=== PATIENT | female | born 1965 | race Caucasian/White ===

== ENCOUNTER 2016-10-16 06:40 | Day surgery (SDC) | payer OTHER ==
[~2016-10-16 06:40] MED LIST: HEPARIN SODIUM,PORCINE 5,000 UNIT/ML 1 ML VIAL SQ ONE; LACTATED RINGERS 1,000 ML IV SCH; ceFAZolin 2 GM in SODIUM CHLORIDE 0.9% 100 ML IVPB ONE
[2016-10-16 06:56] VITALS: TEMP 97.7
[2016-10-16] MEDS ORDERED: LIDOCAINE 1% 20 ML VIAL (10MG/ML) FOR IV START INTRADERMA ONE (07:06)
--- NOTE | 2016-10-16 07:44 | P.GSHP ---
History of Present Illness H&P Date: 10/16/16 Chief Complaint: Rectal bleeding Patient admitted today for Port-A-Cath removal and colostomy. She has had some recent rectal bleeding. She has not had a previous colonoscopy. She describes recently completed chemotherapy for breast cancer. She has been relatively noncompliant over the last few years with her breast cancer. Recent PET scan did reveal some uptake in the colon. Past Medical History Past Medical History: Cancer, COPD Additional Past Medical History / Comment(s): Breast cancer, alcoholism, common bile duct dilation and elevated liver function tests History of Any Multi-Drug Resistant Organisms: None Reported Past Surgical History: Appendectomy Additional Past Surgical History / Comment(s): breast reduction, left mastectomy with implant. CARPAL TUNNEL RELEASE, LEFT WRIST. Past Anesthesia/Blood Transfusion Reactions: No Reported Reaction Past Psychological History: Anxiety, Depression Smoking Status: Current every day smoker Past Alcohol Use History: Daily, Heavy Additional Past Alcohol Use History / Comment(s): HAS SMOKED SINCE 1981, 1PPD. HISTORY OF ALCOHOL ABUSE, STATES SHE HAS A COUPLE OF COCTAILS A DAY (HAS BEEN UP TO 1 pint per day IN THE PAST.) Past Drug Use History: Marijuana - Past Family History Father History Unknown: Yes Medications and Allergies Allergies Allergy/AdvReac Type Severity Reaction Status Date / Time No Known Allergies Allergy Verified 10/11/16 11:38 Surgical - Exam Vital Signs Temp Pulse Resp BP Pulse Ox 97.7 F 87 16 120/78 95 10/16/16 06:54 10/16/16 06:54 10/16/16 06:54 10/16/16 06:54 10/16/16 06:54 Physical exam: General: Well-developed, well-nourished HEENT: Normocephalic, sclerae nonicteric Abdomen: Nontender, nondistended Extremities: No edema Neuro: Alert and oriented Assessment and Plan (1) History of breast cancer in female Narrative/Plan: We'll proceed with Port-A-Cath removal and colonoscopy today. Risks of bleeding about perforation were discussed. Status: Acute
[2016-10-16] MEDS ORDERED: PROPOFOL 10 MG/ML 20 ML VIAL IV ONE (07:50)
[2016-10-16] MEDS ORDERED: fentaNYL (PF) 50 MCG/ML 2 ML AMP ONE (07:50)
[2016-10-16] MEDS ORDERED: MIDAZOLAM 2 MG/2 ML VIAL ONE (07:50)
[2016-10-16] MEDS ORDERED: LIDOCAINE (PF) 10 MG/ML 5ML AMP SQ ONE (08:16)
--- NOTE | 2016-10-16 08:39 | P.PCN ---
Date of Procedure: 10/16/16 Procedure(s) Performed: PREOPERATIVE DIAGNOSIS: Breast cancer, rectal bleeding POSTOPERATIVE DIAGNOSIS: Same PROCEDURE: Port-A-Cath removal, colonoscopy SURGEON: Devyn EBL: Minimal ANESTHESIA: Sedation COMPLICATIONS: None OPERATIVE PROCEDURE: Patient was placed in the supine position. The patient was sedated per anesthesia that time. The chest was prepped and draped in the usual sterile fashion. The skin was localized with Marcaine solution. The previous incision was re-incised using a scalpel. The port was easily excised using accommodation of blunt dissection sharp dissection and electrocautery. The subcutaneous tissues were reapproximated using 3-0 Vicryl sutures. The skin was reapproximated using 4-0 Monocryl sutures. Steri-Strips and sterile dressings were then applied. The patient was then placed on the endoscopy table in the left decubitus position. The Olympus colonoscope was inserted into the anus and passed under direct visualization to the base of the cecum. The appendiceal orifice was visualized. From that point the scope was slowly withdrawn inspecting all surfaces carefully. There were no neoplastic inflammatory or polypoid lesions throughout the cecum, ascending, transverse, descending, sigmoid and rectum. There was no diverticulosis noted. Overall the patient's prep was suboptimal. Digital rectal examination was normal. The patient was taken to the recovery room in stable condition per anesthesia guidelines. RECOMMENDATIONS: Resume diet. No visible evidence of neoplastic changes on endoscopy. Consider short-term follow-up because of the patient's suboptimal prep. DISPOSITION: Stable to recovery room
[2016-10-16 09:13] VITALS: RESP 18
[2016-10-16 09:17] VITALS: BP 103/58; PULSE 77
== END 2016-10-16 09:38 | disposition home or self-care (01) ==
LOC: ORWHC2ENDO 06:40
PROVIDERS: ATTEND Surgery
DX: K62.5 Hemorrhage of anus and rectum (principal); Z45.2 Encounter for adjustment and management of vascular access device; J44.9 Chronic obstructive pulmonary disease, unspecified; Z85.3 Personal history of malignant neoplasm of breast; F17.210 Nicotine dependence, cigarettes, uncomplicated
CPT/HCPCS: 45378; 36589; J2250; J1644; J0690; J2001; J3010; J2704; 99152; 99153

== ENCOUNTER → 2017-03-12 | Outpatient (CLI) | payer OTHER ==
[2017-03-12 14:28] LABS: CHCM 33.1; HCT 46.9 % (34.0-46.0); HGB 15.9 gm/dL (11.4-16.0); MCH 33.9 pg (25.0-35.0); MCHC 33.9 g/dL (31.0-37.0); MCV 99.9 fL (80.0-100.0); Macrocytosis Slight; Mean Platelet Volume 6.9; RBC 4.69 m/uL (3.80-5.40); RDW 14.5 % (11.5-15.5); WBC 6.3 k/uL (3.8-10.6)
[2017-03-12 14:38] LABS: INR 1.1 (<1.1); Prothrombin Time 11.5 sec (9.0-12.0)
[2017-03-12 14:43] LABS: ALT 96 U/L (9-52); AST 119 U/L (14-36); Alkaline Phosphatase 116 U/L (38-126); Anion Gap 13 mmol/L; Blood Urea Nitrogen 11 mg/dL (7-17); Calcium 9.7 mg/dL (8.4-10.2); Carbon Dioxide 27 mmol/L (22-30); Chloride 104 mmol/L (98-107); Glucose 104 mg/dL (74-99); Non-African American GFR(MDRD) >60 (>60 ml/min/1.73 sqM); Potassium 4.4 mmol/L (3.5-5.1); Sodium 144 mmol/L (137-145); Total Bilirubin 0.4 mg/dL (0.2-1.3); Total Protein 8.3 g/dL (6.3-8.2)
[2017-03-12 15:14] LABS: Hepatitis B Surface Ag Index 0.05
[2017-03-12 15:31] LABS: Hepatitis C Virus IgG Ab Negative (Negative); Hepatitis C Virus IgG Index 0.06
[2017-03-12 18:46] LABS: Iron 58 ug/dL (37-170)
[2017-03-12 18:56] LABS: % Iron Saturation 14.8 % (20-50); Total Iron Binding Capacity 392 ug/dL (265-497)
[2017-03-12 20:37] LABS: ANA w/Reflex to Titer NEGATIVE (NEGATIVE)
== END | disposition home or self-care (01) ==
LOC: LABWHC1 14:07
PROVIDERS: ATTEND Internal Medicine Gastroenterology
DX: K70.30 Alcoholic cirrhosis of liver without ascites (principal); R94.5 Abnormal results of liver function studies
CPT/HCPCS: 36415; 80053; 82103; 82105; 82390; 82728; 83516; 83540; 83550; 84165; 85027; 85610; 86038; 86803; 87340

== ENCOUNTER 2017-05-01 10:34 | Observation (INO) | payer OTHER ==
[2017-05-01] MEDS ORDERED: LORazepam 2 MG/ML SYRINGE IV PRN (13:05)
[2017-05-01] MEDS ORDERED: THIAMINE 100 MG/ML 2 ML VIAL IM STA (13:05)
[2017-05-01] MEDS ORDERED: LORazepam 2 MG/ML SYRINGE ONE (13:10)
[2017-05-01] MEDS ORDERED: DEXTROSE 5%-0.45% NACL 1,000 ML IV SCH (13:15)
[2017-05-01] MEDS: LORazepam 2 MG/ML SYRINGE IV PRN ×3 (13:17→20:33)
[2017-05-01 14:27] LABS: Appearance,Urine Clear (Clear); Bilirubin,Urine Negative (Negative); Glucose,Urine (UA) Negative (Negative); Ketones,Urine Negative (Negative); Leukocyte Esterase,Urine Negative (Negative); Nitrite,Urine Negative (Negative); Protein,Urine Negative (Negative); Specific Gravity,Urine 1.011 (1.001-1.035); UA Billing (MACRO vs. MICRO) CHEM; Urobilinogen,Urine <2.0 mg/dL (<2.0)
[2017-05-01] MEDS: IBUPROFEN 400 MG TAB PO PRN (15:45)
[2017-05-01 16:33] LABS: Basophils % (A) 0 %; CH 32.4; CHCM 34.4; Eosinophils # (A) 0.1 k/uL (0-0.7); Eosinophils % (A) 1 %; HCT 46.6 % (34.0-46.0); HDW 2.06; HGB 15.5 gm/dL (11.4-16.0); Luc # (Auto) 0.11; Luc % (Auto) 2; Lymphocytes # (A) 1.7 k/uL (1.0-4.8); Lymphocytes % (A) 23 %; MCH 31.6 pg (25.0-35.0); MCHC 33.3 g/dL (31.0-37.0); Mean Platelet Volume 7.9; Monocytes # (A) 0.4 k/uL (0-1.0); Monocytes % (A) 5 %; Neutrophils # (A) 5.2 k/uL (1.3-7.7); Neutrophils % (A) 70 %; RBC 4.92 m/uL (3.80-5.40); RDW 13.8 % (11.5-15.5); WBC 7.5 k/uL (3.8-10.6); WBC (Perox) 7.27
[2017-05-01 16:35] LABS: MCV 94.7 fL (80.0-100.0)
[2017-05-01 16:37] LABS: ALT 46 U/L (9-52); AST 40 U/L (14-36); Alcohol <10 mg/dL; Anion Gap 11 mmol/L; Blood Urea Nitrogen 6 mg/dL (7-17); Calcium 9.7 mg/dL (8.4-10.2); Carbon Dioxide 22 mmol/L (22-30); Chloride 101 mmol/L (98-107); GGT 279 U/L (12-43); Glucose 96 mg/dL (74-99); Magnesium 1.6 mg/dL (1.6-2.3); Non-African American GFR(MDRD) >60 (>60 ml/min/1.73 sqM); Phosphorous 3.2 mg/dL (2.5-4.5); Potassium 3.5 mmol/L (3.5-5.1); Sodium 134 mmol/L (137-145)
[2017-05-01] MEDS: THIAMINE 100 MG TAB PO SCH (18:00)
[2017-05-01] MEDS: SODIUM CHLORIDE 0.9% 1,000 ML IV SCH (18:00)
[2017-05-02] MEDS: LORazepam 2 MG/ML SYRINGE IV PRN ×6 (01:40→22:51)
[2017-05-02] MEDS: IBUPROFEN 400 MG TAB PO PRN ×3 (05:55→22:53)
[2017-05-02] MEDS: SODIUM CHLORIDE 0.9% 1,000 ML IV SCH ×2 (06:03→15:56)
[2017-05-02] MEDS: FLUoxetine HCL 10 MG CAP PO SCH (08:18)
[2017-05-02] MEDS: MULTIVITAMINS, THERA 1 EACH TAB PO SCH (11:38)
[2017-05-02] MEDS: THIAMINE 100 MG TAB PO SCH ×2 (11:38→17:35)
--- NOTE | 2017-05-02 12:01 | US ---
EXAMINATION TYPE: US abdomen limited DATE OF EXAM: 05/02/2017 COMPARISON: US 2016 CLINICAL HISTORY: liver enzyme elevation. EXAM MEASUREMENTS: Liver Length: 18.7 cm Gallbladder Wall: 0.3 cm CBD: 0.7 cm Right Kidney: 11.3 x 5.0 x 4.3 cm Pancreas: wnl Liver: Large in size, coarse texture Gallbladder: Large in size Evidence for sonographic Barajas's sign: No CBD: Large in size Right Kidney: wnl There is no ascites. IMPRESSION: Similar to previous exam, correlate for fatty infiltration of the liver, hepatocellular d isease. The liver is enlarged. Hydropic gallbladder. Borderline gallbladder wall thickness, correlate to exclude cholecystitis. Common bile duct is dilated similar to prior, consider gastroenterology co nsult.
--- NOTE | 2017-05-02 15:41 | P.PN ---
Subjective 51-year-old female who was a direct admit patient was requesting to undergo EtOH withdraw treatment. Patient states her last alcohol drink was the day before 10 AM. Patient has been initiated on CIWA protocol using Ativan IV fluid for rehydration has been initiated as well no obvious tremors noted the attending did discuss with the patient that she been another 24 hours before discharging home. Patient states she's feels a little anxious at times Objective - Vital Signs Vital signs: Vital Signs Temp 97.0 F L 05/02/17 15:00 Pulse 80 05/02/17 15:00 Resp 18 05/02/17 15:16 BP 119/74 05/02/17 15:00 Pulse Ox 96 05/02/17 15:00 Intake & Output 05/01/17 05/02/17 05/02/17 18:59 06:59 18:59 Intake Total 1400 Balance 1400 Weight 64.5 kg Intake: Intake, IV Titration 1400 Amount Sodium Chloride 0.9% 1, 1400 000 ml @ 100 mls/hr IV . Q10H [facility] Rx#:[id number] Other: Voiding Method Toilet # Voids 2 # Bowel Movements 1 - Exam Physical exam 51-year-old female sitting up in bed appears in no acute distress oriented 3 Lungs essentially clear adequate air movement on room air Heart S1-S2 audible regular Abdomen soft and not distended no nausea no vomiting Extremities no tremors noted no edema noted to the bilateral lower extreme - Labs CBC & Chem 7: 05/01/17 16:08 05/01/17 16:08 Labs: Abnormal Lab Results - Last 24 Hours (Table) 05/01/17 05/01/17 Range/Units 16:08 16:08 Hct 46.6 H (34.0-46.0) % Sodium 134 L (137-145) mmol/L BUN 6 L (7-17) mg/dL GGT 279 H (12-43) U/L AST 40 H (14-36) U/L Assessment and Plan Plan: Impression History of chronic alcoholism EtOH withdrawal Present on admission potassium 3.5 hypokalemia with the magnesium 1.6 magnesium Plan Continue with CIWA protocol for alcohol withdrawal Continue multivitamin IV fluid for hydration The above impression and plan of care have been discussed and directed by signing physician. Demi Maravilla nurse practitioner acting as scribe for signing physician.
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
--- NOTE | 2017-05-02 18:23 | P.CNNES ---
History of Present Illness Consult date: 05/02/17 Requesting physician: Matt Davila Reason for Consult: Lower extremity paresthesia History of Present Illness: Patient is a pleasant 51-year-old female who is being evaluated by the neurology service on 05/02/2017 per the request of Dr. Davila for lower extremity paresthesias. Patient was a direct admit to undergo EtOH withdrawal treatment. Patient does state she has a history of breast cancer and had undergone chemotherapy. Patient states her lower extremity paresthesias have been since chemotherapy 3 years ago. Patient was afebrile with blood pressure 125/74 and admission. Psychiatric consult was initiated. At the time of my evaluation, patient is resting comfortably in bed and appears to be in no acute distress. Review of Systems REVIEW OF SYSTEMS: Otherwise unremarkable and noncontributory. 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 CARPAL TUNNEL RELEASE, LEFT WRIST. Past Anesthesia/Blood Transfusion Reactions: No Reported Reaction Smoking Status: Current every day smoker - Past Family History Father History Unknown: Yes Additional Family Medical History / Comment(s): father is alive but does'nt know his med hx. Mother Family Medical History: Cancer Additional Family Medical History / Comment(s): from liver cancer Medications and Allergies Home Medications Medication Instructions Recorded Confirmed Type FLUoxetine HCL [PROzac] 10 mg PO DAILY 05/01/17 05/01/17 History Allergies Allergy/AdvReac Type Severity Reaction Status Date / Time No Known Allergies Allergy Verified 05/01/17 14:03 Physical Examination - Vital Signs Vital Signs: Vital Signs Temp Pulse Resp BP Pulse Ox 05/02/17 15:16 18 05/02/17 15:00 97.0 F L 80 20 119/74 96 05/02/17 07:00 97.6 F 64 18 110/72 94 L 05/01/17 23:00 98.4 F 67 16 125/74 96 05/01/17 20:00 18 Intake and Output 05/02/17 05/02/17 05/02/17 06:59 14:59 22:59 Intake Total 800 Balance 800 Intake: Intake, IV Titration 800 Amount Sodium Chloride 0.9% 1, 800 000 ml @ 100 mls/hr IV . Q10H [facility] Rx#:[id number] Other: # Voids 2 # Bowel Movements 1 PHYSICAL EXAM: GENERAL APPEARANCE: Patient is a well-developed, female who appears to be in no acute distress. HEENT: Normocephalic, atraumatic, no facial asymmetry is seen. Neck is supple with no masses felt. CARDIOVASCULAR: Regular rate and rhythm. ABDOMEN: Nontender, nondistended. EXTREMITIES: Show no edema or clubbing. NEUROLOGICAL EXAM: Patient is awake, alert, and oriented 3. Speech and language are normal. Strength is full in all 4 extremities. Sensory to light touch is normal in all 4 extremities. No facial asymmetry seen on cranial nerve testing. No tremors or seizure-like activity is noted. Results - Laboratory Findings CBC and BMP: 05/01/17 16:08 05/01/17 16:08 Abnormal Lab Findings: Abnormal Labs 05/01/17 05/01/17 16:08 16:08 Hct 46.6 H Sodium 134 L BUN 6 L GGT 279 H AST 40 H Assessment and Plan Plan: Impression: 1. Lower extremity paresthesias 2. History of alcohol abuse 3. History of breast cancer, status post chemotherapy Recommendations: Patient states she has had numbness and tingling of the feet ever since she underwent chemotherapy. 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 Patient also describes symptoms consistent with restless leg syndrome. Patient has no sensory deficit to light touch. She states she has difficulty sleeping due to pins and needles in her feet. We can do further evaluation in the outpatient clinic. She needs to undergo EMG of the lower extremities to evaluate for neuropathy versus radiculopathy. We discussed need for outpatient testing and possible neuropathic medication. She agrees to follow up as an outpatient. I will continue to follow with you on an as-needed basis. Feel free to call with any questions or concerns. Thank you for allowing me to participate in the care of your patient. Feel free to call with any questions or concerns. I performed an examination of the patient and discussed the management with the STEREO MAP PLOTTER OPERATOR. I have reviewed the STEREO MAP PLOTTER OPERATOR notes and agree with the findings and plan of care.
[2017-05-03] MEDS: SODIUM CHLORIDE 0.9% 1,000 ML IV SCH ×3 (03:23→17:32)
[2017-05-03] MEDS: LORazepam 2 MG/ML SYRINGE IV PRN ×4 (03:24→17:32)
[2017-05-03] MEDS: IBUPROFEN 400 MG TAB PO PRN ×2 (08:33→17:32)
[2017-05-03] MEDS: FLUoxetine HCL 10 MG CAP PO SCH (08:34)
[2017-05-03] MEDS: THIAMINE 100 MG TAB PO SCH ×2 (12:28→17:42)
[2017-05-03] MEDS: MULTIVITAMINS, THERA 1 EACH TAB PO SCH (13:12)
[2017-05-04] MEDS: IBUPROFEN 400 MG TAB PO PRN ×2 (00:58→08:34)
[2017-05-04] MEDS: SODIUM CHLORIDE 0.9% 1,000 ML IV SCH (05:14)
[2017-05-04 07:27] VITALS: BP 108/63; PULSE 74; RESP 16; TEMP 97
[2017-05-04] MEDS: FLUoxetine HCL 10 MG CAP PO SCH (08:34)
[2017-05-04] MEDS: THIAMINE 100 MG TAB PO SCH (11:31)
[2017-05-04] MEDS: MULTIVITAMINS, THERA 1 EACH TAB PO SCH (11:31)
--- NOTE | 2017-05-04 12:13 | P.GSCN ---
History of Present Illness Consult date: 05/04/17 Reason for Consult: Breast implant scarring History of present illness: The patient is admitted to Dr. Matt Talamantes service for acute alcohol withdrawal. Patient had a previous history of mastectomy present 7 years ago. She has a left implant which has some scarring and contracture around it. The patient wished to have her implant removed. 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 CARPAL TUNNEL RELEASE, LEFT WRIST. Past Anesthesia/Blood Transfusion Reactions: No Reported Reaction Smoking Status: Current every day smoker - Past Family History Father History Unknown: Yes Additional Family Medical History / Comment(s): father is alive but does'nt know his med hx. Mother Family Medical History: Cancer Additional Family Medical History / Comment(s): from liver cancer Medications and Allergies Home Medications Medication Instructions Recorded Confirmed Type FLUoxetine HCL [PROzac] 10 mg PO DAILY 05/01/17 05/01/17 History Allergies Allergy/AdvReac Type Severity Reaction Status Date / Time No Known Allergies Allergy Verified 05/01/17 14:03 Surgical - Exam Vital Signs Temp Pulse Resp BP Pulse Ox 97.0 F L 79 20 127/88 92 L 05/01/17 12:22 05/01/17 12:22 05/01/17 12:22 05/01/17 12:22 05/01/17 12:22 - General well developed, no distress - Eyes PERRL - ENT normal pinna - Neck no masses - Respiratory normal expansion - Cardiovascular Rhythm: regular - Abdomen Abdomen: soft, non tender History of previous left mastectomy with subcutaneous implant. There is no evidence of infection of the implant however there is some scarring of the implant. The implant is riding quite high. Patient's right breast appears to have undergone a previous reduction. The nipple complex is missing. Results - Labs 05/01/17 16:08 05/01/17 16:08 Assessment and Plan Plan: History of breast cancer with breast implant scarring. The patient will follow- up in the office as an outpatient. I discussed through that she may want to see a plastic surgeon for possible removal of her implant with a smaller implant as well as adding an implant to her right chest.
--- NOTE | 2017-05-04 12:59 | PN ---
SUBJECTIVE: 51-year-old white female with alcohol withdrawal. She is getting IV Ativan with CIWA protocol, Prozac for depression. She wants some medication given [employer] customer service for alcohol withdrawal. It appears like she has got chronic alcoholism with severe depression and does not really want to quit drinking alcohol. No evidence of depression, bipolar or ADHD per neurology. Recommend [facility] for alcohol rehab and follow up with [facility] as an outpatient. VITAL SIGNS: Stable, afebrile. CARDIOVASCULAR: S1/S2. LUNGS: Transmitted upper airway sounds. HEMATOLOGY: Negative Homans. PSYCH: Fair mood and affect. PLAN: Alcohol withdrawal, continue with CIWA protocol, continue with Prozac. As mentioned, as an outpatient at home follow with [facility] or [facility] tomorrow on discharge home ALFONSO
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
== END 2017-05-04 13:58 | disposition home or self-care (01) ==
LOC: 4MS4W 12:05
PROVIDERS: ADMIT Family Medicine; ATTEND Family Medicine
DX: F10.239 Alcohol dependence with withdrawal, unspecified (principal); E87.6 Hypokalemia; R20.2 Paresthesia of skin; Z92.21 Personal history of antineoplastic chemotherapy; Z85.3 Personal history of malignant neoplasm of breast; J44.9 Chronic obstructive pulmonary disease, unspecified; F17.200 Nicotine dependence, unspecified, uncomplicated; Z79.899 Other long term (current) drug therapy; Z80.0 Family history of malignant neoplasm of digestive organs; R20.0 Anesthesia of skin; F32.9 Major depressive disorder, single episode, unspecified; K70.10 Alcoholic hepatitis without ascites; F12.90 Cannabis use, unspecified, uncomplicated; Z98.82 Breast implant status; L90.5 Scar conditions and fibrosis of skin; Z90.10 Acquired absence of unspecified breast and nipple
CPT/HCPCS: 96376 ×3; 96361 ×2; 96372; 96374; 80048; 82977; 83735; 84100; 84450; 84460; 85025; 81003; 80306; 80320; 76705; G0379; G0378 ×4; J2060 ×3; J3411

== ENCOUNTER → 2017-06-02 | Outpatient (CLI) | payer OTHER ==
--- NOTE | 2017-06-02 11:40 | XR ---
EXAMINATION TYPE: XR wrist complete LT DATE OF EXAM: 06/02/2017 COMPARISON: NONE HISTORY: Left wrist pain since falling TECHNIQUE: 4 view left wrist FINDINGS: Acute displaced fracture is not identified. There appears be an old fracture of the ulnar s tyloid with smooth cortical margins. This appears to be a nonunion. An old distal radial fracture is not excluded. Soft tissues appear within normal limits Follow-up study can be performed 7-10 days from acute trauma for continued pain. Nuclear medicine bon e scan could be performed for pain at the anatomic snuff box. IMPRESSION: 1. 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 2. Possible old radial metaphyseal fracture. 3. No acute osseous abnormality.
--- NOTE | 2017-06-02 11:43 | XR ---
EXAMINATION TYPE: XR ribs LT DATE OF EXAM: 06/02/2017 COMPARISON: NONE HISTORY: Fall, pain TECHNIQUE: Two-view left RIBS FINDINGS: Subtle inferior lateral 8th rib fracture may be present. This appears nondisplaced. Superio r cortical margin disruption however is not identified. No additional areas suspicious for left rib f ractures evident. IMPRESSION: 1. Possible nondisplaced eighth rib fracture.
== END ==
LOC: RADXRMAIN 10:41
PROVIDERS: ATTEND Family Medicine
DX: M25.532 Pain in left wrist (principal)

== ENCOUNTER 2017-11-09 11:05 | Inpatient (IN) | payer OTHER ==
[2017-11-09] MEDS ORDERED: SODIUM CHLORIDE 0.9% 1,000 ML IV STA (11:49)
[2017-11-09] MEDS ORDERED: ONDANSETRON 4 MG/2 ML VIAL IVP STA ×2 (11:49→14:16)
--- NOTE | 2017-11-09 11:52 | ED ---
General Adult HPI - General Chief complaint: Nausea/Vomiting/Diarrhea Stated complaint: Flu Time Seen by Provider: 11/09/17 11:46 Source: patient, family, RN notes reviewed Mode of arrival: wheelchair Limitations: no limitations - History of Present Illness Initial comments: Patient 52-year-old female who presents emergency room today with chief complaint of symptoms of nausea vomiting diarrhea over the last 2 days. Patient does admit that she was unsure if it was food poisoning as had similar symptoms but his have improved. She states she still having multiple episodes of vomiting and diarrhea. Denies any signs blood. Does admit to abdominal pain crampy in nature the right side of the abdomen. Patient does admit to being a daily drinker. Denies any other complaints or symptoms. Patient denies any recent fever, chills, shortness of breath, chest pain, back pain, numbness or tingling, dysuria or hematuria, headaches or visual changes, or any other complaints. - Related Data Home Medications Medication Instructions Recorded Confirmed FLUoxetine HCL [PROzac] 10 mg PO DAILY 05/01/17 05/01/17 Allergies Allergy/AdvReac Type Severity Reaction Status Date / Time No Known Allergies Allergy Verified 11/09/17 11:09 Review of Systems ROS Statement: Those systems with pertinent positive or pertinent negative responses have been documented in the HPI. ROS Other: All systems not noted in ROS Statement are negative. 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 CARPAL TUNNEL RELEASE, LEFT WRIST. Past Anesthesia/Blood Transfusion Reactions: No Reported Reaction Past Psychological History: Anxiety, Depression Smoking Status: Current every day smoker Past Alcohol Use History: Abuse, Daily, Heavy Past Drug Use History: None Reported - Past Family History Father History Unknown: Yes Additional Family Medical History / Comment(s): father is alive but does'nt know his med hx. Mother Family Medical History: Cancer Additional Family Medical History / Comment(s): from liver cancer General Exam - General Exam Comments Initial Comments: General: The patient is awake and alert, in no distress, and does not appear acutely ill. Eye: Pupils are equal, round and reactive to light, extra-ocular movements are intact. No nystagmus. There is normal conjunctiva bilaterally. No signs of icterus. Ears, nose, mouth and throat: There are moist mucous membranes and no oral lesions. Neck: The neck is supple, there is no tenderness or JVD. Cardiovascular: There is a regular rate and rhythm. No murmur, rub or gallop is appreciated. Respiratory: Lungs are clear to auscultation, respirations are non-labored, breath sounds are equal. No wheezes, stridor, rales, or rhonchi. Gastrointestinal: Abdomen soft on palpation. Does have mild tenderness right upper quadrant. No rebound tenderness. No guarding. No CVA tenderness. Musculoskeletal: Normal ROM, no tenderness. Strength 5/5. Sensation intact. Pulses equal bilaterally 2+. Neurological: A&O x 3. CN II-XII intact, There are no obvious motor or sensory deficits. Coordination appears grossly intact. Speech is normal. Skin: Skin is warm and dry and no rashes or lesions are noted. Psychiatric: Cooperative, appropriate mood & affect, normal judgment. Limitations: no limitations Course Vital Signs 11/09/17 11:06 Temperature 97.7 F Pulse Rate 82 Respiratory 20 Rate Blood Pressure 117/72 O2 Sat by Pulse 100 Oximetry Medical Decision Making - Lab Data Result diagrams: 11/09/17 11:52 11/09/17 11:52 Lab Results 11/09/17 11/09/17 11/09/17 Range/Units 11:52 11:52 12:54 WBC 7.0 (3.8-10.6) k/uL RBC 5.39 (3.80-5.40) m/uL Hgb 16.2 H (11.4-16.0) gm/dL Hct 48.3 H (34.0-46.0) % MCV 89.5 (80.0-100.0) fL MCH 30.0 (25.0-35.0) pg MCHC 33.5 (31.0-37.0) g/dL RDW 14.7 (11.5-15.5) % Plt Count 340 (150-450) k/uL Neutrophils % 77 % Lymphocytes % 16 % Monocytes % 4 % Eosinophils % 0 % Basophils % 1 % Neutrophils # 5.4 (1.3-7.7) k/uL Lymphocytes # 1.1 (1.0-4.8) k/uL Monocytes # 0.3 (0-1.0) k/uL Eosinophils # 0.0 (0-0.7) k/uL Basophils # 0.1 (0-0.2) k/uL Sodium 135 L (137-145) mmol/L Potassium 4.1 (3.5-5.1) mmol/L Chloride 97 L (98-107) mmol/L Carbon Dioxide 21 L (22-30) mmol/L Anion Gap 17 mmol/L BUN 17 (7-17) mg/dL Creatinine 0.56 (0.52-1.04) mg/dL Est GFR (MDRD) Af Amer >60 (>60 ml/min/1.73 sqM) Est GFR (MDRD) Non-Af >60 (>60 ml/min/1.73 sqM) Glucose 166 H (74-99) mg/dL Calcium 10.4 H (8.4-10.2) mg/dL Total Bilirubin 1.7 H (0.2-1.3) mg/dL AST 339 H (14-36) U/L ALT 167 H (9-52) U/L Alkaline Phosphatase 126 (38-126) U/L Total Protein 8.7 H (6.3-8.2) g/dL Albumin 4.7 (3.5-5.0) g/dL Amylase 52 (30-110) U/L Lipase 100 (23-300) U/L Urine Color Yellow Urine Appearance Cloudy H (Clear) Urine pH 5.5 (5.0-8.0) Ur Specific Felda 1.024 (1.001-1.035) Urine Protein 1+ H (Negative) Urine Glucose (UA) Negative (Negative) Urine Ketones Negative (Negative) Urine Blood Negative (Negative) Urine Nitrite Negative (Negative) Urine Bilirubin Negative (Negative) Urine Urobilinogen 2.0 (<2.0) mg/dL Ur Leukocyte Esterase Trace H (Negative) Urine RBC 2 (0-5) /hpf Urine WBC 3 (0-5) /hpf Ur Squamous Epith Cells 13 H (0-4) /hpf Urine Bacteria Rare H (None) /hpf Hyaline Casts 3 H (0-2) /lpf Urine Mucus Few H (None) /hpf Disposition Clinical Impression: Alcohol withdrawal, Right upper quadrant abdominal pain, Nausea vomiting and diarrhea Disposition: ADMITTED IP TO THIS HOSP Referrals: Matt Davila MD [Primary Care Provider] - 1-2 days Time of Disposition: 13:27
[2017-11-09 12:01] LABS: Basophils # (A) 0.1 k/uL (0-0.2); Basophils % (A) 1 %; Eosinophils % (A) 0 %; HCT 48.3 % (34.0-46.0); HGB 16.2 gm/dL (11.4-16.0); Lymphocytes # (A) 1.1 k/uL (1.0-4.8); Lymphocytes % (A) 16 %; MCHC 33.5 g/dL (31.0-37.0); MCV 89.5 fL (80.0-100.0); Monocytes # (A) 0.3 k/uL (0-1.0); Monocytes % (A) 4 %; Neutrophils # (A) 5.4 k/uL (1.3-7.7); Neutrophils % (A) 77 %; Platelet Count 340 k/uL (150-450); RBC 5.39 m/uL (3.80-5.40); RDW 14.7 % (11.5-15.5)
[2017-11-09 12:12] LABS: ALT 167 U/L (9-52); AST 339 U/L (14-36); Albumin 4.7 g/dL (3.5-5.0); Alkaline Phosphatase 126 U/L (38-126); Amylase 52 U/L (30-110); Anion Gap 17 mmol/L; Blood Urea Nitrogen 17 mg/dL (7-17); Calcium 10.4 mg/dL (8.4-10.2); Carbon Dioxide 21 mmol/L (22-30); Chloride 97 mmol/L (98-107); Glucose 166 mg/dL (74-99); Lipase 100 U/L (23-300); Potassium 4.1 mmol/L (3.5-5.1); Sodium 135 mmol/L (137-145); Total Bilirubin 1.7 mg/dL (0.2-1.3); Total Protein 8.7 g/dL (6.3-8.2)
--- NOTE | 2017-11-09 12:58 | US ---
EXAMINATION TYPE: US abdomen limited DATE OF EXAM: 11/09/2017 COMPARISON: EXAMINATION TYPE: US abdomen limited DATE OF EXAM: 11/09/2017 COMPARISON: Previous study dated 05/02/2017 CLINICAL HISTORY: ETOH Abuse, RUQ pain and anterior right foot pain with nausea and vomiting since Fr iday. EXAM MEASUREMENTS: Liver Length: 20.2 cm Gallbladder Wall: 0.2 cm CBD: 0.6 cm Right Kidney: 11.0 x 3.6 x 3.8 cm Limited due to bowel gas. Pancreas: wnl Liver: Increased attenuation; hepatomegaly Gallbladder: wnl Evidence for sonographic Barajas's sign: No CBD: wnl Right Kidney: wnl Limited views of the pancreas are unremarkable. The liver is prominent measuring 20 cm. It is echogenic and likely fatty infiltrated. The gallbladder is unremarkable without cholelithiasis. The gallbladder wall measures 2 mm. The dista l common hepatic duct measures 6 mm. There is no sonographic Barajas's sign. The right kidney is unremarkable. IMPRESSION: HEPATOMEGALY AND FATTY INFILTRATION OF THE LIVER.
[2017-11-09] MEDS ORDERED: HYDROmorphone 0.5 MG/0.5 ML SYRINGE IVP STA (13:00)
--- NOTE | 2017-11-09 13:07 | XR ---
EXAMINATION TYPE: XR KUB , 2 VIEWS DATE OF EXAM ORDERED: 11/09/2017 HISTORY: abdominal pain. COMPARISON: None. FINDINGS: The lung bases are clear. Within the abdomen, the abdominal gas pattern is within normal limits. There is no evidence of obstru ction or free air. There are scattered air-fluid levels present. There are are phleboliths in the pel vis. IMPRESSION: FINDINGS CONSISTENT WITH EARLY ILEUS.
[2017-11-09 13:13] LABS: Appearance,Urine Cloudy (Clear); Bacteria,Urine Rare /hpf; Bilirubin,Urine Negative (Negative); Blood,Urine Negative (Negative); Color,Urine Yellow; Glucose,Urine (UA) Negative (Negative); Hyaline Casts,Urine 3 /lpf (0-2); Ketones,Urine Negative (Negative); Leukocyte Esterase,Urine Trace (Negative); Mucus,Urine Few /hpf; Nitrite,Urine Negative (Negative); PH, Urine 5.5 (5.0-8.0); Protein,Urine 1+ (Negative); RBC,Urine 2 /hpf (0-5); Specific Gravity,Urine 1.024 (1.001-1.035); Squamous Epithelial Cell,Urine 13 /hpf (0-4); WBC,Urine 3 /hpf (0-5)
[2017-11-09] MEDS ORDERED: LORazepam 2 MG/ML INJ IV PRN ×2 (13:23)
[2017-11-09] MEDS ORDERED: THIAMINE 100 MG/ML 2 ML VIAL IM STA (13:23)
[2017-11-09] MEDS ORDERED: NALOXONE 0.4 MG/ML 1 ML VIAL IV PRN (13:28)
[2017-11-09] MEDS: ONDANSETRON 4 MG/2 ML VIAL IVP PRN (14:13)
[2017-11-09] MEDS ORDERED: LORazepam 2 MG/ML INJ IV STA (14:16)
[2017-11-09 16:53] LABS: Hepatitis B Core IgM Non-Reactive (Non-Reactive)
[2017-11-09 16:54] LABS: Hepatitis A Antibody IgM Non-Reactive (Non-Reactive)
[2017-11-09] MEDS: LORazepam 2 MG/ML INJ IV PRN ×2 (17:25→22:06)
[2017-11-09] MEDS: THIAMINE 100 MG TAB PO SCH (17:26)
[2017-11-09] MEDS: HYDROmorphone 0.5 MG/0.5 ML SYRINGE IVP PRN ×2 (17:29→23:08)
[2017-11-09] MEDS ORDERED: VIVITROL INJ SCH (17:30)
--- NOTE | 2017-11-09 17:51 | HP ---
HISTORY AND PHYSICAL CHIEF COMPLAINT: A 52-year-old white female with nausea, vomiting, diarrhea. HISTORY OF PRESENT ILLNESS: This is a 52-year-old white female who had has nausea, vomiting, diarrhea for the past 2 days. symptoms but has improved. She was having multiple episodes of vomiting, diarrhea. Denies any signs of blood, crampy in nature, right side of the abdomen and she is a daily drinker. No fever, chills. No dysuria, frequency, urgency or hesitancy, visual changes. HOME MEDICATIONS: Fluoxetine 10 mg daily. ALLERGIES: No known drug allergies. REVIEW OF SYSTEMS: Fourteen point review of systems negative except for chronic alcoholism despite multiple rehab stents. 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 SURGERIES: Appendectomy and carpal tunnel release. She has history of anxiety and depression. SOCIAL HISTORY: Current everyday smoker. Heavy alcohol abuse. Father is alive. She does not know what he has wrong with him. Mother has liver cancer. PHYSICAL EXAMINATION: This is an overweight white female. Psych: Fair mood and affect. Alert and orient x3. Ophthalmological: Pupils equal, round, and reactive to light and accommodation. Skin is dry skin turgor. No rash or excoriations improving. Cardiovascular regular rate and rhythm. Lungs are clear. GI is soft. Mild tenderness, right upper quadrant. No rebound tenderness or CVA tenderness. Musculoskeletal: Normal range of motion. Nontender. Neurologic: Cranial nerves are intact. Skin warm, dry. Temp 97, blood pressure 117/72, O2 100%, pulse 82, respirations 18-20. Liver enzymes are high with total bilirubin 1.7. Sodium 135, potassium 4.1, AST 339, ALT 167, total protein 8.7. ASSESSMENT: 1. Alcohol withdrawal right upper quadrant abdominal pain, nausea, vomiting, diarrhea, suspect alcohol withdrawal. 2. Rule out viral syndrome versus infectious diarrhea. MMODL / IJN: [id number] /
[2017-11-09 18:28] VITALS: BMI 31.2
--- NOTE | 2017-11-09 20:57 | XR ---
EXAMINATION TYPE: XR foot complete RT DATE OF EXAM: 11/09/2017 COMPARISON: NONE HISTORY: Pain TECHNIQUE: 3 views FINDINGS: There is a comminuted fracture of the distal shaft of the fifth metatarsal. There is no sig nificant displacement. Joint spaces are normal. There is a small plantar calcaneal spur. IMPRESSION: Nondisplaced comminuted fifth metatarsal fracture.
[2017-11-09] MEDS: PANTOPRAZOLE 40 MG/10 ML VIAL IVP SCH (21:13)
[2017-11-09] MEDS: SODIUM CHLORIDE 0.9% 1,000 ML IV SCH (21:13)
[2017-11-09] MEDS: NICOTINE 21MG/24HR PATCH TRANSDERM SCH (21:13)
[2017-11-09] MEDS: PREGABALIN 50 MG CAP PO SCH (21:14)
[2017-11-09] MEDS: Brexpiprazole [Rexulti] 1 MG PO SCH (22:05)
[2017-11-10] MEDS: ONDANSETRON 4 MG/2 ML VIAL IVP PRN ×2 (02:23→13:26)
[2017-11-10] MEDS: HYDROmorphone 0.5 MG/0.5 ML SYRINGE IVP PRN ×2 (03:40→13:26)
[2017-11-10] MEDS: LORazepam 2 MG/ML INJ IV PRN ×2 (05:00→15:51)
--- NOTE | 2017-11-10 05:44 | P.GSCN ---
History of Present Illness Consult date: 11/09/17 Reason for Consult: Abdominal pain History of present illness: CHIEF COMPLAINT: Abdominal pain HISTORY OF PRESENT ILLNESS: The patient is a 52-year-old female who comes in with abdominal pain of the upper abdomen for 2 days. She suspects this was a stomach flu as she had exposure to sick contacts. She reports having chronic retching which then exacerbated her abdominal pain. She comes in with elevated liver enzymes. She has a past history of elevated liver enzymes as well as similar abdominal pain however without the length of discomfort. Since admission, she has been tolerating clear liquids. No reports of blood in her stools. No reports of jaundice. She also completed an ultrasound which is negative for gallstones. She reports eating 48 hours ago at [employer] with a cold cut sub with cheese that progressed her pain. Gen. surgery is consulted for her abdominal pain. She also reports drinking moderate amount of alcohol over the weekend PAST MEDICAL HISTORY: See list. PAST SURGICAL HISTORY: See list. MEDICATIONS: See list. ALLERGIES: See list. SOCIAL HISTORY: Alcohol abuse. FAMILY HISTORY: Significant for cancer REVIEW OF ORGAN SYSTEMS: CONSTITUTIONAL: No fevers or chills. HEENT: No troubles with vision or hearing. No reports of dysphagia. ENDOCRINE: No reports of thyroid disorders. No diabetes. CARDIOVASCULAR: No recent myocardial infarction or congestive heart failure. RESPIRATORY: No history of asthma. No pneumonia. GASTROINTESTINAL: No reports of recent blood in stools. . Has history of elevated liver enzymes. NEURO: No reports of stroke or seizure disorders. PSYCH: Has depression. No suicidal ideation. HEMATOLOGIC: No blood thinners. LYMPHATIC: The patient denies any lumps and bumps around the neck. GENITOURINARY: Denies any blood in urine or increased urinary frequency. MUSCULOSKELETAL: Has back pain, stiffness or joint arthritis. PHYSICAL EXAM: VITAL SIGNS: Currently stable. GENERAL: Well-developed and in no acute distress. HEENT: No sclera icterus. Extraocular movements grossly intact. Moist buccal mucosa. Head is atraumatic, normocephalic. Hears conversational speech. No nasal drainage. NECK: Supple without lymphadenopathy. CHEST: Non-labored respirations and equal bilateral excursions. CARDIOVASCULAR: Regular rate with regular rhythm. Palpable 2+ radial pulses. ABDOMEN: Soft. Nondistended. Right upper quadrant discomfort without peritonitis. MUSCULOSKELETAL: No clubbing, cyanosis or edema. NEUROLOGIC: No focal or lateralizing signs. Cranial nerves II through XII grossly intact. PSYCH: Appropriate affect. Alert and oriented to person, place and time. LABS: Reviewed. STUDIES: Ultrasound of the abdomen. ASSESSMENT: 1. Right upper quadrant abdominal pain. 2. Intractable nausea and vomiting. 3. Alcoholism. 4. Elevated AST, ALT, alkaline phosphatase. PLAN: 1. Her history is highly suspicious for alcoholism. Hepatitis cannot be excluded. 2. Also recommend HIDA scan. 3. She has an appetite for which low-fat diet is advised. Thank you for this kind consultation. 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 CARPAL TUNNEL RELEASE, LEFT WRIST. Past Anesthesia/Blood Transfusion Reactions: No Reported Reaction Past Psychological History: Anxiety, Depression Additional Psychological History / Comment(s): pt stated she lives alone in a 2 story home that has 4-5 steps. pets: 1 cat 1 dog. does'nt work. Smoking Status: Current every day smoker Past Alcohol Use History: Abuse, Daily, Heavy Additional Past Alcohol Use History / Comment(s): HAS SMOKED SINCE 1981, 1PPD. admits to drinking at least a pint a day. Past Drug Use History: None Reported - Past Family History Father History Unknown: Yes Additional Family Medical History / Comment(s): father is alive but does'nt know his med hx. Mother Family Medical History: Cancer Additional Family Medical History / Comment(s): from liver cancer Medications and Allergies Home Medications Medication Instructions Recorded Confirmed Type Anastrozole [Arimidex] 1 mg PO DAILY 11/09/17 11/09/17 History Brexpiprazole [Rexulti] 1 mg PO HS 11/09/17 11/09/17 History Multivitamins, Thera [Multivitamin 1 tab PO DAILY 11/09/17 11/09/17 History (formulary)] Pregabalin [Lyrica] 50 mg PO HS 11/09/17 11/09/17 History Venlafaxine HCl [Effexor XR] 225 mg PO DAILY 11/09/17 11/09/17 History Vivitrol 1 injection INJ Q28D 11/09/17 11/09/17 History Allergies Allergy/AdvReac Type Severity Reaction Status Date / Time No Known Allergies Allergy Verified 11/09/17 13:55 Surgical - Exam Vital Signs Temp Pulse Resp BP Pulse Ox 97.7 F 82 20 117/72 100 11/09/17 11:06 11/09/17 11:06 11/09/17 11:06 11/09/17 11:06 11/09/17 11:06 Results - Labs 11/09/17 11:52 11/09/17 11:52 Abnormal Lab Results - Last 24 Hours (Table) 11/09/17 11/09/17 11/09/17 Range/Units 11:52 11:52 12:54 Hgb 16.2 H (11.4-16.0) gm/dL Hct 48.3 H (34.0-46.0) % Sodium 135 L (137-145) mmol/L Chloride 97 L (98-107) mmol/L Carbon Dioxide 21 L (22-30) mmol/L Glucose 166 H (74-99) mg/dL Calcium 10.4 H (8.4-10.2) mg/dL Total Bilirubin 1.7 H (0.2-1.3) mg/dL AST 339 H (14-36) U/L ALT 167 H (9-52) U/L Total Protein 8.7 H (6.3-8.2) g/dL Urine Appearance Cloudy H (Clear) Urine Protein 1+ H (Negative) Ur Leukocyte Esterase Trace H (Negative) Ur Squamous Epith Cells 13 H (0-4) /hpf Urine Bacteria Rare H (None) /hpf Hyaline Casts 3 H (0-2) /lpf Urine Mucus Few H (None) /hpf Diabetes panel 11/09/17 Range/Units 11:52 Sodium 135 L (137-145) mmol/L Potassium 4.1 (3.5-5.1) mmol/L Chloride 97 L (98-107) mmol/L Carbon Dioxide 21 L (22-30) mmol/L BUN 17 (7-17) mg/dL Creatinine 0.56 (0.52-1.04) mg/dL Glucose 166 H (74-99) mg/dL Calcium 10.4 H (8.4-10.2) mg/dL AST 339 H (14-36) U/L ALT 167 H (9-52) U/L Alkaline Phosphatase 126 (38-126) U/L Total Protein 8.7 H (6.3-8.2) g/dL Albumin 4.7 (3.5-5.0) g/dL Calcium panel 11/09/17 Range/Units 11:52 Calcium 10.4 H (8.4-10.2) mg/dL Albumin 4.7 (3.5-5.0) g/dL Pituitary panel 11/09/17 Range/Units 11:52 Sodium 135 L (137-145) mmol/L Potassium 4.1 (3.5-5.1) mmol/L Chloride 97 L (98-107) mmol/L Carbon Dioxide 21 L (22-30) mmol/L BUN 17 (7-17) mg/dL Creatinine 0.56 (0.52-1.04) mg/dL Glucose 166 H (74-99) mg/dL Calcium 10.4 H (8.4-10.2) mg/dL Adrenal panel 11/09/17 Range/Units 11:52 Sodium 135 L (137-145) mmol/L Potassium 4.1 (3.5-5.1) mmol/L Chloride 97 L (98-107) mmol/L Carbon Dioxide 21 L (22-30) mmol/L BUN 17 (7-17) mg/dL Creatinine 0.56 (0.52-1.04) mg/dL Glucose 166 H (74-99) mg/dL Calcium 10.4 H (8.4-10.2) mg/dL Total Bilirubin 1.7 H (0.2-1.3) mg/dL AST 339 H (14-36) U/L ALT 167 H (9-52) U/L Alkaline Phosphatase 126 (38-126) U/L Total Protein 8.7 H (6.3-8.2) g/dL Albumin 4.7 (3.5-5.0) g/dL - Imaging US - abdomen: report reviewed, image reviewed (No evidence of gallstones.) Assessment and Plan (1) Nausea vomiting and diarrhea Current Visit: Yes Status: Acute Code(s): R11.2 - NAUSEA WITH VOMITING, UNSPECIFIED; R19.7 - DIARRHEA, UNSPECIFIED SNOMED Code(s): 1093259 (2) Right upper quadrant abdominal pain Current Visit: Yes Status: Acute Code(s): R10.11 - RIGHT UPPER QUADRANT PAIN SNOMED Code(s): 631671956 (3) Alcoholic hepatitis without ascites Current Visit: No Status: Acute Code(s): K70.10 - ALCOHOLIC HEPATITIS WITHOUT ASCITES SNOMED Code(s): 495394247 (4) Alcoholic intoxication Current Visit: No Status: Acute Code(s): F10.129 - ALCOHOL ABUSE WITH INTOXICATION, UNSPECIFIED SNOMED Code(s): 27977939 (5) Alcoholism Current Visit: No Status: Acute Code(s): F10.20 - ALCOHOL DEPENDENCE, UNCOMPLICATED SNOMED Code(s): 5558558 (6) Elevated liver function tests Current Visit: No Status: Acute Code(s): R79.89 - OTHER SPECIFIED ABNORMAL FINDINGS OF BLOOD CHEMISTRY SNOMED Code(s): 503827768
[2017-11-10 08:26] LABS: Basophils % (A) 1 %; Eosinophils # (A) 0.1 k/uL (0-0.7); Eosinophils % (A) 2 %; HCT 45.4 % (34.0-46.0); HGB 14.7 gm/dL (11.4-16.0); Lymphocytes # (A) 1.5 k/uL (1.0-4.8); Lymphocytes % (A) 25 %; MCHC 32.3 g/dL (31.0-37.0); MCV 92.7 fL (80.0-100.0); Mean Platelet Volume 7.4; Monocytes # (A) 0.3 k/uL (0-1.0); Monocytes % (A) 6 %; Neutrophils # (A) 3.8 k/uL (1.3-7.7); Neutrophils % (A) 65 %; Platelet Count 252 k/uL (150-450); RDW 14.7 % (11.5-15.5); WBC 5.9 k/uL (3.8-10.6)
[2017-11-10] MEDS: ANASTROZOLE 1 MG TAB PO SCH (08:28)
[2017-11-10] MEDS: PANTOPRAZOLE 40 MG/10 ML VIAL IVP SCH (08:28)
[2017-11-10] MEDS: VENLAFAXINE HCL ER 75 MG CAP PO SCH (08:28)
[2017-11-10] MEDS: NICOTINE 21MG/24HR PATCH TRANSDERM SCH (08:29)
[2017-11-10 08:38] LABS: ALT 159 U/L (9-52); AST 277 U/L (14-36); Albumin 3.9 g/dL (3.5-5.0); Alkaline Phosphatase 109 U/L (38-126); Anion Gap 11 mmol/L; Blood Urea Nitrogen 9 mg/dL (7-17); Calcium 9.5 mg/dL (8.4-10.2); Carbon Dioxide 26 mmol/L (22-30); Chloride 99 mmol/L (98-107); Glucose 87 mg/dL (74-99); Potassium 3.7 mmol/L (3.5-5.1); Sodium 136 mmol/L (137-145); Total Bilirubin 2.6 mg/dL (0.2-1.3); Total Protein 7.4 g/dL (6.3-8.2)
--- NOTE | 2017-11-10 09:56 | P.PN ---
<TaiwoDemi M - Last Filed: 11/10/17 13:55> Subjective Progress Note Date: 11/10/17 52-year-old female being seen by surgical service at the request of the attending for right upper quadrant abdominal pain. Patient gives a a history of having upper right abdominal discomfort onset 48 hours prior to coming into the emergency room. Patient stated she was not able to tolerate any liquids. Patient also reports drinking a moderate amount of alcohol prior to presenting to the emergency room reports daily consumption alcohol It was noted that the patient's liver enzymes were elevated. did undergo an ultrasound of the abdomen it showed hepatomegaly and fatty infiltration of the liver gallbladder was unremarkable without cholelithiasis Objective - Vital Signs Vital signs: Vital Signs Temp 97.9 F 11/10/17 07:00 Pulse 75 11/10/17 07:00 Resp 18 11/10/17 07:00 BP 113/74 11/10/17 07:00 Pulse Ox 97 11/10/17 07:00 Intake & Output 11/09/17 11/10/17 11/10/17 18:59 06:59 18:59 Intake Total 1440 Balance 1440 Weight 70 kg Intake: Oral 1440 Other: # Voids 1 # Bowel Movements 1 - Exam Physical exam 52-year-old female sitting up in bed does not appear in any acute distress Lungs adequate air movement bilaterally on room air heart S1-S2 audible regular Abdomen mild tenderness to the right upper quadrant soft and not distended reports no nausea vomiting no frequent stooling no difficulty in urinating Extremities discomfort right foot no edema noted - Labs CBC & Chem 7: 11/10/17 07:31 11/10/17 07:31 Labs: Abnormal Lab Results - Last 24 Hours (Table) 11/09/17 11/09/17 11/09/17 Range/Units 11:52 11:52 12:54 Hgb 16.2 H (11.4-16.0) gm/dL Hct 48.3 H (34.0-46.0) % Sodium 135 L (137-145) mmol/L Chloride 97 L (98-107) mmol/L Carbon Dioxide 21 L (22-30) mmol/L Glucose 166 H (74-99) mg/dL Calcium 10.4 H (8.4-10.2) mg/dL Total Bilirubin 1.7 H (0.2-1.3) mg/dL AST 339 H (14-36) U/L ALT 167 H (9-52) U/L Total Protein 8.7 H (6.3-8.2) g/dL Urine Appearance Cloudy H (Clear) Urine Protein 1+ H (Negative) Ur Leukocyte Esterase Trace H (Negative) Ur Squamous Epith Cells 13 H (0-4) /hpf Urine Bacteria Rare H (None) /hpf Hyaline Casts 3 H (0-2) /lpf Urine Mucus Few H (None) /hpf 11/10/17 Range/Units 07:31 Hgb (11.4-16.0) gm/dL Hct (34.0-46.0) % Sodium 136 L (137-145) mmol/L Chloride (98-107) mmol/L Carbon Dioxide (22-30) mmol/L Glucose (74-99) mg/dL Calcium (8.4-10.2) mg/dL Total Bilirubin 2.6 H (0.2-1.3) mg/dL AST 277 H (14-36) U/L ALT 159 H (9-52) U/L Total Protein (6.3-8.2) g/dL Urine Appearance (Clear) Urine Protein (Negative) Ur Leukocyte Esterase (Negative) Ur Squamous Epith Cells (0-4) /hpf Urine Bacteria (None) /hpf Hyaline Casts (0-2) /lpf Urine Mucus (None) /hpf Assessment and Plan Assessment: Assessment and Plan (1) Nausea vomiting and diarrhea Current Visit: Yes Status: Acute Code(s): R11.2 - NAUSEA WITH VOMITING, UNSPECIFIED; R19.7 - DIARRHEA, UNSPECIFIED SNOMED Code(s): 1138940 (2) Right upper quadrant abdominal pain Current Visit: Yes Status: Acute Code(s): R10.11 - RIGHT UPPER QUADRANT PAIN SNOMED Code(s): 838445918 (3) Alcoholic hepatitis without ascites Current Visit: No Status: Acute Code(s): K70.10 - ALCOHOLIC HEPATITIS WITHOUT ASCITES SNOMED Code(s): 640463589 (4) Alcoholic intoxication Current Visit: No Status: Acute Code(s): F10.129 - ALCOHOL ABUSE WITH INTOXICATION, UNSPECIFIED SNOMED Code(s): 59373514 (5) Alcoholism Current Visit: No Status: Acute Code(s): F10.20 - ALCOHOL DEPENDENCE, UNCOMPLICATED SNOMED Code(s): 6839151 (6) Elevated liver function tests Current Visit: No Status: Acute Code(s): R79.89 - OTHER SPECIFIED ABNORMAL FINDINGS OF BLOOD CHEMISTRY SNOMED Code(s): 967843829 #7 will follow up on the results of the HIDA scan with further surgical recommendations pending findings #8 present on admission acute alcohol intoxication blood alcohol level greater than 300 with impending DTs HIDA scan EF 20 correlate for biliary dyskinesis Patient will need to be followed in the outpatient setting by surgical service for the potential need of a lap cholecystectomy given the abnormal HIDA scan. This will not be address this admission as the patient is going through DTs from the acute alcohol intoxication this was discussed at the bedside with the patient that she needed to stop drinking alcohol Progress note dictated for Dr. Capps The above impression and plan of care have been discussed and directed by signing physician. Demi Maravilla nurse practitioner acting as scribe for signing physician. <Krystle Capps N - Last Filed: 11/11/17 04:29> Objective - Vital Signs Vital signs: Vital Signs Temp 97.8 F 11/10/17 23:00 Pulse 69 11/10/17 23:00 Resp 18 11/10/17 23:00 BP 109/62 11/10/17 23:00 Pulse Ox 95 11/10/17 23:00 Intake & Output 11/10/17 11/10/17 11/11/17 06:59 18:59 06:59 Intake Total 1440 480 Balance 1440 480 Intake: Oral 1440 480 Other: # Voids 1 2 2 # Bowel Movements 1 1 - Labs CBC & Chem 7: 11/10/17 07:31 11/10/17 07:31 Labs: Abnormal Lab Results - Last 24 Hours (Table) 11/10/17 Range/Units 07:31 Sodium 136 L (137-145) mmol/L Total Bilirubin 2.6 H (0.2-1.3) mg/dL AST 277 H (14-36) U/L ALT 159 H (9-52) U/L Assessment and Plan (1) Nausea vomiting and diarrhea Current Visit: Yes Status: Acute Code(s): R11.2 - NAUSEA WITH VOMITING, UNSPECIFIED; R19.7 - DIARRHEA, UNSPECIFIED SNOMED Code(s): 7256038 (2) Right upper quadrant abdominal pain Current Visit: Yes Status: Acute Code(s): R10.11 - RIGHT UPPER QUADRANT PAIN SNOMED Code(s): 150214781 (3) Alcoholic hepatitis without ascites Current Visit: No Status: Acute Code(s): K70.10 - ALCOHOLIC HEPATITIS WITHOUT ASCITES SNOMED Code(s): 531039211 (4) Alcoholic intoxication Current Visit: No Status: Acute Code(s): F10.129 - ALCOHOL ABUSE WITH INTOXICATION, UNSPECIFIED SNOMED Code(s): 06969597 (5) Alcoholism Current Visit: No Status: Acute Code(s): F10.20 - ALCOHOL DEPENDENCE, UNCOMPLICATED SNOMED Code(s): 8537776 (6) Elevated liver function tests Current Visit: No Status: Acute Code(s): R79.89 - OTHER SPECIFIED ABNORMAL FINDINGS OF BLOOD CHEMISTRY SNOMED Code(s): 083685409
--- NOTE | 2017-11-10 11:44 | NM ---
Nuclear medicine hepatobiliary scan. HISTORY: Pain. DOSAGE: The patient seated 8 ounces of ensure plus and 5.5 mCi of Technetium 99m Choletec. FINDINGS: There is normal hepatic extraction. The gallbladder is seen by 35 minutes. There is bilia ry to bowel clearance by 20 minutes. Ejection fraction is 20%. IMPRESSION: 1. Normal ejection fraction of 20%. Correlate for biliary dyskinesia.
[2017-11-10] MEDS: THIAMINE 100 MG TAB PO SCH ×2 (13:26→17:12)
[2017-11-10] MEDS: MULTIVITAMINS, THERA 1 EACH TAB PO SCH (13:26)
[2017-11-10] MEDS: SODIUM CHLORIDE 0.9% 1,000 ML IV SCH (15:51)
[2017-11-10] MEDS: HYDROmorphone 2 MG TAB PO PRN ×2 (18:05→21:38)
[2017-11-10] MEDS: PREGABALIN 50 MG CAP PO SCH (21:37)
[2017-11-10] MEDS: Brexpiprazole [Rexulti] 1 MG PO SCH (21:37)
[2017-11-11 01:51] VITALS: RESP 18
[2017-11-11] MEDS: LORazepam 2 MG/ML INJ IV PRN (02:18)
[2017-11-11] MEDS: HYDROmorphone 2 MG TAB PO PRN ×3 (04:28→14:12)
[2017-11-11 07:03] VITALS: BP 112/73; PULSE 68; TEMP 97.1
[2017-11-11] MEDS: PANTOPRAZOLE 40 MG/10 ML VIAL IVP SCH (08:24)
[2017-11-11] MEDS: MULTIVITAMINS, THERA 1 EACH TAB PO SCH (08:24)
[2017-11-11] MEDS: THIAMINE 100 MG TAB PO SCH (08:25)
[2017-11-11] MEDS: ANASTROZOLE 1 MG TAB PO SCH (08:25)
[2017-11-11] MEDS: NICOTINE 21MG/24HR PATCH TRANSDERM SCH (08:25)
[2017-11-11] MEDS: VENLAFAXINE HCL ER 75 MG CAP PO SCH (08:25)
[2017-11-11] MEDS: ONDANSETRON 4 MG/2 ML VIAL IVP PRN (08:33)
--- NOTE | 2017-11-11 08:36 | P.CONS ---
History of Present Illness - Reason for Consult Consult date: 11/11/17 Choledocholithiasis Requesting physician: Krystle Capps - History of Present Illness 52-year-old female patient of Dr. Mchugh with a history of breast carcinoma/ chemotherapy, EtOH abuse, anxiety, depression, nicotine cigarette dependency, remote methamphetamine usage, admitted with nausea vomiting nonbloody diarrhea, upper right quadrant midepigastric abdominal pain 2 days. Denies hematemesis hematochezia melena. She was drinking alcohol prior to admission. Seen by general surgery; hepatobiliary scan ejection fraction 20%. Clostridium difficile testing negative. Consultation requested for choledocholithiasis evaluation. Hepatitis screen nonreactive. Admission total bilirubin 1.7 yesterday 2.6. AST 339. ALT 167. Lipase 100. Yesterday transaminases improved AST 277. ALT 159. WBC 7.0. Hemoccult and 16.2. MCV 89. Platelets 340. Abdominal ultrasound liver length 20 cm. CBD 0.6 cm. No mentioning of gallstones. Fatty infiltration of the liver. Review of Systems Constitutional: Denies fever, chills, sweats, weight gain, or loss. HEENT: Negative for migraines, blurred vision or loss, earaches, drainage, tinnitus, oral mucosal lesions, dysphagia, or odynophagia. CARDIAC: Negative for chest pain, arrhythmias, or palpitation. RESPIRATORY: Nicotine cigarette dependency. Occasional marijuana. Rule out methamphetamine usage. Negative for shortness of breath, hemoptysis, cough, or sputum production. GI: See HPI for pertinent findings. : Negative for hematuria, urgency, frequency, polyuria, or dysuria. GYNc: History of breast cancer. Negative vaginal discharge. MUSCULOSKELETAL: Negative for muscle aches, swelling, arthritis, and arthralgias. NEUROLOGIC: Negative for stroke or TIA. ENDOCRINE: Negative for thyroid problems. SKIN: Negative for rash or itching. 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 CARPAL TUNNEL RELEASE, LEFT WRIST. Past Anesthesia/Blood Transfusion Reactions: No Reported Reaction Past Psychological History: Anxiety, Depression Additional Psychological History / Comment(s): pt stated she lives alone in a 2 story home that has 4-5 steps. pets: 1 cat 1 dog. does'nt work. Smoking Status: Current every day smoker Past Alcohol Use History: Abuse, Daily, Heavy Additional Past Alcohol Use History / Comment(s): HAS SMOKED SINCE 1981, 1PPD. admits to drinking at least a pint a day. Past Drug Use History: None Reported - Past Family History Father History Unknown: Yes Additional Family Medical History / Comment(s): father is alive but does'nt know his med hx. Mother Family Medical History: Cancer Additional Family Medical History / Comment(s): from liver cancer Medications and Allergies Home Medications Medication Instructions Recorded Confirmed Type Anastrozole [Arimidex] 1 mg PO DAILY 11/09/17 11/09/17 History Brexpiprazole [Rexulti] 1 mg PO HS 11/09/17 11/09/17 History Multivitamins, Thera [Multivitamin 1 tab PO DAILY 11/09/17 11/09/17 History (formulary)] Pregabalin [Lyrica] 50 mg PO HS 11/09/17 11/09/17 History Venlafaxine HCl [Effexor XR] 225 mg PO DAILY 11/09/17 11/09/17 History Vivitrol 1 injection INJ Q28D 11/09/17 11/09/17 History Allergies Allergy/AdvReac Type Severity Reaction Status Date / Time No Known Allergies Allergy Verified 11/09/17 13:55 Physical Exam Vitals: Vital Signs Temp Pulse Resp BP BP Pulse Ox 11/11/17 07:00 97.1 F L 68 18 112/73 93 L 11/10/17 23:00 97.8 F 69 18 109/62 95 11/10/17 15:00 98.5 F 67 16 104/67 94 L Intake and Output 11/10/17 11/11/17 11/11/17 22:59 06:59 14:59 Intake Total 480 480 Balance 480 480 Intake: Oral 480 480 Other: # Voids 2 3 # Bowel Movements 1 General appearance: The patient is alert, oriented, in no acute distress. HET: Head is normocephalic and atraumatic. Pupils are equal and reactive. Oropharynx is clear without lesions. Neck: Supple without lymphadenopathy. Trachea midline. Heart: S1 S2. Regular rate and rhythm. Lungs: No crackles or wheezes are heard. Abdomen: Soft, mild midepigastric tenderness, nondistended with bowel sounds. No peritoneal signs. No palpable organomegaly or masses. Extremities: Normal skin color and turgor. No cyanosis, rash, ulceration, clubbing, or edema. Radial and pedal pulses are 2/4 bilaterally. Neurological: No focal deficits. Strength and sensation are grossly intact. Results CBC & Chem 7: 11/10/17 07:31 11/10/17 07:31 Labs: Abnormal Lab Results - Last 24 Hours (Table) 11/10/17 Range/Units 07:31 Sodium 136 L (137-145) mmol/L Total Bilirubin 2.6 H (0.2-1.3) mg/dL AST 277 H (14-36) U/L ALT 159 H (9-52) U/L Comments: HIDA scan report reviewed by Dr. Cardenas US - abdomen: report reviewed (Dr. Cardenas) Assessment and Plan (1) Alcoholic hepatitis without ascites Narrative/Plan: 52-year-old female admitted with acute nausea vomiting nonbloody diarrhea epigastric right upper quadrant epigastric abdominal pain with history of EtOH abuse taking alcohol prior to admission with elevated liver enzymes consistent with acute alcohol hepatitis. Possible superimposed alcohol gastritis alcohol esophagitis. No clinical evidence to suggest choledocholithiasis this time. Radiographic imaging reported no evidence of cholelithiasis however HIDA scan with ejection fraction 20% evaluated by general surgery. Current Visit: No Status: Acute Code(s): K70.10 - ALCOHOLIC HEPATITIS WITHOUT ASCITES SNOMED Code(s): 088552054 (2) History of ETOH abuse Current Visit: Yes Status: Acute Code(s): Z87.898 - PERSONAL HISTORY OF OTHER SPECIFIED CONDITIONS SNOMED Code(s): 616186438 Plan: 1. From a GI standpoint morning liver chemistries are improving discharge per medicine. 2. Follow up in GI office in 2-3 weeks for reevaluation. Patient requested Dr. Mchugh. 3. Alcohol abstinence strongly advised. 4. Diet as tolerated. Thank you for this kind referral and the opportunity to participate in the care of your patient. This consultation was discussed with Dr. Cardenas. The impression and plan of care have been directed as dictated.
--- NOTE | 2017-11-11 10:32 | P.PN ---
Subjective Progress Note Date: 11/11/17 52-year-old female seen examined. Patient states less epigastric discomfort this morning reports no nausea vomiting did note the patient has been seen by GI service from their standpoint the liver chemistries are improving patient could be discharged and followed up in the outpatient setting with Dr. Pritchett. This was reinforced with the patient. Patient did have a HIDA scan done which showed ejection fraction 20% patient is stating that she is anxious to be discharged home .undergo an ultrasound of the abdomen it showed hepatomegaly and fatty infiltration of the liver gallbladder was unremarkable without cholelithiasis Initial presentation to the emergency room right upper quadrant pain with acute alcohol intoxication with a blood alcohol level elevated. Patient verbalizes an understanding the need to stop drinking alcohol patient states she's done it before she will stop drinking again Objective - Vital Signs Vital signs: Vital Signs Temp 97.1 F L 11/11/17 07:00 Pulse 68 11/11/17 07:00 Resp 18 11/11/17 07:00 BP 112/73 11/11/17 07:00 Pulse Ox 93 L 11/11/17 07:00 Intake & Output 11/10/17 11/11/17 11/11/17 18:59 06:59 18:59 Intake Total 960 Balance 960 Intake: Oral 960 Other: # Voids 2 3 # Bowel Movements 1 - Exam Physical exam 52-year-old female sitting up in bed does not appear in any acute distress Lungs adequate air movement bilaterally on room air no cough noted no murmur noted denying chest heart S1-S2 audible regular Abdomen mild midepigastric tenderness soft not distended reports no nausea vomiting no frequent stooling no difficulty in urinating Extremities discomfort right foot no edema noted - Labs CBC & Chem 7: 11/10/17 07:31 11/10/17 07:31 Assessment and Plan Assessment: Assessment and Plan (1) Nausea vomiting and diarrhea Current Visit: Yes Status: Acute Code(s): R11.2 - NAUSEA WITH VOMITING, UNSPECIFIED; R19.7 - DIARRHEA, UNSPECIFIED SNOMED Code(s): 1842019 (2) Right upper quadrant abdominal pain Current Visit: Yes Status: Acute Code(s): R10.11 - RIGHT UPPER QUADRANT PAIN SNOMED Code(s): 918618612 (3) Alcoholic hepatitis without ascites Current Visit: No Status: Acute Code(s): K70.10 - ALCOHOLIC HEPATITIS WITHOUT ASCITES SNOMED Code(s): 068021989 (4) Alcoholic intoxication Current Visit: No Status: Acute Code(s): F10.129 - ALCOHOL ABUSE WITH INTOXICATION, UNSPECIFIED SNOMED Code(s): 65350664 (5) Alcoholism Current Visit: No Status: Acute Code(s): F10.20 - ALCOHOL DEPENDENCE, UNCOMPLICATED SNOMED Code(s): 7382706 (6) Elevated liver function tests Current Visit: No Status: Acute Code(s): R79.89 - OTHER SPECIFIED ABNORMAL FINDINGS OF BLOOD CHEMISTRY SNOMED Code(s): 247210909 #7 will follow up on the results of the HIDA scan with further surgical recommendations pending findings #8 present on admission acute alcohol intoxication blood alcohol level greater than 300 with impending DTs HIDA scan EF 20 correlate for biliary dyskinesis Patient will need to be followed in the outpatient setting by surgical service for the potential need of a lap cholecystectomy given the abnormal HIDA scan. This will not be address this admission as the patient is going through DTs from the acute alcohol intoxication this was discussed at the bedside with the patient that she needed to stop drinking alcohol Progress note dictated for Dr. quintanilla The above impression and plan of care have been discussed and directed by signing physician. Demi Maravilla nurse practitioner acting as scribe for signing physician.
[2017-11-11] MEDS: SODIUM CHLORIDE 0.9% 1,000 ML IV SCH (11:12)
--- NOTE | 2017-11-11 12:25 | P.CNOR ---
History of Present Illness - [facility] Consult date: 11/11/17 Consult reason: fracture History of present illness: This is a 52-year-old female who initially presented to the hospital on 2017 with regards to nausea vomiting and abdominal pain. She's had a full workup since admission, with multiple medical specialties on consult including internal medicine and general surgery. Patient has a known history of alcohol abuse with other medical comorbidities. Since the admission, she has noted pain in the right foot. An x-ray was taken, demonstrated a comminuted nondisplaced right fifth metatarsal fracture. Patient has been wearing no bracing or casting material on the foot. She's been walking around. She states that the injury took place little over a week ago. She states that she twisted the foot when going down her stairs. Patient denies any previous surgery involving the right lower extremity. Currently she admits to some pain in the right foot, mainly on the lateral aspect with weightbearing. She notes no ankle pain, knee pain, hip pain. She denies any new onset cervical, thoracic or lumbar pain. 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 CARPAL TUNNEL RELEASE, LEFT WRIST. Past Anesthesia/Blood Transfusion Reactions: No Reported Reaction Past Psychological History: Anxiety, Depression Additional Psychological History / Comment(s): pt stated she lives alone in a 2 story home that has 4-5 steps. pets: 1 cat 1 dog. does'nt work. Smoking Status: Current every day smoker Past Alcohol Use History: Abuse, Daily, Heavy Additional Past Alcohol Use History / Comment(s): HAS SMOKED SINCE 1981, 1PPD. admits to drinking at least a pint a day. Past Drug Use History: None Reported - Past Family History Father History Unknown: Yes Additional Family Medical History / Comment(s): father is alive but does'nt know his med hx. Mother Family Medical History: Cancer Additional Family Medical History / Comment(s): from liver cancer Medications and Allergies Home Medications Medication Instructions Recorded Confirmed Type Anastrozole [Arimidex] 1 mg PO DAILY 11/09/17 11/09/17 History Brexpiprazole [Rexulti] 1 mg PO HS 11/09/17 11/09/17 History Multivitamins, Thera [Multivitamin 1 tab PO DAILY 11/09/17 11/09/17 History (formulary)] Pregabalin [Lyrica] 50 mg PO HS 11/09/17 11/09/17 History Venlafaxine HCl [Effexor XR] 225 mg PO DAILY 11/09/17 11/09/17 History Vivitrol 1 injection INJ Q28D 11/09/17 11/09/17 History Allergies Allergy/AdvReac Type Severity Reaction Status Date / Time No Known Allergies Allergy Verified 11/09/17 13:55 Physical Examination Right lower extremity: No obvious open lesions or sores present throughout the extremity No effusion present over the knee, no pain with tenderness over the knee Logroll maneuver reproduces no pain in the hip joint No pain with palpation over the medial and lateral malleolus Plantar flexion, dorsiflexion, EHL, FHL are intact. Sensory exam to light touch to the extremities intact, dorsal pedis pulses 2+. Calf is soft, no tenderness with palpation. 6 tenderness noted over the fifth metatarsal with palpation Results - Labs Labs: H & H 11/09/17 11/10/17 Range/Units 11:52 07:31 Hgb 16.2 H 14.7 (11.4-16.0) gm/dL Hct 48.3 H 45.4 (34.0-46.0) % Result Diagrams: 11/10/17 07:31 11/10/17 07:31 - Diagnostic results Wrist/Hand x-ray: report reviewed, image reviewed Assessment and Plan Plan: Imaging: Multiple views of the right foot were obtained. Images to demonstrate a comminuted right fifth metatarsal fracture. No significant angulation or displacement noted. Assessment: 1. Comminuted right fifth metatarsal fracture 2. Status post trip and fall injury 3. Other medical comorbidities Plan: I was able to discuss the case, including the physical exam findings and imaging studies attending Dr. Yancey. No surgical intervention needed at this time Recommend conservative treatment with a Cam Walker boot, nonweightbearing status , utilizing a walker or crutches with ambulation Plan a follow-up in the outpatient settings for further x-ray studies in 10-14 days Nonweightbearing, utilize Cam Walker boot at all times, utilize walker with ambulation Orthopedics standpoint, patient stable for discharge to home Time with Patient: Less than 30
--- NOTE | 2017-12-14 19:34 | DS ---
DISCHARGE SUMMARY ADMITTED: 11/09/2017. DISCHARGED: November 11, 2017. DISCHARGE MEDICATIONS: 1. Multivitamin daily. 2. injection every 28 days. 3. Rexulti 1 mg q.h.s. 4. Arimidex 1 mg daily. 5. Effexor XR 225 daily. 6. Lyrica 50 daily. CONDITION: Stable. PROGNOSIS: Guarded. Ambulate as tolerated. HOSPITAL COURSE OF EVENTS: A 52-year-old white female came into the hospital for alcohol withdrawal, chronic alcoholism, depression. She was found to have acute cholecystitis with multiple gallbladder attacks for elevated liver enzymes. She will be scheduled for outpatient cholecystectomy. CIWA protocol was in place. Electrolytes were in place. She will follow up as an outpatient. SHLOMO / TIMOTHY: [id number] /
== END 2017-11-11 17:04 | disposition home or self-care (01) | DRG 445 ==
LOC: EC 11:05 → 4MS4W 13:36
PROVIDERS: ADMIT Family Medicine; ATTEND Family Medicine
DX: K81.0 Acute cholecystitis (principal); F10.221 Alcohol dependence with intoxication delirium; K70.10 Alcoholic hepatitis without ascites; F10.239 Alcohol dependence with withdrawal, unspecified; K76.0 Fatty (change of) liver, not elsewhere classified; G62.0 Drug-induced polyneuropathy; J44.9 Chronic obstructive pulmonary disease, unspecified; F32.9 Major depressive disorder, single episode, unspecified; F41.9 Anxiety disorder, unspecified; T45.1X5A Adverse effect of antineoplastic and immunosuppressive drugs, initial encounter; R19.7 Diarrhea, unspecified; S92.354A Nondisplaced fracture of fifth metatarsal bone, right foot, initial encounter for closed fracture; F17.210 Nicotine dependence, cigarettes, uncomplicated; Z85.3 Personal history of malignant neoplasm of breast; Z90.49 Acquired absence of other specified parts of digestive tract; Z79.899 Other long term (current) drug therapy; Z79.811 Long term (current) use of aromatase inhibitors; Y90.8 Blood alcohol level of 240 mg/100 ml or more
CPT/HCPCS: 36415; 74018; 76705; 78227; 80053; 80074; 81001; 82150; 83690; 85025; 87324; 96361; 96372; 96374; 96375; 96376; 99285

== ENCOUNTER 2018-04-30 16:24 | Observation (INO) | payer OTHER ==
[2018-04-30] MEDS ORDERED: MORPHINE SULFATE 4 MG/ML SYRINGE IVP STA (20:34)
[2018-04-30] MEDS ORDERED: ONDANSETRON 4 MG/2 ML VIAL IVP STA (20:35)
[2018-04-30 20:40] LABS: Basophils # (A) 0.1 k/uL (0-0.2); Basophils % (A) 1 %; Eosinophils # (A) 0.2 k/uL (0-0.7); Eosinophils % (A) 2 %; HGB 16.5 gm/dL (11.4-16.0); Lymphocytes % (A) 36 %; MCH 31.3 pg (25.0-35.0); MCHC 34.3 g/dL (31.0-37.0); MCV 91.2 fL (80.0-100.0); Monocytes # (A) 0.4 k/uL (0-1.0); Monocytes % (A) 5 %; Neutrophils # (A) 4.5 k/uL (1.3-7.7); Neutrophils % (A) 54 %; Platelet Count 283 k/uL (150-450); RBC 5.27 m/uL (3.80-5.40); RDW 13.8 % (11.5-15.5); WBC 8.2 k/uL (3.8-10.6)
[2018-04-30 20:50] LABS: ALT 68 U/L (9-52); AST 114 U/L (14-36); Albumin 4.6 g/dL (3.5-5.0); Alkaline Phosphatase 75 U/L (38-126); Anion Gap 9 mmol/L; Blood Urea Nitrogen 13 mg/dL (7-17); Calcium 9.3 mg/dL (8.4-10.2); Carbon Dioxide 23 mmol/L (22-30); Chloride 107 mmol/L (98-107); Glucose 95 mg/dL (74-99); Potassium 4.4 mmol/L (3.5-5.1); Sodium 139 mmol/L (137-145); Total Bilirubin 0.6 mg/dL (0.2-1.3); Total Protein 8.3 g/dL (6.3-8.2)
[2018-04-30 21:03] LABS: Amphetamine Screen,Urine Not Detected (NotDetected); Barbiturate Screen,Urine Not Detected (NotDetected); Benzodiazepines Screen,Urine Not Detected (NotDetected); Cocaine Screen,Urine Not Detected (NotDetected); Methadone Screen, Urine Not Detected (NotDetected); Opiate Screen,Urine Not Detected (NotDetected); Oxycodone Screen, Urine Not Detected (NotDetected); Phencyclidine Screen,Urine Not Detected (NotDetected); Tricyclic Antidepressant,Urine Not Detected (NotDetected); Urn Cannabinoid Scrn Not Detected (NotDetected)
[2018-04-30] MEDS ORDERED: LORazepam 2 MG/ML INJ IV PRN (21:05)
[2018-04-30] MEDS ORDERED: THIAMINE 100 MG/ML 2 ML VIAL IM STA (21:05)
[2018-04-30] MEDS ORDERED: ONDANSETRON 4 MG/2 ML VIAL IVP PRN (21:06)
[2018-04-30] MEDS ORDERED: MORPHINE SULFATE 4 MG/ML SYRINGE IV PRN (21:06)
[2018-04-30] MEDS ORDERED: NALOXONE 0.4 MG/ML 1 ML VIAL IV PRN (21:06)
--- NOTE | 2018-04-30 21:16 | ED ---
General Adult HPI - General Chief complaint: Alcohol Stated complaint: DETOX, ETOH Time Seen by Provider: 04/30/18 19:02 Source: patient, RN notes reviewed, old records reviewed Mode of arrival: ambulatory Limitations: no limitations - History of Present Illness Initial comments: 52-year-old presenting with alcohol withdrawal. Patient is also complaining of depression. She states she was drinking approximately one fifth of alcohol daily. Denies suicidal ideation. She has had increased abdominal distention and mild abdominal pain. She has been told in the past she has significant liver damage secondary to alcoholism. She is presenting at the advice of her primary care physician. - Related Data Home Medications Medication Instructions Recorded Confirmed Anastrozole [Arimidex] 1 mg PO DAILY 11/09/17 04/30/18 Chlorthalidone [Hygroton] 25 mg PO DAILY 04/30/18 04/30/18 Naltrexone HCl [Revia] 50 mg PO HS 04/30/18 04/30/18 Pregabalin [Lyrica] 75 mg PO BID 04/30/18 04/30/18 Spironolactone [Aldactone] 25 mg PO BID 04/30/18 04/30/18 lamoTRIgine [LaMICtal] 25 mg PO DAILY 04/30/18 04/30/18 Allergies Allergy/AdvReac Type Severity Reaction Status Date / Time No Known Allergies Allergy Verified 04/30/18 19:36 Review of Systems ROS Statement: Those systems with pertinent positive or pertinent negative responses have been documented in the HPI. ROS Other: All systems not noted in ROS Statement are negative. 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 CARPAL TUNNEL RELEASE, LEFT WRIST. Past Anesthesia/Blood Transfusion Reactions: No Reported Reaction Past Psychological History: Anxiety, Depression Smoking Status: Current every day smoker Past Alcohol Use History: Abuse, Daily, Heavy Past Drug Use History: None Reported - Past Family History Father History Unknown: Yes Additional Family Medical History / Comment(s): father is alive but does'nt know his med hx. Mother Family Medical History: Cancer Additional Family Medical History / Comment(s): from liver cancer General Exam Limitations: no limitations General appearance: alert, in no apparent distress, appears intoxicated Head exam: Present: atraumatic, normocephalic Eye exam: Present: normal appearance, PERRL. Absent: scleral icterus ENT exam: Present: normal exam Neck exam: Present: normal inspection. Absent: tenderness, meningismus Respiratory exam: Present: normal lung sounds bilaterally. Absent: respiratory distress, wheezes Cardiovascular Exam: Present: regular rate, normal rhythm GI/Abdominal exam: Present: soft, distended. Absent: tenderness, guarding, rebound Extremities exam: Present: normal inspection, normal capillary refill. Absent: pedal edema Neurological exam: Present: alert, oriented X3, CN II-XII intact. Absent: motor sensory deficit Psychiatric exam: Present: depressed. Absent: suicidal ideation Skin exam: Present: warm, dry, intact. Absent: cyanosis, diaphoretic Course Vital Signs 04/30/18 04/30/18 16:55 20:40 Temperature 98.7 F Pulse Rate 88 77 Respiratory 18 18 Rate Blood Pressure 117/83 140/70 O2 Sat by Pulse 97 97 Oximetry Medical Decision Making - Medical Decision Making Case discussed with patient's primary care physician, she will be admitted for alcohol withdrawal. She was placed on Ativan per CIWA. Diagnosis: Alcohol abuse, concern for alcohol withdrawal, depression - Lab Data Result diagrams: 04/30/18 20:34 04/30/18 20:34 Lab Results 04/30/18 04/30/18 04/30/18 Range/Units 20:34 20:34 20:34 WBC 8.2 (3.8-10.6) k/uL RBC 5.27 (3.80-5.40) m/uL Hgb 16.5 H (11.4-16.0) gm/dL Hct 48.0 H (34.0-46.0) % MCV 91.2 (80.0-100.0) fL MCH 31.3 (25.0-35.0) pg MCHC 34.3 (31.0-37.0) g/dL RDW 13.8 (11.5-15.5) % Plt Count 283 (150-450) k/uL Neutrophils % 54 % Lymphocytes % 36 % Monocytes % 5 % Eosinophils % 2 % Basophils % 1 % Neutrophils # 4.5 (1.3-7.7) k/uL Lymphocytes # 3.0 (1.0-4.8) k/uL Monocytes # 0.4 (0-1.0) k/uL Eosinophils # 0.2 (0-0.7) k/uL Basophils # 0.1 (0-0.2) k/uL Sodium 139 (137-145) mmol/L Potassium 4.4 (3.5-5.1) mmol/L Chloride 107 (98-107) mmol/L Carbon Dioxide 23 (22-30) mmol/L Anion Gap 9 mmol/L BUN 13 (7-17) mg/dL Creatinine 0.66 (0.52-1.04) mg/dL Est GFR (CKD-EPI)AfAm >90 (>60 ml/min/1.73 sqM) Est GFR (CKD-EPI)NonAf >90 (>60 ml/min/1.73 sqM) Glucose 95 (74-99) mg/dL Calcium 9.3 (8.4-10.2) mg/dL Total Bilirubin 0.6 (0.2-1.3) mg/dL AST 114 H (14-36) U/L ALT 68 H (9-52) U/L Alkaline Phosphatase 75 (38-126) U/L Total Protein 8.3 H (6.3-8.2) g/dL Albumin 4.6 (3.5-5.0) g/dL Urine Opiates Screen Not Detected (NotDetected) Ur Oxycodone Screen Not Detected (NotDetected) Urine Methadone Screen Not Detected (NotDetected) Ur Propoxyphene Screen Not Detected (NotDetected) Ur Barbiturates Screen Not Detected (NotDetected) U Tricyclic Antidepress Not Detected (NotDetected) Ur Phencyclidine Scrn Not Detected (NotDetected) Ur Amphetamines Screen Not Detected (NotDetected) U Methamphetamines Scrn Not Detected (NotDetected) U Benzodiazepines Scrn Not Detected (NotDetected) Urine Cocaine Screen Not Detected (NotDetected) U Marijuana (THC) Screen Not Detected (NotDetected) Disposition Clinical Impression: Alcohol withdrawal, Alcoholism Disposition: ADMITTED IP TO THIS HOSP Condition: Stable Is patient prescribed a controlled substance at d/c from ED?: No Referrals: Matt Davila MD [Primary Care Provider] - 1-2 days Decision to Admit Reason: Admit from EC Decision Date: 04/30/18 Decision Time: 21:16
[2018-04-30] MEDS: LORazepam 2 MG/ML INJ IV PRN (21:31)
[2018-04-30] MEDS: THIAMINE 100 MG TAB PO SCH (21:41)
[2018-04-30 22:45] VITALS: BMI 23.2
[2018-04-30] MEDS: SODIUM CHLORIDE 0.9% 1,000 ML IV SCH (23:11)
[2018-05-01] MEDS: LORazepam 2 MG/ML INJ IV PRN ×9 (01:38→22:21)
[2018-05-01 11:21] LABS: Potassium 4.4 mmol/L (3.5-5.1)
[2018-05-01] MEDS: THIAMINE 100 MG TAB PO SCH ×2 (11:46→16:42)
--- NOTE | 2018-05-01 14:32 | P.CN ---
Psychiatric Consult - . Consult date: 05/01/18 Consult:: 05/01/18 14:14 Identification: Patient is a 52-year-old female who was sent to the emergency room for admission from her primary care physician's office due to her alcohol use. Reason for Consult: Depression/ addiction History of Present Illness: Patient states that she is not been too happy because she is living on her own and not driving. She stated that she drinks a little bit and was encouraged to come to the emergency room initially stated by her friends and she said that Dr. Davila when she was in his office told her to come to the hospital. Patient thinks she drinks about a fifth a day for the last 3 years and states that she casually drank before that and had a difficult time quantifying how much she was drinking. She states that she started as a teen and has never been in inpatient rehab because afraid of that but can't tell me why. Patient then stated to me that she's been drinking too much" my gut is out to here". Then she stated that she started drinking heavily after her mother's but reports no blackouts or seizures states she stopped for 1 month in November of this year. She states at that time she was going [facility] and was receiving a vivitrol injection, however patient received it sounds like 1 or 2 injections and then never went back. Patient is also on ReVia as an outpatient. Patient was unable to tell me what her longest sobriety was other than the month that she stopped this year. Patient told me that she is depressed but she is hoping to start over with her new boyfriend who dislikes the fact that she uses alcohol. Patient states that she lives by herself has no source of income and her father helps her with finances and that buddies by her alcohol. Patient states that she's been told she needs to go to rehab but she never has. Patient does not endorse a history of depression, she denies feeling hopeless or helpless denies any current suicidal ideation or any suicide attempt history. Patient states that she was upset over her mother's and started drinking more heavily than and states that she doesn't like the way her children treat her. Patient has never been treated for depression but states that she was placed on a mood stabilizer by her primary care physician, [place]. Patient has never gone for outpatient psychiatric care. Patient does not endorse a history of psychosis, stephanie or anxiety. Past Psychiatric History: Patient has no inpatient psychiatric treatment history , has ever gone for inpatient substance or alcohol use rehab was placed on Lamictal by her PCP for mood stabilization. Patient has also been on vivitrol and ReVia Past Medical/Surgical History: Patient told me that she can't tell me her medical history "I suppose". She states she had breast cancer she thinks 4 years ago treated with radiation and chemotherapy and is on Arimidex Family History: Father is an alcohol user, she denies any psych history in the family, denies any completed suicides Social History: Patient was born and raised in [place] and her father is alive her mother is . They were while she was growing up and she has 2 siblings. She completed high school and told me that she worked in a [employer] 7 years ago. She could not tell me why she stopped working there or exactly when it occurred. She is currently and has 2 children from her marriage. She states that she lives alone and has applied for disability. She states that her father helps her with finances and that her buddies by her alcohol. Patient denied any abuse history Substance Use History: Patient states that she began using alcohol in her teens and really is unable to give me a clear history of her use, stating she was casual in the past using it 4 times a week but for the last 3 years is been drinking a fifth a day and, states that began after her mother's . Patient states that she knows she is drinking too much. Patient denied any marijuana, methamphetamine, cocaine, opiate, benzodiazepine or IV drug abuse. Patient does use tobacco products Legal History: Patient states that she's had one DUI and unknown misdemeanor charge Mental status: Appearance/Attitude: Patient is dressed in a hospital gown, in no acute distress makes intermittent eye contact and was cooperative Behavior: Patient did not exhibit any psychomotor agitation or retardation Speech/Language: Patient's speech was spontaneous and normal volume and rhythm and she was coherent Thought Process: Patient was goal-directed, but had difficulty providing detailed during the history, her answers were vague there is no evidence of loose association or flight of ideas Thought Content: Patient denied any auditory or visual hallucinations and no delusions or paranoid ideation were elicited. Patient states he thinks he drinks too much because her "gut is out to here". Patient states that she's depressed because she lives alone, isn't driving and her boyfriend says he won' t continue to see her unless she stops drinking. Suicidal/Homicidal Ideation: Patient denied any current suicidal or homicidal ideation Sensorium/Cognition: Patient is alert and oriented to person, place, and time and situation patient had difficulty during the evaluation recalling events and was very vague in details it is unclear to me if this is because she has difficulties with her memory are not as formal cognitive testing was not performed. Mood/Affect: Patient's mood was pleasant and her affect was slightly blunted Insight/Judgment: Patient's insight and judgment are fair Assessment: Patient presents and has a history of alcohol use since her teens it is unclear how long she has been drinking heavily the patient states the last 3 years she's been using a fifth a day. Patient does have elevated liver enzymes. Patient has been on ReVia as well as vivitrol with little impact on her drinking. At this time the patient is not endorsing any symptoms of depression, stephanie or psychosis. Patient stated that she is afraid to go to inpatient rehab but could not explain to me why she feels that way. Patient apparently went for [facility] visits [facility]. Patient and I had a long discussion regarding the long-term effects of alcohol use. Patient has no history of suicide attempts and is not currently suicidal. Diagnosis: Alcohol use disorder, moderate severity Plan: Patient does not require an inpatient psychiatric admission, I would not restart the Lamictal nor the ReVia as ReVia is only effective once sobriety has been achieved. I spoke with the community mental health social worker regarding giving the patient referrals to both inpatient and outpatient alcohol rehab programs and discussed them with the patient and encouraged her to consider inpatient alcohol rehab. I also discussed with the patient the need to follow-up with AA meetings once she is in the community. Patient was encouraged to avoid alcohol and consider rehab programs. Patient does not exhibit significant depressive symptoms to require an antidepressant at this time. Patient has no current suicidal ideation, no evidence of a major depressive episode, no manic symptoms and no complaints of anxiety or symptoms of psychosis. I do not recommend any psychotropic medication at this time. I will sign off the case if there are any further questions or concerns please on his stated to contact me 08/10/18 14:17
--- NOTE | 2018-05-01 16:33 | HP ---
HISTORY AND PHYSICAL CHIEF COMPLAINT: Hmfwr-[id number]-old white female with alcohol withdrawal, confusion, severe depression. HOME MEDICATIONS: 1. Lamictal 25 mg daily. 2. Aldactone 25 b.i.d. 3. Lyrica 75 b.i.d. 4. Revia 50 at bedtime. 5. [place] 25 daily. 6. Arimidex 1 mg daily. REVIEW OF SYSTEMS: Fourteen-point review of systems negative except for severe depression and anxiety. PHYSICAL EXAMINATION: Vital signs reviewed. PSYCH: She appears crying, nervous, anxious. CARDIOVASCULAR: S1, S2. LUNGS: Clear. GI: Soft. HEMATOLOGY: Negative Homans. She has increased bowel sounds, swelling due to possible ascites. ASSESSMENT: 1. Depression. 2. Alcohol withdrawal. 3. Cirrhosis. 4. Dehydration. Psychiatry consult. Neurology consult. She will need alcohol rehab for sure, psychiatry involvement. Psychiatry will be consulted. Please see further orders. MMODL / IJN: [id number] /
[2018-05-01] MEDS: PREGABALIN 75 MG CAP PO SCH (20:23)
[2018-05-01] MEDS: SPIRONOLACTONE 25 MG TAB PO SCH (20:23)
[2018-05-01] MEDS: NALTREXONE HCL 50 MG TAB PO SCH (20:23)
[2018-05-01] MEDS: SODIUM CHLORIDE 0.9% 1,000 ML IV SCH (22:23)
[2018-05-02] MEDS: LORazepam 2 MG/ML INJ IV PRN ×9 (03:34→21:19)
[2018-05-02] MEDS: CHLORTHALIDONE 25 MG TAB PO SCH (07:40)
[2018-05-02] MEDS: ANASTROZOLE 1 MG TAB PO SCH (07:41)
[2018-05-02] MEDS: lamoTRIgine 25 MG TAB PO SCH (07:41)
[2018-05-02] MEDS: SPIRONOLACTONE 25 MG TAB PO SCH ×2 (07:41→20:09)
[2018-05-02] MEDS: PREGABALIN 75 MG CAP PO SCH ×2 (07:42→20:09)
[2018-05-02] MEDS: NICOTINE 21MG/24HR PATCH TRANSDERM SCH (11:29)
[2018-05-02] MEDS: THIAMINE 100 MG TAB PO SCH ×2 (11:32→16:46)
[2018-05-02] MEDS: NALTREXONE HCL 50 MG TAB PO SCH (20:09)
[2018-05-02 20:52] VITALS: TEMP 97.5
--- NOTE | 2018-05-02 22:40 | PN ---
PROGRESS NOTE SUBJECTIVE: A 52-year-old admitted with alcohol withdrawal, continues on CIWA protocol. CARDIOVASCULAR: S1, S2. LUNGS: Clear. GI: Soft. HEMATOLOGY: Negative Homans'. A long discussion with family and patient concerning going to the inpatient alcohol withdrawal from the hospital. It is what is best for her at this point. She continues to drink alcohol multiple times over and over again. She has been evaluated for cirrhosis by GI. Continue with the current treatment. Follow up in next 24-48 hours for discharge. MMODL / IJN: [id number] /
[2018-05-02] MEDS: SODIUM CHLORIDE 0.9% 1,000 ML IV SCH (23:24)
[2018-05-03] MEDS: LORazepam 2 MG/ML INJ IV PRN ×5 (00:27→11:29)
[2018-05-03 05:31] VITALS: BP 116/73; PULSE 82; RESP 18
[2018-05-03] MEDS: NICOTINE 21MG/24HR PATCH TRANSDERM SCH (07:59)
[2018-05-03] MEDS: SPIRONOLACTONE 25 MG TAB PO SCH (07:59)
[2018-05-03] MEDS: CHLORTHALIDONE 25 MG TAB PO SCH (07:59)
[2018-05-03] MEDS: ANASTROZOLE 1 MG TAB PO SCH (08:00)
[2018-05-03] MEDS: lamoTRIgine 25 MG TAB PO SCH (08:00)
[2018-05-03] MEDS: PREGABALIN 75 MG CAP PO SCH (08:02)
[2018-05-03] MEDS: THIAMINE 100 MG TAB PO SCH (11:29)
== END 2018-05-03 11:57 | disposition home or self-care (01) ==
LOC: EC 16:24 → 5MS5E 21:40
PROVIDERS: ADMIT Family Medicine; ATTEND Family Medicine
DX: F10.239 Alcohol dependence with withdrawal, unspecified (principal); K74.60 Unspecified cirrhosis of liver; E86.0 Dehydration; R41.0 Disorientation, unspecified; K83.8 Other specified diseases of biliary tract; J44.9 Chronic obstructive pulmonary disease, unspecified; G62.9 Polyneuropathy, unspecified; F32.9 Major depressive disorder, single episode, unspecified; F41.9 Anxiety disorder, unspecified; F17.200 Nicotine dependence, unspecified, uncomplicated; Z79.811 Long term (current) use of aromatase inhibitors; Z79.899 Other long term (current) drug therapy; Z90.12 Acquired absence of left breast and nipple; Z90.89 Acquired absence of other organs; Z92.21 Personal history of antineoplastic chemotherapy; Z85.3 Personal history of malignant neoplasm of breast; Z80.0 Family history of malignant neoplasm of digestive organs
CPT/HCPCS: 99285 ×2; 96374 ×2; 96375 ×3; 96372 ×2; 96376 ×3; 82075; 36415; 80051; 80053; 85025; 80306; G0378 ×4; S4990 ×2; J2060 ×4; J2270; J3411; J2405; S0170 ×2

== ENCOUNTER 2018-05-24 08:31 | Emergency (ER) | payer OTHER ==
[2018-05-24 08:39] VITALS: RESP 16
[2018-05-24] MEDS ORDERED: ONDANSETRON 4 MG/2 ML VIAL IVP STA (08:44)
[2018-05-24] MEDS ORDERED: SODIUM CHLORIDE 0.9% 1,000 ML IV STA (08:44)
[2018-05-24] MEDS ORDERED: FAMOTIDINE 20 MG/2 ML VIAL IV STA (08:45)
--- NOTE | 2018-05-24 08:48 | ED ---
General Adult HPI - General Chief complaint: Abdominal Pain Stated complaint: abd pain Time Seen by Provider: 05/24/18 08:40 Source: patient, RN notes reviewed, old records reviewed Mode of arrival: ambulatory Limitations: no limitations - History of Present Illness Initial comments: Patient 52-year-old female seemed to be a past medical history for alcoholism, presented to the emergency room today with a chief complaint of lower abdominal pain times one day. Patient states it's a "burning" type pain throughout the abdomen. Patient does admit to diarrhea. Patient doesn't feeling nauseated with no vomiting. Patient was being daily drinker. Patient denies any other complaints currently. Patient denies any recent fever, chills, shortness of breath, chest pain, back pain, numbness or tingling, dysuria or hematuria, constipation, headaches or visual changes, or any other complaints. - Related Data Home Medications Medication Instructions Recorded Confirmed Anastrozole [Arimidex] 1 mg PO DAILY 11/09/17 04/30/18 Chlorthalidone [Hygroton] 25 mg PO DAILY 04/30/18 04/30/18 Naltrexone HCl [Revia] 50 mg PO HS 04/30/18 04/30/18 Pregabalin [Lyrica] 75 mg PO BID 04/30/18 04/30/18 Spironolactone [Aldactone] 25 mg PO BID 04/30/18 04/30/18 lamoTRIgine [LaMICtal] 25 mg PO DAILY 04/30/18 04/30/18 Previous Rx's Medication Instructions Recorded Dicyclomine [Bentyl] 20 mg PO QID #20 tablet 05/24/18 Ondansetron Odt [Zofran ODT] 4 mg PO Q8HR PRN #20 tab 05/24/18 Allergies Allergy/AdvReac Type Severity Reaction Status Date / Time No Known Allergies Allergy Verified 05/24/18 08:39 Review of Systems ROS Statement: Those systems with pertinent positive or pertinent negative responses have been documented in the HPI. ROS Other: All systems not noted in ROS Statement are negative. 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 Patient states she drinks a fith of whiskey a day. History of Any Multi-Drug Resistant Organisms: None Reported Past Surgical History: Appendectomy Additional Past Surgical History / Comment(s): breast reduction, left mastectomy with implant. CARPAL TUNNEL RELEASE, LEFT WRIST. Past Anesthesia/Blood Transfusion Reactions: No Reported Reaction Past Psychological History: Anxiety, Depression Smoking Status: Current every day smoker Past Alcohol Use History: Abuse, Heavy Past Drug Use History: None Reported - Past Family History Father History Unknown: Yes Family Medical History: COPD Additional Family Medical History / Comment(s): Father is alive. States she drinks rum. Mother Family Medical History: Cancer Additional Family Medical History / Comment(s): from liver cancer two years ago. General Exam - General Exam Comments Initial Comments: General: The patient is awake and alert, in no distress, and does not appear acutely ill. Eye: Pupils are equal, round and reactive to light, extra-ocular movements are intact. No nystagmus. There is normal conjunctiva bilaterally. No signs of icterus. Ears, nose, mouth and throat: There are moist mucous membranes and no oral lesions. Neck: The neck is supple, there is no tenderness or JVD. Cardiovascular: There is a regular rate and rhythm. No murmur, rub or gallop is appreciated. Respiratory: Lungs are clear to auscultation, respirations are non-labored, breath sounds are equal. No wheezes, stridor, rales, or rhonchi. Gastrointestinal: Abdomen soft on palpation. Vision is have tenderness epigastric, right upper and lower quadrants. No rebound, guarding, CVA tenderness. Musculoskeletal: Normal ROM, no tenderness. Strength 5/5. Sensation intact. Neurological: A&O x 3. CN II-XII intact, There are no obvious motor or sensory deficits. Coordination appears grossly intact. Speech is normal. Skin: Skin is warm and dry and no rashes or lesions are noted. Psychiatric: Cooperative, appropriate mood & affect, normal judgment. Limitations: no limitations Course Vital Signs 05/24/18 08:35 Temperature 98.2 F Pulse Rate 95 Respiratory 16 Rate Blood Pressure 133/78 O2 Sat by Pulse 95 Oximetry Medical Decision Making - Medical Decision Making Vision reexamined at this time shows no signs of distress resting comfortably. Patient's CT of the abdomen and pelvis reviewed and shows 1. Circumference wall thickening of the distal colon extending from the mid sigmoid to the rectum. Nonspecific colitis. 2 drop gallbladder measuring 6 cm wide. No associated inflammation seen on CAT scan. 3. Hepatomegaly measuring 22.9 cm. 4. Bile duct mildly dilated at 1.1 cm may be chronic. 5. Incidentally some excreting contrast seen within the renal collecting systems the early images. Patient's labs been reviewed. O alk phos and bilirubin negative. Patient's alcohol level mildly elevated here in emergency room. Patient is a daily drinker. Family members are at bedside who will be taking her home. Patient will be given medication of Javier Anglin to go home with for her symptoms. She is advised to follow-up with GI over the next 2 days. Advised to return here to emergency room if symptoms increase worsen or for any other concerns. - Lab Data Result diagrams: 05/24/18 09:06 05/24/18 09:06 Lab Results 05/24/18 05/24/18 05/24/18 Range/Units 09:06 09:06 09:06 WBC 5.3 (3.8-10.6) k/uL RBC 5.19 (3.80-5.40) m/uL Hgb 15.8 (11.4-16.0) gm/dL Hct 48.1 H (34.0-46.0) % MCV 92.7 (80.0-100.0) fL MCH 30.5 (25.0-35.0) pg MCHC 32.9 (31.0-37.0) g/dL RDW 13.5 (11.5-15.5) % Plt Count 393 (150-450) k/uL Neutrophils % 53 % Lymphocytes % 38 % Monocytes % 5 % Eosinophils % 1 % Basophils % 1 % Neutrophils # 2.8 (1.3-7.7) k/uL Lymphocytes # 2.0 (1.0-4.8) k/uL Monocytes # 0.3 (0-1.0) k/uL Eosinophils # 0.1 (0-0.7) k/uL Basophils # 0.1 (0-0.2) k/uL Sodium 141 (137-145) mmol/L Potassium 3.8 (3.5-5.1) mmol/L Chloride 104 (98-107) mmol/L Carbon Dioxide 22 (22-30) mmol/L Anion Gap 15 mmol/L BUN 14 (7-17) mg/dL Creatinine 0.66 (0.52-1.04) mg/dL Est GFR (CKD-EPI)AfAm >90 (>60 ml/min/1.73 sqM) Est GFR (CKD-EPI)NonAf >90 (>60 ml/min/1.73 sqM) Glucose 131 H (74-99) mg/dL Calcium 9.4 (8.4-10.2) mg/dL Total Bilirubin 0.6 (0.2-1.3) mg/dL AST 53 H (14-36) U/L ALT 52 (9-52) U/L Alkaline Phosphatase 84 (38-126) U/L Total Protein 8.0 (6.3-8.2) g/dL Albumin 4.3 (3.5-5.0) g/dL Amylase 52 (30-110) U/L Lipase 178 (23-300) U/L Urine Color Yellow Urine Appearance Cloudy H (Clear) Urine pH 6.0 (5.0-8.0) Ur Specific [place] 1.024 (1.001-1.035) Urine Protein 2+ H (Negative) Urine Glucose (UA) Negative (Negative) Urine Ketones Negative (Negative) Urine Blood Negative (Negative) Urine Nitrite Negative (Negative) Urine Bilirubin Negative (Negative) Urine Urobilinogen <2.0 (<2.0) mg/dL Ur Leukocyte Esterase Negative (Negative) Urine RBC 2 (0-5) /hpf Urine WBC 3 (0-5) /hpf Ur Squamous Epith Cells 21 H (0-4) /hpf Hyaline Casts 4 H (0-2) /lpf Urine Mucus Many H (None) /hpf Urine HCG, Qual (Not Detectd) Serum Alcohol 233 mg/dL 05/24/18 Range/Units 09:06 WBC (3.8-10.6) k/uL RBC (3.80-5.40) m/uL Hgb (11.4-16.0) gm/dL Hct (34.0-46.0) % MCV (80.0-100.0) fL MCH (25.0-35.0) pg MCHC (31.0-37.0) g/dL RDW (11.5-15.5) % Plt Count (150-450) k/uL Neutrophils % % Lymphocytes % % Monocytes % % Eosinophils % % Basophils % % Neutrophils # (1.3-7.7) k/uL Lymphocytes # (1.0-4.8) k/uL Monocytes # (0-1.0) k/uL Eosinophils # (0-0.7) k/uL Basophils # (0-0.2) k/uL Sodium (137-145) mmol/L Potassium (3.5-5.1) mmol/L Chloride (98-107) mmol/L Carbon Dioxide (22-30) mmol/L Anion Gap mmol/L BUN (7-17) mg/dL Creatinine (0.52-1.04) mg/dL Est GFR (CKD-EPI)AfAm (>60 ml/min/1.73 sqM) Est GFR (CKD-EPI)NonAf (>60 ml/min/1.73 sqM) Glucose (74-99) mg/dL Calcium (8.4-10.2) mg/dL Total Bilirubin (0.2-1.3) mg/dL AST (14-36) U/L ALT (9-52) U/L Alkaline Phosphatase (38-126) U/L Total Protein (6.3-8.2) g/dL Albumin (3.5-5.0) g/dL Amylase (30-110) U/L Lipase (23-300) U/L Urine Color Urine Appearance (Clear) Urine pH (5.0-8.0) Ur Specific [place] (1.001-1.035) Urine Protein (Negative) Urine Glucose (UA) (Negative) Urine Ketones (Negative) Urine Blood (Negative) Urine Nitrite (Negative) Urine Bilirubin (Negative) Urine Urobilinogen (<2.0) mg/dL Ur Leukocyte Esterase (Negative) Urine RBC (0-5) /hpf Urine WBC (0-5) /hpf Ur Squamous Epith Cells (0-4) /hpf Hyaline Casts (0-2) /lpf Urine Mucus (None) /hpf Urine HCG, Qual Not Detected (Not Detectd) Serum Alcohol mg/dL Disposition Clinical Impression: Abdominal pain, Colitis Disposition: HOME SELF-CARE Instructions: Abdominal Pain (ED) Additional Instructions: Please use medication as discussed. Please follow-up with family doctor in the next 2 days of symptoms have not improved. Please return to emergency room if the symptoms increase or worsen or for any other concerns. Prescriptions: Dicyclomine [Bentyl] 20 mg PO QID #20 tablet Ondansetron Odt [Zofran ODT] 4 mg PO Q8HR PRN #20 tab PRN Reason: Nausea Is patient prescribed a controlled substance at d/c from ED?: No Referrals: Matt Davila MD [Primary Care Provider] - 1-2 days Time of Disposition: 10:52
[2018-05-24 09:17] LABS: Basophils # (A) 0.1 k/uL (0-0.2); Basophils % (A) 1 %; Eosinophils # (A) 0.1 k/uL (0-0.7); Eosinophils % (A) 1 %; HCT 48.1 % (34.0-46.0); HGB 15.8 gm/dL (11.4-16.0); Lymphocytes % (A) 38 %; MCH 30.5 pg (25.0-35.0); MCHC 32.9 g/dL (31.0-37.0); MCV 92.7 fL (80.0-100.0); Mean Platelet Volume 6.3; Monocytes # (A) 0.3 k/uL (0-1.0); Monocytes % (A) 5 %; Neutrophils # (A) 2.8 k/uL (1.3-7.7); Neutrophils % (A) 53 %; Platelet Count 393 k/uL (150-450); RBC 5.19 m/uL (3.80-5.40); RDW 13.5 % (11.5-15.5); WBC 5.3 k/uL (3.8-10.6)
[2018-05-24 09:27] LABS: Appearance,Urine Cloudy (Clear); Bilirubin,Urine Negative (Negative); Blood,Urine Negative (Negative); Color,Urine Yellow; Glucose,Urine (UA) Negative (Negative); Hyaline Casts,Urine 4 /lpf (0-2); Ketones,Urine Negative (Negative); Leukocyte Esterase,Urine Negative (Negative); Mucus,Urine Many /hpf; Nitrite,Urine Negative (Negative); Protein,Urine 2+ (Negative); RBC,Urine 2 /hpf (0-5); Specific Gravity,Urine 1.024 (1.001-1.035); Squamous Epithelial Cell,Urine 21 /hpf (0-4); Urobilinogen,Urine <2.0 mg/dL (<2.0); WBC,Urine 3 /hpf (0-5)
[2018-05-24 09:30] LABS: ALT 52 U/L (9-52); AST 53 U/L (14-36); Albumin 4.3 g/dL (3.5-5.0); Alkaline Phosphatase 84 U/L (38-126); Amylase 52 U/L (30-110); Anion Gap 15 mmol/L; Blood Urea Nitrogen 14 mg/dL (7-17); Calcium 9.4 mg/dL (8.4-10.2); Carbon Dioxide 22 mmol/L (22-30); Chloride 104 mmol/L (98-107); Glucose 131 mg/dL (74-99); Lipase 178 U/L (23-300); Potassium 3.8 mmol/L (3.5-5.1); Sodium 141 mmol/L (137-145); Total Bilirubin 0.6 mg/dL (0.2-1.3)
[2018-05-24 09:43] LABS: Alcohol 233 mg/dL
--- NOTE | 2018-05-24 10:27 | CT ---
EXAMINATION TYPE: CT abdomen pelvis w con DATE OF EXAM: 05/24/2018 COMPARISON: NONE HISTORY: 52-year-old female with abdominal pain for 1 day TECHNIQUE: Contiguous axial scanning of the abdomen and pelvis following administration of 100 ml Iso aubree 300 IV contrast. Delayed images through the kidneys and coronal/sagittal reconstructions perform ed. CT DLP: 1033 mGycm Automated exposure control for dose reduction was used. FINDINGS: Heart normal size without pericardial effusion. Lung bases clear without pleural effusion. Liver enlarged 22.9 cm. Diffuse low-attenuation of the hepatic parenchyma. Although the gallbladder is hydropic measuring 6 cm wide, there is no wall thickening or surrounding inflammation. The bile duct is dilated at 1.1 cm but with normal distal tapering. Portal venous system is patent. Adrenal glands, kidneys, spleen, pancreas appear within normal limits. There is some excreting contrast noted within the renal collecting systems and ureters. No dilated small bowel, free fluid, or free air. Some submucosal fat deposition within the right side of the colon nonspecific, could be secondary to obesity or prior inflammation. Incidental small 1 cm lipoma at the splenic flexure. There is mild to moderate circumferential wall thickening of the mid to distal sigmoid and rectum. No mesenteric or retroperitoneal lymphadenopathy. Bladder is nondistended. Pelvic phleboliths. Uterus and ovaries are visualized. No abnormal fluid col lection in the pelvis or pelvic lymphadenopathy. Bones: No osseous destructive process. Mild degenerative disc disease lower thoracic spine. IMPRESSION: 1. CIRCUMFERENTIAL WALL THICKENING OF THE DISTAL COLON EXTENDING FROM THE MID SIGMOID TO THE RECTUM. CORRELATE FOR A MILD NONSPECIFIC COLITIS. 2. HYDROPIC GALLBLADDER MEASURING 6 CM WIDE. NO ASSOCIATED INFLAMMATION SEEN BY CT. PLEASE NOTE THAT THERE WAS VOICE RECOGNITION ERROR ON THE HIDA SCAN REPORT OF 11/10/2017. IMPRESSION SHOULD STATE "AB NORMAL EJECTION FRACTION OF 20% . CORRELATE FOR BILIARY DYSKINESIA." 3. 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 4. BILE DUCT MILDLY DILATED AT 1.1 CM MAY BE CHRONIC IN THIS PATIENT THERE IS NORMAL DISTAL TAPERI NG. EXCLUDE BILIARY OBSTRUCTION WITH ALKALINE PHOSPHATASE AND BILIRUBIN LEVELS. 5. INCIDENTALLY, THERE IS SOME EXCRETING CONTRAST SEEN WITHIN THE RENAL COLLECTING SYSTEMS ON THE EAR LY IMAGES. QUERY IF THE PATIENT RECEIVED IV CONTRAST RECENTLY OUTSIDE OF THIS EXAM.
[2018-05-24] MEDS ORDERED: DICYCLOMINE 10 MG/ML 2 ML AMP IM STA (10:52)
[2018-05-24] MEDS ORDERED: LORazepam 2 MG/ML INJ IV STA (10:52)
[2018-05-24 11:09] VITALS: BP 138/70; PULSE 78; TEMP 97.9
== END 2018-05-24 11:08 | disposition home or self-care (01) ==
LOC: EC 08:31
DX: K52.9 Noninfective gastroenteritis and colitis, unspecified (principal); R16.0 Hepatomegaly, not elsewhere classified; K83.8 Other specified diseases of biliary tract; R11.0 Nausea; F10.20 Alcohol dependence, uncomplicated; G62.9 Polyneuropathy, unspecified; F32.9 Major depressive disorder, single episode, unspecified; F41.9 Anxiety disorder, unspecified; F17.200 Nicotine dependence, unspecified, uncomplicated; Z79.899 Other long term (current) drug therapy; Z85.3 Personal history of malignant neoplasm of breast; Z90.12 Acquired absence of left breast and nipple; Z80.0 Family history of malignant neoplasm of digestive organs; Z90.49 Acquired absence of other specified parts of digestive tract
CPT/HCPCS: 99284; 96374; 96375 ×2; 96361; 96372; 36415; 80053; 82150; 83690; 85025; 81001; 81025; 74177; G0480; J2060; J0500; J2405; Q9967; 80320

== ENCOUNTER 2018-05-27 14:51 | Emergency (ER) | payer OTHER ==
[2018-05-27 15:10] VITALS: RESP 18
[2018-05-27 15:41] LABS: Basophils % (A) 0 %; Eosinophils # (A) 0.1 k/uL (0-0.7); Eosinophils % (A) 1 %; HCT 46.6 % (34.0-46.0); HGB 15.7 gm/dL (11.4-16.0); Lymphocytes % (A) 20 %; MCH 30.5 pg (25.0-35.0); MCHC 33.6 g/dL (31.0-37.0); MCV 90.6 fL (80.0-100.0); Monocytes # (A) 0.3 k/uL (0-1.0); Monocytes % (A) 3 %; Neutrophils # (A) 7.5 k/uL (1.3-7.7); Neutrophils % (A) 74 %; Platelet Count 253 k/uL (150-450); RBC 5.14 m/uL (3.80-5.40); RDW 13.2 % (11.5-15.5); WBC 10.1 k/uL (3.8-10.6)
[2018-05-27 15:48] LABS: ALT 83 U/L (9-52); AST 187 U/L (14-36); Albumin 4.7 g/dL (3.5-5.0); Alkaline Phosphatase 97 U/L (38-126); Amylase 52 U/L (30-110); Anion Gap 19 mmol/L; Blood Urea Nitrogen 7 mg/dL (7-17); Calcium 9.3 mg/dL (8.4-10.2); Carbon Dioxide 16 mmol/L (22-30); Chloride 103 mmol/L (98-107); Glucose 103 mg/dL (74-99); Lipase 152 U/L (23-300); Potassium 3.5 mmol/L (3.5-5.1); Sodium 138 mmol/L (137-145); Total Bilirubin 1.8 mg/dL (0.2-1.3); Total Protein 8.3 g/dL (6.3-8.2)
--- NOTE | 2018-05-27 17:14 | ED ---
General Adult HPI - General Chief complaint: Recheck/Abnormal Lab/Rx Stated complaint: mental health/Detox Time Seen by Provider: 05/27/18 16:54 Source: patient, family, RN notes reviewed, old records reviewed Mode of arrival: ambulatory Limitations: no limitations - History of Present Illness Initial comments: Patient's a 52-year-old female seen a few past mental history for alcoholism, presented to the emergency room today with a chief complaint of wanting to detox from alcohol. Patient does admit that last treatment was proxy 4 hours ago. Patient states that she's had some chronic pain to her feet with neuropathy. She does admit to feeling nauseated. Patient denies any other complaints currently. Patient denies any recent fever, chills, shortness of breath, chest pain, back pain, abdominal pain, nausea or vomiting, numbness or tingling, dysuria or hematuria, or any other complaints. - Related Data Home Medications Medication Instructions Recorded Confirmed Anastrozole [Arimidex] 1 mg PO DAILY 11/09/17 05/27/18 Chlorthalidone [Hygroton] 25 mg PO DAILY 04/30/18 05/27/18 Naltrexone HCl [Revia] 50 mg PO HS 04/30/18 05/27/18 Pregabalin [Lyrica] 75 mg PO BID 04/30/18 05/27/18 Spironolactone [Aldactone] 25 mg PO BID 04/30/18 05/27/18 lamoTRIgine [LaMICtal] 25 mg PO DAILY 04/30/18 05/27/18 Ibuprofen [Advil] 200 mg PO Q8HR PRN 05/27/18 05/27/18 Previous Rx's Medication Instructions Recorded Dicyclomine [Bentyl] 20 mg PO QID #20 tablet 05/24/18 Ondansetron Odt [Zofran ODT] 4 mg PO Q8HR PRN #20 tab 05/24/18 Ondansetron Odt [Zofran ODT] 4 mg PO Q8HR PRN #20 tab 05/27/18 chlordiazePOXIDE HCl [Librium] 25 mg PO DIRECTED #22 capsule 05/27/18 cloNIDine HCL [Catapres] 0.1 mg PO BID #6 tab 05/27/18 Allergies Allergy/AdvReac Type Severity Reaction Status Date / Time No Known Allergies Allergy Verified 05/27/18 16:58 Review of Systems ROS Statement: Those systems with pertinent positive or pertinent negative responses have been documented in the HPI. ROS Other: All systems not noted in ROS Statement are negative. 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 Patient states she drinks a fith of whiskey a day. hep A History of Any Multi-Drug Resistant Organisms: None Reported Past Surgical History: Appendectomy Additional Past Surgical History / Comment(s): breast reduction, left mastectomy with implant. CARPAL TUNNEL RELEASE, LEFT WRIST. Past Anesthesia/Blood Transfusion Reactions: No Reported Reaction Past Psychological History: Anxiety, Depression Smoking Status: Current every day smoker Past Alcohol Use History: Abuse, Daily, Heavy Past Drug Use History: None Reported - Past Family History Father History Unknown: Yes Family Medical History: COPD Additional Family Medical History / Comment(s): Father is alive. States she drinks rum. Mother Family Medical History: Cancer Additional Family Medical History / Comment(s): from liver cancer two years ago. General Exam - General Exam Comments Initial Comments: General: The patient is awake and alert, in no distress, and does not appear acutely ill. Eye: Extra-ocular movements are intact. No nystagmus. There is normal conjunctiva bilaterally. No signs of icterus. Ears, nose, mouth and throat: There are moist mucous membranes and no oral lesions. Neck: The neck is supple, there is no tenderness or JVD. Cardiovascular: There is a regular rate and rhythm. No murmur, rub or gallop is appreciated. Respiratory: Lungs are clear to auscultation, respirations are non-labored, breath sounds are equal. No wheezes, stridor, rales, or rhonchi. Gastrointestinal: Soft, non-distended, non-tender abdomen without masses or organomegaly noted. There is no rebound or guarding present. No CVA tenderness. Musculoskeletal: Normal ROM, no tenderness. Sensation intact. Strength 5/5. Pulses equal bilaterally 2+. Neurological: A&O x 3. CN II-XII intact, There are no obvious motor or sensory deficits. Coordination appears grossly intact. Speech is normal. Skin: Skin is warm and dry and no rashes or lesions are noted. Psychiatric: Cooperative, appropriate mood & affect, normal judgment. Limitations: no limitations Course Vital Signs 05/27/18 15:04 Temperature 97.8 F Pulse Rate 96 Respiratory 18 Rate Blood Pressure 132/75 O2 Sat by Pulse 95 Oximetry Medical Decision Making - Lab Data Result diagrams: 05/27/18 15:28 05/27/18 15:28 Lab Results 05/27/18 05/27/18 05/27/18 Range/Units 15: 15: 17:00 WBC 10.1 (3.8-10.6) k/uL RBC 5.14 (3.80-5.40) m/uL Hgb 15.7 (11.4-16.0) gm/dL Hct 46.6 H (34.0-46.0) % MCV 90.6 (80.0-100.0) fL MCH 30.5 (25.0-35.0) pg MCHC 33.6 (31.0-37.0) g/dL RDW 13.2 (11.5-15.5) % Plt Count 253 (150-450) k/uL Neutrophils % 74 % Lymphocytes % 20 % Monocytes % 3 % Eosinophils % 1 % Basophils % 0 % Neutrophils # 7.5 (1.3-7.7) k/uL Lymphocytes # 2.0 (1.0-4.8) k/uL Monocytes # 0.3 (0-1.0) k/uL Eosinophils # 0.1 (0-0.7) k/uL Basophils # 0.0 (0-0.2) k/uL Sodium 138 (137-145) mmol/L Potassium 3.5 (3.5-5.1) mmol/L Chloride 103 (98-107) mmol/L Carbon Dioxide 16 L (22-30) mmol/L Anion Gap 19 mmol/L BUN 7 (7-17) mg/dL Creatinine 0.63 (0.52-1.04) mg/dL Est GFR (CKD-EPI)AfAm >90 (>60 ml/min/1.73 sqM) Est GFR (CKD-EPI)NonAf >90 (>60 ml/min/1.73 sqM) Glucose 103 H (74-99) mg/dL Calcium 9.3 (8.4-10.2) mg/dL Total Bilirubin 1.8 H (0.2-1.3) mg/dL AST 187 H (14-36) U/L ALT 83 H (9-52) U/L Alkaline Phosphatase 97 (38-126) U/L Total Protein 8.3 H (6.3-8.2) g/dL Albumin 4.7 (3.5-5.0) g/dL Amylase 52 (30-110) U/L Lipase 152 (23-300) U/L Urine Color Yellow Urine Appearance Clear (Clear) Urine pH 6.0 (5.0-8.0) Ur Specific [place] 1.018 (1.001-1.035) Urine Protein 1+ H (Negative) Urine Glucose (UA) Negative (Negative) Urine Ketones 2+ H (Negative) Urine Blood Small H (Negative) Urine Nitrite Negative (Negative) Urine Bilirubin Negative (Negative) Urine Urobilinogen <2.0 (<2.0) mg/dL Ur Leukocyte Esterase Negative (Negative) Urine RBC 1 (0-5) /hpf Urine WBC 4 (0-5) /hpf Ur Squamous Epith Cells 4 (0-4) /hpf Urine Bacteria Rare H (None) /hpf Urine Mucus Occasional H (None) /hpf Disposition Clinical Impression: Alcohol withdrawal Disposition: HOME SELF-CARE Condition: Good Instructions: Alcohol Withdrawal (ED) Additional Instructions: Please use medication as discussed. Please follow-up with family doctor in the next 2 days of symptoms have not improved. Please return to emergency room if the symptoms increase or worsen or for any other concerns. Prescriptions: chlordiazePOXIDE HCl [Librium] 25 mg PO DIRECTED #22 capsule cloNIDine HCL [Catapres] 0.1 mg PO BID #6 tab Ondansetron Odt [Zofran ODT] 4 mg PO Q8HR PRN #20 tab PRN Reason: Nausea Is patient prescribed a controlled substance at d/c from ED?: No Referrals: Matt Davila MD [Primary Care Provider] - 1-2 days Time of Disposition: 18:02
[2018-05-27 17:28] LABS: Appearance,Urine Clear (Clear); Bacteria,Urine Rare /hpf; Bilirubin,Urine Negative (Negative); Blood,Urine Small (Negative); Color,Urine Yellow; Glucose,Urine (UA) Negative (Negative); Ketones,Urine 2+ (Negative); Leukocyte Esterase,Urine Negative (Negative); Mucus,Urine Occasional /hpf; Nitrite,Urine Negative (Negative); Protein,Urine 1+ (Negative); RBC,Urine 1 /hpf (0-5); Specific Gravity,Urine 1.018 (1.001-1.035); Squamous Epithelial Cell,Urine 4 /hpf (0-4); Urobilinogen,Urine <2.0 mg/dL (<2.0); WBC,Urine 4 /hpf (0-5)
[2018-05-27] MEDS ORDERED: LORazepam 1 MG TAB PO STA (18:00)
[2018-05-27] MEDS ORDERED: ONDANSETRON 4 MG ODT STARTER PACK 2 TAB BTL PO STA (18:00)
[2018-05-27 18:38] VITALS: BP 127/82; PULSE 85; TEMP 97.6
== END 2018-05-27 18:38 | disposition home or self-care (01) ==
LOC: EC 14:51
DX: F10.230 Alcohol dependence with withdrawal, uncomplicated (principal); F41.9 Anxiety disorder, unspecified; G62.9 Polyneuropathy, unspecified; F17.200 Nicotine dependence, unspecified, uncomplicated; Z85.3 Personal history of malignant neoplasm of breast; Z92.21 Personal history of antineoplastic chemotherapy; Z79.899 Other long term (current) drug therapy
CPT/HCPCS: 36415; 80053; 82150; 83690; 85025; 81001; 99284; S0119

== ENCOUNTER → 2018-06-23 | Outpatient (CLI) | payer OTHER ==
[2018-06-23 15:38] LABS: INR 1.2 (<1.2); Prothrombin Time 11.1 sec (9.0-12.0)
[2018-06-23 15:46] LABS: HGB 15.1 gm/dL (11.4-16.0); MCH 31.1 pg (25.0-35.0); MCHC 32.8 g/dL (31.0-37.0); MCV 94.8 fL (80.0-100.0); Mean Platelet Volume 7.8; Platelet Count 239 k/uL (150-450); RBC 4.85 m/uL (3.80-5.40); WBC 8.1 k/uL (3.8-10.6)
[2018-06-23 15:54] LABS: ALT 42 U/L (9-52); AST 37 U/L (14-36); Albumin 4.3 g/dL (3.5-5.0); Alkaline Phosphatase 60 U/L (38-126); Anion Gap 10 mmol/L; Blood Urea Nitrogen 8 mg/dL (7-17); Carbon Dioxide 26 mmol/L (22-30); Chloride 105 mmol/L (98-107); Glucose 106 mg/dL (74-99); Sodium 141 mmol/L (137-145); Total Bilirubin 0.5 mg/dL (0.2-1.3); Total Protein 7.9 g/dL (6.3-8.2)
== END | disposition home or self-care (01) ==
LOC: LABWHC1 15:01
PROVIDERS: ATTEND Internal Medicine Gastroenterology
DX: K70.30 Alcoholic cirrhosis of liver without ascites (principal)
CPT/HCPCS: 36415; 80053; 82105; 85027; 85610

== ENCOUNTER → 2018-09-03 | Outpatient (CLI) | payer OTHER ==
[2018-09-03 10:47] VITALS: BP 114/78; PULSE 70; RESP 20; TEMP 97.4; BMI 32.2
--- NOTE | 2018-09-03 11:33 | P.GSHP ---
History of Present Illness H&P Date: 09/03/18 Chief Complaint: breast cancer 5 years ago Alka is a 52-year-old white female who approximately 5 years ago was diagnosed with a left breast cancer. She is actually treated in [place] by [facility] and underwent a left breast mastectomy with reconstruction and reduction on the contralateral side. The patient states she was told she was stage IV at the time. She she did undergo chemotherapy prior to her surgery and radiation therapy following the surgery in [place], at [facility] by Dr. Medrano. Medical oncologist is Dr. Kwok. She is presently taking Arimidex. The patient is unsure as to why she was stage IV. The patient is plastic surgeon was in [place]. The patient went back and forth to [place] multiple times to have the implant filled on a weekly basis however does not recall having the database programmer removed and the permanent implant placed. The patient now states that the left breast reconstructed area is very firm and painful. The pain and firmness started several years ago and have been worse and progressive. The patient states she does not feel any specific lumps or masses in the right breast which sips pulsatile he had a reduction mammoplasty however she does tell me that she no longer has the nipple or areolar complex on that side. Family History: 1. mother: liver cancer- at 70 Hormonal history: Menarche: 11 Pregnancies:4, live births: 2, 2 miscarrages; first at 34, breast fed: yes menopause: Stopped with chemotherapy in her mid 40s control pills: Briefly as a teenager Hormones: none Past surgical history: 1. appy 2. left mastectomy and implant 3. right breast reduction 4. bilateral carpal tunnel Past medical history: 1. Cirrhosis 2. bipolar Social History: smoke:1/PPD since 16 alcohol: stopped 2 months ago, diagnosed with chirosis 7 months ago drugs: none - Constitutional Constitutional: Reports sweats - EENT Eyes: bilateral blurred vision (needs glasses to read), denies pain Ears: deny: decreased hearing, tinnitus Ears, nose, mouth and throat: Denies headache, Denies sore throat - Breasts Breasts: bilateral: as per HPI - Cardiovascular Cardiovascular: Denies chest pain, Denies shortness of breath - Respiratory Comment: smoker, COPD - Gastrointestinal Gastrointestinal: Denies abdominal pain, Denies diarrhea, Denies nausea, Denies vomiting - Genitourinary (Female) Genitourinary: Denies dysuria, Denies hematuria - Menstruation Menstruation: Reports postmenopausal - Musculoskeletal Comment: Neuropathy in her feet related to the chemotherapy Musculoskeletal: Denies myalgias - Integumentary Integumentary: Denies pruritus, Denies rash - Neurological Comment: numbness in fingers and toes Neurological: Reports numbness, Denies weakness - Psychiatric Psychiatric: Reports anxiety, Reports depression - Endocrine Endocrine: Reports weight change, Denies fatigue - Hematologic/Lymphatic Comment: none - Allergic/Immunologic Comment: none Past Medical History Past Medical History: Cancer, COPD Additional Past Medical History / Comment(s): Breast cancer.Stated has neuropathy in feet since she had chemo" alcoholism, common bile duct dilation and elevated liver function tests. Patient states she drinks a fith of whiskey a day in the past hep A History of Any Multi-Drug Resistant Organisms: None Reported Past Surgical History: Appendectomy Additional Past Surgical History / Comment(s): breast reduction, left mastectomy with implant. CARPAL TUNNEL RELEASE, LEFT WRIST. Past Anesthesia/Blood Transfusion Reactions: No Reported Reaction Past Psychological History: Anxiety, Depression Additional Psychological History / Comment(s): pt stated she lives alone in a 2 story home that has 4-5 steps. pets: 1 cat 1 dog. Doesn't twork. Smoking Status: Current every day smoker Past Alcohol Use History: Abuse, Daily, Heavy Additional Past Alcohol Use History / Comment(s): HAS SMOKED SINCE 1981, 1PPD. Admits to drinking at least a fith of whiskey a day. Past Drug Use History: None Reported - Past Family History Father History Unknown: Yes Family Medical History: COPD Additional Family Medical History / Comment(s): Father is alive. States she drinks rum. Mother Family Medical History: Cancer Additional Family Medical History / Comment(s): from liver cancer two years ago. Medications and Allergies Home Medications Medication Instructions Recorded Confirmed Type Anastrozole [Arimidex] 1 mg PO DAILY 11/09/17 05/27/18 History Chlorthalidone [Hygroton] 25 mg PO DAILY 04/30/18 05/27/18 History Naltrexone HCl [Revia] 50 mg PO HS 04/30/18 05/27/18 History Pregabalin [Lyrica] 75 mg PO BID 04/30/18 05/27/18 History Spironolactone [Aldactone] 25 mg PO BID 04/30/18 05/27/18 History lamoTRIgine [LaMICtal] 25 mg PO DAILY 04/30/18 05/27/18 History Dicyclomine [Bentyl] 20 mg PO QID #20 tablet 05/24/18 05/27/18 Rx Ondansetron Odt [Zofran ODT] 4 mg PO Q8HR PRN #20 tab 05/24/18 05/27/18 Rx Ibuprofen [Advil] 200 mg PO Q8HR PRN 05/27/18 05/27/18 History Ondansetron Odt [Zofran ODT] 4 mg PO Q8HR PRN #20 tab 05/27/18 Rx chlordiazePOXIDE HCl [Librium] 25 mg PO DIRECTED #22 capsule 05/27/18 Rx cloNIDine HCL [Catapres] 0.1 mg PO BID #6 tab 05/27/18 Rx Allergies Allergy/AdvReac Type Severity Reaction Status Date / Time No Known Allergies Allergy Verified 05/27/18 16:58 Surgical - Exam Vital Signs Temp Pulse Resp BP Pulse Ox 97.4 F L 70 20 114/78 98 09/03/18 10:38 09/03/18 10:38 09/03/18 10:38 09/03/18 10:38 09/03/18 10:38 BMI 32.2 - General moderate distress, obese - Eyes normal ocular movement - ENT no hearing loss, no congestion - Neck no masses, trachea midline - Respiratory normal respiratory effort, clear to auscultation - Cardiovascular Rhythm: regular Heart Sounds: normal: S1, S2 - Abdomen Liver prominent on percussion Abdomen: soft, non tender, no guarding, no rigid, no rebound - Integumentary normal turger, tattoo left chest wall at reconstructed area - Neurologic no disoriented, no combative - Musculoskeletal normal gait - Psychiatric oriented to time, oriented to person, oriented to place, speech is normal, memory intact Breast examination: Right breast: Status post reduction mammoplasty, no dominant masses or nodules of concern, patient has no nipple or area over complex present, there is a well- healed scar in the right axilla with no adenopathy present Left breast: Patient is status post mastectomy she has a implant in place which is very firm and tender especially in the axillary area with palpation it is on clear whether this is an database programmer or implant, she does have a tattoo of a karol over the left chest wall Left axilla: No adenopathy of concern Assessment and Plan Assessment: Impression: 1. Status post left mastectomy right breast reduction approximately 5 years ago in [place] 2. History of stage IV breast cancer status post chemotherapy and radiation as per the patient 3. Pain at reconstructed left breast site with firmness of implant 4. Nicotine dependence 5. Liver disease Plan: 1. Medical management of medical problems 2. Patient to obtain surgical records 3. Medical clearance 4. Case to be discussed with plastic surgery/Dr. Calle most likely will recommend removal of implant secondary to the firmness and pain it is causing Had a long discussion with the patient and her boyfriend regarding the fact that first of all be want to determine that there is no recurrent or residual cancer if this was indeed stage IV breast cancer. Secondly's because of the pain we would consider removing the implant she does understand that this is not for cosmetic reasons. She does understand this and wishes to proceed with the implant removal. We will see her again in follow-up after we obtain the medical clearance and surgical records. Cc: Dr. Matt Pereira
== END | disposition home or self-care (01) ==
LOC: WWCWWP 10:13
PROVIDERS: ATTEND Surgery
DX: Z53.9 Procedure and treatment not carried out, unspecified reason (principal)

== ENCOUNTER → 2018-10-08 | Outpatient (CLI) | payer OTHER ==
[2018-10-08 13:02] LABS: Basophils # (A) 0.1 k/uL (0-0.2); Basophils % (A) 0 %; Eosinophils # (A) 0.3 k/uL (0-0.7); Eosinophils % (A) 2 %; HCT 48.3 % (34.0-46.0); HGB 15.5 gm/dL (11.4-16.0); Lymphocytes # (A) 2.1 k/uL (1.0-4.8); Lymphocytes % (A) 15 %; MCH 28.4 pg (25.0-35.0); MCV 88.9 fL (80.0-100.0); Mean Platelet Volume 7.5; Monocytes # (A) 0.6 k/uL (0-1.0); Monocytes % (A) 4 %; Neutrophils # (A) 10.9 k/uL (1.3-7.7); Neutrophils % (A) 77 %; Platelet Count 293 k/uL (150-450); RBC 5.44 m/uL (3.80-5.40); RDW 14.1 % (11.5-15.5); WBC 14.1 k/uL (3.8-10.6)
[2018-10-08 13:04] LABS: Partial Thromboplastin Time 25.9 sec (22.0-30.0); Prothrombin Time 10.3 sec (9.0-12.0)
== END | disposition home or self-care (01) ==
LOC: LABWHC1 11:09
PROVIDERS: ATTEND Surgery
DX: K74.60 Unspecified cirrhosis of liver (principal)
CPT/HCPCS: 36415; 85025; 85610; 85730

== ENCOUNTER → 2018-10-08 | Outpatient (CLI) | payer OTHER ==
[2018-10-08 10:05] VITALS: BP 101/71; PULSE 67; RESP 18; TEMP 97.1; BMI 32.2
--- NOTE | 2018-10-08 11:03 | P.PN ---
Subjective Progress Note Date: 10/08/18 Alka is a 52-year-old white female who approximately 5 years ago was diagnosed with a left breast cancer. She was actually treated in [place] at [facility] and underwent a left breast mastectomy with reconstruction and reduction on the contralateral side. The patient states she was told she was stage IV at the time. She did undergo chemotherapy prior to her surgery and radiation therapy following the surgery. The radiation was performed at [facility] by Dr. harkins. Her medical oncologist is Dr. wKok. She is presently taking Arimidex. The patient has had pain related to her left breast reconstruction which has become worse in the recent past. The area of the implant is very firm and painful. The pain has been present for several years but again is progressive and more of bothersome for the patient. The patient states she does not feel any lumps or masses in the right breast. The patient did have a right breast mammogram within the past year and these results will be reviewed. Family history: 1. Mother: Liver cancer at 70 Hormonal history: Menarche: 11 Pregnancies 4, live purse: 2, 2 miscarriages: Versed 34, breast-fed: Yes Menopause: Stopped with chemotherapy in her mid 40s control pills: Briefly as a teenager Hormones: None Past surgical history: 1. Appendectomy 2. Left mastectomy with implant 3. Right breast reduction 4. Bilateral carpal tunnel Past medical history: 1. Cirrhosis 2. Bipolar Social history: Smoke: One pack per day since 16 Alcohol: Stopped 2 months ago, diagnosed with cirrhosis 7 months ago this was related to drinking it is under control at this time Drugs: Negative Review of systems: Constitutional: Reports night sweats HEENT: Negative does need glasses to read Cardiovascular: Negative Respiratory: Some mild gross/COPD GI: History of cirrhosis secondary to alcohol abuse Musculoskeletal: Negative Integument: Negative Psychiatric: Anxiety/depression Patient with a prior history of breast cancer Objective - Vital Signs Vital signs: Vital Signs Temp 97.1 F L 10/08/18 09:56 Pulse 67 10/08/18 09:56 Resp 18 10/08/18 09:56 BP 101/71 10/08/18 09:56 Pulse Ox 99 10/08/18 09:56 Intake & Output 10/07/18 10/08/18 10/08/18 18:59 06:59 18:59 Weight 74.843 kg - Constitutional General appearance: Present: obese - EENT Eyes: Present: EOMI ENT: Present: hearing grossly normal - Respiratory Respiratory: bilateral: CTA - Cardiovascular Rhythm: regular Heart sounds: normal: S1, S2 - Gastrointestinal Gastrointestinal Comment(s): liver prominate on percussion General gastrointestinal: Present: soft - Integumentary Integumentary: Present: normal turgor - Psychiatric Psychiatric: Present: A&O x's 3, appropriate affect, intact judgment & insight Assessment and Plan Assessment: Impression: 1. Status post left mastectomy, right breast reduction proximally 5 years ago in [place] 2. History of stage IV breast cancer status post chemotherapy and radiation therapy as per the patient 3. Pain at reconstructed left breast site with firmness of implant 4. Nicotine dependence 5. Liver disease Plan: 1. Medical management of medical problems 2. Surgical records to be reviewed 3. Medical clearance obtained from Dr. Davila will obtain clearance from Dr. kee 4. We'll attempt to discuss case with plastic surgery/Dr. Calle most likely will recommend removal of implant secondary to the firmness and pain that it is causing with possible reconstruction at a later time Risks and benefits of the procedure been discussed with the patient. These include bleeding infection possible reaction to the anesthetic. The patient understands that her pain may or may not be alleviated with removal of the implant. Additionally she will most likely need to have reconstruction at a later time if plastic surgery is not available for this. The patient understands and wishes to proceed. Additionally we have discussed the possibility of postprocedure seroma formation and the possibility of difficulty with healing secondary to the radiation therapy which could require hyperbaric oxygen treatment. Cc: Dr. Matt Davila, Dr. Kaleigh Mchugh
== END | disposition home or self-care (01) ==
LOC: WWCWWP 09:39
PROVIDERS: ATTEND Surgery
DX: Z53.9 Procedure and treatment not carried out, unspecified reason (principal)

== ENCOUNTER → 2018-10-27 | Outpatient (CLI) | payer OTHER ==
--- NOTE | 2018-10-27 11:59 | MM ---
Reason for exam: additional evaluation requested from prior study. Last mammogram was performed 1 year ago. History: Patient is postmenopausal and has history of breast cancer at age 47. US discontinued breast bx LT of the left breast, December 16, 2014. Reduction of the right breast, 2013. Implant in the left breast, 2012. Malignant excisional biopsy of the left breast, 2012. Mastectomy of the left breast, 2012. Chemotherapy, 2012. Radiation therapy of the left breast, 2012. Taking antineoplastic. Physical Findings: Nurse did not find any significant physical abnormalities on exam. MG 3D Diag Mammo W/Cad RT CC and MLO view(s) were taken of the right breast. Prior study comparison: October 23, 2017, mammogram, performed at [facility]. October 22, 2016, mammogram, performed at [facility]. December 09, 2014, bilateral MG diagnostic mammo w CAD MARTINEZ. There are scattered fibroglandular densities. No significant new findings when compared with previous films. These results were verbally communicated with the patient and result sheet given to the patient on 10/27/18. ASSESSMENT: Benign, BI-RAD 2 RECOMMENDATION: Routine screening mammogram of the right breast in 1 year.
== END | disposition home or self-care (01) ==
LOC: RADMAMWWP 10:59
PROVIDERS: ATTEND Surgery
DX: Z08 Encounter for follow-up examination after completed treatment for malignant neoplasm (principal); Z85.3 Personal history of malignant neoplasm of breast
CPT/HCPCS: 77065; G0279; 77061

== ENCOUNTER 2018-11-03 11:20 | Observation (INO) | payer OTHER ==
[2018-10-29 13:57] VITALS: BMI 32.4
[~2018-11-03 11:20] MED LIST changes: +DEXAMETHASONE SOD PHOSPHATE 10 MG/ML 1 ML VIAL IV ONE; -HEPARIN SODIUM,PORCINE 5,000 UNIT/ML 1 ML VIAL SQ ONE; +HYDROmorphone 0.5 MG/0.5 ML SYRINGE IVP PRN; +LIDOCAINE 1% 20 ML VIAL (10MG/ML) FOR IV START INTRADERMA PRN; +MIDAZOLAM (PF) 2 MG/2 ML VIAL IV PRN; +ONDANSETRON 4 MG/2 ML VIAL IVP ONE; +ceFAZolin 1,000 MG in DEXTROSE/WATER 1 50ML.BAG IVPB ONE; -ceFAZolin 2 GM in SODIUM CHLORIDE 0.9% 100 ML IVPB ONE; +fentaNYL (PF) 50 MCG/ML 2 ML AMP IV PRN
[2018-11-03 12:42] LABS: HCT 46.1 % (34.0-46.0); HGB 15.5 gm/dL (11.4-16.0); MCH 30.3 pg (25.0-35.0); MCHC 33.5 g/dL (31.0-37.0); MCV 90.2 fL (80.0-100.0); Mean Platelet Volume 7.4; Platelet Count 247 k/uL (150-450); RBC 5.11 m/uL (3.80-5.40); RDW 14.9 % (11.5-15.5); WBC 9.2 k/uL (3.8-10.6)
[2018-11-03 13:02] LABS: INR 0.9 (<1.2); Prothrombin Time 9.9 sec (9.0-12.0)
[2018-11-03] MEDS ORDERED: PROPOFOL 10 MG/ML 20 ML VIAL IV ONE (14:57)
[2018-11-03] MEDS ORDERED: ONDANSETRON 4 MG/2 ML VIAL ONE (14:57)
[2018-11-03] MEDS ORDERED: fentaNYL (PF) 50 MCG/ML 2 ML AMP ONE (14:57)
[2018-11-03] MEDS ORDERED: GLYCOPYRROLATE 0.2 MG/ML 2 ML VIAL ONE (14:57)
[2018-11-03] MEDS ORDERED: HYDROmorphone (PF) 1 MG/ML ONE (14:57)
[2018-11-03] MEDS ORDERED: NEOSTIGMINE 1 MG/ML 10 ML VIAL ONE (14:57)
[2018-11-03] MEDS ORDERED: LIDOCAINE 1% INJ 10MG/ML (20 ML MDV) ONE (14:57)
[2018-11-03] MEDS ORDERED: SUCCINYLCHOLINE CHLORIDE 100 MG/5 ML SYR IV ONE (14:57)
[2018-11-03] MEDS ORDERED: MIDAZOLAM 2 MG/2 ML VIAL ONE (14:57)
[2018-11-03] MEDS ORDERED: ROCURONIUM BROMIDE 10 MG/ML 10 ML VIAL IV ONE (14:57)
[2018-11-03] MEDS ORDERED: HEPARIN SODIUM,PORCINE 5,000 UNIT/ML 1 ML VIAL SQ ONE (15:12)
[2018-11-03] MEDS ORDERED: LIDOCAINE (PF) 10 MG/ML 2 ML VIAL SQ ONE (15:16)
[2018-11-03] MEDS ORDERED: LIDOCAINE 1% (PF) 10 MG/ML (30 ML SDV) SQ ONE (15:32)
[2018-11-03] MEDS ORDERED: ONDANSETRON 4 MG/2 ML VIAL IVP PRN (17:06)
[2018-11-03] MEDS ORDERED: NALOXONE 0.4 MG/ML 1 ML VIAL IV PRN (17:06)
--- NOTE | 2018-11-03 17:06 | P.OP ---
Date of Procedure: 11/03/18 Preoperative Diagnosis: Painful left breast implant with contracture Postoperative Diagnosis: Same Procedure(s) Performed: Removal of implant Anesthesia: PIYUSH Surgeon: Nilsa Lombardo Estimated Blood Loss (ml): 20 IV fluids (ml): 400 Pathology: other (left breast implant and capsule) Condition: stable Disposition: PACU Indications for Procedure: Intractable pain from left breast implant Operative Findings: Fibrotic capsule around the left breast implant Description of Procedure: Findings a 53-year-old white female who is status post left breast mastectomy and subpectoral implant reconstruction done in [place] many years ago. The of the left breast then received radiation and the patient has developed a contracted painful left chest wall felt to be related to the implant. The patient wishes the implant to be removed. I discussed this with plastic surgery and they concur that the implant should be removed. Alka to see plastic surgery in the future for potential reconstruction. She understands the today simply remove the implant and that she could potentially have reconstruction at a later time. She wishes to proceed in this fashion. The patient was taken to the operating room and following induction of general anesthesia the left chest wall was prepped and draped in a sterile fashion. An incision was made over the left chest wound and closed under the skin was a very attenuated the pectoralis muscle and a very firm capsule around the implant. The capsule was opened and clear fluid was expressed. The implant was able to be removed intact. The patient formed around the implant appeared to be thickened but it was from the underlying tissues. It was elevated and a large portion of this was removed. The most medial portion was left and this was scored in a cruciate fashion. Following this the wound was well irrigated. There was no evidence of any active bleeding. Powererdized Surgicel was placed in the wound. A #10 Angel-Ramires drain was placed. The skin edges were trimmed. The deeper tissues were closed with 4-0 Vicryl suture. The skin was closed with 4-0 Monocryl. The drain was secured with nylon suture. Steri-Strips were applied. A sterile dressing with a Angelica wrap was placed. The patient tolerated the procedure in stable condition. All instrument and sponge counts were correct at the end of the case.
[2018-11-03] MEDS: MEPERIDINE 50 MG/ML SYRINGE IVP ONE ×2 (17:24→17:36)
[2018-11-03] MEDS: HYDROmorphone 1 MG/ML 1 ML SYRINGE IV PRN ×2 (18:58→21:44)
[2018-11-03] MEDS: NICOTINE 21MG/24HR PATCH TRANSDERM SCH (19:45)
[2018-11-03] MEDS: DEXTROSE 5%-0.45% NACL 1,000 ML IV SCH (19:46)
[2018-11-03] MEDS: HEPARIN SODIUM,PORCINE 5,000 UNIT/ML 1 ML VIAL SQ SCH (20:28)
[2018-11-03] MEDS: Acetaminophen-Codeine 300-30mg TAB PO PRN (20:43)
[2018-11-04] MEDS: Acetaminophen-Codeine 300-30mg TAB PO PRN ×3 (00:48→12:53)
[2018-11-04] MEDS: HYDROmorphone 1 MG/ML 1 ML SYRINGE IV PRN ×3 (00:48→08:10)
[2018-11-04] MEDS: DEXTROSE 5%-0.45% NACL 1,000 ML IV SCH (03:50)
[2018-11-04 06:53] LABS: Basophils % (A) 0 %; Eosinophils # (A) 0.1 k/uL (0-0.7); Eosinophils % (A) 1 %; HCT 42.7 % (34.0-46.0); HGB 13.5 gm/dL (11.4-16.0); Lymphocytes # (A) 1.9 k/uL (1.0-4.8); Lymphocytes % (A) 14 %; MCH 28.8 pg (25.0-35.0); MCHC 31.5 g/dL (31.0-37.0); MCV 91.3 fL (80.0-100.0); Mean Platelet Volume 6.5; Monocytes # (A) 0.7 k/uL (0-1.0); Monocytes % (A) 5 %; Neutrophils # (A) 10.4 k/uL (1.3-7.7); Neutrophils % (A) 78 %; Platelet Count 262 k/uL (150-450); RBC 4.68 m/uL (3.80-5.40); RDW 14.9 % (11.5-15.5); WBC 13.3 k/uL (3.8-10.6)
[2018-11-04] MEDS: NICOTINE 21MG/24HR PATCH TRANSDERM SCH (08:10)
[2018-11-04] MEDS: HEPARIN SODIUM,PORCINE 5,000 UNIT/ML 1 ML VIAL SQ SCH (08:10)
[2018-11-04 08:23] VITALS: RESP 17
[2018-11-04 08:24] VITALS: BP 103/71; PULSE 90; TEMP 98.2
--- NOTE | 2018-11-04 11:52 | P.PN ---
Subjective Progress Note Date: 11/04/18 Principal diagnosis: Removal of contracted left breast implant Alka is postop day #1 from removal of left breast implant which was contracted painful. Postoperatively she is doing well without complaints. She is tolerating her diet without difficulty. Her MADI drainage is serous and recorded as 30 mL today. Her WBC is 13.3, and her hemoglobin is 13.5. She has no evidence of infection at her surgical site. Her pain is well controlled at this time. Objective - Vital Signs Vital signs: Vital Signs Temp 98.2 F 11/04/18 07:00 Pulse 90 11/04/18 07:00 Resp 17 11/04/18 08:00 BP 103/71 11/04/18 07:00 Pulse Ox 95 11/04/18 07:00 Intake & Output 11/03/18 11/04/18 11/04/18 18:59 06:59 18:59 Intake Total 925 840 Output Total 20 30 Balance 905 810 Intake: IV 925 Oral 840 Output: Drainage 30 Left Breast 30 Estimated Blood Loss 20 Other: Voiding Method Toilet # Voids 3 - Constitutional General appearance: Present: average body habitus - EENT Eyes: Present: EOMI - Respiratory Respiratory: left: wheezing (The patient has inspiratory wheezing which she states is normal for her. She is a smoker.) - Cardiovascular Rhythm: regular Heart sounds: normal: S1, S2 - Integumentary Integumentary Comment(s): Incision clean and dry, no evidence of hematoma, no evidence of infection MADI drain serous - Psychiatric Psychiatric: Present: A&O x's 3, intact judgment & insight - Labs CBC & Chem 7: 11/04/18 06:17 Labs: Abnormal Lab Results - Last 24 Hours (Table) 11/03/18 11/04/18 Range/Units 12:24 06:17 WBC 13.3 H (3.8-10.6) k/uL Hct 46.1 H (34.0-46.0) % Neutrophils # 10.4 H (1.3-7.7) k/uL Assessment and Plan Assessment: Impression: 1. Postop day #1 removal of contracted left breast implant 2. Stable postoperative 3. Inspiratory wheezing greater on the left than right Plan: 1. DC home if okay with medicine/inspiratory wheezing 2. Follow-up with Dr. Ko in 1 week 3. Teaching drain care 4. Patient to keep Angelica wrap on at all times unless shower 5. Patient should not drive until seen by Dr. Ko
--- NOTE | 2018-11-04 11:58 | P.DS ---
Providers Date of admission: 11/04/18 05:04 Attending physician: Nilsa Lombardo Consults: 11/03/18 17:10 Consult Physician Routine Consulting Provider: Matt Davila Consult Reason/Comments: medical managment Do you want consulting provider notified?: Yes Primary care physician: Nilsa KoAcmh Hospital Course: Alka is a 53-year-old white female who is status post removal of a left breast contracted implant. Postoperatively she has done well. The plan is for discharge home if okay with medicine to be followed as an outpatient. Plan - Discharge Summary Discharge Rx Participant: No New Discharge Prescriptions: No Action Anastrozole [Arimidex] 1 mg PO DAILY Chlorthalidone [Hygroton] 25 mg PO DAILY PRN PRN Reason: Itching lamoTRIgine [LaMICtal] 25 mg PO DAILY Naltrexone HCl [Revia] 50 mg PO HS Spironolactone [Aldactone] 25 mg PO BID Ibuprofen [Advil] 200 mg PO Q8HR PRN PRN Reason: Pain Discharge Medication List Anastrozole [Arimidex] 1 mg PO DAILY 11/09/17 [History] Chlorthalidone [Hygroton] 25 mg PO DAILY PRN 04/30/18 [History] Naltrexone HCl [Revia] 50 mg PO HS 04/30/18 [History] Spironolactone [Aldactone] 25 mg PO BID 04/30/18 [History] lamoTRIgine [LaMICtal] 25 mg PO DAILY 04/30/18 [History] Ibuprofen [Advil] 200 mg PO Q8HR PRN 05/27/18 [History] Follow up Appointment(s)/Referral(s): Nilsa Lombardo MD [Primary Care Provider] - 1 Week Activity/Diet/Wound Care/Special Instructions: Do not drive until seen by Dr. Ko Patient may shower after 48 hours Where a Angelica rapid all times and when showering Teach drain care, drain and record twice a day and as needed Discharge Disposition: HOME SELF-CARE
[2018-11-04] MEDS ORDERED: CHLORTHALIDONE 25 MG TAB PO PRN (14:45)
[2018-11-04] MEDS ORDERED: SPIRONOLACTONE 25 MG TAB PO SCH (21:00)
--- NOTE | 2018-11-05 07:35 | CONS ---
CONSULTATION CHIEF COMPLAINT: A 53-year-old white female with medical consult, status post breast implant removal, going through alcoholism, alcohol withdrawal, bipolar, breast cancer. The patient has continued to do well at this time, possible discharge. REVIEW OF SYSTEMS: A 14 point review of systems negative except for as mentioned in HPI. She is getting bathroom. HOME MEDICINES: Lamictal, , Advil, Hygroton, Arimidex, [place]. Vital signs stable, afebrile. CARDIOVASCULAR: S1, S2. LUNGS: Clear. GI: Soft. HEMATOLOGY: Negative Homans. PSYCH: Fair mood and affect. ASSESSMENT: 1. Status post breast implant removal. 2. Alcoholism, alcohol withdrawal. 3. Mood disorder. Follow up in the next 24 to 48 hours, possible discharge. She is cleared from a medical standpoint. MMODL / IJN: [id number] /
[2018-11-05] MEDS ORDERED: lamoTRIgine 25 MG TAB PO SCH (09:00)
[2018-11-05] MEDS ORDERED: ANASTROZOLE 1 MG TAB PO SCH (09:00)
== END 2018-11-04 17:34 | disposition home or self-care (01) ==
LOC: OR 11:20 → 4SSUR 17:35 → OR 11-04 05:04
PROVIDERS: ADMIT Surgery; ATTEND Surgery
DX: T85.44XA Capsular contracture of breast implant, initial encounter (principal); F31.9 Bipolar disorder, unspecified; I10 Essential (primary) hypertension; F10.239 Alcohol dependence with withdrawal, unspecified; F39 Unspecified mood [affective] disorder; F17.210 Nicotine dependence, cigarettes, uncomplicated; Z79.899 Other long term (current) drug therapy; Z85.3 Personal history of malignant neoplasm of breast; Z92.3 Personal history of irradiation
CPT/HCPCS: 88305; 85025; 85027; 85610; 19328; G0378; S4990 ×2; J1644; J1100; J2175; J2405; J1170 ×2; J2250

== ENCOUNTER → 2018-11-12 | Outpatient (CLI) | payer OTHER ==
[2018-11-12 11:59] VITALS: BP 100/62; PULSE 72; RESP 18; BMI 75.3
--- NOTE | 2018-11-12 12:22 | P.PN ---
Progress Note - Text Progress Note Date: 11/12/18 Alka is status post removal of contracted implant performed on 11/03/2018. Postoperatively she is doing well. She does complain of some soreness under her left arm. She has no complaints related to the incision. Her MADI drain is serous but is putting out approximately 50 mL a day. She has not measured it and is only speculating. Physical exam: Left breast incision clean and dry no evidence of infection MADI drain serous in nature Lungs: Clear Heart: Regular rate and rhythm Impression: 1. Patient doing well postoperatively Plan: We will leave the drains for 1 more week 2. Follow up next week for drain removal 3. Dressing change continue present dressing care CC: Dr. Matt Davila
== END ==
LOC: WWCWWP 11:25
PROVIDERS: ATTEND Surgery
DX: Z53.9 Procedure and treatment not carried out, unspecified reason (principal)

== ENCOUNTER → 2018-11-17 | Outpatient (CLI) | payer OTHER ==
[2018-11-17 12:12] VITALS: BP 106/69; PULSE 81; RESP 18; TEMP 97.2; BMI 34.2
--- NOTE | 2018-11-17 12:30 | P.PN ---
Progress Note - Text Progress Note Date: 11/17/18 Alka is a 53-year-old white female status post removal of contracted implant on . She is doing well at this time. Her MADI drainage is serous and is putting out approximately 40 mL per day. She understands that removing the drain may result in a seroma formation but the drain is become very irritating to her and she wishes the drain to be removed. The patient status the discomfort she had prior to the implant removal is much improved. She is very happy that the implant is gone. She does complain of a burning sensation on her upper arm. This has been present since the implant has been removed. She has seen physical therapy and approximately 1 week. Incision: Clean and dry Drain: Serous drainage mild irritation at the drain site Impression: 1. Patient status post removal of contracted implant Plan: 1. Removal of MADI drain 2. Patient to follow-up in 2 weeks CC: Dr. Matt Pereira
== END | disposition home or self-care (01) ==
LOC: WWCWWP 11:54
PROVIDERS: ATTEND Surgery
DX: Z53.9 Procedure and treatment not carried out, unspecified reason (principal)

== ENCOUNTER → 2018-11-26 | Outpatient (CLI) | payer OTHER ==
[2018-11-26 11:04] VITALS: BP 104/71; PULSE 73; RESP 16; TEMP 97.5; BMI 34.2
--- NOTE | 2018-11-26 11:34 | P.PN ---
Subjective Progress Note Date: 11/26/18 Principal diagnosis: removal of left breast implant on 11-03-18 Alka is a 53-year-old white female status post excision of a left breast implant which had become encapsulated and painful. This was performed on 11-03-18. At this time the patient is doing well but has developed a seroma at the implant removal site. She comes for aspiration of the seroma. The patient additionally has complained of some numbness of her left upper arm with some burning. She is seeing physical therapy with respect to this. She states that the pain related to the implant as well as mobility of the left arm have improved since removal of the implant. Objective - Vital Signs Vital signs: Vital Signs Temp 97.5 F L 11/26/18 10:58 Pulse 73 11/26/18 10:58 Resp 16 11/26/18 10:58 BP 104/71 11/26/18 10:58 Pulse Ox 97 11/26/18 10:58 Intake & Output 11/25/18 11/26/18 11/26/18 18:59 06:59 18:59 Weight 79.379 kg - Exam BMI 34.2 - Constitutional General appearance: Present: average body habitus - EENT Eyes: Present: EOMI - Respiratory Respiratory: - Cardiovascular Rhythm: regular Heart sounds: - Integumentary Integumentary: Present: normal turgor - Psychiatric Psychiatric: Present: A&O x's 3, appropriate affect, intact judgment & insight - Additional findings Additional findings: Breasts: Left chest wall incision clean and dry seroma noted A consent was obtained. A time out was performed. The risks and benefits of aspirating the seroma were noted and the patient wished the seroma to be aspirated. The area of the skin was prepped using alcohol. An 18-gauge needle on a 60 mL syringe was utilized to aspirate the seroma. The first insertion site resulted in only a small amount of fluid at that needles location and the needle was moved. At themore lateral location 180 mL of straw-colored fluid were aspirated. There was resolution of the se alis. The patient tolerated the procedure in stable condition. Assessment and Plan Assessment: Impression: 1. Seroma left chest wall following removal of breast implant Plan: Aspiration seroma performed 2. Follow-up Dr. Ko [address] Matt Davila
== END | disposition home or self-care (01) ==
LOC: WWCWWP 09:07
PROVIDERS: ATTEND Surgery
DX: Z53.9 Procedure and treatment not carried out, unspecified reason (principal)

== ENCOUNTER → 2018-12-10 | Outpatient (CLI) | payer OTHER ==
[2018-12-10 14:15] VITALS: BP 106/72; PULSE 78; RESP 18; TEMP 97.6
--- NOTE | 2018-12-10 14:30 | P.PCN ---
Date of Procedure: 12/10/18 Preoperative Diagnosis: Seroma left chest wall Postoperative Diagnosis: Same Procedure(s) Performed: Aspiration seroma left chest wall Surgeon: Nilsa Lombardo Pathology: none sent Condition: stable Disposition: same day Indications for Procedure: Seroma left chest wall site Operative Findings: Straw-colored fluid Description of Procedure: The area of the left chest wall was prepped using alcohol. This was done after informed consent and timeout was performed. A 20 mL syringe with an 18-gauge needle was utilized to aspirate seroma fluid. The needle was inserted in the lateral aspect of the incision. Approximately 60 mL of straw-colored fluid was removed with resolution of the seroma. The patient tolerated the procedure in stable condition.
--- NOTE | 2018-12-10 14:33 | P.PN ---
Progress Note - Text Progress Note Date: 12/10/18 Alka is a 53-year-old white female status post excision of left breast implant which had become encapsulated and painful. This was performed and . The patient has been seen postprocedure with a seroma aspirated on 3718. She returns for repeat evaluation of the incision at this time. This time she does have a seroma again which is smaller than previously. However she wishes this to be aspirated. Physical examination: Incision clean and dry small seroma identified Impression: Seroma status post excision of left breast implant Patient is following with medical oncology secondary to left breast cancer Plan: 1. Aspiration of seroma 2. Follow-up in 2 weeks Cc: Dr. Matt Davila
== END ==
LOC: WWCWWP 14:07
PROVIDERS: ATTEND Surgery
DX: Z53.9 Procedure and treatment not carried out, unspecified reason (principal)

== ENCOUNTER → 2018-12-24 | Outpatient (CLI) | payer OTHER ==
[2018-12-24 15:55] VITALS: BP 108/70; PULSE 86; RESP 16; TEMP 97.5; BMI 34.2
--- NOTE | 2018-12-24 16:34 | P.PN ---
Progress Note - Text Progress Note Date: 12/24/18 Alka is a 53-year-old white female status post excision of left breast implant which had become encapsulated and painful. This was performed . The patient post procedure has had a seroma aspirated. She returns today for repeat evaluation. At this time she has a small amount of seroma which has recurred but this is not worried some to her and is not painful we are not going to aspirate again today. The patient will follow-up in 2 weeks for repeat evaluation of the area. Today she is asking whether she could have the right breast removed so she would be symmetrical. We will discuss that further at her next visit. Physical exam: Incision clean and dry small seroma Impression: Seroma status post excision of left breast implant Plan: Follow-up in Cc: Dr. Matt Davila
== END ==
LOC: WWCWWP 15:46
PROVIDERS: ATTEND Surgery
DX: Z53.9 Procedure and treatment not carried out, unspecified reason (principal)

== ENCOUNTER → 2019-01-04 | Outpatient (CLI) | payer OTHER ==
--- NOTE | 2019-01-04 15:47 | US ---
EXAMINATION TYPE: US abdomen complete DATE OF EXAM: 01/04/2019 COMPARISON: Ultrasound 11/09/[address] 05/24/2018 CLINICAL HISTORY: 53-year-old female K70.31 Alcoholic cirrhosis of liver with ascites. Pt states rece nt weight gain and ABD distention/ possible ascites TECHNIQUE: Multiple sonographic images of the abdomen are obtained. FINDINGS: EXAM MEASUREMENTS: Liver Length: 22.5 cm Gallbladder Wall: 0.2 cm CBD: 0.8 cm Spleen: 9.6 cm Right Kidney: 11.5 x 4.4 x 4.6 cm Left Kidney: 11.9 x 5.1 x 4.7 cm Pancreas: Pancreatic tail obscured by overlying bowel gas . Visualized portions show no gross abnorm ality. Liver: Enlarged, heterogeneous, possible fatty sparing near GB and wilbert Gallbladder: Distended measuring 11.7 x 4.2 cm as seen on previous Evidence for sonographic Barajas's sign: No CBD: Dilated as seen on previous. Prior CT shows a bile duct having a caliber of 1.1 cm. Spleen: wnl Right Kidney: wnl Left Kidney: wnl Upper IVC: wnl Abd Aorta: wnl Please Note: Bilateral flank, RLQ, and LLQ scanned/ no evidence of ascites at this time IMPRESSION: 1. No abdominal ascites identified. 2. Hepatomegaly (22.5 cm). There are some changes along the gallbladder fossa and wilbert hepatis sugge sting background of fatty infiltration. 3. Hydropic gallbladder. No ancillary findings of acute cholecystitis. If concern for gallbladder/licha iary dysfunction, HIDA scan with ejection fraction should be considered. 4. Bile duct mildly dilated at 8 mm. This seems to be chronic for the patient as the duct was measure d at 1.1 cm on the patient's 05/24/2018 CT. Correlate with alkaline phosphatase and bilirubin levels.
== END | disposition home or self-care (01) ==
LOC: RADUSWWP 10:55
PROVIDERS: ATTEND Family Medicine
DX: K82.1 Hydrops of gallbladder (principal); R16.0 Hepatomegaly, not elsewhere classified; K83.8 Other specified diseases of biliary tract; K70.31 Alcoholic cirrhosis of liver with ascites
CPT/HCPCS: 76700

== ENCOUNTER → 2019-01-15 | Outpatient (CLI) | payer OTHER ==
[2019-01-15 11:59] VITALS: BP 114/79; PULSE 89; RESP 16; BMI 34.7
--- NOTE | 2019-01-15 12:34 | P.PN ---
Subjective Progress Note Date: 01/15/19 Principal diagnosis: Alka is a 53-year-old white female status post excision of left breast implant which had become encapsulated and painful. This was performed on . The patient has been doing well from that operation. The patient approximately 5 years ago was diagnosed with a left breast cancer. She was treated in [place] by [facility] and underwent a left breast mastectomy with reconstruction and reduction on the contralateral side. The pa tient was told that she had stage IV cancer at that time. She did undergo chemotherapy prior to her surgery and radiation therapy following surgery and [facility] by Dr. Medrano. Her medical oncologist is Dr. Kwok. She is presently taking a rim index. The patient is unsure as to why she was stage IV. The patient's plastic surgeon is in the [place] area, and she was unable to have the implant removed the air and mesentery implant was removed for her here. The patient is told by Dr. Kwok that she is cancer free at this time. Her most recent right breast mammogram was approximately a month ago and as per the patient was benign. This was done to519 and was benign BIRADS 2. The patient is asymmetric at this time as she has no breast on the left side and wishes to have the right breast removed. She also is complaining of a small amount of skin protrusion at the lateral aspect of the left breast scar. Patient believes she did have genetic testing performed in [place] and was told she was fine. Family history: Mother: Liver cancer at 70 Removed history: Menarche: 11 Pregnancies: 4, lipase 2, 2 miscarriages, first live at 34, breast-fed: Yes menopause: Stopped with chemotherapy in her mid 40s control pills: Briefly as a teenager Hormones: None Past surgical history: 1. Appendectomy 2. Left mastectomy and implant 3. Right breast reduction 4. Bilateral carpal tunnel 5. Removal of implant left chest wall Past medical history 1. Cirrhosis 2. 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 Integument: Negative Psychiatric: Anxiety, depression, bipolar Objective - Vital Signs Vital signs: Vital Signs Temp Pulse 89 01/15/19 11:44 Resp 16 01/15/19 11:44 BP 114/79 01/15/19 11:44 Pulse Ox 98 01/15/19 11:44 - Constitutional General appearance: Present: obese - EENT Eyes: Present: EOMI ENT: Present: hearing grossly normal - Neck Neck: Present: normal ROM - Respiratory Respiratory: bilateral: CTA - Cardiovascular Rhythm: regular Heart sounds: normal: S1, S2 - Gastrointestinal Gastrointestinal Comment(s): No guarding or rebound General gastrointestinal: Present: soft - Integumentary Integumentary: Present: normal turgor - Psychiatric Psychiatric: Present: A&O x's 3, appropriate affect - Additional findings Additional findings: Right breast: Multi-positional exam no dominant masses or nodules of concern, well-healed scars from prior reduction mammoplasty Right axilla: No adenopathy of concern Left breast: Patient has had a mastectomy and left chest wall incision is clean and dry there is a small tag at the lateral aspect of the incision which is somewhat worrisome for the patient, patient does have a small seroma Left axilla: No adenopathy of concern Assessment and Plan Assessment: Impression: 1. Patient status post left mastectomy and right breast reduction approximate 5 years ago in [place] 2. History of stage IV breast cancer status post chemotherapy and radiation therapy as per the patient 3. Recent removal of left breast encapsulated implant 4. Patient with asymmetry at this time secondary to removal of the implant and wishes a right mastectomy it is difficult for the patient to find close it fit well secondary to the asymmetry 5. Cirrhosis Plan: 1. Medical management of medical conditions 2. Patient to be cleared for surgery by Dr. Kwok rule out any metastatic disease 3. Medical clearance from Dr. Davila related to cirrhosis 4. Must assure that her insurance will cover this We have discussed risk and benefits with the patient. She is quite concerned and wishes to proceed with a right mastectomy left revision of the lateral aspect of the scar. She is not interested in reconstruction at this time. Cc: Dr. Matt Pereira
== END ==
LOC: WWCWWP 11:32
PROVIDERS: ATTEND Surgery
DX: Z53.9 Procedure and treatment not carried out, unspecified reason (principal)

== ENCOUNTER → 2019-02-03 | Day surgery (SDC) | payer OTHER ==
[2019-01-29 15:16] VITALS: BMI 34.2
[~2019-02-03] MED LIST changes: +BUPIVACAIN-EPI 0.5%-1:200,000 30 ML VIAL SQ ONE; +GLYCOPYRROLATE 0.2 MG/ML 2 ML VIAL ONE; +HEPARIN SODIUM,PORCINE 5,000 UNIT/ML 1 ML VIAL SQ ONE; +HYDROcodone/APAP 7.5-325MG 1 EACH TAB PO ONE; -HYDROmorphone 0.5 MG/0.5 ML SYRINGE IVP PRN; +LIDOCAINE 1% INJ 10MG/ML (20 ML MDV) ONE; -MIDAZOLAM (PF) 2 MG/2 ML VIAL IV PRN; +MIDAZOLAM 2 MG/2 ML VIAL IV PRN; +MIDAZOLAM 2 MG/2 ML VIAL ONE; +NEOSTIGMINE 1 MG/ML 10 ML VIAL ONE; +PROPOFOL 10 MG/ML 20 ML VIAL IV ONE; +ROCURONIUM BROMIDE 10 MG/ML 10 ML VIAL IV ONE; +SCOPOLAMINE 1.5MG/72HR PATCH TRANSDERM ONE; +SUCCINYLCHOLINE CHLORIDE 100 MG/5 ML SYR IV ONE; -ceFAZolin 1,000 MG in DEXTROSE/WATER 1 50ML.BAG IVPB ONE; +ceFAZolin IN SWFI 2 GM/20 ML SYRINGE IVP ONE; -fentaNYL (PF) 50 MCG/ML 2 ML AMP IV PRN; +fentaNYL (PF) 50 MCG/ML 2 ML AMP ONE
--- NOTE | 2019-02-03 14:02 | P.GSHP ---
History of Present Illness H&P Date: 02/03/19 Chief Complaint: Right upper quadrant pain This a 53 female with chronic right upper quadrant pain. Her recent ultrasound shows evidence of a hydropic gallbladder, her HIDA scan shows a diminished ejection ejection fraction of 20% consistent with biliary dyskinesia and chronic cholecystitis. She presents today for laparoscopic cholecystectomy Past Medical History Past Medical History: Cancer, COPD Additional Past Medical History / Comment(s): Breast cancer.Stated has neuropathy in feet since she had chemo" alcoholism, common bile duct dilation and elevated liver function tests. hx hep A History of Any Multi-Drug Resistant Organisms: None Reported Past Surgical History: Appendectomy, Breast Surgery Additional Past Surgical History / Comment(s): licha breast reduction, left mastectomy with implant, implant removed, CARPAL TUNNEL RELEASE, LEFT WRIST. Past Anesthesia/Blood Transfusion Reactions: No Reported Reaction Smoking Status: Current every day smoker - Past Family History Father History Unknown: Yes Family Medical History: COPD Additional Family Medical History / Comment(s): Father is alive. Mother Family Medical History: Cancer Additional Family Medical History / Comment(s): from liver cancer two years ago. Medications and Allergies Home Medications Medication Instructions Recorded Confirmed Type Anastrozole [Arimidex] 1 mg PO DAILY 11/09/17 01/29/19 History Spironolactone [Aldactone] 25 mg PO BID 04/30/18 01/29/19 History lamoTRIgine [LaMICtal] 25 mg PO DAILY 04/30/18 01/29/19 History Ibuprofen [Advil] 200 mg PO Q8HR PRN 05/27/18 01/29/19 History Furosemide [Lasix] 10 mg PO DAILY 11/17/18 01/29/19 History Budesonide/Formoterol Fumarate 2 puff INHALATION DAILY PRN 01/29/19 01/29/19 History [Symbicort 160-4.5 Mcg Inhaler] Allergies Allergy/AdvReac Type Severity Reaction Status Date / Time No Known Allergies Allergy Verified 02/03/19 13:06 Surgical - Exam Vital Signs Temp Pulse Resp BP Pulse Ox 98.2 F 84 16 112/72 93 L 02/03/19 13:11 02/03/19 13:11 02/03/19 13:11 02/03/19 13:11 02/03/19 13:11 - General well developed, well nourished, no distress - Eyes PERRL - ENT normal pinna - Neck no masses - Respiratory normal expansion - Cardiovascular Rhythm: regular - Abdomen Abdomen: soft, non tender Assessment and Plan Assessment: Chronic cholecystitis We'll perform laparoscopic cholecystectomy
--- NOTE | 2019-02-03 15:17 | P.OP ---
Date of Procedure: 02/03/19 Preoperative Diagnosis: Cholecystitis Postoperative Diagnosis: Cholecystitis Procedure(s) Performed: Laparoscopic cholecystectomy Anesthesia: PIYUSH Surgeon: Devan Smalls Estimated Blood Loss (ml): 5 Pathology: other (Gallbladder) Condition: stable Disposition: PACU Description of Procedure: The patient was placed on the operating table. The patient received a general endotracheal tube anesthesia. The patients abdomen was prepped and draped in the usual sterile fashion. Through an infraumbilical stab incision, the fascia of the anterior abdominal wall was grasped with a pair of Kochers and then the Veress needle was placed in the peritoneal cavity. Position of the Veress needle was confirmed with positive drop test. The abdomen was then insufflated. After adequate insufflation, the 10 mm trocar was placed in the peritoneal cavity. Following this the laparoscope was placed in the peritoneal cavity. The patient was placed in the head-up, right side up position and then a 5 mm trocar was placed in the right lateral and right subcostal position under direct visualization. A 8 mm trocar was placed in the epigastric position. The gallbladder was grasped in the fundus and infundibulum. Traction on the gallbladder was placed in the lateral and the cephalad positions. The triangle of Calot was visualized.. The cystic duct was bluntly dissected until the union of the cystic duct and common bile duct was seen. A critical view of safety was achieved. The cystic duct was then divided and sealed with the Harmonic scissors. A PDS Endoloop was then placed throughout the cystic duct stump. The cystic artery divided and sealed with the Harmonic scissors. The gallbladder was then removed from the liver bed using Harmonic scissors. The gallbladder was then extracted through the epigastric port site. Operative field was checked for any bleeding spots and Harmonic scissors was used to coagulate the liver bed. The abdomen was irrigated. The trocars were removed. The skin was closed using interrupted 3-0 Vicryl suture. Dermabond dressing were applied. The patient tolerated the procedure well.
[2019-02-03 15:23] VITALS: TEMP 97.1
[2019-02-03] MEDS: HYDROmorphone 0.5 MG/0.5 ML SYRINGE IVP PRN ×2 (15:46→16:00)
[2019-02-03 16:38] VITALS: RESP 18
[2019-02-03 17:32] VITALS: BP 96/59; PULSE 90
== END | disposition home or self-care (01) ==
LOC: OR 12:41
PROVIDERS: ATTEND Surgery
DX: K81.1 Chronic cholecystitis (principal); J44.9 Chronic obstructive pulmonary disease, unspecified; F17.210 Nicotine dependence, cigarettes, uncomplicated; F10.20 Alcohol dependence, uncomplicated; G62.0 Drug-induced polyneuropathy; T45.1X5A Adverse effect of antineoplastic and immunosuppressive drugs, initial encounter; Z79.811 Long term (current) use of aromatase inhibitors; Z79.899 Other long term (current) drug therapy; Z85.3 Personal history of malignant neoplasm of breast; Z90.12 Acquired absence of left breast and nipple; Z86.19 Personal history of other infectious and parasitic diseases; Z83.6 Family history of other diseases of the respiratory system; Z92.21 Personal history of antineoplastic chemotherapy
CPT/HCPCS: 88304; 47562; J2250; J1644; J1100; J2710; J2405; J2001; J3010; J0330; J2704; J1170; J0690

== ENCOUNTER → 2019-04-05 | Outpatient (CLI) | payer OTHER ==
[2019-04-05 15:36] VITALS: BP 109/85; PULSE 83; TEMP 98.3; BMI 36.9
[2019-04-05 16:59] LABS: HCT 46.4 % (34.0-46.0); HGB 14.9 gm/dL (11.4-16.0); MCH 29.7 pg (25.0-35.0); MCHC 32.2 g/dL (31.0-37.0); MCV 92.2 fL (80.0-100.0); Mean Platelet Volume 7.7; Platelet Count 305 k/uL (150-450); RBC 5.03 m/uL (3.80-5.40); WBC 9.4 k/uL (3.8-10.6)
[2019-04-06 01:23] LABS: African American GFR (CKD) 98.2 (60.0-200.0); Albumin 4.6 g/dL (3.80-4.90); Albumin/Globulin Ratio 2.09 (1.60-3.17); Anion Gap 11.3 mmol/L (4.00-12.00); BUN/Creat Ratio 11.25 Ratio (12.00-20.00); Calcium 9.8 mg/dL (8.7-10.3); Carbon Dioxide 26.7 mmol/L (21.6-31.8); Globulin 2.2 g/dL (1.6-3.3); Potassium 4.1 mmol/L (3.5-5.5); Total Bilirubin 0.3 mg/dL (0.2-1.2); Total Protein 6.8 g/dL (6.2-8.2)
[2019-04-06 01:26] LABS: Vitamin D 25 Hydroxy 23.6 ng/mL (30.0-100.0)
--- NOTE | 2019-04-09 13:21 | P.HPBAR ---
Bariatric H&P - History & Physicial H&P Date: 04/05/19 History & Physicial: Visit/CC: initial clinic visit Patient initial contact: Initial weight: Initial weight in pounds: Height: 5 ft Initial BMI: Last weight: Current weight: 85.729 kg Current weight in pounds: 189.00 Current BMI: 36.9 [place] body weight (based on NIH guidelines): 45.359 kg Excess body weight loss: The patient is a 53 year-old F who presents for Bariatric Assessment. Patient presents today for presurgical consultation for sleeve gastrectomy. She has had lifetime problems obesity. Her BMI is 37. 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 hx hep A History of Any Multi-Drug Resistant Organisms: None Reported Past Surgical History: Appendectomy, Breast Surgery Additional Past Surgical History / Comment(s): licha breast reduction, left mastectomy with implant, implant removed, CARPAL TUNNEL RELEASE, LEFT WRIST. Past Anesthesia/Blood Transfusion Reactions: No Reported Reaction Past Psychological History: Anxiety, Depression Additional Psychological History / Comment(s): pt stated she lives alone in a 2 story home that has 4-5 steps. pets: 1 cat 1 dog. Doesn't twork. Smoking Status: Current every day smoker Past Alcohol Use History: Abuse Additional Past Alcohol Use History / Comment(s): HAS SMOKED SINCE 1981, 1PPD. Admits to drinking at least a fith of whiskey a day stopped drinking 11/09 Past Drug Use History: None Reported - Past Family History Father History Unknown: Yes Family Medical History: COPD Additional Family Medical History / Comment(s): Father is alive. Mother Family Medical History: Cancer Additional Family Medical History / Comment(s): from liver cancer two years ago. Surgical - Exam Vital Signs Temp Pulse BP 98.3 F 83 109/85 04/05/19 15:33 04/05/19 15:33 04/05/19 15:33 - General well developed, well nourished, no distress - Eyes PERRL - ENT normal pinna - Abdomen Abdomen: soft, non tender Results - Labs 04/05/19 16:02 04/05/19 16:02 Bariatric Assessment & Plan Plan: Morbid obesity BMI 37 Patient will undergo EGD. She will follow-up after this is performed. Once her insurance authorization's requirements have been met for sleeve gastrectomy she'll be scheduled. Bariatric Checklist Checklist: Plan: Checklist: EGD: 1. Hiatal hernia: 2. H. Pylori: HgbA1c: Vitamin D: Smoking: Current every day smoker Primary care physician referral: dr warner Psychiatry clearance: Cardiology clearance: Sleep study: Diet journal: VTE risk score: VTE risk level: Rehab needs at discharge:
== END | disposition home or self-care (01) ==
LOC: BARWHC3 14:35
PROVIDERS: ATTEND Surgery
DX: E66.01 Morbid (severe) obesity due to excess calories (principal); F17.210 Nicotine dependence, cigarettes, uncomplicated; Z68.37 Body mass index [BMI] 37.0-37.9, adult
CPT/HCPCS: 80053; 82607; 84443; 85027; 82306; 83036; 93005; G0463; 99211

== ENCOUNTER → 2019-04-14 | Day surgery (SDC) | payer OTHER ==
[2019-04-13 08:32] VITALS: BMI 36.9
[~2019-04-14] MED LIST changes: -BUPIVACAIN-EPI 0.5%-1:200,000 30 ML VIAL SQ ONE; -DEXAMETHASONE SOD PHOSPHATE 10 MG/ML 1 ML VIAL IV ONE; -GLYCOPYRROLATE 0.2 MG/ML 2 ML VIAL ONE; -HEPARIN SODIUM,PORCINE 5,000 UNIT/ML 1 ML VIAL SQ ONE; -HYDROcodone/APAP 7.5-325MG 1 EACH TAB PO ONE; -LIDOCAINE 1% INJ 10MG/ML (20 ML MDV) ONE; -MIDAZOLAM 2 MG/2 ML VIAL IV PRN; -MIDAZOLAM 2 MG/2 ML VIAL ONE; -NEOSTIGMINE 1 MG/ML 10 ML VIAL ONE; -ONDANSETRON 4 MG/2 ML VIAL IVP ONE; -ROCURONIUM BROMIDE 10 MG/ML 10 ML VIAL IV ONE; -SCOPOLAMINE 1.5MG/72HR PATCH TRANSDERM ONE; -SUCCINYLCHOLINE CHLORIDE 100 MG/5 ML SYR IV ONE; -ceFAZolin IN SWFI 2 GM/20 ML SYRINGE IVP ONE; -fentaNYL (PF) 50 MCG/ML 2 ML AMP ONE
[2019-04-14 10:21] VITALS: RESP 18; TEMP 97.1
--- NOTE | 2019-04-14 11:35 | P.GSHP ---
History of Present Illness H&P Date: 04/14/19 Chief Complaint: Morbid obesity, GERD This a 53-year-old female with morbid obesity. Her BMI is 37. Patient is undergoing workup for sleeve gastrectomy. She's had issues with GERD. She presents today for EGD. 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 Past Anesthesia/Blood Transfusion Reactions: No Reported Reaction Past Psychological History: No Psychological Hx Reported Additional Psychological History / Comment(s): denies Smoking Status: Current every day smoker Past Alcohol Use History: None Reported Additional Past Alcohol Use History / Comment(s): HAS SMOKED SINCE 1981, > 1PPD. denies current alcohol use, past heavy alcohol use Past Drug Use History: None Reported - Past Family History Father History Unknown: Yes Family Medical History: COPD Additional Family Medical History / Comment(s): Father is alive. Mother Family Medical History: Cancer Additional Family Medical History / Comment(s): liver Medications and Allergies Home Medications Medication Instructions Recorded Confirmed Type Anastrozole [Arimidex] 1 mg PO DAILY 11/09/17 04/13/19 History Spironolactone [Aldactone] 25 mg PO DAILY 04/30/18 04/13/19 History lamoTRIgine [LaMICtal] 25 mg PO DAILY 04/30/18 04/13/19 History Furosemide [Lasix] 10 mg PO DAILY 11/17/18 04/13/19 History Budesonide/Formoterol Fumarate 2 puff INHALATION DAILY PRN 01/29/19 04/13/19 History [Symbicort 160-4.5 Mcg Inhaler] ARIPiprazole [Abilify] 5 mg PO DAILY 04/13/19 04/13/19 History Allergies Allergy/AdvReac Type Severity Reaction Status Date / Time No Known Allergies Allergy Verified 04/13/19 08:23 Surgical - Exam Vital Signs Temp Pulse Resp BP Pulse Ox 97.1 F L 93 18 119/72 93 L 04/14/19 10:20 04/14/19 10:20 04/14/19 10:20 04/14/19 10:20 04/14/19 10:20 - General well developed, well nourished, no distress - Eyes PERRL - ENT normal pinna - Neck no masses - Respiratory normal expansion - Cardiovascular Rhythm: regular - Abdomen Abdomen: soft, non tender Assessment and Plan Assessment: Morbid obesity, BMI 37 GERD. We'll perform EGD.
[2019-04-14 12:23] VITALS: BP 112/71; PULSE 69
--- NOTE | 2019-05-17 15:15 | P.OP ---
Date of Procedure: 04/12/19 Preoperative Diagnosis: GERD Postoperative Diagnosis: Antral gastritis Procedure(s) Performed: EGD Anesthesia: MAC Surgeon: Devan Smalls Pathology: other (Antrum) Condition: stable Disposition: PACU Description of Procedure: The patient's placed on the endoscopy table in the lateral position. She rece ived IV sedation. The gastroscope some placed oropharynx passed in the esophagus and into the stomach. Scope some placed through the pylorus. The first and second portion of the duodenum appeared normal. Scope was then brought back the antrum and this appeared mildly inflamed. The antrum was biopsied. The scope was then retroflexed and the remainder some appeared normal. There is no significant hiatal hernia. The GE junction was at 40 cm the distal esophagus appeared normal. The proximal esophagus. Repeat scope was withdrawn for patient.
== END | disposition home or self-care (01) ==
LOC: ORWHC2ENDO 09:36
PROVIDERS: ATTEND Surgery
DX: K29.50 Unspecified chronic gastritis without bleeding (principal); K21.9 Gastro-esophageal reflux disease without esophagitis; E66.01 Morbid (severe) obesity due to excess calories; F17.210 Nicotine dependence, cigarettes, uncomplicated; J44.9 Chronic obstructive pulmonary disease, unspecified; Z68.37 Body mass index [BMI] 37.0-37.9, adult; Z85.3 Personal history of malignant neoplasm of breast; Z90.12 Acquired absence of left breast and nipple; Z92.21 Personal history of antineoplastic chemotherapy; Z79.51 Long term (current) use of inhaled steroids; Z79.899 Other long term (current) drug therapy; G62.0 Drug-induced polyneuropathy; T45.1X5A Adverse effect of antineoplastic and immunosuppressive drugs, initial encounter; Z90.49 Acquired absence of other specified parts of digestive tract
CPT/HCPCS: 88305; 43239; J2704

== ENCOUNTER → 2019-05-19 | Outpatient (CLI) | payer OTHER ==
[2019-05-19 09:08] LABS: HCT 48.2 % (34.0-46.0); HGB 15.6 gm/dL (11.4-16.0); MCH 29.5 pg (25.0-35.0); MCHC 32.3 g/dL (31.0-37.0); MCV 91.5 fL (80.0-100.0); Mean Platelet Volume 7.8; Platelet Count 301 k/uL (150-450); RBC 5.27 m/uL (3.80-5.40); WBC 9.4 k/uL (3.8-10.6)
[2019-05-19 09:12] LABS: Prothrombin Time 11.1 sec (9.0-12.0)
[2019-05-19 09:17] LABS: ALT 49 U/L (9-52); AST 37 U/L (14-36); African American GFR (CKD) >90 (>60 ml/min/1.73 sqM); Albumin 4.5 g/dL (3.5-5.0); Alkaline Phosphatase 90 U/L (38-126); Anion Gap 11 mmol/L; Blood Urea Nitrogen 7 mg/dL (7-17); Calcium 9.9 mg/dL (8.4-10.2); Carbon Dioxide 29 mmol/L (22-30); Chloride 96 mmol/L (98-107); Glucose 150 mg/dL (74-99); Potassium 4.6 mmol/L (3.5-5.1); Sodium 136 mmol/L (137-145); Total Bilirubin 0.5 mg/dL (0.2-1.3); Total Protein 7.8 g/dL (6.3-8.2)
--- NOTE | 2019-05-19 19:15 | US ---
EXAMINATION TYPE: US abdomen complete DATE OF EXAM: 05/19/2019 COMPARISON: US 2019 CLINICAL HISTORY: Abd Distention R14.0. Abdominal distension, bloating x couple months, history of ch olecystectomy EXAM MEASUREMENTS: Liver Length: 23.0 cm Gallbladder Wall: surgically absent CBD: 0.6 cm Spleen: 9.4 cm Right Kidney: 11.7 x 4.1 x 4.3 cm Left Kidney: 11.6 x 5.6 x 4.8 cm Difficult and limited study due to patient body habitus Pancreas: visualized portions wnl, tail obscured by overlying midline bowel gas Liver: enlarged, heterogeneous, increased echogenicity, attenuating, decreased visualization of vess els suggestive of fatty infiltrate Gallbladder: surgically absent Evidence for sonographic Barajas's sign: no CBD: visualized portions wnl, limited by overlying bowel gas Spleen: wnl Right Kidney: wnl Left Kidney: wnl Upper IVC: wnl Abd Aorta: visualized portions wnl, limited by overlying midline bowel gas IMPRESSION: 1. Hepatomegaly with moderate fatty infiltration.
== END | disposition home or self-care (01) ==
LOC: RADUSWWP 07:51
PROVIDERS: ATTEND Internal Medicine Gastroenterology
DX: K76.0 Fatty (change of) liver, not elsewhere classified (principal); R16.0 Hepatomegaly, not elsewhere classified
CPT/HCPCS: 76700; 80053; 82105; 85027; 85610

== ENCOUNTER 2019-05-29 17:54 | Inpatient (IN) | payer OTHER ==
[2019-05-29] MEDS ORDERED: HYDROmorphone 0.5 MG/0.5 ML SYRINGE IVP STA (18:30)
[2019-05-29] MEDS ORDERED: ONDANSETRON 4 MG/2 ML VIAL IVP STA (18:30)
[2019-05-29] MEDS ORDERED: SODIUM CHLORIDE 0.9% 1,000 ML IV STA (18:30)
[2019-05-29] MEDS ORDERED: FAMOTIDINE 20 MG/2 ML VIAL IV STA (18:43)
--- NOTE | 2019-05-29 18:47 | ED ---
Abdominal Pain HPI - General Chief Complaint: Abdominal Pain Stated Complaint: abdominal pain Time Seen by Provider: 05/29/19 18:08 Source: patient Mode of arrival: wheelchair Limitations: no limitations - History of Present Illness Initial Comments: 53-year-old female patient with past medical history significant for cirrhosis of the liver and chronic alcohol abuse presents to the emergency department today for evaluation of upper abdominal pain. Patient states that started yesterday. States that she did have an episode of vomiting yesterday. Denies any vomiting today but states she is nauseated. States that she had to take medication to stop diarrhea. Denies any hematochezia, melena, or hematemesis. She denies any fever or chills. Does admit to drinking alcohol today. Patient is also reporting some shortness of breath, especially with activity. Patient does admit to a history of COPD and heavy cigarette smoking. Patient denies any recent rash, chest pain, back pain, numbness, tingling, dizziness, weakness, hematuria, dysuria, urinary urgency, urinary frequency, headache, visual changes, or any other complaints. - Related Data Home Medications Medication Instructions Recorded Confirmed Anastrozole [Arimidex] 1 mg PO DAILY 11/09/17 04/13/19 Spironolactone [Aldactone] 25 mg PO DAILY 04/30/18 04/13/19 lamoTRIgine [LaMICtal] 25 mg PO DAILY 04/30/18 04/13/19 Furosemide [Lasix] 10 mg PO DAILY 11/17/18 04/13/19 Budesonide/Formoterol Fumarate 2 puff INHALATION DAILY PRN 01/29/19 04/13/19 [Symbicort 160-4.5 Mcg Inhaler] ARIPiprazole [Abilify] 5 mg PO DAILY 04/13/19 04/13/19 Allergies Allergy/AdvReac Type Severity Reaction Status Date / Time No Known Allergies Allergy Verified 05/29/19 18:06 Review of Systems ROS Statement: Those systems with pertinent positive or pertinent negative responses have been documented in the HPI. ROS Other: All systems not noted in ROS Statement are negative. 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 Past Anesthesia/Blood Transfusion Reactions: No Reported Reaction Past Psychological History: No Psychological Hx Reported Smoking Status: Current every day smoker Past Alcohol Use History: Abuse, Daily, Heavy Past Drug Use History: None Reported - Past Family History Father History Unknown: Yes Family Medical History: COPD Additional Family Medical History / Comment(s): Father is alive. Mother Family Medical History: Cancer Additional Family Medical History / Comment(s): liver General Exam Limitations: no limitations General appearance: alert, in no apparent distress, other (This is a well-developed, well-nourished adult female patient in no acute distress. Vital signs upon presentation are temperature 97.8F, pulse 88, respirations 18, blood pressure 107/71, pulse ox 98% on room air.) Eye exam: Present: normal appearance, PERRL, EOMI. Absent: scleral icterus, conjunctival injection, periorbital swelling ENT exam: Present: normal exam, normal oropharynx, mucous membranes moist Respiratory exam: Present: wheezes (Mild scattered expiratory wheezes in the posterior lung ernandez). Absent: normal lung sounds bilaterally, respiratory distress, rales, rhonchi, stridor Cardiovascular Exam: Present: regular rate, normal rhythm, normal heart sounds. Absent: systolic murmur, diastolic murmur, rubs, gallop, clicks GI/Abdominal exam: Present: soft, tenderness (Suprapubic tenderness), normal bowel sounds. Absent: distended, guarding, rebound, rigid Neurological exam: Present: alert, oriented X3, CN II-XII intact Psychiatric exam: Present: normal affect, normal mood Skin exam: Present: warm, dry, intact, normal color. Absent: rash Course Vital Signs 05/29/19 05/29/19 05/29/19 18:04 19:57 22:08 Temperature 97.8 F 98.7 F Pulse Rate 88 99 75 Respiratory 18 17 Rate Blood Pressure 107/71 104/63 O2 Sat by Pulse 98 94 L Oximetry 05/29/19 05/29/19 22:16 22:19 Temperature Pulse Rate 78 85 Respiratory 19 Rate Blood Pressure 103/78 O2 Sat by Pulse 94 L Oximetry Medical Decision Making - Medical Decision Making 53-year-old female patient with past medical history significant for alcoholic cirrhosis of the liver, chronic alcohol dependence, COPD presented to the emergency department today for evaluation of upper abdominal pain since yesterday. Patient reports one episode of vomiting. Labs reviewed and did reveal white blood cell count of 11.3, hemoglobin 16.2, INR 1.3, glucose 188, lactic acid 3.7, AST 215, ALT 113. Urinalysis negative for any evidence of infection. Serum alcohol was 288. The emergency department patient did desaturate to the low 80s on room air. This worsened all sleeping. Patient does have some evidence of sleep apnea. Chest x-ray was obtained and showed pleural reaction at the left lung base. Breathing treatment was given. This did not improve oxygen status so we did perform CT angiography of the chest which showed evidence for pulmonary emboli heading to the right upper lobe. I did discuss the case with my attending physician Dr. Jhaveri. Started high-dose heparin. Ativan alcohol withdrawal protocol has been instituted. She discussed the case with Dr. Davila who accepts admission. She'll be transferred to the floor. - Lab Data Result diagrams: 05/29/19 17:46 05/29/19 17:46 Lab Results 05/29/19 05/29/19 05/29/19 Range/Units 17:46 17:46 17:46 WBC 11.3 H (3.8-10.6) k/uL RBC 5.34 (3.80-5.40) m/uL Hgb 16.2 H (11.4-16.0) gm/dL Hct 48.8 H (34.0-46.0) % MCV 91.4 (80.0-100.0) fL MCH 30.3 (25.0-35.0) pg MCHC 33.1 (31.0-37.0) g/dL RDW 16.7 H (11.5-15.5) % Plt Count 260 (150-450) k/uL Neutrophils % 76 % Lymphocytes % 16 % Monocytes % 4 % Eosinophils % 1 % Basophils % 1 % Neutrophils # 8.6 H (1.3-7.7) k/uL Lymphocytes # 1.9 (1.0-4.8) k/uL Monocytes # 0.5 (0-1.0) k/uL Eosinophils # 0.2 (0-0.7) k/uL Basophils # 0.1 (0-0.2) k/uL Anisocytosis Slight PT (9.0-12.0) sec INR (<1.2) APTT (22.0-30.0) sec Sodium 138 (137-145) mmol/L Potassium 4.3 (3.5-5.1) mmol/L Chloride 100 (98-107) mmol/L Carbon Dioxide 24 (22-30) mmol/L Anion Gap 14 mmol/L BUN 14 (7-17) mg/dL Creatinine 0.60 (0.52-1.04) mg/dL Est GFR (CKD-EPI)AfAm >90 (>60 ml/min/1.73 sqM) Est GFR (CKD-EPI)NonAf >90 (>60 ml/min/1.73 sqM) Glucose 188 H (74-99) mg/dL Lactic Ac Sepsis Rflx Plasma Lactic Acid Jose 3.7 H* (0.7-2.0) mmol/L Calcium 8.8 (8.4-10.2) mg/dL Total Bilirubin 0.5 (0.2-1.3) mg/dL AST 215 H (14-36) U/L ALT 113 H (9-52) U/L Alkaline Phosphatase 115 (38-126) U/L Troponin I (0.000-0.034) ng/mL Total Protein 7.4 (6.3-8.2) g/dL Albumin 4.2 (3.5-5.0) g/dL Amylase 47 (30-110) U/L Lipase 187 (23-300) U/L Urine Color Urine Appearance (Clear) Urine pH (5.0-8.0) Ur Specific [place] (1.001-1.035) Urine Protein (Negative) Urine Glucose (UA) (Negative) Urine Ketones (Negative) Urine Blood (Negative) Urine Nitrite (Negative) Urine Bilirubin (Negative) Urine Urobilinogen (<2.0) mg/dL Ur Leukocyte Esterase (Negative) Serum Alcohol 288 H* mg/dL 05/29/19 05/29/19 05/29/19 Range/Units 17:46 17:46 19:11 WBC (3.8-10.6) k/uL RBC (3.80-5.40) m/uL Hgb (11.4-16.0) gm/dL Hct (34.0-46.0) % MCV (80.0-100.0) fL MCH (25.0-35.0) pg MCHC (31.0-37.0) g/dL RDW (11.5-15.5) % Plt Count (150-450) k/uL Neutrophils % % Lymphocytes % % Monocytes % % Eosinophils % % Basophils % % Neutrophils # (1.3-7.7) k/uL Lymphocytes # (1.0-4.8) k/uL Monocytes # (0-1.0) k/uL Eosinophils # (0-0.7) k/uL Basophils # (0-0.2) k/uL Anisocytosis PT 13.1 H (9.0-12.0) sec INR 1.3 H (<1.2) APTT 26.9 (22.0-30.0) sec Sodium (137-145) mmol/L Potassium (3.5-5.1) mmol/L Chloride (98-107) mmol/L Carbon Dioxide (22-30) mmol/L Anion Gap mmol/L BUN (7-17) mg/dL Creatinine (0.52-1.04) mg/dL Est GFR (CKD-EPI)AfAm (>60 ml/min/1.73 sqM) Est GFR (CKD-EPI)NonAf (>60 ml/min/1.73 sqM) Glucose (74-99) mg/dL Lactic Ac Sepsis Rflx Y Plasma Lactic Acid Jose (0.7-2.0) mmol/L Calcium (8.4-10.2) mg/dL Total Bilirubin (0.2-1.3) mg/dL AST (14-36) U/L ALT (9-52) U/L Alkaline Phosphatase (38-126) U/L Troponin I <0.012 (0.000-0.034) ng/mL Total Protein (6.3-8.2) g/dL Albumin (3.5-5.0) g/dL Amylase (30-110) U/L Lipase (23-300) U/L Urine Color Urine Appearance (Clear) Urine pH (5.0-8.0) Ur Specific [place] (1.001-1.035) Urine Protein (Negative) Urine Glucose (UA) (Negative) Urine Ketones (Negative) Urine Blood (Negative) Urine Nitrite (Negative) Urine Bilirubin (Negative) Urine Urobilinogen (<2.0) mg/dL Ur Leukocyte Esterase (Negative) Serum Alcohol mg/dL 05/29/19 05/29/19 Range/Units 19:53 22:56 WBC (3.8-10.6) k/uL RBC (3.80-5.40) m/uL Hgb (11.4-16.0) gm/dL Hct (34.0-46.0) % MCV (80.0-100.0) fL MCH (25.0-35.0) pg MCHC (31.0-37.0) g/dL RDW (11.5-15.5) % Plt Count (150-450) k/uL Neutrophils % % Lymphocytes % % Monocytes % % Eosinophils % % Basophils % % Neutrophils # (1.3-7.7) k/uL Lymphocytes # (1.0-4.8) k/uL Monocytes # (0-1.0) k/uL Eosinophils # (0-0.7) k/uL Basophils # (0-0.2) k/uL Anisocytosis PT (9.0-12.0) sec INR (<1.2) APTT (22.0-30.0) sec Sodium (137-145) mmol/L Potassium (3.5-5.1) mmol/L Chloride (98-107) mmol/L Carbon Dioxide (22-30) mmol/L Anion Gap mmol/L BUN (7-17) mg/dL Creatinine (0.52-1.04) mg/dL Est GFR (CKD-EPI)AfAm (>60 ml/min/1.73 sqM) Est GFR (CKD-EPI)NonAf (>60 ml/min/1.73 sqM) Glucose (74-99) mg/dL Lactic Ac Sepsis Rflx Plasma Lactic Acid Jose 2.8 H* (0.7-2.0) mmol/L Calcium (8.4-10.2) mg/dL Total Bilirubin (0.2-1.3) mg/dL AST (14-36) U/L ALT (9-52) U/L Alkaline Phosphatase (38-126) U/L Troponin I (0.000-0.034) ng/mL Total Protein (6.3-8.2) g/dL Albumin (3.5-5.0) g/dL Amylase (30-110) U/L Lipase (23-300) U/L Urine Color Light Yellow Urine Appearance Clear (Clear) Urine pH 6.0 (5.0-8.0) Ur Specific [place] 1.005 (1.001-1.035) Urine Protein Negative (Negative) Urine Glucose (UA) Negative (Negative) Urine Ketones Negative (Negative) Urine Blood Negative (Negative) Urine Nitrite Negative (Negative) Urine Bilirubin Negative (Negative) Urine Urobilinogen <2.0 (<2.0) mg/dL Ur Leukocyte Esterase Negative (Negative) Serum Alcohol mg/dL - EKG Data -: EKG Interpreted by Me EKG Comments: EKG obtained at 1859 shows normal sinus rhythm with a ventricular rate of 86, MI interval 174, QRS duration 80, QT 362, QTc 433. No evidence of ST elevation or depression. - Radiology Data Radiology results: report reviewed, image reviewed Two-view x-ray of the chest is obtained. Report is reviewed in its entirety. Impression by Dr. Valera shows new mild pleural reaction at the lateral left lung base compared to old exam. Normal heart. CT angiography of the chest was obtained. Report was reviewed in its entirety. Impression by Dr. Grajeda shows peripheral pulmonary emboli are noted within the vessels heading to the right upper lobe. Disposition Clinical Impression: Abdominal pain, Alcohol abuse, Pulmonary emboli Disposition: ADMITTED IP TO THIS [facility] Condition: Serious Instructions (If sedation given, give patient instructions): Abdominal Pain (ED), Alcohol Dependence (ED) Additional Instructions: Follow-up gastrin neurology for further evaluation. Follow-up with your primary care physician for recheck in 1-2 days. Return to the emergency department immediately for any new, worsening, or concerning symptoms. Is patient prescribed a controlled substance at d/c from ED?: No Referrals: Matt Davila MD [Primary Care Provider] - 1-2 days Sky To MD [STAFF PHYSICIAN] - 1-2 days Time of Disposition: 01:14
[2019-05-29 18:57] LABS: Anisocytosis Slight; Basophils # (A) 0.1 k/uL (0-0.2); Basophils % (A) 1 %; Eosinophils # (A) 0.2 k/uL (0-0.7); Eosinophils % (A) 1 %; HCT 48.8 % (34.0-46.0); HGB 16.2 gm/dL (11.4-16.0); Lymphocytes # (A) 1.9 k/uL (1.0-4.8); Lymphocytes % (A) 16 %; MCH 30.3 pg (25.0-35.0); MCHC 33.1 g/dL (31.0-37.0); MCV 91.4 fL (80.0-100.0); Mean Platelet Volume 7.3; Monocytes # (A) 0.5 k/uL (0-1.0); Monocytes % (A) 4 %; Neutrophils # (A) 8.6 k/uL (1.3-7.7); Neutrophils % (A) 76 %; Platelet Count 260 k/uL (150-450); RBC 5.34 m/uL (3.80-5.40); RDW 16.7 % (11.5-15.5); WBC 11.3 k/uL (3.8-10.6)
[2019-05-29 19:07] LABS: INR 1.3 (<1.2); Partial Thromboplastin Time 26.9 sec (22.0-30.0); Prothrombin Time 13.1 sec (9.0-12.0)
[2019-05-29 19:08] LABS: ALT 113 U/L (9-52); AST 215 U/L (14-36); African American GFR (CKD) >90 (>60 ml/min/1.73 sqM); Albumin 4.2 g/dL (3.5-5.0); Alkaline Phosphatase 115 U/L (38-126); Amylase 47 U/L (30-110); Anion Gap 14 mmol/L; Blood Urea Nitrogen 14 mg/dL (7-17); Calcium 8.8 mg/dL (8.4-10.2); Carbon Dioxide 24 mmol/L (22-30); Chloride 100 mmol/L (98-107); Glucose 188 mg/dL (74-99); Non-African American GFR(CKD) >90 (>60 ml/min/1.73 sqM); Potassium 4.3 mmol/L (3.5-5.1); Sodium 138 mmol/L (137-145); Total Bilirubin 0.5 mg/dL (0.2-1.3); Total Protein 7.4 g/dL (6.3-8.2)
[2019-05-29 19:11] LABS: Alcohol 288 mg/dL
[2019-05-29 20:05] LABS: Appearance,Urine Clear (Clear); Bilirubin,Urine Negative (Negative); Blood,Urine Negative (Negative); Color,Urine Light Yellow; Glucose,Urine (UA) Negative (Negative); Ketones,Urine Negative (Negative); Leukocyte Esterase,Urine Negative (Negative); Nitrite,Urine Negative (Negative); Protein,Urine Negative (Negative); Specific Gravity,Urine 1.005 (1.001-1.035); Urobilinogen,Urine <2.0 mg/dL (<2.0)
[2019-05-29] MEDS ORDERED: IPRATROPIUM-ALBUTEROL 3 ML NEB INHALATION STA (21:30)
--- NOTE | 2019-05-29 21:43 | XR ---
EXAMINATION TYPE: XR chest 2V DATE OF EXAM: 05/29/2019 COMPARISON: 01/01/2019 HISTORY: Abdominal pain TECHNIQUE: Frontal and lateral views of the chest are obtained. FINDINGS: There is no heart failure nor confluent pneumonic infiltrate. There is slight blunting lef t costophrenic angle. There are no hilar masses. Bony thorax is intact. IMPRESSION: There is new mild pleural reaction at the lateral left lung base compared to old exam. N ormal heart.
--- NOTE | 2019-05-29 23:57 | CT ---
EXAM: CT Angiography Chest Without And With Intravenous Contrast CLINICAL HISTORY: Chest pain. TECHNIQUE: Axial computed tomographic angiography images of the chest without and with intravenous contrast using pulmonary embolism protocol. CTDI is 9.8 mGy and DLP is 394.4 mGy-cm. This CT exam was performed using one or more of the following dose reduction techniques: automated exposure control, adjustment of the mA and/or kV according to patient size, and/or use of iterative reconstruction technique. MIP reconstructed images were created and reviewed. COMPARISON: None FINDINGS: Pulmonary arteries: No central pulmonary embolism. Peripheral pulmonary emboli are noted within the vessels heading to the right upper lobe, best seen on series 503 image 69. Aorta: Thoracic aorta is unremarkable. No thoracic aortic aneurysm. Lungs: Very minimal subsegmental atelectasis noted at the lung bases including the lingula. No mass. Pleural space: Unremarkable. No significant effusion. No pneumothorax. Heart: Heart is normal in size No significant pericardial effusion. No evidence of RV dysfunction. Bones/joints: Moderate degenerative disc disease of the thoracic spine and kyphosis No acute fracture. No dislocation. Soft tissues: Unremarkable. Lymph nodes: Unremarkable. No enlarged lymph nodes. Liver: Fatty infiltration of the liver. IMPRESSION: Peripheral pulmonary emboli are noted within the vessels heading to the right upper lobe. <MYCVCSECTION> Critical Value Communications 05/30/19 00:01 Call Doctor Regarding Pulmonary Embolism, called Dr. Jhaveri on 05/30 00:00 (-04:00)
[2019-05-30] MEDS ORDERED: THIAMINE 100 MG/ML 2 ML VIAL IM STA (00:11)
[2019-05-30] MEDS ORDERED: HEPARIN SODIUM,PORCINE 5,000 UNIT/ML 1 ML VIAL IV PRN (00:11)
[2019-05-30] MEDS ORDERED: HEPARIN SODIUM,PORCINE 10,000 UNIT/ML 1 ML VIAL IV ONE (00:11)
[2019-05-30] MEDS ORDERED: LORazepam 2 MG/ML INJ IV PRN ×2 (00:11)
[2019-05-30] MEDS ORDERED: ONDANSETRON 4 MG/2 ML VIAL IVP PRN (00:11)
[2019-05-30] MEDS ORDERED: NALOXONE 0.4 MG/ML 1 ML VIAL IV PRN (00:11)
[2019-05-30] MEDS ORDERED: SODIUM CHLORIDE 0.9% 1,000 ML with MVI, ADULT NO.4 WITH VIT K 10 ML, THIAMINE 100 MG, F... IV ONE ×4 (00:14)
[2019-05-30] MEDS ORDERED: THIAMINE 100 MG/ML 2 ML VIAL IM ONE (00:45)
[2019-05-30] MEDS: HEPARIN SOD,PORK IN 0.45% NACL 25,000 UNIT in 0.45% NACL 1 250ML.BAG IV SCH ×2 (00:56→20:37)
[2019-05-30] MEDS ORDERED: SYMBICORT 160-4.5 MCG INHALER INHALATION PRN (06:27)
[2019-05-30 07:02] LABS: Basophils # (A) 0.1 k/uL (0-0.2); Basophils % (A) 1 %; Eosinophils # (A) 0.1 k/uL (0-0.7); Eosinophils % (A) 1 %; HCT 44.9 % (34.0-46.0); HGB 14.6 gm/dL (11.4-16.0); Lymphocytes # (A) 1.5 k/uL (1.0-4.8); Lymphocytes % (A) 24 %; MCH 29.7 pg (25.0-35.0); MCHC 32.5 g/dL (31.0-37.0); MCV 91.3 fL (80.0-100.0); Mean Platelet Volume 6.7; Monocytes # (A) 0.3 k/uL (0-1.0); Monocytes % (A) 6 %; Neutrophils # (A) 4.1 k/uL (1.3-7.7); Neutrophils % (A) 66 %; Platelet Count 257 k/uL (150-450); RBC 4.92 m/uL (3.80-5.40); RDW 14.3 % (11.5-15.5); WBC 6.2 k/uL (3.8-10.6)
--- NOTE | 2019-05-30 08:12 | US ---
EXAMINATION TYPE: US abdomen complete DATE OF EXAM: 05/30/2019 COMPARISON: Multiple previous US CLINICAL HISTORY: abdominal distension. ABD distension, GB removed EXAM MEASUREMENTS: Liver Length: 24.0 cm CBD: 1.0 cm Spleen: 7.6 cm Right Kidney: 11.9 x 4.4 x 4.8 cm Left Kidney: 11.2 x 5.5 x 4.9 cm Pancreas: body wnl, head and tail obscured by overlying bowel gas Liver: Enlarged, difficult to penetrate. There is increased echogenicity of the hepatic parenchyma w ith diminished visualization of the portal triads most commonly relating to hepatic steatosis and johnston iting evaluation for underlying hepatic masses. Gallbladder: Surgically absent Evidence for sonographic Barajas's sign: No CBD: Upper limits of normal for post lv Spleen: wnl Right Kidney: wnl Left Kidney: wnl Upper IVC: Difficult to visualize due to enlarged liver Abd Aorta: Obscured by overlying bowel gas No evidence of ascites The intrahepatic portion of the IVC and proximal abdominal aorta are within normal limits. Common licha e duct is upper limits of normal for postcholecystectomy patient. The visualized portions of the emmanuel creas are homogenous. The spleen is unremarkable. Kidneys are symmetric and free of hydronephrosis. No renal lesions are seen. IMPRESSION: 1. Upper limits of normal common bile duct measuring 1.0 cm status post cholecystectomy. If serum lab oratory values are fitting MRCP could assess for distal obstruction or internal calculi. 2. Hyperechoic hepatic echotexture most commonly related to hepatic steatosis. Correlate with liver f unction test results. No ascites is seen.
[2019-05-30 08:19] LABS: African American GFR (CKD) >90 (>60 ml/min/1.73 sqM); Albumin 3.6 g/dL (3.5-5.0); Anion Gap 12 mmol/L; Carbon Dioxide 24 mmol/L (22-30); Chloride 101 mmol/L (98-107); Glucose 173 mg/dL (74-99); Non-African American GFR(CKD) >90 (>60 ml/min/1.73 sqM); Potassium 4.6 mmol/L (3.5-5.1); Sodium 137 mmol/L (137-145); Total Protein 6.6 g/dL (6.3-8.2)
[2019-05-30 08:21] LABS: ALT 112 U/L (9-52); AST 120 U/L (14-36); Alkaline Phosphatase 103 U/L (38-126); Blood Urea Nitrogen 12 mg/dL (7-17); Calcium 8.6 mg/dL (8.4-10.2); Total Bilirubin 0.7 mg/dL (0.2-1.3)
[2019-05-30] MEDS: lamoTRIgine 25 MG TAB PO SCH (08:59)
[2019-05-30] MEDS: SPIRONOLACTONE 25 MG TAB PO SCH (08:59)
[2019-05-30] MEDS: FUROSEMIDE 10 MG TAB PO SCH (09:10)
[2019-05-30] MEDS: ARIPiprazole 5 MG TAB PO SCH (09:10)
[2019-05-30] MEDS: ANASTROZOLE 1 MG TAB PO SCH (09:10)
--- NOTE | 2019-05-30 13:27 | P.CONS ---
History of Present Illness - Reason for Consult Consult date: 05/30/19 Pulm Embolism - Chief Complaint SOB - History of Present Illness Alka is a 53 year old alcoholic with history of breast cancer - on arimidex. She presents with new Pulmonary emboli. Recent cholecystectomy, denies other trauma or events. Her last alcoholic beverage was yesterday. 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 Past Anesthesia/Blood Transfusion Reactions: No Reported Reaction Past Psychological History: Depression Smoking Status: Current every day smoker Past Alcohol Use History: Abuse, Daily, Heavy Additional Past Alcohol Use History / Comment(s): HAS SMOKED SINCE 1981, > 1PPD. pt states does drink alcohol states she was "on a binge" and has been for a couple days. Drinks a pint to a 5th of vodka a day Past Drug Use History: None Reported - Past Family History Father History Unknown: Yes Family Medical History: COPD Additional Family Medical History / Comment(s): Father is alive. Mother Family Medical History: Cancer Additional Family Medical History / Comment(s): liver Medications and Allergies Home Medications Medication Instructions Recorded Confirmed Type Anastrozole [Arimidex] 1 mg PO DAILY 11/09/17 05/30/19 History Spironolactone [Aldactone] 25 mg PO DAILY 04/30/18 05/30/19 History Budesonide/Formoterol Fumarate 2 puff INHALATION RT-DAILY PRN 01/29/19 05/30/19 History [Symbicort 160-4.5 Mcg Inhaler] ARIPiprazole [Abilify] 5 mg PO DAILY 04/13/19 05/30/19 History lamoTRIgine [LaMICtal] 50 mg PO HS 05/30/19 05/30/19 History lamoTRIgine [LaMICtal] 100 mg PO DAILY 05/30/19 05/30/19 History Allergies Allergy/AdvReac Type Severity Reaction Status Date / Time No Known Allergies Allergy Verified 05/30/19 07:52 Physical Exam Vitals: Vital Signs Temp Pulse Pulse Resp BP BP Pulse Ox 05/30/19 11:10 78 18 05/30/19 11:09 98.4 F 78 18 119/73 96 05/30/19 08:00 98.9 F 89 18 127/67 92 L 05/30/19 03:52 18 05/30/19 03:16 98.9 F 90 18 119/63 92 L 05/30/19 02:55 98.4 F 93 18 117/83 94 L 05/30/19 01:28 98.6 F 93 18 116/77 93 L 05/29/19 22:19 85 19 103/78 94 L 05/29/19 22:16 78 05/29/19 22:08 75 05/29/19 19:57 98.7 F 99 17 104/63 94 L 05/29/19 18:04 97.8 F 88 18 107/71 98 Intake and Output 05/29/19 05/30/19 05/30/19 22:59 06:59 14:59 Intake Total 101.647 Balance 101.647 Intake: Intake, IV Titration 101.647 Amount Heparin Sod,Pork in 0.45% 101.647 NaCl 25,000 unit In 0.45 % NaCl 1 250ml.bag @ 18 UNITS/KG/HR 14.696 mls/hr IV .Q17H1M [facility] Rx#: [id number] Other: Voiding Method Toilet Toilet # Voids 2 # Bowel Movements 2 Weight 81.647 kg 96.9 kg - Constitutional General appearance: average body habitus, no acute distress - EENT Eyes: poor dentition, normal appearance ENT: NA/AT, normal oropharynx - Neck Supple Neck: normal ROM - Respiratory Respiratory: bilateral: diminished (no increased efort) - Cardiovascular Rhythm: regular Heart sounds: normal: S1, S2 - Gastrointestinal General gastrointestinal: distended, normal bowel sounds, soft - Integumentary Integumentary: pale - Neurologic non focal - Musculoskeletal Musculoskeletal: generalized weakness - Psychiatric Psychiatric: A&O x's 3 Results CBC & Chem 7: 05/30/19 06:34 05/30/19 06:34 Labs: Abnormal Lab Results - Last 24 Hours (Table) 05/29/19 05/29/1919 Range/Units 17:46 17:46 17:46 WBC 11.3 H (3.8-10.6) k/uL Hgb 16.2 H (11.4-16.0) gm/dL Hct 48.8 H (34.0-46.0) % RDW 16.7 H (11.5-15.5) % Neutrophils # 8.6 H (1.3-7.7) k/uL PT (9.0-12.0) sec INR (<1.2) APTT (22.0-30.0) sec Glucose 188 H (74-99) mg/dL Plasma Lactic Acid Jose 3.7 H* (0.7-2.0) mmol/L AST 215 H (14-36) U/L ALT 113 H (9-52) U/L Serum Alcohol 288 H* mg/dL 05/29/19 05/29/19 05/30/19 Range/Units 17:46 22:56 03:42 WBC (3.8-10.6) k/uL Hgb (11.4-16.0) gm/dL Hct (34.0-46.0) % RDW (11.5-15.5) % Neutrophils # (1.3-7.7) k/uL PT 13.1 H (9.0-12.0) sec INR 1.3 H (<1.2) APTT (22.0-30.0) sec Glucose (74-99) mg/dL Plasma Lactic Acid Jose 2.8 H* 4.2 H* (0.7-2.0) mmol/L AST (14-36) U/L ALT (9-52) U/L Serum Alcohol mg/dL 05/30/19 05/30/19 05/30/19 Range/Units 06:34 06:34 06:34 WBC (3.8-10.6) k/uL Hgb (11.4-16.0) gm/dL Hct (34.0-46.0) % RDW (11.5-15.5) % Neutrophils # (1.3-7.7) k/uL PT (9.0-12.0) sec INR (<1.2) APTT 100.5 H* (22.0-30.0) sec Glucose 173 H (74-99) mg/dL Plasma Lactic Acid Jose 4.0 H* (0.7-2.0) mmol/L AST 120 H (14-36) U/L ALT 112 H (9-52) U/L Serum Alcohol mg/dL 05/30/19 Range/Units 11:22 WBC (3.8-10.6) k/uL Hgb (11.4-16.0) gm/dL Hct (34.0-46.0) % RDW (11.5-15.5) % Neutrophils # (1.3-7.7) k/uL PT (9.0-12.0) sec INR (<1.2) APTT (22.0-30.0) sec Glucose (74-99) mg/dL Plasma Lactic Acid Jose 2.5 H* (0.7-2.0) mmol/L AST (14-36) U/L ALT (9-52) U/L Serum Alcohol mg/dL CT scan - chest: report reviewed Assessment and Plan Plan: Assessment and Recommendations: Pulmonary Emboli in peripheral Right Lung: - Continue on Heparin drip at this time all plan to switch to PO at discharge ETOH Abuse and Liver Cirrhosis: - Follows with Dr. Mchugh Increased LFTs: - Secondary to hepatic disease PLan: - Rec BLE Doppler. - Continue on heparin may need Paracentesis - CIWA Protocol per primary team - Re-evaluate for recurrent cancer
--- NOTE | 2019-05-30 14:46 | US ---
EXAMINATION TYPE: US venous doppler duplex LE DATE OF EXAM: 05/30/2019 2:13 PM COMPARISON: NONE CLINICAL HISTORY: Pulmonary Emboli. PE SIDE PERFORMED: Bilateral TECHNIQUE: The lower extremity deep venous system is examined utilizing real time linear array sonog liliana with graded compression, doppler sonography and color-flow sonography. VESSELS IMAGED: External Iliac Vein (EIV) Common Femoral Vein Deep Femoral Vein Greater Saphenous Vein * Femoral Vein Popliteal Vein Small Saphenous Vein * Proximal Calf Veins (* superficial vessels) Right Leg: Negative for DVT Left Leg: Negative for DVT IMPRESSION: No evidence of deep venous thrombosis in both legs.
[2019-05-30 16:49] LABS: INR 1.1 (<1.2); Partial Thromboplastin Time 38.1 sec (22.0-30.0); Prothrombin Time 11.9 sec (9.0-12.0)
[2019-05-30] MEDS: THIAMINE 100 MG TAB PO SCH (17:06)
[2019-05-30] MEDS: methylPREDNISolone SOD SUCCI 125 MG/2 ML VIAL IV SCH ×2 (17:06→23:19)
[2019-05-30] MEDS: BUDESONIDE 0.5 MG/2 ML NEBU INHALATION SCH (19:21)
[2019-05-30 21:20] LABS: Glucose,Whole Blood 216 mg/dL (75-99)
--- NOTE | 2019-05-30 21:20 | P.CONS ---
History of Present Illness - Reason for Consult Consult date: 05/30/19 Cirrhosis Requesting physician: Matt Davila - Chief Complaint Abdominal pain - History of Present Illness This 3-year-old female with a medical history significant for decompensated alcoholic cirrhosis of the liver with ascites, prior history of breast cancer and recent cholecystectomy presented to the hospital with complaints of abdominal pain. She reports upper abdominal pain in the epigastric region with associated nausea and vomiting. She denies any hematemesis or coffee-ground emesis and reports binge drinking prior to her symptoms. She reports intermittent binge drinking over the past 10 years. She has a known history of decompensated alcoholic cirrhosis for which she follows up with Dr. Mchugh in the outpatient setting. She denies any treatment for hepatic encephalopathy or variceal bleeding in the past. Recent EGD in 04/2019 was significant for antritis without any findings of esophageal varices. Patient was found to be intoxicated on presentation. Computed tomography scan of the chest was significant for pulmonary emboli. Currently she is being seen by the hematology/oncology service. Laboratory evaluation on presentation was signific ant for a WBC 11.3, hemoglobin 14.7, hematocrit 2257, total bilirubin 0.7, alkaline phosphatase 103, AST 120, ALTs 112 with positive EtOH. Ultrasound of the abdomen was significant for a 1 cm common bile duct with no findings of choledocholithiasis. Currently she is seen lying in bed reporting that her abdominal pain is improved. She feels that pain was likely secondary to her alcohol consumption. Review of Systems REVIEW OF SYSTEMS: CONSTITUTIONAL: Denies any fevers, chills, weight change or fatigue. CARDIOVASCULAR: Denies any chest pain, palpitations high or low blood pressures RESPIRATORY: Denies any hemoptysis or cough. GENITOURINARY: No dysuria or hematuria. MUSCULOSKELETAL: No weakness reported. SKIN: Denies any new rashes or lesions, jaundice or pallor. PSYCHIATRIC: Denies any depression or anxiety, does have a history of alcohol abuse. NEUROLOGY: Denies headache, denies any new focal deficits. EARS/NOSE/THROAT: No recent hearing change, congestion, nasal discharge or sore throat. EYES: No pain in eyes, discharge or change in vision. GASTROINTESTINAL: As per HPI. 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 Past Anesthesia/Blood Transfusion Reactions: No Reported Reaction Past Psychological History: Depression Smoking Status: Current every day smoker Past Alcohol Use History: Abuse, Daily, Heavy Additional Past Alcohol Use History / Comment(s): HAS SMOKED SINCE 1981, > 1PPD. pt states does drink alcohol states she was "on a binge" and has been for a couple days. Drinks a pint to a 5th of vodka a day Past Drug Use History: None Reported - Past Family History Father History Unknown: Yes Family Medical History: COPD Additional Family Medical History / Comment(s): Father is alive. Mother Family Medical History: Cancer Additional Family Medical History / Comment(s): liver Medications and Allergies Home Medications Medication Instructions Recorded Confirmed Type Anastrozole [Arimidex] 1 mg PO DAILY 11/09/17 05/30/19 History Spironolactone [Aldactone] 25 mg PO DAILY 04/30/18 05/30/19 History Budesonide/Formoterol Fumarate 2 puff INHALATION RT-DAILY PRN 01/29/19 05/30/19 History [Symbicort 160-4.5 Mcg Inhaler] ARIPiprazole [Abilify] 5 mg PO DAILY 04/13/19 05/30/19 History lamoTRIgine [LaMICtal] 50 mg PO HS 05/30/19 05/30/19 History lamoTRIgine [LaMICtal] 100 mg PO DAILY 05/30/19 05/30/19 History Allergies Allergy/AdvReac Type Severity Reaction Status Date / Time No Known Allergies Allergy Verified 05/30/19 07:52 Physical Exam Vitals: Vital Signs Temp Pulse Pulse Resp BP BP Pulse Ox 05/30/19 19:30 84 05/30/19 19:21 78 05/30/19 15:27 98.9 F 78 18 119/75 95 05/30/19 11:10 78 18 05/30/19 11:09 98.4 F 78 18 119/73 96 05/30/19 08:00 98.9 F 89 18 127/67 92 L 05/30/19 03:52 18 05/30/19 03:16 98.9 F 90 18 119/63 92 L 05/30/19 02:55 98.4 F 93 18 117/83 94 L 05/30/19 01:28 98.6 F 93 18 116/77 93 L 05/29/19 22:19 85 19 103/78 94 L 05/29/19 22:16 78 05/29/19 22:08 75 Intake and Output 05/30/19 05/30/19 05/30/19 06:59 14:59 22:59 Intake Total 101.647 148.353 Balance 101.647 148.353 Intake: Intake, IV Titration 101.647 148.353 Amount Heparin Sod,Pork in 0.45% 101.647 148.353 NaCl 25,000 unit In 0.45 % NaCl 1 250ml.bag @ 18 UNITS/KG/HR 14.696 mls/hr IV .Q17H1M [facility] Rx#: [id number] Other: Voiding Method Toilet Toilet # Voids 2 3 # Bowel Movements 2 3 Weight 96.9 kg On physical examination, patient appears comfortable in no apparent distress. HEAD: Normocephalic, atraumatic. EYES: No scleral icterus. No conjunctival injection. MOUTH: No lesions, tongue midline. NECK: Trachea midline, no gross abnormalities. CHEST: Clear to auscultation with no wheezing or rhonchi appreciated. HEART: Regular rate and rhythm. ABDOMEN: Soft, obese. Bowel sounds are positive. No organomegaly. No guarding or rigidity. EXTREMITIES: No pedal edema. SKIN: No rashes, no jaundice. NEUROLOGIC: Alert and oriented x3, tremulousness noted but no asterixis. No focal deficits. Results CBC & Chem 7: 05/30/19 06:34 05/30/19 06:34 Labs: Abnormal Lab Results - Last 24 Hours (Table) 05/29/19 05/30/19 05/30/19 Range/Units 22:56 03:42 06:34 APTT 100.5 H* (22.0-30.0) sec Glucose (74-99) mg/dL Plasma Lactic Acid Jose 2.8 H* 4.2 H* (0.7-2.0) mmol/L AST (14-36) U/L ALT (9-52) U/L 05/30/19 05/30/19 05/30/19 Range/Units 06:34 06:34 11:22 APTT (22.0-30.0) sec Glucose 173 H (74-99) mg/dL Plasma Lactic Acid Jose 4.0 H* 2.5 H* (0.7-2.0) mmol/L AST 120 H (14-36) U/L ALT 112 H (9-52) U/L 05/30/19 05/30/19 05/30/19 Range/Units 15:15 15:34 19:25 APTT 38.1 H (22.0-30.0) sec Glucose (74-99) mg/dL Plasma Lactic Acid Jose 2.1 H* 3.7 H* (0.7-2.0) mmol/L AST (14-36) U/L ALT (9-52) U/L US - abdomen: report reviewed (Ultrasound of the abdomen significant for a post cholecystectomy state with CBD measuring 1 cm) Assessment and Plan (1) Abdominal pain Narrative/Plan: 53-year-old female with multiple medical comorbidities including alcohol liver disease secondary to binge drinking over the past 10 years. Currently she reports diuretic therapy with Lasix and Aldactone in the outpatient setting. She denies any prior episodes of hepatic encephalopathy or variceal bleeding and had EGD in 04/2019 which was negative for varices. She presented with complaints of abdominal pain after consuming alcohol. Patient is status post cholecystectomy with ultrasound of the abdomen significant for a 1 cm CBD. Liver enzymes not suggestive of cholestasis or obstruction with total bilirubin 0.7, alkaline phosphatase 103, AST 120 and ALP 112. Patient's symptoms likely secondary to antritis is seen on prior EGD in the setting of alcohol use. Current Visit: Yes Status: Acute Code(s): R10.9 - UNSPECIFIED ABDOMINAL PAIN SNOMED Code(s): 27272627 (2) Alcoholic liver disease Current Visit: Yes Status: Acute Code(s): K70.9 - ALCOHOLIC LIVER DISEASE, UNSPECIFIED SNOMED Code(s): 64535317 (3) Alcoholism Current Visit: No Status: Acute Code(s): F10.20 - ALCOHOL DEPENDENCE, UNCOMPLICATED SNOMED Code(s): 7823983 (4) Elevated liver function tests Current Visit: No Status: Acute Code(s): R79.89 - OTHER SPECIFIED ABNORMAL FINDINGS OF BLOOD CHEMISTRY SNOMED Code(s): 286630706 Plan: Supportive care Okay for sodium restricted diet Continue to monitor CBC, CMP Continue medical management per primary team Alcohol abstinence Continue diuretic therapy Will add Pepcid 20 mg by mouth twice a day Thank you for allowing us to participate in the care of the patient we will continue to follow
[2019-05-30] MEDS: LORazepam 2 MG/ML INJ IV PRN (21:23)
[2019-05-30] MEDS: INSULIN ASPART (NovoLOG) 100 UNIT/ML VIAL SQ SCH (21:23)
--- NOTE | 2019-05-31 00:42 | HP ---
HISTORY AND PHYSICAL 53-year-old alcoholic with history of breast cancer on Arimidex presented with new pulmonary embolism and chest pain and some diffuse abdominal pain. She has been drinking a pint of alcohol every day. She is a chronic alcoholic for many years. REVIEW OF SYSTEMS: Fourteen point review of systems negative except for mentioned in HPI. PAST MEDICAL HISTORY: Breast cancer, COPD, alcoholism, liver disease. SURGERIES: Appendectomy, breast surgery, cholecystectomy, orthopedic surgery, bilateral breast reduction, left mastectomy, carpal tunnel release. PSYCH: Depression. SOCIAL HISTORY: Current everyday smoker, heavy alcohol abuse. for couple days now, 5th of vodka a day. FAMILY HISTORY: Father COPD. Mother with cancer of the liver. MEDICATIONS: Home medicines are Arimidex, Aldactone, Symbicort, Abilify, Lamictal. Complaining of depression at this time. Temp 97 to 98, pulse 75-93, respiratory 16-18, blood pressure is 103-117 over 60s to 80s, O2 92-98 percent, elevated lactic acid. Abdomen is distended due to obesity. Questionable fluid waves. Psych: Flat mood and affect. Musculoskeletal 4/5 strength bilaterally. Cardiac S1, S2. Lungs are decreased breath sounds. Scattered wheeze. LABS: Reviewed. Hemoglobin 16.2, hematocrit 48.8. Lactic acid for 2.8, 4.2. ASSESSMENT AND PLAN: 1. Acute pulmonary embolism. 2. Peripheral right lung. 3. Continue on heparin drip. 4. Oral medicines on discharge. 5. Alcohol abuse. 6. Liver cirrhosis. 7. Follow up with Dr. Mchugh. 8. Increased LFTs secondary to hepatic disease. 9. [facility] protocol for alcohol abuse. 10.Pulmonology consult, Dr. Estrada Ennis. MMODL / IJN: [id number] /
--- NOTE | 2019-05-31 00:54 | CONS ---
CONSULTATION Alka Polanco is a 53-year-old female who presented to the ED at [facility]. She at that time had come in with feeling weak associated with some shortness of breath. She had abdominal pain and was nauseated. She had no fever or chills. She subsequently was seen in the ED for further evaluation. She has a known history of previous breast cancer with previous left mastectomy and she is on Arimidex. While she was in the ER a CT scan of the chest was done which showed evidence of pulmonary emboli in the right upper lobe. No central pulmonary emboli were seen. She subsequently was started on IV heparin and was admitted for further evaluation. When I went to see her she continued to have some shortness of breath with cough and wheezing as well. PAST MEDICAL HISTORY: Positive for breast cancer, history of cirrhosis of the liver, history of COPD, previous cholecystectomy, bilateral breast reduction surgery, previous left mastectomy with implant with subsequent removal, carpal tunnel release in the left wrist. SOCIAL HISTORY: Patient is a smoker, smokes about 2 packs of cigarettes per day. She drinks alcohol every day. FAMILY HISTORY: Positive for COPD in her father, liver cancer in her mother. MEDICATIONS: Prior to admission were Lamictal, Aldactone, Symbicort, Arimidex, and Abilify. REVIEW OF SYSTEMS: Noncontributory. PHYSICAL EXAMINATION: Respiratory rate is 18, pulse rate of 78, temperature 98.9, blood pressure 119/75, O2 saturation on 4 L by nasal cannula is 95%. HEENT reveals pupils that are equal. No jugular venous distention. She has a short thick neck. Chest reveals decreased breath sounds with prolonged expiration, expiratory wheeze. Cardiovascular system reveals an S1, S2. Abdomen is soft. There is no pedal edema. White count is 11.3, hemoglobin of 16.2. PT/INR 1.3. Plasma lactic acid is 2.1. AST 215, ALT 113, alkaline phosphatase 115, ammonia level of 18. Serum alcohol level was 288. IMPRESSION: 1. Acute pulmonary embolus. 2. Asthma with chronic obstructive pulmonary disease with acute exacerbation. 3. Alcohol intoxication. 4. Alcohol withdrawal syndrome. 5. Cirrhosis of the liver. 6. Elevated lactic acidosis which is likely due to liver disease. At this point in time from a pulmonary perspective, continue her on IV heparin, switch her to oral anticoagulants in the next 24-48 hours, keep her on IV and aerosolized steroids with bronchodilators, keep her on GI prophylaxis. Her prognosis is guarded. She was counseled regarding her condition and this approach. MMODL / JANEYN: [id number] /
[2019-05-31 04:02] LABS: Basophils % (A) 0 %; Eosinophils # (A) 0.1 k/uL (0-0.7); Eosinophils % (A) 2 %; HCT 46.2 % (34.0-46.0); HGB 14.8 gm/dL (11.4-16.0); Lymphocytes # (A) 0.6 k/uL (1.0-4.8); Lymphocytes % (A) 7 %; MCH 29.9 pg (25.0-35.0); MCHC 32.1 g/dL (31.0-37.0); MCV 93.3 fL (80.0-100.0); Monocytes # (A) 0.1 k/uL (0-1.0); Monocytes % (A) 1 %; Neutrophils # (A) 7.3 k/uL (1.3-7.7); Neutrophils % (A) 89 %; Platelet Count 202 k/uL (150-450); RBC 4.95 m/uL (3.80-5.40); RDW 15.9 % (11.5-15.5); WBC 8.1 k/uL (3.8-10.6)
[2019-05-31 05:00] LABS: ALT 92 U/L (9-52); AST 92 U/L (14-36); African American GFR (CKD) >90 (>60 ml/min/1.73 sqM); Albumin 4.1 g/dL (3.5-5.0); Alkaline Phosphatase 114 U/L (38-126); Anion Gap 17 mmol/L; Blood Urea Nitrogen 9 mg/dL (7-17); Calcium 9.2 mg/dL (8.4-10.2); Carbon Dioxide 21 mmol/L (22-30); Chloride 96 mmol/L (98-107); Glucose 275 mg/dL (74-99); Magnesium 1.8 mg/dL (1.6-2.3); Non-African American GFR(CKD) >90 (>60 ml/min/1.73 sqM); Potassium 4.8 mmol/L (3.5-5.1); Sodium 134 mmol/L (137-145); Total Bilirubin 1.1 mg/dL (0.2-1.3); Total Protein 7.2 g/dL (6.3-8.2)
[2019-05-31] MEDS: INSULIN ASPART (NovoLOG) 100 UNIT/ML VIAL SQ SCH ×4 (06:25→20:50)
[2019-05-31] MEDS: methylPREDNISolone SOD SUCCI 125 MG/2 ML VIAL IV SCH ×3 (06:25→17:41)
[2019-05-31] MEDS: THIAMINE 100 MG TAB PO SCH ×2 (06:25→17:41)
[2019-05-31 06:29] LABS: Glucose,Whole Blood 228 mg/dL (75-99)
[2019-05-31] MEDS: LORazepam 2 MG/ML INJ IV PRN ×4 (06:40→20:54)
[2019-05-31] MEDS: lamoTRIgine 25 MG TAB PO SCH (08:25)
[2019-05-31] MEDS: FUROSEMIDE 10 MG TAB PO SCH (08:25)
[2019-05-31] MEDS: FAMOTIDINE 20 MG TAB PO SCH ×2 (08:25→19:48)
[2019-05-31] MEDS: SPIRONOLACTONE 25 MG TAB PO SCH (08:25)
[2019-05-31] MEDS: ANASTROZOLE 1 MG TAB PO SCH (08:25)
[2019-05-31] MEDS: ARIPiprazole 5 MG TAB PO SCH (08:26)
[2019-05-31] MEDS: IPRATROPIUM-ALBUTEROL 3 ML NEB INHALATION PRN (08:56)
[2019-05-31] MEDS: BUDESONIDE 0.5 MG/2 ML NEBU INHALATION SCH ×2 (08:56→19:15)
[2019-05-31] MEDS: IOPAMIDOL CONTRAST (ORAL USE) VIAL PO PRN ×2 (11:08→13:02)
[2019-05-31 12:19] LABS: Glucose,Whole Blood 231 mg/dL (75-99)
[2019-05-31 12:37] LABS: CA27.29 Breast Ca Marker 5.8 U/mL (0.0-38.5)
[2019-05-31 13:36] LABS: Cancer Antigen 153 3.7 U/mL (0.0-32.3)
[2019-05-31] MEDS: HEPARIN SOD,PORK IN 0.45% NACL 25,000 UNIT in 0.45% NACL 1 250ML.BAG IV SCH (14:32)
--- NOTE | 2019-05-31 14:55 | CT ---
EXAMINATION TYPE: CT ChestAbdPelvis w con DATE OF EXAM: 05/31/2019 COMPARISON: 05/29/2019 and 06-09 HISTORY: Difficulty breathing, known PE. Breast Cancer CT DLP: 1827 mGycm CONTRAST: CT scan of the chest, abdomen and pelvis is performed with Oral Contrast and with IV Contrast, patien t injected with 50 mL of Isovue 300. There is extravasation of contrast and therefore contrast bolus is limiting. CT Chest: LUNGS: The lungs are clear and free of infiltrate or atelectasis. No pulmonary nodule or mass is det ected. No pleural effusion or CT evidence of interstitial lung disease. MEDIASTINUM: Thoracic aorta is of normal caliber. The heart is not enlarged. No evidence for media stinal mass or adenopathy. Previously diagnosed peripheral pulmonary emboli are not well visualized o r documented on this limited contrast-enhanced study. HILAR STRUCTURES: No evidence for mass. No hilar adenopathy is appreciated. OTHER: Left sided mastectomy redemonstrated. CONTRAST CT ABDOMEN AND PELVIS FINDINGS: LIVER/GB: Hepatomegaly with underlying hepatic steatosis. The gallbladder is surgically absent. No space occupying hepatic lesion. Biliary tree is of normal caliber. PANCREAS: No inflammation. No distinct mass. SPLEEN: No splenic enlargement. No lesion seen. ADRENALS: No nodule. No thickening. KIDNEYS/BLADDER: No hydronephrosis. No nephrolithiasis. No disctinct renal mass. BOWEL: Normal appendix. Normal bowel caliber. No inflammation. GENITAL ORGANS: No gross abnormality. LYMPH NODES: No greater than 1cm abdominal or pelvic lymph nodes are appreciated. AORTA: No significant abnormality. OSSEOUS STRUCTURES: No significant abnormality is seen. OTHER: No significant additional abnormality is seen. IMPRESSION: 1. No CT evidence to suggest metastatic disease. 2. Limiting contrast bolus as noted above. 3. Hepatomegaly with hepatic steatosis.
--- NOTE | 2019-05-31 15:16 | P.PN ---
Subjective Progress Note Date: 05/31/19 Principal diagnosis: RUL PE, Hx breast cancer without guideline recommended follow up Patient slightly confused today, she did have to be reoriented several times. She states generally feeling unwell but, is wondering if she can be discharged today. She denies nosebleed, hemoptysis, no blood in the toilet with urination, bowel movement that she recalls was yesterday. Her abdomen is tender on the right side and periumbilicus area Objective - Vital Signs Vital signs: Vital Signs Temp 97.9 F 05/31/19 08:00 Pulse 76 05/31/19 09:09 Resp 20 05/31/19 08:00 BP 120/80 05/31/19 08:00 Pulse Ox 98 05/31/19 08:58 Intake & Output 05/30/19 05/31/19 05/31/19 18:59 06:59 18:59 Intake Total 196.774 53.226 Output Total 2200 Balance 196.774 -2146.774 Weight 84.5 kg Intake: Intake, IV Titration 196.774 53.226 Amount Heparin Sod,Pork in 0.45% 196.774 53.226 NaCl 25,000 unit In 0.45 % NaCl 1 250ml.bag @ 18 UNITS/KG/HR 14.696 mls/hr IV .Q17H1M [facility] Rx#: [id number] Output: Urine 2200 Other: Voiding Method Toilet Toilet # Voids 3 1 # Bowel Movements 3 - Constitutional General appearance: Present: cooperative, disheveled, no acute distress, obese - EENT Eyes: Present: anicteric sclerae, EOMI ENT: Present: hearing grossly normal - Respiratory Details: Left chest wall mastectomy, tissue is very tight from surgery, no palpable mass Respiratory: bilateral: diminished - Cardiovascular Rhythm: regular Heart sounds: normal: S1, S2 Abnormal Heart Sounds: Absent: systolic murmur, diastolic murmur, rub, S3 Gallop, S4 Gallop, click, other - Gastrointestinal General gastrointestinal: Present: distended, soft, tenderness - Neurologic Neurologic: Present: CNII-XII intact - Musculoskeletal Musculoskeletal: Present: strength equal bilaterally - Psychiatric Psychiatric Comment(s): Alert, oriented to self, place, location, poor recall of personal medical hist ory - Allied health notes Allied health notes reviewed: case management - Labs CBC & Chem 7: 05/31/19 03:41 05/31/19 03:41 Labs: Abnormal Lab Results - Last 24 Hours (Table) 05/30/19 05/30/19 05/30/19 Range/Units 11:22 15:15 15:34 Hct (34.0-46.0) % RDW (11.5-15.5) % Lymphocytes # (1.0-4.8) k/uL APTT 38.1 H (22.0-30.0) sec Sodium (137-145) mmol/L Chloride (98-107) mmol/L Carbon Dioxide (22-30) mmol/L Glucose (74-99) mg/dL POC Glucose (mg/dL) (75-99) mg/dL Plasma Lactic Acid Jose 2.5 H* 2.1 H* (0.7-2.0) mmol/L AST (14-36) U/L ALT (9-52) U/L 05/30/19 05/30/19 05/30/19 Range/Units 19:25 20:46 22:59 Hct (34.0-46.0) % RDW (11.5-15.5) % Lymphocytes # (1.0-4.8) k/uL APTT 59.0 H (22.0-30.0) sec Sodium (137-145) mmol/L Chloride (98-107) mmol/L Carbon Dioxide (22-30) mmol/L Glucose (74-99) mg/dL POC Glucose (mg/dL) 216 H (75-99) mg/dL Plasma Lactic Acid Jose 3.7 H* (0.7-2.0) mmol/L AST (14-36) U/L ALT (9-52) U/L 05/30/19 05/31/19 05/31/19 Range/Units 22:59 03:41 03:41 Hct 46.2 H (34.0-46.0) % RDW 15.9 H (11.5-15.5) % Lymphocytes # 0.6 L (1.0-4.8) k/uL APTT (22.0-30.0) sec Sodium 134 L (137-145) mmol/L Chloride 96 L (98-107) mmol/L Carbon Dioxide 21 L (22-30) mmol/L Glucose 275 H (74-99) mg/dL POC Glucose (mg/dL) (75-99) mg/dL Plasma Lactic Acid Jose 4.6 H* (0.7-2.0) mmol/L AST 92 H (14-36) U/L ALT 92 H (9-52) U/L 05/31/19 05/31/19 05/31/19 Range/Units 03:41 03:41 06:04 Hct (34.0-46.0) % RDW (11.5-15.5) % Lymphocytes # (1.0-4.8) k/uL APTT 62.3 H (22.0-30.0) sec Sodium (137-145) mmol/L Chloride (98-107) mmol/L Carbon Dioxide (22-30) mmol/L Glucose (74-99) mg/dL POC Glucose (mg/dL) 228 H (75-99) mg/dL Plasma Lactic Acid Jose 5.7 H* (0.7-2.0) mmol/L AST (14-36) U/L ALT (9-52) U/L 05/31/19 Range/Units 07:40 Hct (34.0-46.0) % RDW (11.5-15.5) % Lymphocytes # (1.0-4.8) k/uL APTT (22.0-30.0) sec Sodium (137-145) mmol/L Chloride (98-107) mmol/L Carbon Dioxide (22-30) mmol/L Glucose (74-99) mg/dL POC Glucose (mg/dL) (75-99) mg/dL Plasma Lactic Acid Jose 5.2 H* (0.7-2.0) mmol/L AST (14-36) U/L ALT (9-52) U/L Assessment and Plan (1) Pulmonary emboli Narrative/Plan: Right upper lobe pulmonary emboli, unprovoked from my review of history with patient. Patient is currently on a heparin drip. This was left pending any possible plans for procedures. Did discuss the case with manager rn case. Patient is approved for [employer], restriction has been sent for the same. Did discuss with the patient briefly that she would require 6-12 months of treatment with anticoagulation. We briefly reviewed bleeding precautions. Plan is to do restaging imaging due to the unprovoked blood clot and that patient has not followed up and quite some time regarding her history of breast cancer. Current Visit: Yes Status: Acute Priority: High Code(s): I26.99 - OTHER PULMONARY EMBOLISM WITHOUT ACUTE COR PULMONALE SNOMED Code(s): 28264290 (2) History of breast cancer in female Narrative/Plan: Unprovoked blood clot, concerning for metastatic recurrence. She also has a history of EtOH abuse, liver damage as well as smoking history increasing her potential for new primary malignancies. Patient states a mammogram here recently, I am unable to find evidence of the same. CT of the chest abdomen and pelvis has been ordered, nuclear medicine bone scan and tumor markers are pending. Current Visit: No Status: Chronic Priority: High Code(s): Z85.3 - PERSONAL HISTORY OF MALIGNANT NEOPLASM OF BREAST SNOMED Code(s): 501408247
--- NOTE | 2019-05-31 15:56 | NM ---
EXAMINATION TYPE: NM bone scan whole body DATE OF EXAM: 05/31/2019 COMPARISON: 05/31/2019 CT scan HISTORY: Breast cancer Delayed whole-body scanning was performed following the injection of 21.5 mCi Tc 99m MDP. Images acq uired 4.5 hours post injection. FINDINGS: There is abnormal uptake are surrounding the right elbow which may related to soft tissue e xtravasation from IV infiltration as noted by the nuclear officer. There is faint uptake involving the thoracic spine likely degenerative. Abnormal uptake involving the shoulders likely post arthritic. No diagnostic evidence of metastases. IMPRESSION: 1. No diagnostic evidence of metastases.
--- NOTE | 2019-05-31 16:45 | P.PN ---
Progress Note - Text Progress Note Date: 05/31/19 Psychiatric consultation: Reviewed EMR on patient after receiving consult for depression and alcohol use. Patient appeared to have a BAL on admission of 288 was complaining of upper abdominal pain plus vomiting and nausea had a UA which was negative increase in her liver function tests and a CT angiogram which showed a pulmonary embolism. Patient is currently on CIWA for alcohol withdrawal. Insurance Loss Assessor attempted to see patient this afternoon earlier however patient was at a procedure was not available. Will attempt to see patient tomorrow for full consult and give further recommendations.
[2019-05-31 17:29] LABS: Glucose,Whole Blood 281 mg/dL (75-99)
--- NOTE | 2019-05-31 20:37 | PN ---
PROGRESS NOTE DATE OF SERVICE: May 31, 2019. She is less short of breath. She is not confused or jittery. She is awake and alert. She has no wheezing today. PHYSICAL EXAMINATION: Blood pressure is 117/66, respiratory rate 20, pulse rate 60, temperature 98.3, O2 saturation on 2 L by nasal cannula is 91%. HEENT: Unremarkable. Chest reveals no wheezing. There is prolonged exhalation. Cardiovascular system is S1, S2. Abdomen is soft. There is no pedal edema. IMPRESSION: At this time: 1. Pulmonary embolus. 2. Previous history of breast cancer. 3. Asthma with acute exacerbation. 4. Alcoholism with alcoholic liver disease, which may be contributing to his elevated lactate. At this point in time, the bone scan is negative for metastatic disease. CT scan of the chest, abdomen and pelvis shows no evidence of metastatic disease as well. At this point in time from a pulmonary standpoint, would switch her to oral steroids. Continue anticoagulation. Increase activity level. I would like to thank you for allowing me to participate in the care of this patient. MMODL / IJN: [id number] /
[2019-05-31 20:49] LABS: Glucose,Whole Blood 284 mg/dL (75-99)
--- NOTE | 2019-05-31 22:22 | PN ---
PROGRESS NOTE SUBJECTIVE: This patient is a 53-year-old white female with pulmonary embolism. She remains on IV heparin. Elevated lactic acidosis secondary to liver disease and chronic alcoholism. CIWA protocol is intact. Her tremors are decreasing. She is requesting more depression medicine. CARDIOVASCULAR: S1, S2. LUNGS: Clear. GI: Distended, obese. HEMATOLOGY: Negative Homans. ASSESSMENT: 1. Pulmonary embolism. 2. Alcohol withdrawal. 3. Alcohol dependence. 4. Depression. 5. Chronic alcoholism. Continue on IV heparin. Switch to Eliquis tomorrow. CIWA protocol and antidepressant. MMODL / IJN: [id number] /
[2019-06-01] MEDS: HEPARIN SOD,PORK IN 0.45% NACL 25,000 UNIT in 0.45% NACL 1 250ML.BAG IV SCH (03:18)
[2019-06-01] MEDS: LORazepam 2 MG/ML INJ IV PRN ×5 (05:53→21:14)
[2019-06-01 06:32] LABS: Glucose,Whole Blood 216 mg/dL (75-99)
[2019-06-01] MEDS: THIAMINE 100 MG TAB PO SCH ×2 (06:35→17:26)
[2019-06-01] MEDS: INSULIN ASPART (NovoLOG) 100 UNIT/ML VIAL SQ SCH ×6 (06:35→21:14)
[2019-06-01 06:41] LABS: Basophils # (A) 0.2 k/uL (0-0.2); Basophils % (A) 2 %; Eosinophils # (A) 0.1 k/uL (0-0.7); Eosinophils % (A) 0 %; HCT 44.2 % (34.0-46.0); HGB 14.5 gm/dL (11.4-16.0); Lymphocytes # (A) 0.8 k/uL (1.0-4.8); Lymphocytes % (A) 6 %; MCH 30.1 pg (25.0-35.0); MCHC 32.7 g/dL (31.0-37.0); MCV 92.2 fL (80.0-100.0); Mean Platelet Volume 8.5; Monocytes # (A) 0.5 k/uL (0-1.0); Monocytes % (A) 4 %; Neutrophils # (A) 12.5 k/uL (1.3-7.7); Neutrophils % (A) 88 %; Platelet Count 234 k/uL (150-450); RDW 15.2 % (11.5-15.5); WBC 14.2 k/uL (3.8-10.6)
[2019-06-01] MEDS: BUDESONIDE 0.5 MG/2 ML NEBU INHALATION SCH ×2 (08:45→19:20)
[2019-06-01] MEDS: ANASTROZOLE 1 MG TAB PO SCH (09:02)
[2019-06-01] MEDS: predniSONE 20 MG TAB PO SCH (09:02)
[2019-06-01] MEDS: ARIPiprazole 5 MG TAB PO SCH (09:03)
[2019-06-01] MEDS: lamoTRIgine 25 MG TAB PO SCH (09:03)
[2019-06-01] MEDS: SPIRONOLACTONE 25 MG TAB PO SCH (09:04)
[2019-06-01] MEDS: FAMOTIDINE 20 MG TAB PO SCH ×2 (09:04→20:40)
[2019-06-01] MEDS: FUROSEMIDE 10 MG TAB PO SCH (09:04)
[2019-06-01 12:10] LABS: Glucose,Whole Blood 195 mg/dL (75-99)
[2019-06-01] MEDS ORDERED: INSULIN ASPART (NovoLOG) 100 UNIT/ML VIAL SQ SCH (12:30)
[2019-06-01] MEDS: APIXABAN 5 MG TAB PO SCH ×2 (12:56→20:40)
[2019-06-01 13:43] LABS: African American GFR (CKD) >90 (>60 ml/min/1.73 sqM); Anion Gap 9 mmol/L; Blood Urea Nitrogen 14 mg/dL (7-17); Calcium 9.6 mg/dL (8.4-10.2); Carbon Dioxide 27 mmol/L (22-30); Chloride 99 mmol/L (98-107); Glucose 212 mg/dL (74-99); Non-African American GFR(CKD) >90 (>60 ml/min/1.73 sqM); Potassium 4.5 mmol/L (3.5-5.1); Sodium 135 mmol/L (137-145)
--- NOTE | 2019-06-01 13:56 | P.PN ---
Subjective Progress Note Date: 06/01/19 Principal diagnosis: RUL PE, Hx breast cancer without guideline recommended follow up Pt is much more alert and oriented today for our conversation today, she feels better, breathing is more comfortable. She is able to ambulate back and forth to the restroom without too much distress, no chest pain, sensations of palpitations. She denies any bleeding Objective - Vital Signs Vital signs: Vital Signs Temp 98.6 F 06/01/19 12:15 Pulse 86 06/01/19 12:15 Resp 16 06/01/19 12:15 BP 114/76 06/01/19 12:15 Pulse Ox 93 L 06/01/19 12:15 Intake & Output 05/31/19 06/01/19 06/01/19 18:59 06:59 18:59 Intake Total 1335.52 557.415 480 Balance 1335.52 557.415 480 Weight 85.6 kg Intake: IV 125.52 Heparin Sod,Pork in 0.45% 125.52 NaCl 25,000 unit In 0.45 % NaCl 1 250ml.bag @ 18 UNITS/KG/HR 14.696 mls/hr IV .Q17H1M [facility] Rx#: [id number] Intake, IV Titration 250 257.415 Amount Heparin Sod,Pork in 0.45% 250 257.415 NaCl 25,000 unit In 0.45 % NaCl 1 250ml.bag @ 18 UNITS/KG/HR 14.696 mls/hr IV .Q17H1M [facility] Rx#: [id number] Oral 960 300 480 Other: Voiding Method Toilet Toilet # Voids 1 - Constitutional General appearance: Present: average body habitus, cooperative, no acute distress - EENT Eyes: Present: anicteric sclerae, EOMI ENT: Present: hearing grossly normal, normal oropharynx - Respiratory Respiratory: bilateral: diminished, wheezing - Cardiovascular Rhythm: regular Heart sounds: normal: S1, S2 Abnormal Heart Sounds: Absent: systolic murmur, diastolic murmur, rub, S3 Gallop, S4 Gallop, click, other - Peripheral edema leg Peripheral Edema: bilateral: None - Gastrointestinal General gastrointestinal: Present: normal bowel sounds, soft - Integumentary Integumentary: Present: normal turgor - Neurologic Neurologic: Present: CNII-XII intact - Musculoskeletal Musculoskeletal: Present: strength equal bilaterally - Psychiatric Psychiatric: Present: A&O x's 3, appropriate affect, intact judgment & insight - Labs CBC & Chem 7: 06/01/19 05:43 06/01/19 12:35 Labs: Abnormal Lab Results - Last 24 Hours (Table) 05/31/19 05/31/19 05/31/19 Range/Units 16:20 17:24 20:48 WBC (3.8-10.6) k/uL Neutrophils # (1.3-7.7) k/uL Lymphocytes # (1.0-4.8) k/uL APTT (22.0-30.0) sec POC Glucose (mg/dL) 281 H 284 H (75-99) mg/dL Plasma Lactic Acid Jose 6.2 H* (0.7-2.0) mmol/L 06/01/19 06/01/19 06/01/19 Range/Units 05:43 05:46 06:30 WBC 14.2 H (3.8-10.6) k/uL Neutrophils # 12.5 H (1.3-7.7) k/uL Lymphocytes # 0.8 L (1.0-4.8) k/uL APTT 38.9 H (22.0-30.0) sec POC Glucose (mg/dL) 216 H (75-99) mg/dL Plasma Lactic Acid Jose (0.7-2.0) mmol/L 06/01/19 Range/Units 12:02 WBC (3.8-10.6) k/uL Neutrophils # (1.3-7.7) k/uL Lymphocytes # (1.0-4.8) k/uL APTT (22.0-30.0) sec POC Glucose (mg/dL) 195 H (75-99) mg/dL Plasma Lactic Acid Jose (0.7-2.0) mmol/L Microbiology - Last 24 Hours (Table) 05/31/19 07:28 Blood Culture - Preliminary Blood No Growth after 24 hours - Imaging and Cardiology CT scan - abdomen: report reviewed CT scan - chest: report reviewed CT scan - pelvis: report reviewed NM bone scan report Assessment and Plan (1) Pulmonary emboli Narrative/Plan: Right upper lobe pulmonary emboli, unprovoked. Patient is currently on a heparin drip. As far as I can tell from chart review there are no pending procedures, so pt can start DOAC once cleared by Attending and other consults. Give dose of eliquis and DC heparin drip. Eliquis prescription has been sent and approved, per case management $0 co-pay. Reviewed with patient that she would require 6-12 months of treatment with anticoagulation. She understands improtenace of f/u with Dr. Kwok prior to stopping eliquis. Restaging complete Current Visit: Yes Status: Acute Priority: High Code(s): I26.99 - OTHER PULMONARY EMBOLISM WITHOUT ACUTE COR PULMONALE SNOMED Code(s): 46804494 (2) History of breast cancer in female Narrative/Plan: Unprovoked blood clot, concerning for metastatic recurrence. She also has a history of EtOH abuse, liver damage as well as smoking history increasing her potential for new primary malignancies. CT CAP and NM bone scan scan Reports reviewed, no evidence of malignancy CA 27.29 is 5.8, CA-15-3 is 3.7, normal values. No evidence of new or recurrent malignancy. All of these results were reviewed with the patient. Current Visit: No Status: Chronic Priority: High Code(s): Z85.3 - PERSONAL HISTORY OF MALIGNANT NEOPLASM OF BREAST SNOMED Code(s): 331309785
--- NOTE | 2019-06-01 14:11 | P.CN ---
Psychiatric Consult - . Consult date: 06/01/19 Consult:: 06/01/19 13:59 IDENTIFYING DATA: This patient is a 53-year-old female who currently lives with her father in a house and is unemployed has 2 kids and is . HISTORY OF PRESENT ILLNESS: The patient was he brought into the hospital for upper abdominal pain along with nausea and vomiting. As per ED note claims that patient's blood alcohol level was 288 on presentation patient had a negative urinalysis increase in her there are function tests. Patient was admitted to the floors and placed on CIWA for alcohol withdrawal. Labor Relations Consultant spoke with patient at the bedside today, patient was agreeable to speak and was calm and cooperative. Patient was also noted to be tearful at times when speaking about her stressors and will let her into the hospital. Patient states that she has been feeling depressed for "a long time" and claims that she was always "in a fog" and feel like it is affecting her concentration. Patient also states that she is tearful and feels guilty at times and admits to feeling anxious/nervous. Patient denies any manic symptoms including light of ideas an increase in goal- directed behavior and does not exhibit pressured speech at this time. Patient spoke about her stressors being her different boyfriends she claims she has 3 of them were not happy with her and she states that she has many "relationship issues" with him. Patient also states that her mother 4 years ago due to liver cancer and states that she has been feeling poor since then with regards to her mood. At this time patient denies any suicidal or homical ideations, intent or plan. Patient denies any auditory, visual hallucinations and denies any paranoia or delusions. PAST PSYCHIATRIC HISTORY: Patient denies any previous suicide attempts admits to one previous hospitalization on the psychiatric floor in 01/2016 for major depressive disorder along with alcohol. Patient admits to being on Lamictal 25 mg daily along with Abilify 5 mg daily which is prescribed by her primary care doctor. Patient denies any outpatient psychiatrist follow-up however does state that she did use to follow up with [facility] in the past.. PAST MEDICAL HISTORY: Cirrhosis and COPD. ALLERGIES: No known drug allergies. CHEMICAL DEPENDENCY HISTORY: Patient admits to smoking cigarettes approximately 2 packs per day. Patient also admits to drinking alcohol, recently being sober for 2 months and relapsing 2 months ago. She states that she drinks now approximately 2 pints of vodka per day. Patient states that she has had withdrawal symptoms including some visual hallucinations and anxiety however denies any seizures. FAMILY PSYCHIATRIC/SUBSTANCE USE HISTORY: Claims her father abused alcohol SOCIAL HISTORY: Patient states that she was born and raised in [facility] and completed high school did not go to college. Patient is unemployed has 2 kids and lives with her father in a house. MENTAL STATUS EXAM: General Appearance: Patient appears to be older than stated age is alert, and cooperative. Patient is obese and has fair hygiene and grooming. Behavior: Patient is calmly lying in bed without any agitated behavior. She is tearful at times. Speech: Patient's speech is fluent and nonpressured. Mood/Affect: Patient reports their mood is "down", affect is congruent and is tearful. Suicidality/Homicidality: Patient denies having any suicidal or homicidal ideation intent or plan. Perceptions: Patient denies any auditory or visual hallucinations. Though content/process: There is no evidence of any delusional thought content and thought process is linear and goal-directed. Depressive content. Memory and concentration: AOX3, grossly intact for the purposes of this session. Can spell "WORLD" backwards Judgment and insight: Superficial IMPRESSIONS: Depressive disorder unspecified rule out substance-induced mood disorder. Alcohol use disorder, moderate-severe, currently in withdrawal PLAN: -At this time patient does NOT meet criteria for inpatient psychiatric admission. -Would recommend the following medication changes/additions: We'll start Zoloft 50 mg daily for mood/anxiety. Plan will be to continue this medication and after 1 week titrated up to 100 mg if tolerated. Patient should be following up with her primary care doctor or outpatient psychiatrist upon discharge. -Continue with CIWA and Ativan when necessary for withdrawal symptoms. The patient is not currently a candidate for naltrexone for alcohol cravings due to her impaired LFTs. Was offered acamprosate however patient does not want any medications for alcohol use disorder. Strongly encouraged patient to go to AA meetings, patient agreed however was superficial. spout worker to provide patient with resources for other [facility] treatment options in the community. Patient refuses to go to rehab at this point -Psychiatry will sign off at this point Thank you for the consult
[2019-06-01] MEDS: SERTRALINE 50 MG TAB PO SCH (14:54)
--- NOTE | 2019-06-01 15:11 | P.PN ---
Subjective Progress Note Date: 06/01/19 This is a 53-year-old female admitted with PE, chronic alcoholism, DTs, depression and multiple other medical issues. Showered earlier this morning currently sleeping, wrapped up in her blankets, lights off. CIWA score 8; on [place] protocol. Mild shakiness observed. Evaluated by oncology and psychiatr y with recommendations noted and appreciated. Heparin drip currently maintained with orders to be convert over to Eliquis ordered. Diet intake, denies nausea vomiting or diarrhea. Denies chest pain, palpitations or shortness of breath. Denies lightheadedness dizziness or focal deficits. Patient asking for antidepressant. Lamictal and Abilify discontinued, Zoloft initiated as per psychiatry. Objective - Vital Signs Vital signs: Vital Signs Temp 98.6 F 06/01/19 12:15 Pulse 86 06/01/19 12:15 Resp 16 06/01/19 12:15 BP 114/76 06/01/19 12:15 Pulse Ox 93 L 06/01/19 12:15 Intake & Output 05/31/19 06/01/19 06/01/19 18:59 06:59 18:59 Intake Total 1335.52 557.415 480 Balance 1335.52 557.415 480 Weight 85.6 kg Intake: IV 125.52 Heparin Sod,Pork in 0.45% 125.52 NaCl 25,000 unit In 0.45 % NaCl 1 250ml.bag @ 18 UNITS/KG/HR 14.696 mls/hr IV .Q17H1M [facility] Rx#: [id number] Intake, IV Titration 250 257.415 Amount Heparin Sod,Pork in 0.45% 250 257.415 NaCl 25,000 unit In 0.45 % NaCl 1 250ml.bag @ 18 UNITS/KG/HR 14.696 mls/hr IV .Q17H1M [facility] Rx#: [id number] Oral 960 300 480 Other: Voiding Method Toilet Toilet # Voids 1 - Exam PHYSICAL EXAM: VITAL SIGNS: As above GENERAL: Lying in bed, wrapped up in blankets HEENT: Conjunctivae normal. eyes normal. Oral mucosa moist NECK: No JVD. No thyroid enlargement. No LNs CARDIOVASCULAR: S1, S2 regular.. No murmur RESPIRATION: Breath sounds diminished in the bases. No rhonchi or crackles. No wheezing No bronchial breathing. ABDOMEN: Soft, nontender . No guarding. no masses palpable. Bowel sounds heard. LEGS: No edema. no swelling PSYCHIATRY: Alert and oriented X3, mood and affect normal. NERVOUS SYSTEM: Cranial N 2-12 grossly normal. Moves all 4 limbs. No focal deficits, positives DTs. Skin: no rash - Labs CBC & Chem 7: 06/01/19 05:43 06/01/19 12:35 Labs: Abnormal Lab Results - Last 24 Hours (Table) 05/31/19 05/31/19 05/31/19 Range/Units 16:20 17:24 20:48 WBC (3.8-10.6) k/uL Neutrophils # (1.3-7.7) k/uL Lymphocytes # (1.0-4.8) k/uL APTT (22.0-30.0) sec Sodium (137-145) mmol/L Glucose (74-99) mg/dL POC Glucose (mg/dL) 281 H 284 H (75-99) mg/dL Plasma Lactic Acid Jose 6.2 H* (0.7-2.0) mmol/L 06/01/19 06/01/19 06/01/19 Range/Units 05:43 05:46 06:30 WBC 14.2 H (3.8-10.6) k/uL Neutrophils # 12.5 H (1.3-7.7) k/uL Lymphocytes # 0.8 L (1.0-4.8) k/uL APTT 38.9 H (22.0-30.0) sec Sodium (137-145) mmol/L Glucose (74-99) mg/dL POC Glucose (mg/dL) 216 H (75-99) mg/dL Plasma Lactic Acid Jose (0.7-2.0) mmol/L 06/01/19 06/01/19 06/01/19 Range/Units 12:02 12:35 12:35 WBC (3.8-10.6) k/uL Neutrophils # (1.3-7.7) k/uL Lymphocytes # (1.0-4.8) k/uL APTT 100.8 H* (22.0-30.0) sec Sodium 135 L (137-145) mmol/L Glucose 212 H (74-99) mg/dL POC Glucose (mg/dL) 195 H (75-99) mg/dL Plasma Lactic Acid Jose (0.7-2.0) mmol/L Microbiology - Last 24 Hours (Table) 05/31/19 07:28 Blood Culture - Preliminary Blood No Growth after 24 hours Assessment and Plan Assessment: -Acute PE -Depression -Alcohol withdrawal in a patient with known chronic alcoholism Plan: Continue on current medication regime ,monitoring and symptomatic t reatment. Antidepressant initiated as per psychiatry as mentioned above. Maintain [facility] protocol. Eliquis ordered, with Rx also sent down to pharmacy for case management to verify outpatient coverage. DC heparin drip with initiation of Eliquis. Further recommendations to follow. The impression and plan of care has been dictated as directed. : I performed a history and examination of this patient, discussed the same with the dictator. I agree with the dictator's note ,documented as a scribe. Any additional findings or plans will be noted.
[2019-06-01 16:56] LABS: Glucose,Whole Blood 220 mg/dL (75-99)
[2019-06-01] MEDS: IPRATROPIUM-ALBUTEROL 3 ML NEB INHALATION PRN (19:18)
[2019-06-01 21:05] LABS: Glucose,Whole Blood 202 mg/dL (75-99)
--- NOTE | 2019-06-01 22:40 | PN ---
PROGRESS NOTE DATE OF SERVICE: 06/01/2019 This patient has been hemodynamically stable. She is not complaining of any chest pain. On physical examination, her blood pressure is 120/73, respiratory rate of 19, pulse rate 73, temperature 98.6. Oxygen saturation on room air is 92%. HEENT is unremarkable. Chest reveals an occasional wheeze. Cardiovascular system reveals an S1, S2. Abdomen is soft. There is no pedal edema. IMPRESSION AT THIS TIME: 1. Pulmonary embolism. 2. Asthma with acute exacerbation. Continue heparin. Consider switching her to oral anticoagulant, depending on insurance coverage. Continue aerosolized steroids and oral steroids. Increase her activity level. Her prognosis is fair. She was counseled regarding her condition and this approach. MMODL / IJN: [id number] /
[2019-06-02] MEDS: LORazepam 2 MG/ML INJ IV PRN (00:46)
[2019-06-02 06:09] LABS: Anisocytosis Slight; Basophils # (A) 0.1 k/uL (0-0.2); Basophils % (A) 1 %; Eosinophils % (A) 0 %; HCT 44.6 % (34.0-46.0); HGB 14.5 gm/dL (11.4-16.0); Lymphocytes # (A) 2.7 k/uL (1.0-4.8); Lymphocytes % (A) 24 %; MCHC 32.4 g/dL (31.0-37.0); MCV 92.5 fL (80.0-100.0); Mean Platelet Volume 7.7; Monocytes # (A) 0.5 k/uL (0-1.0); Monocytes % (A) 4 %; Neutrophils # (A) 7.8 k/uL (1.3-7.7); Neutrophils % (A) 69 %; Platelet Count 215 k/uL (150-450); RBC 4.82 m/uL (3.80-5.40); RDW 16.6 % (11.5-15.5); WBC 11.3 k/uL (3.8-10.6)
[2019-06-02] MEDS: THIAMINE 100 MG TAB PO SCH (07:02)
[2019-06-02] MEDS: INSULIN ASPART (NovoLOG) 100 UNIT/ML VIAL SQ SCH ×2 (07:02)
[2019-06-02 07:10] LABS: Glucose,Whole Blood 118 mg/dL (75-99)
[2019-06-02 07:59] VITALS: BP 101/56; RESP 18; TEMP 98.6
[2019-06-02] MEDS: ANASTROZOLE 1 MG TAB PO SCH (09:22)
[2019-06-02] MEDS: predniSONE 20 MG TAB PO SCH (09:22)
[2019-06-02] MEDS: APIXABAN 5 MG TAB PO SCH (09:22)
[2019-06-02] MEDS: SERTRALINE 50 MG TAB PO SCH (09:22)
[2019-06-02] MEDS: FUROSEMIDE 10 MG TAB PO SCH (09:22)
[2019-06-02] MEDS: FAMOTIDINE 20 MG TAB PO SCH (09:23)
[2019-06-02] MEDS: SPIRONOLACTONE 25 MG TAB PO SCH (09:23)
[2019-06-02] MEDS: BUDESONIDE 0.5 MG/2 ML NEBU INHALATION SCH (09:51)
[2019-06-02 12:33] VITALS: PULSE 86
--- NOTE | 2019-06-02 12:48 | P.PN ---
Subjective Progress Note Date: 06/02/19 Principal diagnosis: Pulmonary embolism, major depression, alcohol withdrawal, chronic chronic alcoholism Abdomen bilaterally 2019, patient was reexamined during the rounds denies any chest pain or shortness of breath denies any cough or sputum production patient is awake and alert moving all 4 extremities labs reviewed medications reviewed patient has been started on oral anticoagulants IV heparin has been off him a patient has been evaluated by psychiatry Zoloft has been initiated Objective - Vital Signs Vital signs: Vital Signs Temp 98.6 F 06/02/19 07:50 Pulse 71 06/02/19 10:00 Resp 18 06/02/19 07:50 BP 101/56 06/02/19 07:50 Pulse Ox 96 06/02/19 09:53 Intake & Output 06/01/19 06/02/19 06/02/19 18:59 06:59 18:59 Intake Total 1560 540 240 Balance 1560 540 240 Weight 85.8 kg Intake: Oral 1560 540 240 Other: Voiding Method Toilet Toilet # Voids 1 - Exam GENERAL: Lying in bed, wrapped up in blankets HEENT: Conjunctivae normal. eyes normal. Oral mucosa moist NECK: No JVD. No thyroid enlargement. No LNs CARDIOVASCULAR: S1, S2 regular.. No murmur RESPIRATION: Breath sounds diminished in the bases. No rhonchi or crackles. No wheezing No bronchial breathing. ABDOMEN: Soft, nontender . No guarding. no masses palpable. Bowel sounds heard. LEGS: No edema. no swelling PSYCHIATRY: Alert and oriented X3, mood and affect normal. NERVOUS SYSTEM: Cranial N 2-12 grossly normal. Moves all 4 limbs. No focal deficits, positives DTs. Skin: no rash - Labs CBC & Chem 7: 06/02/19 05:38 06/01/19 12:35 Labs: Abnormal Lab Results - Last 24 Hours (Table) 06/01/19 06/01/19 06/01/19 Range/Units 12:35 12:35 16:52 WBC (3.8-10.6) k/uL RDW (11.5-15.5) % Neutrophils # (1.3-7.7) k/uL APTT 100.8 H* (22.0-30.0) sec Sodium 135 L (137-145) mmol/L Glucose 212 H (74-99) mg/dL POC Glucose (mg/dL) 220 H (75-99) mg/dL 06/01/19 06/02/19 06/02/19 Range/Units 21:03 05:38 06:59 WBC 11.3 H (3.8-10.6) k/uL RDW 16.6 H (11.5-15.5) % Neutrophils # 7.8 H (1.3-7.7) k/uL APTT (22.0-30.0) sec Sodium (137-145) mmol/L Glucose (74-99) mg/dL POC Glucose (mg/dL) 202 H 118 H (75-99) mg/dL Microbiology - Last 24 Hours (Table) 05/31/19 07:28 Blood Culture - Preliminary Blood No Growth after 48 hours Assessment and Plan Assessment: Acute pulmonary embolism Major depression Chronic alcoholism Hyper glycemia likely type 2 diabetes mellitus Plan: Continue oral anticoagulant increase activity as tolerated activities discharge planning Time with Patient: Greater than 30
[2019-06-02 14:08] LABS: Hemoglobin A1C 7.4 % (4.0-6.0)
--- NOTE | 2019-06-03 16:29 | P.DS ---
Providers Date of admission: 05/30/19 10:01 Expected date of discharge: 06/02/19 Attending physician: Matt Davila Consults: 05/30/19 06:29 Consult Physician Routine Consulting Provider: Michael Ennis Consult Reason/Comments: pe Do you want consulting provider notified?: Yes 05/30/19 20:15 Consult Physician Routine Consulting Provider: Kamron Beverly Consult Reason/Comments: depression Do you want consulting provider notified?: Yes Primary care physician: Matt Davila [facility] Course: Final Diagnoses: -Acute PE -Acute hypoxic respiratory failure, present on admission secondary to PE, improving -Alcohol withdrawal in a patient with known chronic alcoholism -Acute mild asthma exacerbation, improving, in a patient with history of chronic intermittent asthma. -Ongoing nicotine dependence -Depression Hospital course:This is a 53-year-old female admitted with PE, chronic alcoholism, DTs, depression and multiple other medical issues. Showered earlier this morning currently sleeping, wrapped up in her blankets, lights off. CIWA score 8; on [place] protocol. Mild shakiness observed. Evaluated by oncology, pulmonary, psychiatry with recommendations noted and appreciated. Heparin drip currently maintained with orders to be convert over to Eliquis ordered. Diet intake, denies nausea vomiting or diarrhea. Denies chest pain, palpitations or shortness of breath. Denies lightheadedness dizziness or focal deficits. Patient asking for antidepressant. Lamictal and Abilify discontinued, Zoloft initiated as per psychiatry. Significant clinical improvement. Cleared by all consults for discharge. Outpatient Eliquis coverage confirmed. Patient is being discharged home in a stable condition with her prognosis. Exam PHYSICAL EXAM: GENERAL: Alert and oriented 3, no acute distress. CARDIOVASCULAR: S1, S2 regular. No murmur RESPIRATION: Breath sounds diminished in the bases. No rhonchi or crackles. No wheezing. ABDOMEN: Soft, nontender . No guarding. no masses palpable. Bowel sounds heard NERVOUS SYSTEM: No focal deficits The impression and plan of care has been dictated as directed. : I performed a history and examination of this patient, discussed the same with the dictator. I agree with the dictator's note ,documented as a scribe. Any additional findings or plans will be noted. Time taken: 35 minutes Patient Condition at Discharge: Stable Plan - Discharge Summary Discharge Rx Participant: No New Discharge Prescriptions: New Apixaban [Eliquis Starter Pack (for VTE)] 0 mg PO DIRECTED 30 Days #1 pack Folic Acid 1 mg PO DAILY #30 tablet Furosemide [Lasix] 10 mg PO DAILY #30 dose Multivitamins, Thera [Multivitamin (formulary)] 1 tab PO DAILY #30 tablet Famotidine [Pepcid] 20 mg PO BID #60 tab Thiamine [Vitamin B-1] 100 mg PO DAILY #30 tab Sertraline [Zoloft] 50 mg PO DAILY #30 tab predniSONE 10 mg PO DIRECTED #30 tab Continue Anastrozole [Arimidex] 1 mg PO DAILY Spironolactone [Aldactone] 25 mg PO DAILY Budesonide/Formoterol Fumarate [Symbicort 160-4.5 Mcg Inhaler] 2 puff INHALATION RT-DAILY PRN PRN Reason: Dyspnea Discontinued lamoTRIgine [LaMICtal] 100 mg PO DAILY lamoTRIgine [LaMICtal] 50 mg PO HS Discharge Medication List Anastrozole [Arimidex] 1 mg PO DAILY 11/09/17 [History] Spironolactone [Aldactone] 25 mg PO DAILY 04/30/18 [History] Budesonide/Formoterol Fumarate [Symbicort 160-4.5 Mcg Inhaler] 2 puff INHALATION RT-DAILY PRN 01/29/19 [History] Apixaban [Eliquis Starter Pack (for VTE)] 0 mg PO DIRECTED 30 Days #1 pack 06/01/19 [Rx] Famotidine [Pepcid] 20 mg PO BID #60 tab 06/02/19 [Rx] Folic Acid 1 mg PO DAILY #30 tablet 06/02/19 [Rx] Furosemide [Lasix] 10 mg PO DAILY #30 dose 06/02/19 [Rx] Multivitamins, Thera [Multivitamin (formulary)] 1 tab PO DAILY #30 tablet 06/02/19 [Rx] Sertraline [Zoloft] 50 mg PO DAILY #30 tab 06/02/19 [Rx] Thiamine [Vitamin B-1] 100 mg PO DAILY #30 tab 06/02/19 [Rx] predniSONE 10 mg PO DIRECTED #30 tab 06/02/19 [Rx] Follow up Appointment(s)/Referral(s): Armen Kwok MD [Family Provider] - 08/18/19 11:15 am (Friday) Matt Davila MD [Primary Care Provider] - 06/07/19 9:30 am (Friday) Brooke Garcia NPC [Nurse Practitioner] - 06/21/19 10:00 am (Friday) Gillian Eddy PAC [REFERRING] - 06/21/19 10:00 am (Friday) Ambulatory/Diagnostic Orders: Complete Blood Count w/diff [LAB.AMB] Time Frame: 1 Week, Location: None Selected Patient Instructions/Handouts: Pulmonary Embolism (DC), Abdominal Pain (ED), Safe Use of Anticoagulants (DC), Alcohol Dependence (ED) Activity/Diet/Wound Care/Special Instructions: Follow-up with your primary care physician for recheck in 1-2 days. Return to the emergency department immediately for any new, worsening, or concerning symptoms. pts copay for Eliquis is $0-filled in [facility] pharmacy Discharge Disposition: HOME SELF-CARE
== END 2019-06-02 13:21 | disposition home or self-care (01) | DRG 175 ==
LOC: EC 17:54 → 3SCARD 05-30 00:22 → OBSVTOIN 05-30 10:01
PROVIDERS: ADMIT Family Medicine; ATTEND Family Medicine
DX: I26.99 Other pulmonary embolism without acute cor pulmonale (principal); J96.01 Acute respiratory failure with hypoxia; J44.1 Chronic obstructive pulmonary disease with (acute) exacerbation; J45.21 Mild intermittent asthma with (acute) exacerbation; E87.2 Acidosis; F10.231 Alcohol dependence with withdrawal delirium; K70.30 Alcoholic cirrhosis of liver without ascites; Y90.8 Blood alcohol level of 240 mg/100 ml or more; E11.65 Type 2 diabetes mellitus with hyperglycemia; G62.0 Drug-induced polyneuropathy; T45.1X5S Adverse effect of antineoplastic and immunosuppressive drugs, sequela; E66.9 Obesity, unspecified; Z68.36 Body mass index [BMI] 36.0-36.9, adult; F17.210 Nicotine dependence, cigarettes, uncomplicated; F32.9 Major depressive disorder, single episode, unspecified; G47.30 Sleep apnea, unspecified; Z79.51 Long term (current) use of inhaled steroids; Z79.811 Long term (current) use of aromatase inhibitors; Z79.899 Other long term (current) drug therapy; F10.229 Alcohol dependence with intoxication, unspecified; Z80.0 Family history of malignant neoplasm of digestive organs; Z82.5 Family history of asthma and other chronic lower respiratory diseases; Z85.3 Personal history of malignant neoplasm of breast; Z90.12 Acquired absence of left breast and nipple; Z90.49 Acquired absence of other specified parts of digestive tract; Z92.21 Personal history of antineoplastic chemotherapy; Z56.0 Unemployment, unspecified
CPT/HCPCS: 36415; 71046; 71260; 71275; 74177; 76700; 78306; 80048; 80053; 80320; 81003; 82140; 82150; 83036; 83605; 83690; 83735; 84484; 85025; 85610; 85730; 86300; 87040; 87324; 93005; 93970; 94640; 94760; 96361; 96365; 96366; 96368; 96375; 96376; 99285

== ENCOUNTER → 2019-07-05 | Outpatient (CLI) | payer OTHER | END | disposition home or self-care (01) | LOC: RADMRIMAIN 09:24 | PROVIDERS: ATTEND Physician Assistant | DX: Z53.9 Procedure and treatment not carried out, unspecified reason (principal) ==

== ENCOUNTER → 2019-07-12 | Outpatient (CLI) | payer OTHER ==
[2019-07-12 15:30] VITALS: BP 118/73; PULSE 94; TEMP 98.7; BMI 36.5
--- NOTE | 2019-07-12 16:30 | P.HPBAR ---
Bariatric H&P - History & Physicial H&P Date: 07/12/19 History & Physicial: Visit/CC: presurgical visit Patient initial contact: Initial weight: Initial weight in pounds: Height: 5 ft Initial BMI: Last weight: Current weight: 84.822 kg Current weight in pounds: 187.00 Current BMI: 36.5 [place] body weight (based on NIH guidelines): 45.359 kg Excess body weight loss: The patient is a 53 year-old F who presents for Bariatric Assessment. Patient presents today for presurgical consultation. She had a pulmonary embolus last month and is currently on blood thinners. She is attempting to surgical authorization. 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 Past Anesthesia/Blood Transfusion Reactions: No Reported Reaction Past Psychological History: Depression Additional Psychological History / Comment(s): denies Smoking Status: Current every day smoker Past Alcohol Use History: Abuse, Daily, Heavy Additional Past Alcohol Use History / Comment(s): HAS SMOKED SINCE 1981, > 1PPD. pt states does drink alcohol states she was "on a binge" and has been for a couple days. Drinks a pint to a 5th of vodka a day Past Drug Use History: None Reported - Past Family History Father History Unknown: Yes Family Medical History: COPD Additional Family Medical History / Comment(s): Father is alive. Mother Family Medical History: Cancer Additional Family Medical History / Comment(s): liver Surgical - Exam Vital Signs Temp Pulse BP 98.7 F 94 118/73 07/12/19 15:28 07/12/19 15:28 07/12/19 15:28 - General well developed, well nourished, no distress - Eyes PERRL - Abdomen Abdomen: soft, non tender Bariatric Assessment & Plan Plan: Morbid obesity, BMI 37. Patient will follow up in 1 month. I explained to patient that we usually would wait 6 months before any elective surgery after palmar and was. The patient will gather her documentation for authorization. We will see her in 1 month. Bariatric Checklist Checklist: Plan: Checklist: EGD: 1. Hiatal hernia: 2. H. Pylori: HgbA1c: Vitamin D: Smoking: Current every day smoker Primary care physician referral: dr warner Psychiatry clearance: Cardiology clearance: Sleep study: Diet journal: VTE risk score: VTE risk level: Rehab needs at discharge:
== END | disposition home or self-care (01) ==
LOC: BARWHC3 14:16
PROVIDERS: ATTEND Surgery
DX: E66.01 Morbid (severe) obesity due to excess calories (principal); F17.200 Nicotine dependence, unspecified, uncomplicated; Z68.37 Body mass index [BMI] 37.0-37.9, adult; Z90.49 Acquired absence of other specified parts of digestive tract
CPT/HCPCS: 99211

== ENCOUNTER → 2019-08-09 | Outpatient (CLI) | payer OTHER ==
[2019-08-09 13:55] VITALS: BP 115/79; PULSE 91; TEMP 98; BMI 34.7
--- NOTE | 2019-08-09 17:54 | P.HPBAR ---
Bariatric H&P - History & Physicial H&P Date: 08/09/19 History & Physicial: Visit/CC: review/sign sleeve consent Patient initial contact: Initial weight: 85.729 kg Initial weight in pounds: 189.00 Height: 5 ft Initial BMI: 36.9 Last weight: Current weight: 80.739 kg Current weight in pounds: 178.00 Current BMI: 34.7 [place] body weight (based on NIH guidelines): 45.359 kg Excess body weight loss: 12.3% The patient is a 53 year-old F who presents for Bariatric Assessment. Patient presents today for presurgical consultation. Her weight has been stable. Her BMI is 35. We went over the risks and benefits of sleeve gastrectomy again. 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 Past Anesthesia/Blood Transfusion Reactions: No Reported Reaction Smoking Status: Current every day smoker - Past Family History Father History Unknown: Yes Family Medical History: COPD Additional Family Medical History / Comment(s): Father is alive. Mother Family Medical History: Cancer Additional Family Medical History / Comment(s): liver Surgical - Exam Vital Signs Temp Pulse BP 98.0 F 91 115/79 08/09/19 13:47 08/09/19 13:47 08/09/19 13:47 - General well developed, well nourished, no distress - Eyes PERRL - ENT normal pinna - Neck no masses - Respiratory normal expansion - Cardiovascular Rhythm: regular - Abdomen Abdomen: soft, non tender Bariatric Assessment & Plan Plan: Morbid obesity, BMI 35. Patient will be scheduled for sleeve gastrectomy once her insurance authorization requirements have been met. Bariatric Checklist Checklist: Plan: Checklist: EGD: 1. Hiatal hernia: 2. H. Pylori: HgbA1c: Vitamin D: Smoking: Current every day smoker Primary care physician referral: Dr. Matt Davila Psychiatry clearance: Cardiology clearance: Sleep study: Diet journal: VTE risk score: VTE risk level: Rehab needs at discharge:
== END | disposition home or self-care (01) ==
LOC: BARWHC3 12:59
PROVIDERS: ATTEND Surgery
DX: E66.01 Morbid (severe) obesity due to excess calories (principal); F17.200 Nicotine dependence, unspecified, uncomplicated; Z68.35 Body mass index [BMI] 35.0-35.9, adult; Z90.49 Acquired absence of other specified parts of digestive tract
CPT/HCPCS: 99211

== ENCOUNTER → 2020-04-20 | Outpatient (CLI) | payer OTHER ==
[2020-04-20 10:50] LABS: Basophils # (A) 0.1 k/uL (0-0.2); Basophils % (A) 1 %; Eosinophils # (A) 0.4 k/uL (0-0.7); Eosinophils % (A) 3 %; HCT 44.3 % (34.0-46.0); HGB 13.8 gm/dL (11.4-16.0); Lymphocytes # (A) 2.7 k/uL (1.0-4.8); Lymphocytes % (A) 23 %; MCH 30.7 pg (25.0-35.0); MCHC 31.1 g/dL (31.0-37.0); MCV 98.7 fL (80.0-100.0); Mean Platelet Volume 7.3; Monocytes # (A) 0.6 k/uL (0-1.0); Monocytes % (A) 5 %; Neutrophils % (A) 66 %; Platelet Count 270 k/uL (150-450); RBC 4.49 m/uL (3.80-5.40); WBC 12.1 k/uL (3.8-10.6)
[2020-04-20 10:56] LABS: ALT 22 U/L (4-34); AST 33 U/L (14-36); African American GFR (CKD) >90 (>60 ml/min/1.73 sqM); Albumin/Globulin Ratio 1.3; Alkaline Phosphatase 114 U/L (38-126); Anion Gap 9 mmol/L; Blood Urea Nitrogen 6 mg/dL (7-17); Calcium 9.3 mg/dL (8.4-10.2); Carbon Dioxide 26 mmol/L (22-30); Chloride 101 mmol/L (98-107); Globulin 3.1 g/dL; Glucose 125 mg/dL (74-99); Non-African American GFR(CKD) >90 (>60 ml/min/1.73 sqM); Sodium 136 mmol/L (137-145); Total Bilirubin 0.4 mg/dL (0.2-1.3); Total Protein 7.1 g/dL (6.3-8.2)
== END | disposition home or self-care (01) ==
LOC: LABWHC1 10:00
PROVIDERS: ATTEND Family Medicine
DX: I10 Essential (primary) hypertension (principal); B89 Unspecified parasitic disease; Z79.899 Other long term (current) drug therapy
CPT/HCPCS: 36415; 80053; 82140; 84443; 85025

== ENCOUNTER → 2020-04-28 | Outpatient (CLI) | payer OTHER ==
[2020-04-28 12:02] LABS: African American GFR (CKD) >90 (>60 ml/min/1.73 sqM); Blood Urea Nitrogen 6 mg/dL (7-17); Non-African American GFR(CKD) >90 (>60 ml/min/1.73 sqM)
--- NOTE | 2020-04-28 12:42 | CT ---
EXAMINATION TYPE: CT soft tissue neck w con DATE OF EXAM: 04/28/2020 HISTORY: Voice hoarseness and neck swelling, history of breast cancer. COMPARISON: NONE CT DLP: 427 mGycm. Automated Exposure Control for Dose Reduction was Utilized. TECHNIQUE: CT scan of the neck is performed with IV Contrast, patient injected with 100 mL of Isovue 300, axial images are obtained, coronal and sagittal reformatted images are reviewed. FINDINGS: Airway: Asymmetric fullness to the left piriform sinus without obvious mass, consider further investi gation with direct visualization or PET/CT. For reference coronal image 42. Subcentimeter left thyroi d nodule posteriorly image 50. Larger greater than 1 cm right thyroid nodule lower pole level with ca lcification warrants follow-up Parotid/submandibular glands: No gross abnormality seen. Carotid/Vascular Structures: Of significant stenosis in the carotid bulb level bilaterally. Osseous Structures: Slight grade 1 anterolisthesis C4 on C5 and grade 1 retrolisthesis C5 on C6. Mild to moderate disc space narrowing C5-C6 and C6-C7 levels. Slight underlying levoconvex scoliosis cent ered in the upper thoracic spine. Osseous structures are demineralized. Mild to moderate anterior spu rring C5 and C6 vertebral body levels. Some multilevel uncovertebral and facet degenerative changes. Other: Partial visualization of left sided mastectomy changes. There are prominent but subcentimeter lymph nodes scattered throughout the neck bilaterally. For refbecky mercado largest just deep to the inferior left parotid gland at the submandibular level measures 11 x 8 mm size image 33. No definitive greater than 1 cm neck adenopathy. IMPRESSION: Asymmetry to the left piriform sinus as detailed above. Follow-up advised. Greater than 1 cm right thyroid nodule. Follow-up thyroid ultrasound recommended if this is not known finding or peoples s not been performed at outside institution.
== END | disposition home or self-care (01) ==
LOC: RADCTMAIN 11:13
PROVIDERS: ATTEND Family Medicine
DX: E04.1 Nontoxic single thyroid nodule (principal); R22.1 Localized swelling, mass and lump, neck
CPT/HCPCS: 82565; 84520; 70491; 36415; Q9967

== ENCOUNTER → 2020-06-12 | Outpatient (CLI) | payer OTHER ==
--- NOTE | 2020-06-12 15:55 | US ---
EXAMINATION TYPE: US thyroid st tissue head/neck DATE OF EXAM: 06/12/2020 COMPARISON: CT 04/28/2020 CLINICAL HISTORY: 54-year-old female R22.0 SWELLING, MASS HEAD/NECK. TECHNIQUE: Multiple sonographic images of the thyroid gland are obtained. FINDINGS: GLAND SIZE: Right Lobe: 5.1 x 1.6 2.0 cm Overall Parenchyma: homogenous Left Lobe: 4.6 x 0.8 x 1.7 cm Overall Parenchyma: homogeneous Isthmus Thickness: 0.3 cm NODULES RIGHT: # of nodules measured on right: 1. 1.6 x 1.0 x 1.2 cm heterogeneous mixed, primarily solid nodule at the lower pole with well-defin ed margins. This nodule is wider than tall and shows intranodular vascularity. No prior ultrasound LEFT: # of nodules measured on left: 1 1. 0.6 X 0.5 x 0.6 cm hypoechoic solid nodule at the mid pole with well-defined margins . This nod ule is wider than tall and shows intranodular vascularity. No prior ultrasound ISTHMUS: # of nodules measured in the isthmus: 0 Bilateral neck scanned, no evidence of lymphadenopathy. IMPRESSION: 1. Heterogeneous, vascular nodule measuring 1.6 cm right lower lobe. The decision to biopsy should be made on a clinical basis. 2. A 6 mm solid nodule on the left kidney reassessed at follow-up. 3. The asymmetric left piriform sinus soft tissue effacement seen on CT is not evaluated on this ultr asound. Direct visualization as previously recommended.
== END | disposition home or self-care (01) ==
LOC: RADUSWWP 15:13
PROVIDERS: ATTEND Family Medicine
DX: E04.1 Nontoxic single thyroid nodule (principal); R22.0 Localized swelling, mass and lump, head
CPT/HCPCS: 76536

== ENCOUNTER 2021-04-20 21:01 | Inpatient (IN) | payer OTHER ==
[2021-04-20] MEDS ORDERED: MORPHINE SULFATE 4 MG/ML SYRINGE IV STA (21:12)
[2021-04-20] MEDS ORDERED: ONDANSETRON 4 MG/2 ML VIAL IVP STA (21:12)
[2021-04-20] MEDS ORDERED: SODIUM CHLORIDE 0.9% 1,000 ML IV STA ×3 (21:12→22:54)
[2021-04-20 21:31] LABS: Basophils % (A) 1 %; Eosinophils % (A) 1 %; HCT 42.6 % (34.0-46.0); HGB 14.9 gm/dL (11.4-16.0); Lymphocytes # (A) 1.5 k/uL (1.0-4.8); Lymphocytes % (A) 24 %; MCH 32.2 pg (25.0-35.0); Mean Platelet Volume 7.2; Monocytes # (A) 0.3 k/uL (0-1.0); Monocytes % (A) 5 %; Neutrophils # (A) 4.4 k/uL (1.3-7.7); Neutrophils % (A) 69 %; Platelet Count 254 k/uL (150-450); RBC 4.62 m/uL (3.80-5.40); RDW 13.2 % (11.5-15.5); WBC 6.4 k/uL (3.8-10.6)
--- NOTE | 2021-04-20 21:35 | ED ---
Abdominal Pain HPI - General Chief Complaint: Abdominal Pain Stated Complaint: N/V/D Time Seen by Provider: 04/20/21 21:09 Source: patient, RN notes reviewed, old records reviewed Mode of arrival: ambulatory Limitations: no limitations - History of Present Illness Initial Comments: This is a 55-year-old female to the ER for evaluation patient presents today for evaluation regards to abdominal pain nausea vomiting weakness. Patient states she hasn't been feeling well for a few days now. Patient does drink daily but has not had a drink in about 2 days. She has had persistent nausea vomiting. Feels weak lightheaded dizzy. No recent travel history no sick contacts no fevers MD Complaint: abdominal pain -: days(s) Location: diffuse Radiation: none Migration to: epigastric, suprapubic Severity: moderate Severity scale (1-10): 4 Quality: cramping Consistency: intermittent Improves With: nothing Worsens With: nothing Context: other (none) Associated Symptoms: nausea, vomiting Treatments Prior to Arrival: other (none) - Related Data Home Medications Medication Instructions Recorded Confirmed Anastrozole [Arimidex] 1 mg PO DAILY 11/09/17 04/20/21 Budesonide/Formoterol Fumarate 2 puff INHALATION RT-DAILY PRN 01/29/19 04/20/21 [Symbicort 160-4.5 Mcg Inhaler] Cholecalciferol [Vitamin D3 (25 25 mcg PO DAILY 04/20/21 04/20/21 Mcg = 1000 Iu)] Furosemide [Lasix] 20 mg PO DAILY PRN 04/20/21 04/20/21 Gabapentin 600 mg PO DAILY 04/20/21 04/20/21 LORazepam 0.5 mg PO HS PRN 04/20/21 04/20/21 lamoTRIgine [LaMICtal] 50 mg PO BID 04/20/21 04/20/21 Allergies Allergy/AdvReac Type Severity Reaction Status Date / Time No Known Allergies Allergy Verified 04/20/21 22:42 Review of Systems ROS Statement: Those systems with pertinent positive or pertinent negative responses have been documented in the HPI. ROS Other: All systems not noted in ROS Statement are negative. 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 Past Anesthesia/Blood Transfusion Reactions: No Reported Reaction Past Psychological History: Depression Smoking Status: Current every day smoker Past Alcohol Use History: Abuse, Daily, Heavy Past Drug Use History: None Reported - Past Family History Father History Unknown: Yes Family Medical History: COPD Additional Family Medical History / Comment(s): Father is alive. Mother Family Medical History: Cancer Additional Family Medical History / Comment(s): liver General Exam Limitations: no limitations General appearance: alert, in no apparent distress, anxious Head exam: Present: atraumatic, normocephalic, normal inspection Eye exam: Present: normal appearance, PERRL, EOMI. Absent: scleral icterus, conjunctival injection, periorbital swelling ENT exam: Present: normal exam, mucous membranes dry Neck exam: Present: normal inspection. Absent: tenderness, meningismus, lymphadenopathy Respiratory exam: Present: normal lung sounds bilaterally. Absent: respiratory distress, wheezes, rales, rhonchi, stridor Cardiovascular Exam: Present: regular rate, normal rhythm, tachycardia, normal heart sounds. Absent: systolic murmur, diastolic murmur, rubs, gallop, clicks GI/Abdominal exam: Present: soft, normal bowel sounds. Absent: distended, tenderness, guarding, rebound, rigid Extremities exam: Present: normal inspection, full ROM, normal capillary refill. Absent: tenderness, pedal edema, joint swelling, calf tenderness Back exam: Present: normal inspection Neurological exam: Present: alert, oriented X3, CN II-XII intact Psychiatric exam: Present: normal affect, normal mood Skin exam: Present: warm, dry, intact, normal color. Absent: rash Course Vital Signs 04/20/21 04/20/21 04/20/21 21:03 21:06 22:51 Temperature 97.4 F L Pulse Rate 97 95 101 H Respiratory 20 20 18 Rate Blood Pressure 138/92 141/93 135/87 O2 Sat by Pulse 100 95 95 Oximetry - Reevaluation(s) Reevaluation #1: 04/20/21 22:57 Medical record is reviewed Reevaluation #2: 04/20/21 22:58 Patient has no improvement here in the ER - Consultations Consultation #1: Spoke with Dr. Davila who agrees to admit the patient Medical Decision Making - Medical Decision Making 55 female DF for abdominal pain persistent gallbladder with nausea and vomiting. Hyponatremia weakness hypokalemia, malnutrition. Possible pending DTs. Patient be admitted for evaluation. - Lab Data Result diagrams: 04/20/21 21:16 04/20/21 21:16 Lab Results 04/20/21 04/20/21 04/20/21 Range/Units 21:16 21:16 21:16 WBC 6.4 (3.8-10.6) k/uL RBC 4.62 (3.80-5.40) m/uL Hgb 14.9 (11.4-16.0) gm/dL Hct 42.6 (34.0-46.0) % MCV 92.0 (80.0-100.0) fL MCH 32.2 (25.0-35.0) pg MCHC 35.0 (31.0-37.0) g/dL RDW 13.2 (11.5-15.5) % Plt Count 254 (150-450) k/uL MPV 7.2 Neutrophils % 69 % Lymphocytes % 24 % Monocytes % 5 % Eosinophils % 1 % Basophils % 1 % Neutrophils # 4.4 (1.3-7.7) k/uL Lymphocytes # 1.5 (1.0-4.8) k/uL Monocytes # 0.3 (0-1.0) k/uL Eosinophils # 0.0 (0-0.7) k/uL Basophils # 0.0 (0-0.2) k/uL PT (9.0-12.0) sec INR (<1.2) APTT (22.0-30.0) sec Sodium 126 L (137-145) mmol/L Potassium 3.3 L (3.5-5.1) mmol/L Chloride 95 L (98-107) mmol/L Carbon Dioxide 20 L (22-30) mmol/L Anion Gap 11 mmol/L BUN 9 (7-17) mg/dL Creatinine 0.52 (0.52-1.04) mg/dL Est GFR (CKD-EPI)AfAm >90 (>60 ml/min/1.73 sqM) Est GFR (CKD-EPI)NonAf >90 (>60 ml/min/1.73 sqM) Glucose 121 H (74-99) mg/dL Plasma Lactic Acid Jose 2.2 H* (0.7-2.0) mmol/L Calcium 9.4 (8.4-10.2) mg/dL Total Bilirubin 1.5 H (0.2-1.3) mg/dL AST 121 H (14-36) U/L ALT 58 H (4-34) U/L Alkaline Phosphatase 160 H (38-126) U/L Total Protein 7.7 (6.3-8.2) g/dL Albumin 4.2 (3.5-5.0) g/dL Amylase 51 (30-110) U/L Lipase 88 (23-300) U/L 04/20/21 Range/Units 21:16 WBC (3.8-10.6) k/uL RBC (3.80-5.40) m/uL Hgb (11.4-16.0) gm/dL Hct (34.0-46.0) % MCV (80.0-100.0) fL MCH (25.0-35.0) pg MCHC (31.0-37.0) g/dL RDW (11.5-15.5) % Plt Count (150-450) k/uL MPV Neutrophils % % Lymphocytes % % Monocytes % % Eosinophils % % Basophils % % Neutrophils # (1.3-7.7) k/uL Lymphocytes # (1.0-4.8) k/uL Monocytes # (0-1.0) k/uL Eosinophils # (0-0.7) k/uL Basophils # (0-0.2) k/uL PT 11.5 (9.0-12.0) sec INR 1.1 (<1.2) APTT 25.3 (22.0-30.0) sec Sodium (137-145) mmol/L Potassium (3.5-5.1) mmol/L Chloride (98-107) mmol/L Carbon Dioxide (22-30) mmol/L Anion Gap mmol/L BUN (7-17) mg/dL Creatinine (0.52-1.04) mg/dL Est GFR (CKD-EPI)AfAm (>60 ml/min/1.73 sqM) Est GFR (CKD-EPI)NonAf (>60 ml/min/1.73 sqM) Glucose (74-99) mg/dL Plasma Lactic Acid Jose (0.7-2.0) mmol/L Calcium (8.4-10.2) mg/dL Total Bilirubin (0.2-1.3) mg/dL AST (14-36) U/L ALT (4-34) U/L Alkaline Phosphatase (38-126) U/L Total Protein (6.3-8.2) g/dL Albumin (3.5-5.0) g/dL Amylase (30-110) U/L Lipase (23-300) U/L Disposition Clinical Impression: Nausea vomiting and diarrhea, Abdominal pain, Alcohol abuse, Hyponatremia, Hypokalemia Disposition: ADMITTED IP TO THIS HOSP Condition: Fair Is patient prescribed a controlled substance at d/c from ED?: No Referrals: Matt Davila MD [Primary Care Provider] - 1-2 days
[2021-04-20 21:46] LABS: INR 1.1 (<1.2); Partial Thromboplastin Time 25.3 sec (22.0-30.0); Prothrombin Time 11.5 sec (9.0-12.0)
[2021-04-20 22:00] LABS: ALT 58 U/L (4-34); AST 121 U/L (14-36); African American GFR (CKD) >90 (>60 ml/min/1.73 sqM); Albumin 4.2 g/dL (3.5-5.0); Alkaline Phosphatase 160 U/L (38-126); Amylase 51 U/L (30-110); Anion Gap 11 mmol/L; Blood Urea Nitrogen 9 mg/dL (7-17); Calcium 9.4 mg/dL (8.4-10.2); Carbon Dioxide 20 mmol/L (22-30); Chloride 95 mmol/L (98-107); Glucose 121 mg/dL (74-99); Lipase 88 U/L (23-300); Non-African American GFR(CKD) >90 (>60 ml/min/1.73 sqM); Potassium 3.3 mmol/L (3.5-5.1); Sodium 126 mmol/L (137-145); Total Bilirubin 1.5 mg/dL (0.2-1.3); Total Protein 7.7 g/dL (6.3-8.2)
--- NOTE | 2021-04-20 22:32 | CT ---
EXAMINATION TYPE: CT abdomen pelvis w con DATE OF EXAM: 04/20/2021 COMPARISON: 05/31/2019 HISTORY: nausea, vomiting CT DLP: 799 mGycm Automated exposure control for dose reduction was used. CONTRAST: Performed with IV Contrast, patient injected with 100 mL of Isovue 300. Images obtained from the diaphragm to the floor the pelvis with IV contrast. Lung bases are clear of infiltrate. There is no pleural effusion. Heart size is normal. There is no p ericardial effusion. Liver spleen stomach pancreas appear intact. Liver is enlarged and measures 22 cm. There are clips fr om cholecystectomy. Common bile duct measures 14 mm. Intrahepatic bile ducts are nondilated. There is no adrenal mass. Kidneys show satisfactory contrast opacification. There is no hydronephrosi s. There is no retroperitoneal adenopathy. Ureters are not dilated. Bladder distends smoothly. There is no inguinal hernia. There is no free fluid in the pelvis. I see no evidence of a pelvic mass. There is no mesenteric edema. There is no ascites or free air. There is no sign of a bowel obstructio n. The bony pelvis is intact. Lumbar spine is intact. There is no compression fracture. Appendix is not seen. There is no sign of thickened appendix. Terminal ileum appears normal. IMPRESSION: Hepatomegaly. No acute abnormality of the abdomen pelvis. There is improvement in the fatty infiltration of the faiza er compared to old exam.
[2021-04-20] MEDS ORDERED: POTASSIUM BICARBONATE/CIT AC 20 MEQ TABLET.EFF PO ONE (22:53)
[2021-04-20] MEDS ORDERED: LORazepam 2 MG/ML INJ IV PRN ×2 (22:54)
[2021-04-20] MEDS ORDERED: MAGNESIUM OXIDE 400 MG TAB PO STA (22:54)
[2021-04-20] MEDS ORDERED: MORPHINE SULFATE 4 MG/ML SYRINGE IV PRN (22:55)
[2021-04-20] MEDS ORDERED: NALOXONE 0.4 MG/ML 1 ML VIAL IV PRN (22:55)
[2021-04-20] MEDS ORDERED: POTASSIUM CHLORIDE 10 MEQ in WATER FOR INJECTION 1 100ML.BAG IVPB SCH (23:00)
[2021-04-20] MEDS: THIAMINE 100 MG TAB PO SCH (23:04)
[2021-04-20] MEDS: MAGNESIUM SULFATE-D5W PMX 1 GM in DEXTROSE/WATER 1 100ML.BAG IVPB SCH (23:16)
[2021-04-20] MEDS: ONDANSETRON 4 MG/2 ML VIAL IVP PRN (23:22)
[2021-04-20] MEDS: LORazepam 2 MG/ML INJ IV PRN (23:22)
[2021-04-20 23:37] LABS: Magnesium 1.6 mg/dL (1.6-2.3); Phosphorus 3.3 mg/dL (2.5-4.5)
[2021-04-20] MEDS ORDERED: SYMBICORT 160-4.5 MCG INHALER INHALATION PRN (23:49)
[2021-04-20] MEDS ORDERED: FUROSEMIDE 20 MG TAB PO PRN (23:49)
[2021-04-21] MEDS: MAGNESIUM SULFATE-D5W PMX 1 GM in DEXTROSE/WATER 1 100ML.BAG IVPB SCH (00:33)
[2021-04-21] MEDS ORDERED: SODIUM CHLORIDE 0.9% 1,000 ML IV ONE (02:16)
[2021-04-21 04:25] LABS: Basophils # (A) 0.1 k/uL (0-0.2); Basophils % (A) 1 %; Eosinophils # (A) 0.2 k/uL (0-0.7); Eosinophils % (A) 2 %; HCT 40.7 % (34.0-46.0); HGB 13.8 gm/dL (11.4-16.0); Lymphocytes # (A) 2.5 k/uL (1.0-4.8); Lymphocytes % (A) 36 %; MCHC 33.8 g/dL (31.0-37.0); MCV 94.5 fL (80.0-100.0); Mean Platelet Volume 7.1; Monocytes # (A) 0.4 k/uL (0-1.0); Monocytes % (A) 6 %; Neutrophils # (A) 3.7 k/uL (1.3-7.7); Neutrophils % (A) 53 %; Platelet Count 221 k/uL (150-450); RBC 4.31 m/uL (3.80-5.40); RDW 13.4 % (11.5-15.5); WBC 6.9 k/uL (3.8-10.6)
[2021-04-21 04:40] LABS: African American GFR (CKD) >90 (>60 ml/min/1.73 sqM); Anion Gap 7 mmol/L; Blood Urea Nitrogen 4 mg/dL (7-17); Calcium 8.6 mg/dL (8.4-10.2); Carbon Dioxide 24 mmol/L (22-30); Chloride 103 mmol/L (98-107); Glucose 92 mg/dL (74-99); Non-African American GFR(CKD) >90 (>60 ml/min/1.73 sqM); Potassium 3.3 mmol/L (3.5-5.1); Sodium 134 mmol/L (137-145)
[2021-04-21 05:05] LABS: ALT 47 U/L (4-34); AST 89 U/L (14-36); Albumin 3.5 g/dL (3.5-5.0); Albumin/Globulin Ratio 1.1; Alkaline Phosphatase 128 U/L (38-126); Globulin 3.1 g/dL; Total Bilirubin 1.4 mg/dL (0.2-1.3); Total Protein 6.6 g/dL (6.3-8.2)
[2021-04-21] MEDS: MULTIVITAMINS, THERA 1 EACH TAB PO SCH (07:23)
[2021-04-21] MEDS: CHOLECALCIFEROL 25 MCG (1000 IU) TABLET PO SCH (07:23)
[2021-04-21] MEDS: lamoTRIgine 25 MG TAB PO SCH ×2 (07:24→19:23)
[2021-04-21] MEDS: ANASTROZOLE 1 MG TAB PO SCH (07:24)
[2021-04-21] MEDS: THIAMINE 100 MG TAB PO SCH ×2 (07:24→16:26)
[2021-04-21] MEDS: GABAPENTIN 300 MG CAP PO SCH (07:24)
[2021-04-21] MEDS: ONDANSETRON 4 MG/2 ML VIAL IVP PRN (07:25)
[2021-04-21] MEDS ORDERED: PANTOPRAZOLE 40 MG/10 ML VIAL IV SCH (09:00)
--- NOTE | 2021-04-21 12:03 | HP ---
HISTORY AND PHYSICAL HISTORY OF PRESENT ILLNESS: 55-year-old female came to the emergency room evaluation for abdominal pain, nausea, vomiting, and weakness. She is a chronic alcoholic. She has been drinking daily, but has not had a drink in 2 days. She is in with alcohol withdrawal, nausea, vomiting, possible gastroparesis, dizziness, severe dehydration. She has not been around any sick contacts. She has some epigastric suprapubic pain, cramping. She has diffuse abdominal bloating from ascites. MEDICATIONS: Home medicines include Arimidex 1 mg daily for breast cancer suppression, Symbicort 160/4.5 two puffs b.i.d., vitamin D3 25 mcg daily, Lasix 20 mg daily, gabapentin 600 mg daily, lorazepam 0.5 mg at night and Lamictal 50 mg b.i.d. ALLERGIES: No known drug allergies. REVIEW OF SYMPTOMS: 14 point review of systems otherwise negative. 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 SURGERIES: Appendectomy, breast surgery, cholecystectomy, orthopedic surgery, carpal tunnel surgery. SOCIAL HISTORY: Depression. Current everyday smoker, heavy alcohol abuse. FAMILY HISTORY: Father COPD. Mother with cancer of the liver. PHYSICAL EXAM: Temp 97.4, blood pressure is 130 to 140s over 80s to 90s. Pulse is 90s to low 100, respiratory 18 to 20. CARDIOVASCULAR S1, S2. LUNGS: Clear. HEENT: Normocephalic, atraumatic. CONSTITUTIONAL: Alert, oriented x3. PSYCH: Fair mood and affect. NEUROLOGIC: Alert and oriented x3. SKIN: Warm, dry, intact. LABORATORY DATA: Sodium is 126, potassium 3.3, white count 6.4, hemoglobin is 14.9. ASSESSMENT AND PLAN: 1. Acute abdominal pain, nausea, vomiting. 2. Hyponatremia. 3. Generalized weakness. 4. Impending DTs and alcohol abuse. 5. Lactic acidosis secondary to dehydration. 6. Electrolyte abnormality. 7. Nausea, vomiting. 8. Rehydrate. 9. Severe hyponatremia will be treated with fluids. 10.Hypokalemia will be treated with potassium replacement. 11.Prognosis guarded. MMODL / IJN: [id number] /
[2021-04-21] MEDS: NICOTINE 21MG/24HR PATCH TRANSDERM SCH (12:26)
[2021-04-21] MEDS: LORazepam 2 MG/ML INJ IV PRN (19:22)
[2021-04-22] MEDS: PANTOPRAZOLE 40 MG TABLET PO SCH (07:17)
[2021-04-22] MEDS: MULTIVITAMINS, THERA 1 EACH TAB PO SCH (07:17)
[2021-04-22] MEDS: THIAMINE 100 MG TAB PO SCH ×2 (07:17→16:54)
[2021-04-22] MEDS: GABAPENTIN 300 MG CAP PO SCH (07:17)
[2021-04-22] MEDS: CHOLECALCIFEROL 25 MCG (1000 IU) TABLET PO SCH (07:18)
[2021-04-22] MEDS: ANASTROZOLE 1 MG TAB PO SCH (07:18)
[2021-04-22] MEDS: lamoTRIgine 25 MG TAB PO SCH ×2 (07:18→19:38)
[2021-04-22] MEDS: NICOTINE 21MG/24HR PATCH TRANSDERM SCH (07:19)
[2021-04-22] MEDS: LORazepam 2 MG/ML INJ IV PRN ×2 (07:20→15:56)
[2021-04-22 07:58] LABS: HCT 43.5 % (34.0-46.0); MCH 31.3 pg (25.0-35.0); MCHC 32.1 g/dL (31.0-37.0); MCV 97.5 fL (80.0-100.0); Mean Platelet Volume 7.8; Platelet Count 216 k/uL (150-450); RBC 4.46 m/uL (3.80-5.40); RDW 12.9 % (11.5-15.5); WBC 5.4 k/uL (3.8-10.6)
[2021-04-22 11:23] LABS: ALT 38 U/L (4-34); AST 63 U/L (14-36); African American GFR (CKD) >90 (>60 ml/min/1.73 sqM); Albumin 3.4 g/dL (3.5-5.0); Albumin/Globulin Ratio 1.1; Alkaline Phosphatase 109 U/L (38-126); Anion Gap 4 mmol/L; Blood Urea Nitrogen <2 mg/dL (7-17); Calcium 8.5 mg/dL (8.4-10.2); Carbon Dioxide 26 mmol/L (22-30); Chloride 105 mmol/L (98-107); Globulin 3.1 g/dL; Glucose 92 mg/dL (74-99); Non-African American GFR(CKD) >90 (>60 ml/min/1.73 sqM); Potassium 3.3 mmol/L (3.5-5.1); Sodium 135 mmol/L (137-145); Total Bilirubin 1.1 mg/dL (0.2-1.3); Total Protein 6.5 g/dL (6.3-8.2)
[2021-04-22] MEDS: PREGABALIN 50 MG CAP PO SCH ×2 (11:49→19:38)
--- NOTE | 2021-04-22 13:45 | PN ---
PROGRESS NOTE HISTORY: A 55-year-old white female comes in with alcohol withdrawal, acute abdominal pain, electrolytes for hypokalemia and low sodium being treated with fluids. Stool for occult blood was negative. Bleeding for GI recommendations for abdominal pain, possibly do an EGD. PHYSICAL EXAM: Cardiovascular S1-S2. Lungs clear. GI is diffuse tenderness. Extremities minimal tremor. ASSESSMENT: 1. Alcohol withdrawal. 2. 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 3. abdominal pain, possible GI bleed. EGD to be done, Dr. Mchugh is consulted. MMODL / IJN: [id number] /
--- NOTE | 2021-04-22 14:05 | CONS ---
CONSULTATION DATE OF SERVICE: 04/22/2021. REASON FOR CONSULTATION: Nausea, vomiting and rectal bleeding. HISTORY OF PRESENT ILLNESS: The patient is a 55-year-old pleasant white female with history of heavy alcohol abuse and alcoholic liver disease, admitted to the hospital with abdominal pain, nausea, vomiting for the last one week duration. She was having episodes of nausea and vomiting almost on a daily basis. She came to the emergency room yesterday and subsequently admitted to the hospital for further management. She was started on IV Protonix and Zofran and she started feeling better. However, this morning she had a large amount of bright red blood per rectum as per the nursing staff. The patient states that she has been having intermittent rectal bleeding for the last 6 months. It happens once or twice a week. She denies any straining at stools. No constipation. She recalls having a colonoscopy a few years ago by Dr. Smalls and was noted to have colon polyps. PAST MEDICAL HISTORY: History of anxiety, depression, alcohol abuse. PAST SURGICAL HISTORY: Breast surgery for breast cancer, cholecystectomy. MEDICATIONS: Medications at home Lamictal, lorazepam, gabapentin, Lasix, vitamin D3, Symbicort, and Arimidex. ALLERGIES: None. SOCIAL HISTORY: Chronic smoker, heavy alcohol abuse and drinks at least a pint a day for several years. FAMILY HISTORY: Father COPD. Mother some liver cancer. REVIEW OF SYSTEMS: CARDIOPULMONARY: No chest pain or shortness of breath. : No hematuria or dysuria. MUSCULOSKELETAL: Unremarkable. SKIN: Unremarkable. ENDOCRINE: Unremarkable. NEUROLOGY: Mild alcohol withdrawal. ENT: Vision unremarkable. CONSTITUTIONAL: No recent weight loss. No fever, chills, night sweats. PHYSICAL EXAMINATION: Blood pressure 109/70, pulse 88, temperature 98.4. HEENT examination unremarkable. Conjunctivae pink. Sclerae anicteric. Oral cavity no lesions. NECK: No JVD or lymph node enlargement. CHEST: Clear to auscultation. HEART: Regular rate and rhythm. ABDOMEN: Soft bowel sounds are positive. No organomegaly. There was mild tenderness in the right upper quadrant area. EXTREMITIES: No pedal edema. NEUROLOGIC: Alert and oriented x3. No focal deficits. LABS: WBC 5.4, hemoglobin 14, platelets normal. BUN 4, creatinine 0.44, T bilirubin is 1.4, AST 89, ALT 47, alkaline phosphatase is 128. Stool occult blood is negative. IMPRESSION: 1. Nausea and vomiting of one week duration, resolving, probably alcohol related gastritis. 2. Rectal bleeding x1 today. As per the nursing staff the patient had significant amount of bright red blood per rectum which was dripping on the floor as she was walking to the bathroom hemoglobin, however, stable at 14 g/dL. Last colonoscopy a few years ago according to the patient had colon polyps. 3. Heavy alcohol abuse with acute alcohol withdrawal. 4. Elevated LFTs and mild jaundice all related to alcoholic liver disease. RECOMMENDATIONS: 1. Monitor CBC daily. 2. Continue with antiemetics and Protonix. 3. Monitor LFTs closely. 4. We will schedule her for colonoscopy tomorrow. Discussed with the patient the risks, benefits and complications and she is agreeable to it. MMMIGUEL AL / JANEYN: [id number] /
[2021-04-22] MEDS: ONDANSETRON 4 MG/2 ML VIAL IVP PRN (16:05)
[2021-04-22] MEDS ORDERED: PEG 3350-NA SULF,BICARB,CL/KCL 4,000 ML BOTTLE PO ONE (17:00)
[2021-04-23] MEDS: LORazepam 2 MG/ML INJ IV PRN (00:51)
[2021-04-23] MEDS: CHOLECALCIFEROL 25 MCG (1000 IU) TABLET PO SCH (07:10)
[2021-04-23] MEDS: THIAMINE 100 MG TAB PO SCH ×2 (07:10→17:44)
[2021-04-23] MEDS: MULTIVITAMINS, THERA 1 EACH TAB PO SCH (07:10)
[2021-04-23] MEDS: PANTOPRAZOLE 40 MG TABLET PO SCH (07:10)
[2021-04-23] MEDS: PREGABALIN 50 MG CAP PO SCH (07:14)
[2021-04-23] MEDS: lamoTRIgine 25 MG TAB PO SCH (07:14)
[2021-04-23] MEDS: GABAPENTIN 300 MG CAP PO SCH (07:14)
[2021-04-23] MEDS: ANASTROZOLE 1 MG TAB PO SCH (07:14)
[2021-04-23 08:46] VITALS: RESP 16
[2021-04-23] MEDS: NICOTINE 21MG/24HR PATCH TRANSDERM SCH (09:32)
[2021-04-23] MEDS ORDERED: PROPOFOL 10 MG/ML 20 ML VIAL IV ONE (09:57)
[2021-04-23] MEDS ORDERED: IV FLUID CONTINUATION 600 ML IV ONE (10:00)
--- NOTE | 2021-04-23 10:33 | P.PCN ---
Date of Procedure: 04/23/21 Description of Procedure: BRIEF HISTORY: Patient is a 55-year-old female with medical history significant for alcohol abuse and alcoholic liver disease presenting to the hospital with complaints of abdominal pain and nausea and vomiting occurring over a daily basis prior to presentation. Patient was treated with Protonix and Zofran with improvement in her symptoms. Subsequently she was noted to have large amount of bright red blood per rectum. She states she has been having intermittent rectal bleeding over the past 6 months. Usually occurring once or twice a week. She denies any constipation or straining with bowel movements. She believes her last colonoscopy a few years ago with Dr. Smalls. PROCEDURE PERFORMED: Colonoscopy. PREOPERATIVE DIAGNOSIS: Hematochezia, GI bleed, patient was last colonoscopy was a few years ago. ESTIMATED BLOOD LOSS: Minimal. IV sedation per Anesthesia. PROCEDURE: After informed consent was obtained, the patient, was brought into the endoscopy unit. IV sedation was administered by Anesthesia under continuous monitoring. Digital rectal examination was normal. Initially the Olympus CF-190 flexible video colonoscope was then inserted in the rectum, gradually advanced into the cecum without any difficulty. Careful examination was performed as the scope was gradually being withdrawn. Ileocecal valve and the appendiceal orifice were visualized and appeared normal. Prep was excellent. Mucosa of the cecum, ascending colon, transverse colon, descending colon, sigmoid colon, and rectum appeared normal, except for a few scattered diverticula in the sigmoid colon. Retroflexion was performed in the rectum and no lesions were seen, with low- grade internal and external hemorrhoids noted. The patient tolerated the procedure well. IMPRESSION: Normal-appearing colon from rectum to cecum. Internal and external hemorrhoids. Mild sigmoid diverticulosis. RECOMMENDATIONS: Findings of this examination were discussed with the patient. Okay to resume diet. Okay to resume medications. Recommend local hemorrhoidal care with sitz baths, topical hemorrhoidal therapy and stool softeners if further bleeding. Can also be referred to surgical team in the outpatient setting for further management if bleeding continues.
[2021-04-23] MEDS ORDERED: POTASSIUM CHLORIDE ER 20 MEQ TAB.ER PO SCH (13:00)
[2021-04-23 15:33] VITALS: BP 113/73; PULSE 90; TEMP 99
== END 2021-04-23 16:10 | disposition home or self-care (01) | DRG 391 ==
LOC: EC 21:01 → 4SSUR 22:56
PROVIDERS: ADMIT Family Medicine; ATTEND Family Medicine
PROC: 0DJD8ZZ Inspection of Lower Intestinal Tract, Via Natural or Artificial Opening Endoscopic (ICD-10-PCS; principal; 2021-04-23 07:30)
DX: K29.20 Alcoholic gastritis without bleeding (principal); K57.31 Diverticulosis of large intestine without perforation or abscess with bleeding; E87.1 Hypo-osmolality and hyponatremia; E87.2 Acidosis; F10.239 Alcohol dependence with withdrawal, unspecified; E46 Unspecified protein-calorie malnutrition; E87.6 Hypokalemia; E86.0 Dehydration; Z20.822 Contact with and (suspected) exposure to COVID-19; F17.200 Nicotine dependence, unspecified, uncomplicated; F32.9 Major depressive disorder, single episode, unspecified; K64.4 Residual hemorrhoidal skin tags; K64.8 Other hemorrhoids; G62.0 Drug-induced polyneuropathy; T45.1X5A Adverse effect of antineoplastic and immunosuppressive drugs, initial encounter; K70.31 Alcoholic cirrhosis of liver with ascites; Z86.010 Personal history of colon polyps; Z79.51 Long term (current) use of inhaled steroids; Z79.811 Long term (current) use of aromatase inhibitors; Z80.0 Family history of malignant neoplasm of digestive organs; Z82.5 Family history of asthma and other chronic lower respiratory diseases; Z85.3 Personal history of malignant neoplasm of breast; Z86.711 Personal history of pulmonary embolism; Z90.12 Acquired absence of left breast and nipple; Z92.21 Personal history of antineoplastic chemotherapy
CPT/HCPCS: 36415; 45378; 74177; 80053; 82150; 82272; 83605; 83690; 83735; 84100; 84443; 85025; 85027; 85610; 85730; 87635; 96361; 96374; 96375; 99285

== ENCOUNTER 2021-12-29 17:50 | Observation (INO) | payer OTHER ==
--- NOTE | 2021-12-29 18:30 | XR ---
EXAMINATION TYPE: XR Hip Complete RT DATE OF EXAM: 12/29/2021 COMPARISON: NONE HISTORY: Hip pain TECHNIQUE: 2 views FINDINGS: Hip joint space is fairly normal. I see no fracture nor dislocation. Acetabulum is intact. There are 2 rounded lucent areas in the subtrochanteric femur and the measure 1.3 cm. IMPRESSION: No fracture seen. Lytic lesions in the proximal right femur. Multiple myeloma is possible . This appears new compared to CT scan of 04/20/2021.
--- NOTE | 2021-12-29 20:20 | ED ---
Extremity Problem HPI - General Chief complaint: Extremity Problem,Nontraumatic Stated complaint: Leg pain,unable to walk Time Seen by Provider: 12/29/21 19:53 Source: patient Mode of arrival: wheelchair Limitations: no limitations - History of Present Illness Initial comments: Alka is a 56-year-old female with a distant history of breast cancer as well as a current history of daily drinking and alcohol abuse. Patient presents the ER today with a complaint of one month of pain in the right hip she does report a mild fall a month ago no recent trauma. She she has chronic pain 8 out of 10. She's been taking Motrin with no relief. - Related Data Home Medications Medication Instructions Recorded Confirmed Anastrozole [Arimidex] 1 mg PO DAILY 11/09/17 04/20/21 Budesonide/Formoterol Fumarate 2 puff INHALATION RT-DAILY PRN 01/29/19 04/20/21 [Symbicort 160-4.5 Mcg Inhaler] Cholecalciferol [Vitamin D3 (25 25 mcg PO DAILY 04/20/21 04/20/21 Mcg = 1000 Iu)] Furosemide [Lasix] 20 mg PO DAILY PRN 04/20/21 04/20/21 Gabapentin 600 mg PO DAILY 04/20/21 04/20/21 LORazepam 0.5 mg PO HS PRN 04/20/21 04/20/21 lamoTRIgine [LaMICtal] 50 mg PO BID 04/20/21 04/20/21 Previous Rx's Medication Instructions Recorded Nicotine 21Mg/24Hr Patch [Habitrol] 1 patch TRANSDERM DAILY 30 Days 04/23/21 #30 patch Potassium Chloride ER [K-Dur 20] 20 meq PO DAILY 30 Days #30 04/23/21 tab.er.prt Thiamine [Vitamin B-1] 100 mg PO BID-W/MEALS 30 Days #60 04/23/21 tab Allergies Allergy/AdvReac Type Severity Reaction Status Date / Time No Known Allergies Allergy Verified 12/29/21 18:08 Review of Systems ROS Statement: Those systems with pertinent positive or pertinent negative responses have been documented in the HPI. ROS Other: All systems not noted in ROS Statement are negative. 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 Past Anesthesia/Blood Transfusion Reactions: No Reported Reaction Past Psychological History: Depression Smoking Status: Current every day smoker Past Alcohol Use History: Abuse, Daily, Heavy Past Drug Use History: None Reported - Past Family History Father History Unknown: Yes Mother Family Medical History: Cancer Additional Family Medical History / Comment(s): liver General Exam - General Exam Comments Initial Comments: Physical Exam GENERAL: Chronically ill appearing Appears to be intoxicated, nodding off during exam HENT: Normocephalic, Atraumatic. EYES: PERRL, EOMI PULMONARY: Unlabored respirations. CARDIOVASCULAR: RRR Warm and well perfused extremities ABDOMEN: Hepatomegaly SKIN: No rashes or bruising : Deferred NEUROLOGIC: Alert and oriented MUSCULOSKELETAL: Pain with ROM of right hip Limitations: no limitations Course Vital Signs 12/29/21 18:06 Temperature 98.2 F Pulse Rate 101 H Respiratory 18 Rate Blood Pressure 103/71 O2 Sat by Pulse 99 Oximetry Medical Decision Making - Medical Decision Making Patient was seen and evaluated, x-ray was ordered from triage and reveals to likely lytic lesions in the right hip. These results were discussed with Dr Espinosa from oncology who has concern the patient could develop pathologic fractures, uncertain if these lytic lesions are due to metastases versus multiple myeloma versus benign process, given the patient's history of cancer and alcohol abuse she is at high risk for falls fractures and failure to follow- up therefore they recommended observation She care was discussed with kaur Grijalva of the orthopedic group who states that orthopedics will be on consult for this patient patient care was discussed with Dr. Deja Davila who accepts admission Disposition Clinical Impression: Lytic bone lesion of femur, History of breast cancer, Hip pain, Alcohol abuse Disposition: ADMITTED IP TO THIS HOSP Referrals: Matt Davila MD [Primary Care Provider] - 1-2 days
[2021-12-29] MEDS ORDERED: NALOXONE 0.4 MG/ML 1 ML VIAL IV PRN (20:55)
[2021-12-29] MEDS ORDERED: LORazepam 2 MG/ML INJ IV PRN ×2 (20:58)
[2021-12-29 21:00] LABS: Basophils # (A) 0.1 k/uL (0-0.2); Basophils % (A) 1 %; Eosinophils # (A) 0.3 k/uL (0-0.7); Eosinophils % (A) 2 %; HCT 48.3 % (34.0-46.0); HGB 15.5 gm/dL (11.4-16.0); Lymphocytes % (A) 14 %; MCH 29.9 pg (25.0-35.0); MCHC 32.1 g/dL (31.0-37.0); Mean Platelet Volume 7.6; Monocytes # (A) 0.4 k/uL (0-1.0); Monocytes % (A) 3 %; Neutrophils # (A) 11.4 k/uL (1.3-7.7); Neutrophils % (A) 80 %; Platelet Count 415 k/uL (150-450); RDW 13.2 % (11.5-15.5); WBC 14.3 k/uL (3.8-10.6)
[2021-12-29 22:22] LABS: ALT 27 U/L (4-34); AST 48 U/L (14-36); African American GFR (CKD) >90 (>60 ml/min/1.73 sqM); Albumin 4.6 g/dL (3.5-5.0); Albumin/Globulin Ratio 1.2; Alkaline Phosphatase 167 U/L (38-126); Anion Gap 12 mmol/L; Blood Urea Nitrogen 15 mg/dL (7-17); Calcium 9.5 mg/dL (8.4-10.2); Carbon Dioxide 25 mmol/L (22-30); Chloride 101 mmol/L (98-107); Globulin 3.9 g/dL; Glucose 131 mg/dL (74-99); Non-African American GFR(CKD) >90 (>60 ml/min/1.73 sqM); Potassium 3.8 mmol/L (3.5-5.1); Sodium 138 mmol/L (137-145); Total Bilirubin 0.8 mg/dL (0.2-1.3); Total Protein 8.5 g/dL (6.3-8.2)
--- NOTE | 2021-12-30 08:00 | XR ---
EXAMINATION TYPE: XR femur RT DATE OF EXAM: 12/30/2021 CLINICAL HISTORY: Abnormal x-ray, possible lytic lesion TECHNIQUE: Two views of the right femur are obtained. COMPARISON: Right hip x-ray December 29, 2021 FINDINGS: There is no acute fracture or dislocation seen in the right femur. Mild to moderate axial joint space loss right hip redemonstrated. Moderate tricompartment joint space loss in the right knee Confirmation of 2 lytic lesion subtrochanteric level right proximal femur. There is additional oval lytic lateral lesion distal diaphysis right femur IMPRESSION: Confirmation of at least 3 lytic lesions throughout right femur suspicious for metastatic disease and/or myelomatous deposits. Correlate clinically.
[2021-12-30] MEDS: IBUPROFEN 400 MG TAB PO PRN ×3 (09:21→21:45)
--- NOTE | 2021-12-30 10:25 | P.CNOR ---
History of Present Illness - [facility] Consult date: 12/30/21 Requesting physician: Valentina Jhaveri Consult reason: other (bony lesion on xray) History of present illness: Patient is a 56-year-old female presenting to the emergency department [facility] yesterday with a history of breast cancer which patient says a diagnosed in 2012 as well history of alcohol abuse. Patient was seen at bedside this morning resting comfortably lying in semirecumbent position. Patient says she has been dealing with some right leg/hip pain for the past 1 month. Patient says she has had several falls over the past month. Patient says she is not juany e why she has been falling. Patient says the initial event was about one month ago when he is walking outside she tripped over a log and follow manner right leg. Patient rates the pain as 7/10 currently. Patient says the motrin she has been taking has not been helping with her pain. Patient denies ever losing consciousness/hitting her head when she has fallen. Patient has had previous carpal tunnel surgery. Patient denies any other previous orthopedic surgical history. Patient denies chest pain, fever, shortness breath, nausea, vomiting, change in vision, loss of bowel/bladder control. 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 Past Anesthesia/Blood Transfusion Reactions: No Reported Reaction Past Psychological History: Depression Smoking Status: Current every day smoker Past Alcohol Use History: Abuse, Daily, Heavy Additional Past Alcohol Use History / Comment(s): HAS SMOKED SINCE 1981, > 1PPD. pt states does drink alcohol states she was "on a binge" and has been for a couple days. Drinks a pint to a 5th of vodka a day Past Drug Use History: None Reported - Past Family History Father History Unknown: Yes Mother Family Medical History: Cancer Additional Family Medical History / Comment(s): liver Medications and Allergies Home Medications Medication Instructions Recorded Confirmed Type Budesonide/Formoterol Fumarate 2 puff INHALATION RT-BID 01/29/19 12/29/21 History [Symbicort 160-4.5 Mcg Inhaler] Cholecalciferol [Vitamin D3 (25 25 mcg PO DAILY 04/20/21 12/29/21 History Mcg = 1000 Iu)] Furosemide [Lasix] 20 mg PO DAILY PRN 04/20/21 12/29/21 History LORazepam 0.5 mg PO HS PRN 04/20/21 12/29/21 History Thiamine [Vitamin B-1] 100 mg PO BID-W/MEALS 30 Days #60 04/23/21 12/29/21 Rx tab Gabapentin 800 mg PO DAILY 12/29/21 12/29/21 History lamoTRIgine 100 mg PO DAILY 12/29/21 12/29/21 History Allergies Allergy/AdvReac Type Severity Reaction Status Date / Time No Known Allergies Allergy Verified 12/29/21 21:44 Physical Examination Osteopathic Statement: *. No significant issues noted on an osteopathic structural exam other than those noted in the History and Physical/Consult. Negative for any evidence of open fractures, erythema, ecchymosis, nodules on the right lower extremity. Moderate tenderness to palpation along the right hip. Nontender to palpation throughout rest exam. Sensation is equal, symmetric, bilateral intact throughout the lower extremities. Patient has full range of motion in left lower extremity and hip flexion/extension, knee flexion/extension, left ankle dorsi/plantar flexion. Patient is able to wiggle digits in bilateral lower extremities. Patient has full range of motion and right ankle in dorsi/plantar flexion. Patient unable to flex left hip off of bed due to pain. 4+/5 in resisted left hip flexion/extension, knee flexion extension, left ankle dorsi/plantar flexion. Right lower extremity motor examplantar/dorsiflexion right ankle3/5. Right hip and right knee motor exam is limited due to patient's pain. Neurovascular status intact. Capillary refill under 3 seconds in digits of lower extremities. Dorsalis pedis pulse intact, bilaterally. Negative Homans bilaterally Results - Labs Labs: Abnormal Lab Results - Last 24 Hours (Table) 12/29/21 12/29/21 Range/Units 20:22 20:29 WBC 14.3 H (3.8-10.6) k/uL Hct 48.3 H (34.0-46.0) % Neutrophils # 11.4 H (1.3-7.7) k/uL Creatinine 0.47 L (0.52-1.04) mg/dL Glucose 131 H (74-99) mg/dL AST 48 H (14-36) U/L Alkaline Phosphatase 167 H (38-126) U/L Total Protein 8.5 H (6.3-8.2) g/dL H & H 12/29/21 Range/Units 20:29 Hgb 15.5 (11.4-16.0) gm/dL Hct 48.3 H (34.0-46.0) % Result Diagrams: 12/29/21 20:29 12/29/21 20:22 Assessment and Plan Assessment: 1.) Right hip pain with lytic lesion in right proximal femur. 2.) History of breast cancer. Plan: 1. Right hip pain: -Patient has evidence of lytic lesions on her right proximal femur and has functional pain. Lytic lesions are not appreciated on most recent CT pelvis from 04/21/21. Her Mirel's score is 11/12 putting her at a high risk of impending pathologic fracture and ultimately she is likely a candidate for prophylactic intra-medullarly nailing. Due to no prior known history of metastasis a primary neoplasm of bone would need to be ruled out with biopsy prior to any prophylactic nailing in addition to CT chest/abd/pelvis and full lab work up. This would best be performed by orthopedic oncologist therefore we do recommend patient to see orthopedic oncologist, Dr. Tan at [facility] for further workup this week. At this time, patient should remain nonweightbearing on the right lower extremity and use walker. 2. Appreciate medical management 3. Pain management - ibuprofen 4. GI ppx; DVT ppx - mechanical 5. PT/OT - nonweightbearing right lower extremity; use walker -Kishore Garcia DO Orthopedic Surgeon Time with Patient: Less than 30
[2021-12-30] MEDS ORDERED: FUROSEMIDE 20 MG TAB PO PRN (10:55)
--- NOTE | 2021-12-30 12:50 | P.PN ---
Progress Note - Text Progress Note Date: 12/30/21 Pt seen and examined Full consult to be dictated. h/o breast ca, in remission. 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 Exam non specific Xrays- poss lytic lesions in femur Pure lytic lesions quite unusual for met breast cancer. CBC and Ca ++ normal - thus another process such as symptomatic myeloma less likely Check labs Ok to d/c from Onc standpt if ok with Ortho/Dr Pereira Will check labs Can do imaging this wk as outpt
--- NOTE | 2021-12-30 12:57 | HP ---
HISTORY AND PHYSICAL This is a 56-year-old white female with a history of breast cancer diagnosed in 2012 and alcohol abuse. She is unable to walk on her right hip and leg due to significant pain, worsening over the past month, with several falls. She came to the hospital. She was found to have some lytic lesions x3 in her right hip on x-rays, at which time she was admitted for possible breast cancer metastases into the bone, as she has a history of breast cancer. We are waiting for Dr. Kwok and possibly a consult with Radiation Oncology. So far Orthopedics has seen her and maintained her on a walker with no weightbearing until Radiation Oncology sees her. PAST MEDICAL HISTORY: Breast cancer. 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 She has diabetes mellitus, history of pulmonary embolism. PAST SURGICAL HISTORY: Appendectomy, breast surgery, cholecystectomy, orthopedic surgery. She saw a surgeon a couple years ago for a breast mass which came back negative. She is a current daily smoker also. She drinks about a fifth of alcohol a day. She has not had a drink in 24 hours. FAMILY HISTORY: Cancer of the liver in her mother. Father unknown. HOME MEDICATIONS: She takes Symbicort 2 puffs b.i.d. for COPD asthma, vitamin D 1000 units daily, Lasix 20 mg daily, Lorazepam 0.5 at bedtime p.r.n., thiamine 100 mg b.i.d. with meals, gabapentin 800 mg a day for neuropathy, Lamictal 100 mg a day for bipolar. ALLERGIES: NEGATIVE. PHYSICAL EXAMINATION: Psych: She has flat mood and affect. Cardiovascular S1-S2. Hematology negative Homans. Psych fair mood and affect. Lungs are clear. GI soft. Right knee and right hip movements limited due to patient's pain. Neurovascular intact. Dorsalis pedis posterior tibial normal. Negative Homans. LABS: White count is 14.3, neutrophils 11.4, glucose 131, creatinine 0.47, AST 48, alkaline phosphatase 167, total protein 8.5. ASSESSMENT: Alcohol dependence with alcohol withdrawal with significant right hip pain, suspicious for metastatic breast cancer with 3 lytic lesions in the right femur. No fractures seen. Wait for Orthopedic Oncology to see her, possibly for radiation treatment here in the hospital, depending on what Dr. Kwok thinks. Otherwise, will do not non- weightbearing and work up as an outpatient. Continue with CIWA protocol for alcohol withdrawal, Lamictal for depression. Please see further orders. MMODL / IJN: [id number] /
[2021-12-30] MEDS: LORazepam 2 MG/ML INJ IV PRN ×2 (14:11→23:50)
[2021-12-30 14:20] LABS: Amorphous Sediment,Urine Rare /hpf; Appearance,Urine Cloudy (Clear); Bacteria,Urine Rare /hpf; Bilirubin,Urine Negative (Negative); Blood,Urine Negative (Negative); Color,Urine Yellow; Glucose,Urine (UA) Negative (Negative); Hyaline Casts,Urine 1 /lpf (0-2); Ketones,Urine Negative (Negative); Leukocyte Esterase,Urine Negative (Negative); Mucus,Urine Few /hpf; Nitrite,Urine Negative (Negative); Protein,Urine Trace (Negative); RBC,Urine 1 /hpf (0-5); Specific Gravity,Urine 1.024 (1.001-1.035); Squamous Epithelial Cell,Urine 4 /hpf (0-4); Urobilinogen,Urine <2.0 mg/dL (<2.0); WBC,Urine 4 /hpf (0-5)
[2021-12-30] MEDS: NICOTINE 21MG/24HR PATCH TRANSDERM SCH (15:05)
--- NOTE | 2021-12-30 15:13 | XR ---
EXAMINATION TYPE: XR chest 2V DATE OF EXAM: 12/30/2021 COMPARISON: 05/29/2019 HISTORY: Short of breath TECHNIQUE: 2 views FINDINGS: Heart is normal. Lungs are clear of infiltrate. There is no heart failure. There are no hil ar masses. IMPRESSION: No active cardiopulmonary disease. Normal heart. There is clearing of the pleural reactio n left lung base compared to old exam.
[2021-12-30 16:30] LABS: Protein, Total 6.9 g/dL (6.2-8.2)
[2021-12-30] MEDS: THIAMINE 100 MG TAB PO SCH (17:31)
[2021-12-30] MEDS: SYMBICORT 160-4.5 MCG INHALER INHALATION SCH (18:59)
[2021-12-30] MEDS: lamoTRIgine 100 MG TAB PO SCH (19:57)
--- NOTE | 2021-12-31 00:05 | P.CONS ---
History of Present Illness - Reason for Consult Consult date: 12/30/21 RLE pain, Abn Xray, hx breast ca - History of Present Illness The patient is a 56-year-old white female, well known to myself. She was diagnosed with breast cancer in 2012, and is currently on adjuvant anastrozole. Patient's compliance has been quite poor and she was last seen in the office in 01/10. she came into the hospital this time, and she states that she has been having right hip pain, as well as right lateral thigh pain extending down to the knee, made worse with weightbearing. Apparently this has been present for a few months, but has been slowly getting worse. She states that she took some medication for the same, but as this was not working, came to the ER. She did have history of fall at least 1. the x-rays of the right femur and pelvis showed 3 lytic-appearing lesions in the femur. Consult was therefore placed for further evaluation and recommendations. Her oncology history is quite extensive, and is as follows: Ms Polanco initially felt a lump in her left breast the beginning of 11/04. She had a mammogram done which was negative. An US on 11/06/12 revealed 2 masses in her left breast , both between 2-3 cm, at 12 and 2 o'clock. She was seen by Dr Mayers and had a core biopsy of 12 o'clock lesion. This was positive for Er/LA +ve, Her -2 -ve invasive lobular carcinoma. The other lesion was also biopsied with path positive for the same. MRI indicated extensive confluent disease in the left breast. PET revealed no distant disease. BRCa testing was negative. Given the pt's young age and extent of disease, she was referred here by Dr Mayers for workup and evaluation and started on neoadjuvant dose dense AC. She is s/p 4 cycles of that and has completed 4 cyles of dose dense taxol too on 03/16/13. She was referred for surgery but cancelled her appointment multiple times. She ultimately had left [facility] with axillary node dissection and reconstruction at [facility], [place], [place] on 07/11/13. She did well post surgery. She did have node positivity and residual tumor, per my conversation with Dr Suresh, her surgeon. Her formal path was obtained later and showed res idual tumor of 2.8 cm, and 2 nodes positive. She was referred for chest wall and axillary radiation and competed that in 12/03. She was supposed to f/u with me to start Tamoxifen, but did not do so. She apparenty did follow up at [facility], and was recommended the same, but decided against taking it. She was apparently found to have " spots on her liver in 08/05 at the [facility], and a MRI was recommended. She could not have it as she lost her insurance. She had also noted some " lumps" on her left chest wall since early 10/06, and therefore decided to follow up. On exam, some thickening was noted at the medial margin of her incision. Labs and PET were ordered. These were negative. As there was mild uptake in the above area ( SUV 2, felt to be post treatment) , she was referred to Dr Shepard. This was felt to be benign after a mammogram and US. She was started on Tamoxifen at that time. She took it for a month, and again did not follow up. She was seen at her own request on 09/05/16. She states she thought " it would be good to get checked out". She had labs and PET , revealing no evidence of metastatic disease, and post menopausal state. Her liver enzymes were elevated, and the liver enlarged, with no evidence of mets on PET. Thus this appeared to be due to heavy ETOH use. She was started on Arimidex in 10/08. Her baseline BMD was normal. She had PORT removal by Dr Shepard, and colonoscopy, in late 10/08. She had her left breast implant removed in 11/10, and cholecystectomy in 02/07. She was diagnosed with RUL peripheral PE in 06/10. On questioning, no definite provoking factor was identified. MRI of the liver in 07/10 was negative for evidence of any mass lesions. Due to her PE, she has restaging studies with labs and PET scan in 10/11, which were negative She has developed recurrent dental problems, with multiple loose teeth, and gum regression. Therefore the plan to start Prolia or bisphosphonate remains on hold she was referred for ENT evaluation, at her visit in 10/11 because of the finding of a nonspecific left submandibular node on her PET scan. However she did not go for that appointment. she states that she was found to have thyroid nodules on CT scan by her PCP and was referred to ENT for that. She has an appointment upcoming with them later in 06/11 She missed her appointment in 04/10, but did reschedule it for 05/24/20. At that appointment. She stated that she had stopped following up with [facility] since 11/11, and had also not followed up with GI. She stopped Antabuse and has resumed drinking alcohol about 2-3 drinks a day. at your visit in 06/11 she was noted to have a significant weight loss, as well as mild elevation of WBC. She had restaging PET scans, as well as labs including tumor markers in -07/11. These were negative for evidence of recurrence. The patient again did not show for her scheduled follow-up ziggy ointment and came back to the office only in 01/10. She has not had any menstrual activity since her chemo. She continues to smoke. She previously admitted to being an alcoholic and was referred to [facility] in 02/05. She had been sober from early 08/08 till 09/07 , but started drinking 2-3 drinks /d again. She quit in early 07/09. She states she has had ETOH again infrequently, quit in early 08/10, but then resumed it again in 11/11. at her visit in 01/10, the patient was referred back to GI and ENT. She was also scheduled for repeat bone density, and mammogram. The patient states that she did not come for her scheduled appointment to our office as she did not get the bone density or mammogram performed. she states that she did not follow up with ENT, either, but did see GI. She continues to smoke about the same amount, and is still drinking alcohol, about a pint a day. she stated that she had been taking the anastrozole, but had been missing doses. On further questioning, she stated that she had probably been taking in about may be 70 or 80% of the time. On more detailed questioning, she was very vague , and thus, this figure is not felt to be reliable. Review of Systems Constitutional: Reports chronic pain, Reports fatigue Eyes: denies blurred vision, denies pain Ears: deny: decreased hearing, ear discharge, earache, tinnitus Ears, nose, mouth and throat: Reports neck lump Breasts: left: as per HPI Breasts: Reports as per HPI Cardiovascular: Reports decreased exercise tolerance Respiratory: Denies cough Gastrointestinal: Reports as per HPI Genitourinary: Denies dysuria, Denies hematuria Menstruation: Reports postmenopausal Musculoskeletal: Reports as per HPI Musculoskeletal: right: hip pain Integumentary: Denies pruritus, Denies rash Neurological: Denies numbness, Denies weakness Psychiatric: Reports as per HPI Endocrine: Reports fatigue Hematologic/Lymphatic: Reports as per HPI Past Medical History Past Medical History: Cancer, Diabetes Mellitus, Pulmonary Embolus (PE) Additional Past Medical History / Comment(s): Breast cancer, 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 Past Anesthesia/Blood Transfusion Reactions: No Reported Reaction Past Psychological History: Depression Smoking Status: Current every day smoker Past Alcohol Use History: Abuse, Daily, Heavy Additional Past Alcohol Use History / Comment(s): HAS SMOKED SINCE 1981, > 1PPD. pt states does drink alcohol states she was "on a binge" and has been for a couple days. Drinks a pint to a 5th of vodka a day Past Drug Use History: None Reported - Past Family History Father History Unknown: Yes Mother Family Medical History: Cancer Additional Family Medical History / Comment(s): liver Medications and Allergies Home Medications Medication Instructions Recorded Confirmed Type Budesonide/Formoterol Fumarate 2 puff INHALATION RT-BID 01/29/19 12/29/21 History [Symbicort 160-4.5 Mcg Inhaler] Cholecalciferol [Vitamin D3 (25 25 mcg PO DAILY 04/20/21 12/29/21 History Mcg = 1000 Iu)] Furosemide [Lasix] 20 mg PO DAILY PRN 04/20/21 12/29/21 History LORazepam 0.5 mg PO HS PRN 04/20/21 12/29/21 History Thiamine [Vitamin B-1] 100 mg PO BID-W/MEALS 30 Days #60 04/23/21 12/29/21 Rx tab Gabapentin 800 mg PO DAILY 12/29/21 12/29/21 History lamoTRIgine 100 mg PO DAILY 12/29/21 12/29/21 History Allergies Allergy/AdvReac Type Severity Reaction Status Date / Time No Known Allergies Allergy Verified 12/29/21 21:44 Physical Exam Vitals: Vital Signs Temp Pulse Pulse Resp BP BP Pulse Ox 12/30/21 13:59 97.5 F L 100 17 108/72 97 12/30/21 07:00 98 F 97 17 105/67 91 L 12/30/21 03:06 98.3 F 101 H 18 100/61 94 L 12/30/21 02:00 16 12/29/21 23:10 98.0 F 105 H 16 110/76 96 12/29/21 22:00 97 18 105/78 94 L 12/29/21 18:06 98.2 F 101 H 18 103/71 99 Intake and Output 12/29/21 12/30/21 12/30/21 22:59 06:59 14:59 Intake Total 118 Balance 118 Intake: Oral 118 Other: Voiding Method Bedside Commode Bedside Commode # Voids 0 1 1 Weight 68.039 kg 68.039 kg - Constitutional General appearance: no acute distress - EENT Eyes: EOMI, PERRLA ENT: hearing grossly normal, normal oropharynx - Neck Neck: no lymphadenopathy Thyroid: bilateral: normal size - Respiratory Respiratory: bilateral: diminished - Cardiovascular Rhythm: regular Heart sounds: normal: S1, S2 - Gastrointestinal General gastrointestinal: normal bowel sounds, soft - Integumentary Integumentary: normal - Neurologic Neurologic: CNII-XII intact - Musculoskeletal Musculoskeletal: generalized weakness, strength equal bilaterally - Psychiatric Psychiatric: A&O x's 3, appropriate affect Results CBC & Chem 7: 12/29/21 20:29 12/29/21 20:22 Labs: Abnormal Lab Results - Last 24 Hours (Table) 12/29/21 12/29/21 Range/Units 20:22 20:29 WBC 14.3 H (3.8-10.6) k/uL Hct 48.3 H (34.0-46.0) % Neutrophils # 11.4 H (1.3-7.7) k/uL Creatinine 0.47 L (0.52-1.04) mg/dL Glucose 131 H (74-99) mg/dL AST 48 H (14-36) U/L Alkaline Phosphatase 167 H (38-126) U/L Total Protein 8.5 H (6.3-8.2) g/dL Comments: Hip and femur x-ray reports and images reviewed Assessment and Plan (1) Lytic bone lesion of femur Narrative/Plan: X-ray reports were reviewed. Images were also personally reviewed. The patient has known osteoporosis, and evidence of the same. The lytic lesions in her clinical setting are somewhat nonspecific. The location of the lesions do not correspond well to the main area of her pain which is more related to the actual hip joint. In addition metastatic breast cancer is highly unlikely to cause lytic lesions. A new process such as myeloma is less likely, as the patient's CBC and chem panel are also normal. - The above was discussed with the patient. For further workup breast cancer tumor markers as well as protein electrophoresis studies will be ordered. - The patient will need additional imaging, likely bone scan and possibly PET scan subsequently, if bone scan is negative.. If she is okay for discharge according to orthopedics and the admitting service, these can be performed as an outpatient in this coming week. She is agreeable to the same. Current Visit: Yes Status: Acute Code(s): M89.9 - DISORDER OF BONE, UNSPECIFIED SNOMED Code(s): 834255014 (2) History of breast cancer Narrative/Plan: The patient has history of locally advanced breast cancer, with treatment as described in the HPI. She is on adjuvant hormonal manipulation, and had no evidence of disease at her last visit. However her follow-up has been complaining by noncompliance 2 office visits as well as medications intermittently. As noted, her current findings would be considered unusual for metastatic breast cancer recurrence. Plan for workup as detailed. Patient was strongly urged to continue anastrozole and be compliant with the same in the meantime. Current Visit: Yes Status: Acute Code(s): Z85.3 - PERSONAL HISTORY OF MAL IGNANT NEOPLASM OF BREAST SNOMED Code(s): 533819338
[2021-12-31] MEDS: IBUPROFEN 400 MG TAB PO PRN ×2 (02:56→20:23)
[2021-12-31] MEDS: SYMBICORT 160-4.5 MCG INHALER INHALATION SCH ×2 (07:57→20:29)
[2021-12-31] MEDS ORDERED: lamoTRIgine 100 MG TAB PO SCH (09:00)
[2021-12-31] MEDS: GABAPENTIN 400 MG CAP PO SCH (09:15)
[2021-12-31] MEDS: THIAMINE 100 MG TAB PO SCH ×2 (09:16→17:41)
[2021-12-31] MEDS: CHOLECALCIFEROL 25 MCG (1000 IU) TABLET PO SCH (09:16)
[2021-12-31] MEDS: NICOTINE 21MG/24HR PATCH TRANSDERM SCH (09:16)
[2021-12-31] MEDS: lamoTRIgine 100 MG TAB PO SCH ×2 (09:16→20:23)
[2021-12-31] MEDS: LORazepam 2 MG/ML INJ IV PRN ×2 (09:21→20:22)
--- NOTE | 2021-12-31 10:09 | P.PN ---
Subjective Progress Note Date: 12/31/21 Principal diagnosis: right hip/leg pain Patient was seen at bedside this morning resting comfortably lying semirecumbent in bed. Patient says she feels about the same she did yesterday. Patient says she is still having some right upper leg pain. She says this is worse when she begins to ambulate. Patient says she did get up yesterday a couple times when she had to use the bathroom. Patient says she is still not able lift her right leg off the bed under her own power. Patient denies chest pain, fever, shortness of breath, nausea, vomiting, change in vision, loss of bowel/bladder control. Objective - Vital Signs Vital signs: Vital Signs Temp 98.0 F 12/31/21 07:00 Pulse 85 12/31/21 07:00 Resp 16 12/31/21 07:00 BP 118/76 12/31/21 07:00 Pulse Ox 97 12/31/21 07:00 Intake & Output 12/30/21 12/31/21 12/31/21 18:59 06:59 18:59 Intake Total 318 118 Balance 318 118 Intake: Oral 318 118 Other: Voiding Method Bedside Commode # Voids 1 3 # Bowel Movements 1 - Exam Negative for any evidence of open fractures, erythema, ecchymosis, nodules on the right lower extremity. Moderate tenderness to palpation along the right hip. Nontender to palpation throughout rest exam. Sensation is equal, symmetric, bilateral intact throughout the lower extremities. Patient has full range of motion in left lower extremity and hip flexion/extension, knee flexion/extension, left ankle dorsi/plantar flexion. Patient is able to wiggle digits in bilateral lower extremities. Patient has full range of motion and ri ght ankle in dorsi/plantar flexion. Patient unable to flex left hip off of bed due to pain. 4+/5 in resisted left hip flexion/extension, knee flexion extension, left ankle dorsi/plantar flexion. Right lower extremity motor examplantar/dorsiflexion right ankle3/5. Right hip and right knee motor exam is limited due to patient's pain. Neurovascular status intact. Capillary refill under 3 seconds in digits of lower extremities. Dorsalis pedis pulse intact, bilaterally. Negative Homans bilaterally - Labs CBC & Chem 7: 12/29/21 20:29 12/29/21 20:22 Labs: Abnormal Lab Results - Last 24 Hours (Table) 12/30/21 12/30/21 Range/Units 13:30 13:34 CA 15-3 Antigen 102.0 H (0.0-32.3) U/mL Urine Appearance Cloudy H (Clear) Urine Protein Trace H (Negative) Amorphous Sediment Rare H (None) /hpf Urine Bacteria Rare H (None) /hpf Urine Mucus Few H (None) /hpf Assessment and Plan Assessment: 1. Right hip pain Plan: 1. Right hip pain - x-rays of right hip and right femur have been reviewed. There is evidence of 3 lytic lesions on x-ray of right femur. This is concerning for possible metastatic disease, especially with patient's history of breast cancer. X-rays of right hip and femur are negative for any acute fractures. We do recommend patient to see orthopedic oncologist, Dr. Tan at [facility] for further workup this week. Due to patient's increased risk for fracture, patient may need biopsy of right femur and prophylactic nailing of the right femur. At this time, patient should remain nonweightbearing on the right lower extremity and use walker. 2. Appreciate medical and oncology management - bone scan has been ordered by oncology 3. Pain management - ibuprofen; [place]; Gabapentin 4. GI ppx; DVT ppx - mechanical 5. PT/OT - nonweightbearing right lower extremity; use walker Time with Patient: Less than 30
--- NOTE | 2021-12-31 10:59 | P.PN ---
Subjective Progress Note Date: 12/31/21 Principal diagnosis: bone lesions In f/u today pt is still c/o hip pain, no loss of muscle strength, numbness or tingling. Objective - Vital Signs Vital signs: Vital Signs Temp 98.0 F 12/31/21 07:00 Pulse 85 12/31/21 07:00 Resp 16 12/31/21 07:00 BP 118/76 12/31/21 07:00 Pulse Ox 97 12/31/21 07:00 Intake & Output 12/30/21 12/31/21 12/31/21 18:59 06:59 18:59 Intake Total 318 118 Balance 318 118 Intake: Oral 318 118 Other: Voiding Method Bedside Commode Bedside Commode # Voids 1 3 # Bowel Movements 1 - Constitutional General appearance: Present: average body habitus, cooperative, disheveled, no acute distress - EENT Eyes: Present: anicteric sclerae, EOMI ENT: Present: hearing grossly normal - Respiratory Details: resp even and unlabored - Musculoskeletal Musculoskeletal: Present: generalized weakness - Psychiatric Psychiatric: Present: A&O x's 3, appropriate affect, intact judgment & insight - Labs CBC & Chem 7: 12/29/21 20:29 12/29/21 20:22 Labs: Abnormal Lab Results - Last 24 Hours (Table) 12/30/21 12/30/21 Range/Units 13:30 13:34 CA 15-3 Antigen 102.0 H (0.0-32.3) U/mL Urine Appearance Cloudy H (Clear) Urine Protein Trace H (Negative) Amorphous Sediment Rare H (None) /hpf Urine Bacteria Rare H (None) /hpf Urine Mucus Few H (None) /hpf Assessment and Plan (1) Lytic bone lesion of femur Current Visit: Yes Status: Acute Priority: High Code(s): M89.9 - DISORDER OF BONE, UNSPECIFIED SNOMED Code(s): 838498044 (2) History of breast cancer Current Visit: Yes Status: Chronic Priority: High Code(s): Z85.3 - PERSONAL HISTORY OF MALIGNANT NEOPLASM OF BREAST SNOMED Code(s): 552196868 Plan: Elevated Ca15.3, pending Ca 12.29. Suspicious for malignant recurrence but not an absolute. Bone scan ordered, pending results. Pt may need referral to Ortho Onc. Rad Onc has already been consulted. Pain mgmt ongoing Bowel regimen verified
[2021-12-31] MEDS: HYDROcodone/APAP 5-325MG 1 EACH TAB PO PRN ×3 (11:00→23:47)
--- NOTE | 2021-12-31 13:50 | NM ---
EXAMINATION TYPE: NM bone scan whole body DATE OF EXAM: 12/31/2021 COMPARISON: 06/10/2019 HISTORY: Breast cancer Delayed whole-body scanning was performed following the injection of 22.9 mCi Tc 99m MDP. Images acq uired 5 hours post injection. FINDINGS: Abnormal uptake involving the upper lumbar spine mid and lower lumbar spine, bilateral rib cage, prox imal right femur, bilateral pelvic bones. These findings are highly suggestive of metastasis. Faint uptake throughout the thoracic and lumbar spine likely degenerative. Abnormal uptake involving the knees, feet and shoulders likely post arthritic. There is a more focal intense area of abnormal u ptake involving the right humeral head or scapula which is suspicious.: IMPRESSION: 1. Widespread bony metastases.
[2021-12-31] MEDS ORDERED: polyethylene glycoL 3350 17 GM POWD.PACK PO PRN (14:43)
[2021-12-31 18:06] LABS: Albumin 3.7 g/dL (3.80-4.90); Gamma Globulin 0.99 g/dL (0.70-1.50)
[2022-01-01] MEDS: IBUPROFEN 400 MG TAB PO PRN (03:32)
[2022-01-01] MEDS: LORazepam 2 MG/ML INJ IV PRN ×2 (03:38→10:29)
[2022-01-01] MEDS: HYDROcodone/APAP 5-325MG 1 EACH TAB PO PRN ×2 (06:08→14:24)
[2022-01-01 06:27] VITALS: RESP 16
[2022-01-01] MEDS: THIAMINE 100 MG TAB PO SCH (08:36)
[2022-01-01] MEDS: GABAPENTIN 400 MG CAP PO SCH (08:36)
[2022-01-01] MEDS: CHOLECALCIFEROL 25 MCG (1000 IU) TABLET PO SCH (08:36)
[2022-01-01] MEDS: NICOTINE 21MG/24HR PATCH TRANSDERM SCH (08:36)
[2022-01-01] MEDS: lamoTRIgine 100 MG TAB PO SCH (08:36)
[2022-01-01] MEDS: SYMBICORT 160-4.5 MCG INHALER INHALATION SCH (08:56)
[2022-01-01] MEDS ORDERED: SENNOSIDES 8.6 MG TAB PO SCH (09:00)
--- NOTE | 2022-01-01 10:22 | P.PN ---
Subjective Progress Note Date: 01/01/22 Principal diagnosis: right hip/leg pain Patient was seen at bedside this morning resting comfortably lying semirecumbent in bed. Patient says she feels about the same she did yesterday. Patient says she is still having some right upper leg pain. She says this is worse when she begins to ambulate. Patient says she did get up yesterday a couple times when she had to use the bathroom. Patient says she is still not able lift her right leg off the bed under her own power. Patient denies chest pain, fever, shortness of breath, nausea, vomiting, change in vision, loss of bowel/bladder control. Objective - Vital Signs Vital signs: Vital Signs Temp 98.2 F 01/01/22 06:27 Pulse 86 01/01/22 06:27 Resp 16 01/01/22 06:27 BP 127/81 01/01/22 06:27 Pulse Ox 98 01/01/22 06:27 Intake & Output 12/31/21 01/01/22 01/01/22 18:59 06:59 18:59 Intake Total 638 118 Balance 638 118 Intake: Oral 638 118 Other: Voiding Method Bedside Commode # Voids 1 1 - Exam Negative for any evidence of open fractures, erythema, ecchymosis, nodules on the right lower extremity. Moderate tenderness to palpation along the right hip. Nontender to palpation throughout rest exam. Sensation is equal, symmetric, bilateral intact throughout the lower extremities. Patient has full range of motion in left lower extremity and hip flexion/extension, knee flexion/extension, left ankle dorsi/plantar flexion. Patient is able to wiggle digits in bilateral lower extremities. Patient has full range of motion and right ankle in dorsi/plantar flexion. Patient unable to flex left hip off of bed due to pain. 4+/5 in resisted left hip flexion/extension, knee flexion extension, left ankle dorsi/plantar flexion. Right lower extremity motor examplantar/dorsiflexion right ankle3/5. Right hip and right knee motor exam is limited due to patient's pain. Neurovascular status intact. Capillary refill under 3 seconds in digits of lower extremities. Dorsalis pedis pulse intact, bilaterally. Negative Homans bilaterally - Labs CBC & Chem 7: 12/29/21 20:29 12/29/21 20:22 Labs: Abnormal Lab Results - Last 24 Hours (Table) 12/30/21 Range/Units 13:34 Albumin (PEP) 3.70 L (3.80-4.90) g/dL Assessment and Plan Assessment: 1. Right hip pain Plan: 1. Right hip pain - x-rays of right hip and right femur have been reviewed. There is evidence of 3 lytic lesions on x-ray of right femur. X-rays of right hip and femur are negative for any acute fractures. Bone scan concerning for bony metastases to proximal right humerus. We do recommend patient to see orthopedic oncologist, Dr. Tan at [facility] for further workup this week. Due to patient's increased risk for fracture, patient may need biopsy of right femur and prophylactic nailing of the right femur. At this time, patient should remain nonweightbearing on the right lower extremity and use walker. At this time, patient is stable from an orthopedic standpoint for discharge home/transfer to [place] to see Dr. Tan, orthopedic oncologist. Orthopedics is signing off at this time. Please do not hesitate to contact us for any further questions if needed 2. Appreciate medical and oncology management 3. Pain management - ibuprofen; [place]; Gabapentin 4. GI ppx; DVT ppx - mechanical 5. PT/OT - nonweightbearing right lower extremity; use walker Time with Patient: Less than 30
[2022-01-01] MEDS ORDERED: ZOLEDRONIC ACID 4 MG in SODIUM CHLORIDE 0.9% 100 ML IV ONE (11:00)
[2022-01-01] MEDS: IOPAMIDOL CONTRAST (ORAL USE) VIAL PO PRN ×2 (11:17→12:23)
[2022-01-01 13:19] VITALS: BP 109/74; PULSE 94; TEMP 99.8
--- NOTE | 2022-01-01 14:04 | P.CONS ---
History of Present Illness - Reason for Consult Consult date: 01/01/22 right hip pain/bone mets Requesting physician: Armen Kwok - Chief Complaint right hip pain - History of Present Illness The patient is a 56-year-old female with a history of a locally advanced invasive lobular carcinoma of the left breast, ER/FL positive and HER-2 negative. She was treated with neoadjuvant chemotherapy, followed by left modified radical mastectomy which did reveal residual invasive disease measuring 2.8 cm with 2 positive lymph nodes. She underwent chest wall radiotherapy in November 2013. The patient intermittently took her AI over the subsequent years. She now however presents with one month of right-sided hip pain, and a bone scan concerning for disease metastatic to the bone. The patient reports that for the past month she has had a new right-sided hip pain. She states this is exacerbated by moving the right leg or any ambulation. It seems to be better when she is sitting still. She presented to the ER secondary to the intractable nature of the pain. She reports the pain can be up to 9 out of 10 at times. Hip x-ray did reveal lytic lesions in the right proximal femur. Additional views of the femur did reveal further lytic lesions, but no fracture was noted. A chest x-ray was unremarkable. These findings were worrisome for metastasis versus myeloma. A bone scan was performed on December 31 which did show abnormal uptake consistent with bone metastasis including the bilateral ribs, proximal right femur, L-spine, and bilateral pelvic bones. Additionally, the patient's CA 153 was found to be elevated at 102 (previously was 3.7 in May 2019). The patient reports she is still having significant pain even during her hospital stay. She has been using the walker, and orthopedics is recommended she use the walker and nonweightbearing on the right lower extremity. She has a CT scan of the chest, abdomen and pelvis ordered and this has not yet been completed. Review of Systems Constitutional: Denies chills, Denies fever Eyes: denies blurred vision Ears, nose, mouth and throat: Denies headache, Denies neck lump Cardiovascular: Denies chest pain, Denies edema Respiratory: Denies cough Gastrointestinal: Denies change in bowel habits Genitourinary: Denies flank pain Musculoskeletal: Reports shooting leg pain Musculoskeletal: right: hip pain (see HPI) Integumentary: Denies rash Neurological: Denies confusion, Denies convulsions Psychiatric: Denies anxiety Past Medical History Past Medical History: Cancer, Diabetes Mellitus, Pulmonary Embolus (PE) Additional Past Medical History / Comment(s): Breast cancer, 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 Past Anesthesia/Blood Transfusion Reactions: No Reported Reaction Past Psychological History: Depression Smoking Status: Current every day smoker Past Alcohol Use History: Abuse, Daily, Heavy Additional Past Alcohol Use History / Comment(s): HAS SMOKED SINCE 1981, > 1PPD. pt states does drink alcohol states she was "on a binge" and has been for a couple days. Drinks a pint to a 5th of vodka a day Past Drug Use History: None Reported - Past Family History Father History Unknown: Yes Mother Family Medical History: Cancer Additional Family Medical History / Comment(s): liver Medications and Allergies Home Medications Medication Instructions Recorded Confirmed Type Budesonide/Formoterol Fumarate 2 puff INHALATION RT-BID 01/29/19 12/29/21 History [Symbicort 160-4.5 Mcg Inhaler] Cholecalciferol [Vitamin D3 (25 25 mcg PO DAILY 04/20/21 12/29/21 History Mcg = 1000 Iu)] Furosemide [Lasix] 20 mg PO DAILY PRN 04/20/21 12/29/21 History LORazepam 0.5 mg PO HS PRN 04/20/21 12/29/21 History Thiamine [Vitamin B-1] 100 mg PO BID-W/MEALS 30 Days #60 04/23/21 12/29/21 Rx tab Gabapentin 800 mg PO DAILY 12/29/21 12/29/21 History lamoTRIgine 100 mg PO DAILY 12/29/21 12/29/21 History Allergies Allergy/AdvReac Type Severity Reaction Status Date / Time No Known Allergies Allergy Verified 12/29/21 21:44 Physical Exam Vitals: Vital Signs Temp Pulse Resp BP Pulse Ox 01/01/22 06:27 98.2 F 86 16 127/81 98 01/01/22 00:03 97.7 F 86 18 114/74 96 12/31/21 18:47 98.3 F 90 16 104/63 94 L 12/31/21 14:58 98.4 F 96 16 114/73 96 Intake and Output 12/31/21 01/01/22 01/01/22 22:59 06:59 14:59 Intake Total 180 118 Balance 180 118 Intake: Oral 180 118 Other: # Voids 1 1 - Constitutional General appearance: no acute distress - EENT Eyes: EOMI ENT: hearing grossly normal - Neck Neck: no lymphadenopathy - Respiratory Respiratory: bilateral: CTA - Cardiovascular Rhythm: regular - Gastrointestinal General gastrointestinal: no distended - Integumentary Integumentary: no calor, no cellulitis - Neurologic Neurologic: CNII-XII intact - Musculoskeletal Musculoskeletal: right sided weakness (Likely pain - difficulty lifting right leg off of bed - 3/5 strength) - Psychiatric Psychiatric: appropriate affect Results CBC & Chem 7: 12/29/21 20:29 12/29/21 20:22 Labs: Abnormal Lab Results - Last 24 Hours (Table) 12/30/21 Range/Units 13:34 Albumin (PEP) 3.70 L (3.80-4.90) g/dL CT scan - abdomen: report reviewed, image reviewed CT scan - chest: image reviewed CT scan - pelvis: image reviewed Assessment and Plan Assessment: The patient is a 56-year-old female with a history of a locally advanced invasive lobular carcinoma of the left breast, ER/FL positive and HER-2 negative. She was treated with neoadjuvant chemotherapy, followed by left m odified radical mastectomy which did reveal residual invasive disease measuring 2.8 cm with 2 positive lymph nodes. She underwent chest wall radiotherapy in November 2013. The patient intermittently took her AI over the subsequent years. She now however presents with one month of right-sided hip pain, and a bone scan concerning for disease metastatic to the bone. Plan: 1. Right hip pain: Likely secondary to bone metastases. Orthopedics did evaluate the patient, and recommended ortho oncology eval. the patient is pushing for discharge, so this may need to be performed on an outpatient basis. I discussed with the patient that if she requires surgical stabilization with a rachelle placement, that would be performed prior to palliative radiation. I explained that the other treatment option includes a palliative course of radiation. I recommended this considering the patient has intractable pain, and difficulty with ambulation. 2. Bone lesions: Although we do not have pathologic proof of her diagnosis, these are likely metastasis from the patient's underlying breast cancer. She has elevated tumor markers as well as a history of locally advanced breast ca ncer approximately 9 years ago. She has been noncompliant at times with her adjuvant endocrine therapy. She will discuss further management with Dr. Kwok. Time with Patient: Greater than 30
--- NOTE | 2022-01-01 16:01 | CT ---
EXAMINATION TYPE: CT ChestAbdPelvis w con DATE OF EXAM: 01/01/2022 COMPARISON: CT dated 04/20/2021 and 05/31/2019 HISTORY: Breast cancer. CT DLP: 1185.5 mGycm Automated exposure control for dose reduction was used. CONTRAST: CT scan of the chest, abdomen and pelvis is performed with Oral Contrast and with IV Contrast, patien t injected with 100ml mL of Isovue 300. FINDINGS: LUNGS: The lungs are grossly clear, there is no concerning parenchymal mass or nodule identified. T here is no pleural effusion or pneumothorax seen. The tracheobronchial tree is patent. MEDIASTINUM: Slightly more prominent prevascular lymph nodes yet of subcentimeter size. No pathologic ally enlarged lymph nodes in the chest. No gross cardiomegaly. Scattered arterial atherosclerotic santana cifications. No pericardial effusion. OTHER: Right thyroid lobe heterogeneous hypodensity with tiny calcification, please correlate with t hyroid ultrasound results. Previous left mastectomy. Irregular lucencies/fractured right coracoid pro cess, please correlate clinically. Left humeral head well-defined lucencies, not appreciated previous ly. Healed/healing fractures of the left eighth, ninth and 10th ribs as well as the right first, thir d, fourth and 10th ribs. Underlying lesions cannot be excluded. Recommend clinical correlation and co llection with bone scan results. LIVER/GB: Nodular outline of the liver, please correlate with liver function tests and hepatic viral serology. Previous cholecystectomy. No definite hepatic focal lesion identified. PANCREAS: No significant abnormality is seen. SPLEEN: No significant abnormality is seen. ADRENALS: No significant abnormality is seen. KIDNEYS: No significant abnormality is seen. BOWEL: Fecal loading of the colon. Unremarkable stomach, duodenum and small bowel. REPRODUCTIVE ORGANS: No gross uterine or adnexal mass. LYMPH NODES: Slightly more prominent left retroperitoneal lymph node measuring 10 mm compared to 7 mm previously. Other subcentimeter retroperitoneal and left common iliac lymph nodes. No pathologically enlarged lymph nodes in the abdomen or the pelvis. OSSEOUS STRUCTURES: Multiple osseous lucencies are seen within the lumbar vertebra and pelvic bones a s well as proximal femoral bones, not appreciated previously, likely metastatic. OTHER: Arterial atherosclerotic calcifications. No sizable ascites. IMPRESSION: Extensive widespread osseous lesions as described above, likely metastatic. Multiple myeloma cannot b e excluded. Recommend clinical correlation, further workup and correlation with bone scan results. More prominent prevascular thoracic lymph nodes as well as retroperitoneal lymph nodes yet still of s ubcentimeter size, attention on follow-up. No other metastatic disease seen in the chest, abdomen or the pelvis. Other incidental findings and r ecommendations as detailed above.
--- NOTE | 2022-01-01 18:50 | P.PN ---
Subjective Progress Note Date: 01/01/22 Principal diagnosis: bone lesions In f/u today pt is still c/o hip pain, no loss of muscle strength, numbness or tingling. Objective - Vital Signs Vital signs: Vital Signs Temp 98.2 F 01/01/22 06:27 Pulse 86 01/01/22 06:27 Resp 16 01/01/22 06:27 BP 127/81 01/01/22 06:27 Pulse Ox 98 01/01/22 06:27 Intake & Output 12/31/21 01/01/22 01/01/22 18:59 06:59 18:59 Intake Total 638 118 Balance 638 118 Intake: Oral 638 118 Other: Voiding Method Bedside Commode # Voids 1 1 - Constitutional General appearance: Present: cooperative, mild distress, obese - EENT Eyes: Present: anicteric sclerae, EOMI ENT: Present: hearing grossly normal - Respiratory Respiratory: bilateral: diminished, other (shallow breaths) - Neurologic Neurologic: Present: CNII-XII intact (grossly) - Psychiatric Psychiatric: Present: A&O x's 3, appropriate affect, intact judgment & insight - Labs CBC & Chem 7: 12/29/21 20:29 12/29/21 20:22 Labs: Abnormal Lab Results - Last 24 Hours (Table) 12/30/21 Range/Units 13:34 Albumin (PEP) 3.70 L (3.80-4.90) g/dL - Imaging and Cardiology NM Bone scan report reviewed Assessment and Plan (1) Lytic bone lesion of femur Status: Acute Priority: High Code(s): M89.9 - DISORDER OF BONE, UNSPECIFIED SNOMED Code(s): 654862748 (2) History of breast cancer Status: Chronic Priority: High Code(s): Z85.3 - PERSONAL HISTORY OF MALIGNANT NEOPLASM OF BREAST SNOMED Code(s): 863077134 Plan: Elevated Ca15.3 - 102, elevated Ca 27.29 - 129. Reviewed bone scan results, widespread metastatic disease. One dose of zometa given. CT CAP ordered to complete restaging. Guardant 360 will be ordered on blood specimen, planned outpt. One dose of Zometa given. Pt may need referral to Ortho Onc but, will try XRT first, will discuss further with Rad Onc Out pt f/u attests: I have seen and examined patient, performed H&P, developed impression and plan of care. Discussed with dictator. Agree with documentation , dictated as a scribe
[2022-01-03 10:56] LABS: Free Lambda Lt Chain Qnt, Seru 2.57 mg/dL (0.57-2.63)
[2022-01-03 11:43] LABS: Free Kappa Lt Chain Qnt, Serum 1.97 mg/dL (0.33-1.94)
== END 2022-01-01 15:47 | disposition home or self-care (01) ==
LOC: EC 17:50 → 6NMEDSUR 20:55
PROVIDERS: ADMIT Family Medicine; ATTEND Family Medicine
DX: M89.9 Disorder of bone, unspecified (principal); M25.551 Pain in right hip; M79.651 Pain in right thigh; M25.561 Pain in right knee; F10.239 Alcohol dependence with withdrawal, unspecified; G62.1 Alcoholic polyneuropathy; F17.210 Nicotine dependence, cigarettes, uncomplicated; J44.9 Chronic obstructive pulmonary disease, unspecified; E11.9 Type 2 diabetes mellitus without complications; M81.0 Age-related osteoporosis without current pathological fracture; F32.A Depression, unspecified; G89.29 Other chronic pain; E04.2 Nontoxic multinodular goiter; R74.8 Abnormal levels of other serum enzymes; R29.6 Repeated falls; R63.4 Abnormal weight loss; Z79.811 Long term (current) use of aromatase inhibitors; Z79.51 Long term (current) use of inhaled steroids; Z79.899 Other long term (current) drug therapy; Z85.3 Personal history of malignant neoplasm of breast; Z79.810 Long term (current) use of selective estrogen receptor modulators (SERMs); Z17.0 Estrogen receptor positive status [ER+]; Z90.49 Acquired absence of other specified parts of digestive tract; Z92.21 Personal history of antineoplastic chemotherapy; Z90.12 Acquired absence of left breast and nipple; Z86.711 Personal history of pulmonary embolism; Z91.19 Patient's noncompliance with other medical treatment and regimen; Z80.0 Family history of malignant neoplasm of digestive organs
CPT/HCPCS: 96376 ×3; 96365; 96375; 99284; 36415; 94640 ×4; 97163; 86300 ×2; 80053; 85025; 81001; 84165; 86334; 83883; 73502; 73552; 71046; 71260; 74177; 78306; G0378 ×4; A9503; S4990 ×3; J2060 ×3; J3489; Q9967

== ENCOUNTER 2022-03-10 19:27 | Emergency (ER) | payer OTHER ==
[2022-03-10 19:31] VITALS: TEMP 97.6
[2022-03-10] MEDS ORDERED: HYDROmorphone 1 MG/ML 1 ML SYRINGE IVP STA ×2 (20:13→22:33)
[2022-03-10 20:39] LABS: Basophils # (A) 0.1 k/uL (0-0.2); Basophils % (A) 1 %; Eosinophils # (A) 0.1 k/uL (0-0.7); Eosinophils % (A) 2 %; HCT 39.1 % (34.0-46.0); HGB 12.8 gm/dL (11.4-16.0); Lymphocytes # (A) 0.6 k/uL (1.0-4.8); Lymphocytes % (A) 13 %; MCHC 32.7 g/dL (31.0-37.0); MCV 88.8 fL (80.0-100.0); Mean Platelet Volume 7.4; Monocytes # (A) 0.2 k/uL (0-1.0); Monocytes % (A) 4 %; Neutrophils # (A) 3.5 k/uL (1.3-7.7); Neutrophils % (A) 78 %; Platelet Count 276 k/uL (150-450); RBC 4.41 m/uL (3.80-5.40); RDW 15.2 % (11.5-15.5); WBC 4.5 k/uL (3.8-10.6)
[2022-03-10 20:50] LABS: Partial Thromboplastin Time 25.9 sec (22.0-30.0); Prothrombin Time 11.1 sec (9.0-12.0)
[2022-03-10 21:01] LABS: ALT 14 U/L (4-34); AST 26 U/L (14-36); African American GFR (CKD) >90 (>60 ml/min/1.73 sqM); Albumin 4.1 g/dL (3.5-5.0); Alkaline Phosphatase 111 U/L (38-126); Anion Gap 7 mmol/L; Blood Urea Nitrogen 8 mg/dL (7-17); Carbon Dioxide 26 mmol/L (22-30); Chloride 99 mmol/L (98-107); Glucose 108 mg/dL (74-99); Magnesium 1.8 mg/dL (1.6-2.3); Non-African American GFR(CKD) >90 (>60 ml/min/1.73 sqM); Potassium 3.7 mmol/L (3.5-5.1); Sodium 132 mmol/L (137-145); Total Bilirubin 0.5 mg/dL (0.2-1.3); Total Protein 7.5 g/dL (6.3-8.2)
--- NOTE | 2022-03-10 21:20 | ED ---
Chest Pain HPI - General Chief Complaint: Chest Pain Stated Complaint: Chest Pain Time Seen by Provider: 03/10/22 19:40 Source: patient Mode of arrival: ambulatory Limitations: no limitations - History of Present Illness Initial Comments: 56-year-old female with past history of metastatic breast cancer presents to the emergency department with anterior chest wall pain. States that she has history of breast cancer with metastatic disease to the bone. Patient is currently undergoing palliative radiation with Dr. Garcia. States this past weekend that she "overdid it" with her physical activity. She cut the grass yesterday and thought that she caused a chest wall strain. Patient has right-sided chest wall pain which is reproducible with palpation and movement. She does have narcotic medication at home which she takes for pain control and states that it has not been helping her symptoms. Patient currently wearing a fentanyl patch. She ad mits to mild associated shortness of breath. Patient has a history of a PE however has not been on any anticoagulation. States that she was directed by her surgeon that she didn't need it anymore. She denies fevers, chills or cough. No previous history of cardiac disease. No abdominal pain. No other alleviating, precipitating or modifying factors - Related Data Home Medications Medication Instructions Recorded Confirmed Budesonide/Formoterol Fumarate 2 puff INHALATION RT-BID 01/29/19 12/29/21 [Symbicort 160-4.5 Mcg Inhaler] Cholecalciferol [Vitamin D3 (25 25 mcg PO DAILY 04/20/21 12/29/21 Mcg = 1000 Iu)] Furosemide [Lasix] 20 mg PO DAILY PRN 04/20/21 12/29/21 LORazepam 0.5 mg PO HS PRN 04/20/21 12/29/21 Gabapentin 800 mg PO DAILY 12/29/21 12/29/21 lamoTRIgine 100 mg PO DAILY 12/29/21 12/29/21 Previous Rx's Medication Instructions Recorded Thiamine [Vitamin B-1] 100 mg PO BID-W/MEALS 30 Days #60 04/23/21 tab Allergies Allergy/AdvReac Type Severity Reaction Status Date / Time No Known Allergies Allergy Verified 03/10/22 19:30 Review of Systems ROS Statement: Those systems with pertinent positive or pertinent negative responses have been documented in the HPI. ROS Other: All systems not noted in ROS Statement are negative. EKG Findings - EKG Comments: EKG Findings:: EKG demonstrates sinus rhythm with a rate of 98. VT interval 160. QRS 85. QTC of 407. No acute ST segment elevations or depressions. 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 Past Anesthesia/Blood Transfusion Reactions: No Reported Reaction Past Psychological History: Depression Smoking Status: Current every day smoker Past Alcohol Use History: Abuse, Daily, Heavy Past Drug Use History: None Reported - Past Family History Father History Unknown: Yes Mother Family Medical History: Cancer Additional Family Medical History / Comment(s): liver General Exam Limitations: no limitations General appearance: alert, in no apparent distress Head exam: Present: atraumatic, normocephalic, normal inspection Eye exam: Present: normal appearance, PERRL, EOMI. Absent: scleral icterus, conjunctival injection, periorbital swelling ENT exam: Present: normal exam, mucous membranes moist Neck exam: Present: normal inspection. Absent: tenderness, meningismus, lymphadenopathy Respiratory exam: Present: normal lung sounds bilaterally, chest wall tenderness (midsternum). Absent: respiratory distress, wheezes, rales, rhonchi, stridor Cardiovascular Exam: Present: regular rate, normal rhythm, normal heart sounds. Absent: systolic murmur, diastolic murmur, rubs, gallop, clicks GI/Abdominal exam: Present: soft, normal bowel sounds. Absent: distended, tenderness, guarding, rebound, rigid Extremities exam: Present: normal inspection, full ROM, normal capillary refill. Absent: tenderness, pedal edema, joint swelling, calf tenderness Back exam: Present: normal inspection Neurological exam: Present: alert, oriented X3, CN II-XII intact Psychiatric exam: Present: normal affect, normal mood Skin exam: Present: warm, dry, intact, normal color. Absent: rash Course Vital Signs 03/10/22 03/10/22 19:29 23:29 Temperature 97.6 F Pulse Rate 103 H 78 Respiratory 20 18 Rate Blood Pressure 122/76 109/61 O2 Sat by Pulse 100 98 Oximetry Chest Pain MDM - MDM Upon arrival patient is placed into room 1. A thorough history and physical exam was performed. IV access established laboratory studies were conducted. 12-lead EKG was obtained. Review the patient's labs demonstrate a negative troponin. As the patient does have a previous history of PE and is not currently on any anticoagulation she is sent over for a CTA of her chest. CT demonstrates no evidence of pulmonary embolism. Multiple bilateral rib fractures which are similar to old exam with no pulmonary mass. No acute rib fractures. This information is discussed with the patient. Did offer additional pain control for which the patient does agree to additional pain medications. Offered admission however patient refused and states she feels comfortable with the current pain medications. Does have a follow-up appointment with radiation oncology tomorrow. Patient will be discharged home at this time and is to continue her home pain medications. Return to the emergency room for any new or worsening symptoms. Patient discharged home in stable condition Disposition Clinical Impression: Chest wall pain, Ribs, multiple fractures Disposition: HOME SELF-CARE Condition: Stable Instructions (If sedation given, give patient instructions): Chest Wall Pain (ED) Additional Instructions: Please follow up with your oncologist tomorrow for re-evaluation. Return to the ED for any new or worsening symptoms. Is patient prescribed a controlled substance at d/c from ED?: No Referrals: Matt Davila MD [Primary Care Provider] - 1-2 days Time of Disposition: 22:38
--- NOTE | 2022-03-10 22:01 | CT ---
EXAMINATION TYPE: CT chest angio for PE DATE OF EXAM: 03/10/2022 COMPARISON: 01/01/2022 HISTORY: Chest pain, recent radiation done on right sided ribs for bone cancer. CT DLP: 323.6 mGycm Automated exposure control for dose reduction was used. CONTRAST: Performed with IV Contrast, patient injected with 66ml mL of Isovue 370. Images obtained from the thoracic inlet to the diaphragm with IV contrast. There are 3-D post process ed images. The lungs are clear of consolidation. No evidence of a pulmonary mass. No mediastinal adenopathy. The re are no hilar masses. There is no evidence of filling defect in the pulmonary arteries. Thoracic ao rta is intact. No aneurysm or dissection. There are bilateral multiple rib fractures with callus form ation. No acute rib fracture. IMPRESSION: No evidence of pulmonary embolism. Multiple bilateral rib fractures similar to old exam no pulmonary mass.
[2022-03-10 23:30] VITALS: BP 109/61; PULSE 78; RESP 18
== END 2022-03-10 23:30 | disposition home or self-care (01) ==
LOC: EC 19:27
DX: S22.41XA Multiple fractures of ribs, right side, initial encounter for closed fracture (principal); E11.40 Type 2 diabetes mellitus with diabetic neuropathy, unspecified; F32.A Depression, unspecified; F17.200 Nicotine dependence, unspecified, uncomplicated; Z86.711 Personal history of pulmonary embolism; Z79.899 Other long term (current) drug therapy; X58.XXXA Exposure to other specified factors, initial encounter
CPT/HCPCS: 36415; 93005; 80053; 83735; 84484; 85025; 85610; 85730; 71275; 99284; 96374; 96376; J1170; Q9967

== ENCOUNTER → 2022-10-21 | Outpatient (CLI) | payer OTHER ==
--- NOTE | 2022-10-22 07:58 | XR ---
EXAMINATION TYPE: XR ribs bilateral DATE OF EXAM: 10/21/2022 4:20 PM INDICATION: Patient age:Female; 57 years old; Reason for study: C50.412; COMPARISON: Chest radiograph 12/30/2021 TECHNIQUE: Frontal and oblique views of the bilateral ribs with frontal chest radiograph. FINDINGS: Bilateral rib deformities are seen with callus formation. No obvious displaced acute fractu re. There is chondrocalcinosis present of the rib cages. Degeneration changes of the shoulder. No susanna dence of focal consolidation or pneumothorax. IMPRESSION: Bilateral rib deformities some of which look subacute to chronic. No obvious displaced acute fracture . Consider better evaluation evaluation of the ribs for acute fractures with CT chest
--- NOTE | 2022-10-22 08:07 | XR ---
EXAMINATION TYPE: XR lumbar spine 2 or 3V DATE OF EXAM: 10/21/2022 4:20 PM INDICATION: Patient age:Female; 57 years old; Reason for study: C50.412; COMPARISON: None TECHNIQUE: Frontal, lateral and coned in L5-S1 lateral views of the spine. FINDINGS: No evidence of any acute osseous pathology. Compression deformity of L1 which appears chron ic. There is normal alignment of the lumbar vertebral bodies. Mild scattered disc space narrowing. Mu ltilevel marginal osteophyte formation throughout the visualized spine. There is facet joint arthropa thy throughout the spine. Scattered at least mild neural foraminal stenosis. IMPRESSION: 1. Chronic appearing compression deformity of L1. 2. Mild multilevel disc degeneration.
== END | disposition home or self-care (01) ==
LOC: RADXRMAIN 15:55
PROVIDERS: ATTEND Internal Medicine Hematology & Oncology
DX: M48.56XA Collapsed vertebra, not elsewhere classified, lumbar region, initial encounter for fracture (principal); C50.412 Malignant neoplasm of upper-outer quadrant of left female breast; L50.9 Urticaria, unspecified; M95.4 Acquired deformity of chest and rib; M51.36 Other intervertebral disc degeneration, lumbar region; Z17.0 Estrogen receptor positive status [ER+]; R53.81 Other malaise
CPT/HCPCS: 71110; 72100

== ENCOUNTER 2022-12-11 21:17 | Inpatient (IN) | payer OTHER ==
[2022-12-11] MEDS ORDERED: LORazepam 2 MG/ML INJ IV STA ×2 (21:56→23:09)
[2022-12-11 22:24] LABS: Basophils % (A) 0 %; Eosinophils % (A) 0 %; HCT 41.6 % (34.0-46.0); HGB 13.6 gm/dL (11.4-16.0); Lymphocytes # (A) 0.6 k/uL (1.0-4.8); Lymphocytes % (A) 5 %; MCH 32.8 pg (25.0-35.0); MCHC 32.6 g/dL (31.0-37.0); MCV 100.5 fL (80.0-100.0); Macrocytosis Slight; Mean Platelet Volume 8.3; Monocytes % (A) 9 %; Neutrophils # (A) 9.1 k/uL (1.3-7.7); Neutrophils % (A) 83 %; Platelet Count 250 k/uL (150-450); RBC 4.14 m/uL (3.80-5.40); RDW 15.2 % (11.5-15.5)
[2022-12-11 22:27] LABS: VBG PH 7.37 (7.31-7.41)
[2022-12-11 22:36] LABS: Appearance,Urine Cloudy (Clear); Bilirubin,Urine Negative (Negative); Blood,Urine Negative (Negative); Color,Urine Yellow; Glucose,Urine (UA) Negative (Negative); Leukocyte Esterase,Urine Small (Negative); Mucus,Urine Many /hpf; Nitrite,Urine Negative (Negative); PH, Urine 6.5 (5.0-8.0); Protein,Urine 1+ (Negative); RBC,Urine 2 /hpf (0-5); Specific Gravity,Urine 1.028 (1.001-1.035); Squamous Epithelial Cell,Urine 3 /hpf (0-4); WBC,Urine 4 /hpf (0-5)
--- NOTE | 2022-12-11 22:41 | CT ---
EXAMINATION TYPE: CT brain wo con DATE OF EXAM: 12/11/2022 COMPARISON: None HISTORY: AMS CT DLP: 1217.4 mGycm Automated exposure control for dose reduction was used. Images of the brain obtained with no contrast. There is some enlargement of the ventricles. Exam limited by motion. There is cerebral cortical atrop hy. There is no mass effect or midline shift. No sign of intracranial hemorrhage. The calvarium is in tact. IMPRESSION: Cerebral atrophy. Mild hydrocephalus. No hemorrhage. Limited exam.
[2022-12-11 22:43] LABS: ALT 51 U/L (4-34); AST 86 U/L (14-36); African American GFR (CKD) >90 (>60 ml/min/1.73 sqM); Albumin 4.2 g/dL (3.5-5.0); Alcohol <10 mg/dL; Alkaline Phosphatase 169 U/L (38-126); Anion Gap 13 mmol/L; Blood Urea Nitrogen 7 mg/dL (7-17); Calcium 9.1 mg/dL (8.4-10.2); Carbon Dioxide 23 mmol/L (22-30); Chloride 98 mmol/L (98-107); Glucose 134 mg/dL (74-99); Ketones,Urine 2+ (Negative); Lipase 123 U/L (23-300); Magnesium 1.8 mg/dL (1.6-2.3); Non-African American GFR(CKD) >90 (>60 ml/min/1.73 sqM); Potassium 3.8 mmol/L (3.5-5.1); Sodium 134 mmol/L (137-145); Total Bilirubin 0.9 mg/dL (0.2-1.3)
[2022-12-11 22:48] LABS: INR 1.2 (<1.2); Prothrombin Time 12.5 sec (9.0-12.0)
--- NOTE | 2022-12-11 23:03 | XR ---
EXAMINATION TYPE: XR chest 1V DATE OF EXAM: 12/11/2022 COMPARISON: 12/30/2021 HISTORY: Altered mental status TECHNIQUE: FINDINGS: There is some coarsening of the interstitial markings in the upper lobes. No heart failure. There is old left-sided healed rib fractures. There are no hilar masses. There is old right-sided he aled rib fractures. No pleural effusion. There are no hilar masses. IMPRESSION: Mild interstitial density in the upper lobes could be some mild fibrosis. Old bilateral r ib fractures with increased callus formation compared to old exam.
--- NOTE | 2022-12-12 00:18 | CT ---
EXAMINATION TYPE: CT angio chest DATE OF EXAM: 12/11/2022 COMPARISON: 03/10/2022 HISTORY: elevated ddimer CT DLP: 2548 mGycm Automated exposure control for dose reduction was used. CONTRAST: Performed with IV Contrast, patient injected with 100 mL of Isovue 370. There are 3-D post processed images. The lungs are clear of consolidation. No pleural effusion or pneumothorax. There is no mediastinal ad enopathy. There are no hilar masses. Thoracic aorta is intact. No aneurysm. There is no evidence of f illing defect in the pulmonary arteries. There is old left-sided lateral healed rib fracture. There i s old right posterior healed rib fractures. No pneumothorax. The thoracic spine is intact. Sternum is intact. Exam limited slightly by motion. IMPRESSION: No evidence of pulmonary embolism. No suspicious pulmonary mass. Bilateral old rib fractures. No adve rse change.
[2022-12-12 03:29] LABS: Amphetamine Screen,Urine Detected (NotDetected); Barbiturate Screen,Urine Not Detected (NotDetected); Benzodiazepines Screen,Urine Not Detected (NotDetected); Cocaine Screen,Urine Not Detected (NotDetected); Methadone Screen, Urine Not Detected (NotDetected); Opiate Screen,Urine Detected (NotDetected); Oxycodone Screen, Urine Not Detected (NotDetected); Phencyclidine Screen,Urine Not Detected (NotDetected); Tricyclic Antidepressant,Urine Not Detected (NotDetected); Urn Cannabinoid Scrn Not Detected (NotDetected)
[2022-12-12] MEDS ORDERED: HALOPERIDOL LACTATE 5 MG/ML 1 ML VIAL IVP STA ×2 (03:42→04:31)
[2022-12-12] MEDS ORDERED: diphenhydrAMINE 50 MG/ML 1 ML VIAL IVP STA (04:31)
[2022-12-12] MEDS ORDERED: MORPHINE SULFATE 4 MG/ML SYRINGE IVP STA (04:39)
--- NOTE | 2022-12-12 04:43 | ED ---
General Adult HPI - General Chief complaint: Altered Mental Status Stated complaint: SOB Time Seen by Provider: 12/11/22 21:23 Source: EMS Mode of arrival: EMS Limitations: altered mental status - History of Present Illness Initial comments: This is a 57-year-old female with a past mental history including metastatic bone cancer and breast cancer presents emergency department via EMS for altered mental status. It was reported that the patient became altered to the family several hours prior to arrival. The patient reportedly was ANO 4 normally but is now ANO times one. The patient was not noted to have any acute distress and was having difficulties following commands. The patient denied of any acute deficits noted and was moving all extremities spontaneously. No further history could be obtained at this time by EMS and family was not present at the bedside on arrival. - Related Data Home Medications Medication Instructions Recorded Confirmed Budesonide/Formoterol Fumarate 2 puff INHALATION RT-BID 01/29/19 12/29/21 [Symbicort 160-4.5 Mcg Inhaler] Cholecalciferol [Vitamin D3 (25 25 mcg PO DAILY 04/20/21 12/29/21 Mcg = 1000 Iu)] Furosemide [Lasix] 20 mg PO DAILY PRN 04/20/21 12/29/21 LORazepam 0.5 mg PO HS PRN 04/20/21 12/29/21 Gabapentin 800 mg PO DAILY 12/29/21 12/29/21 lamoTRIgine 100 mg PO DAILY 12/29/21 12/29/21 Previous Rx's Medication Instructions Recorded Thiamine [Vitamin B-1] 100 mg PO BID-W/MEALS 30 Days #60 04/23/21 tab Allergies Allergy/AdvReac Type Severity Reaction Status Date / Time duloxetine Allergy Anaphylaxis Verified 11/08/22 09:55 Review of Systems ROS Statement: Those systems with pertinent positive or pertinent negative responses have been documented in the HPI. 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 Past Anesthesia/Blood Transfusion Reactions: No Reported Reaction Past Psychological History: Depression Smoking Status: Current every day smoker Past Alcohol Use History: Abuse, Daily, Heavy Past Drug Use History: None Reported - Past Family History Father History Unknown: Yes Mother Family Medical History: Cancer Additional Family Medical History / Comment(s): liver General Exam Limitations: altered mental status General appearance: alert, in no apparent distress Head exam: Present: atraumatic, normocephalic, normal inspection Eye exam: Present: normal appearance, PERRL Pupils: Present: normal accommodation ENT exam: Present: normal exam, normal oropharynx, mucous membranes moist Neck exam: Present: normal inspection, full ROM Respiratory exam: Present: normal lung sounds bilaterally Cardiovascular Exam: Present: normal rhythm, tachycardia, normal heart sounds GI/Abdominal exam: Present: soft, normal bowel sounds Rectal exam: Present: deferred Extremities exam: Present: normal inspection, full ROM Back exam: Present: normal inspection, full ROM Neurological exam: Present: alert, altered Psychiatric exam: Present: normal affect, normal mood Skin exam: Present: warm, dry Course Vital Signs 12/11/22 12/11/22 21:34 22:30 Temperature 100 F H Pulse Rate 99 96 Respiratory 20 20 Rate Blood Pressure 118/89 125/79 O2 Sat by Pulse 98 94 L Oximetry EKG Findings - EKG Comments: EKG Findings:: An EKG was obtained and was interpreted by myself showing a rate of 101, GA interval of 164, QRS duration of 86 and QTC of 402. This EKG showed a sinus tachycardia with no ST segment elevation or depression noted. Medical Decision Making - Medical Decision Making Was pt. sent in by a medical professional or institution (, PA, SENIOR MECHANICAL PROJECT ENGINEER, urgent care, hospital, or [facility]...) When possible be specific @ -No Did you speak to anyone other than the patient for history (EMS, parent, family, police, friend...)? What history was obtained from this source @ -Yes, EMS Did you review nursing and triage notes (agree or disagree)? Why? @ -I reviewed and agree with nursing and triage notes Were old charts reviewed (outside hosp., previous admission, EMS record, old EKG, old radiological studies, urgent care reports/EKG's, [facility] records)? Report findings @ -No old charts were reviewed Differential Diagnosis (chest pain, altered mental status, abdominal pain women, abdominal pain men, vaginal bleeding, weakness, fever, dyspnea, syncope, headache, dizziness, GI bleed, back pain, seizure, CVA, palpatations, mental health)? @ -Metastatic bone cancer, UTI, URI EKG interpreted by me (3pts min.). @ -As above X-rays interpreted by me (1pt min.). @ -Chest x-ray was obtained and was interpreted by myself showing mild interstitial density in the upper lobes that could be some mild fibrosis. There was also bilateral rib fractures with increased callus formation compared to the old exam. CT interpreted by me (1pt min.). @ -CT head was obtained and was interpreted by myself showing cerebral atrophy. There was mild hydrocephalus. There was no hemorrhage. There was some motion artifact secondary to patient movement. CTA of the chest was obtained due to the patient's elevated d-dimer. CTA of the chest was interpreted by myself showing no evidence of pulmonary and wasn't. There was no suspicious pulmonary mass. This bilateral old rib fractures. U/S interpreted by me (1pt. min.). @ -None done What testing was considered but not performed or refused? (CT, X-rays, U/S, labs)? Why? @ -None What meds were considered but not given or refused? Why? @ -None Did you discuss the management of the patient with other professionals (professionals i.e. , PA, SENIOR MECHANICAL PROJECT ENGINEER, lab, RT, psych nurse, sr. social media & mobile manager, tomato grader, teacher, facilities officer, case finisher)? Give summary @ -Yes, admitting physician Was smoking cessation discussed for >3mins.? @ -No Was critical care preformed (if so, how long)? @ -Yes, see above Were there social determinants of health that impacted care today? How? (Homelessness, low income, unemployed, alcoholism, drug addiction, transportation, low edu. Level, literacy, decrease access to med. care, custodial, rehab)? @ -No Was there de-escalation of care discussed even if they declined (Discuss DNR or withdrawal of care, Hospice)? DNR status @ -No What co-morbidities impacted this encounter? (DM, HTN, Smoking, COPD, CAD, Cancer, CVA, ARF, Chemo, Hep., AIDS, mental health diagnosis, sleep apnea, mor bid obesity)? @ -Stage IV bone cancer, breast cancer Was patient admitted / discharged? Hospital course, mention meds given and route, prescriptions, significant lab abnormalities, going to OR and other pertinent info. @ -The patient was seen and evaluated in the emergency department. Physical exam, the patient was resting in bed without any acute distress. The patient was ANO times one on arrival and did take several attempts to follow commands. The patient was however not any acute distress. Workup including laboratory workup, imaging and EKG were obtained. Laboratory workup was largely within normal limits. D-dimer was elevated and therefore CT was obtained. All imaging was also negative. The patient however continued to remain altered in the patient's family was present at the bedside. When I went to reevaluate the pa myrna after several traumas and critical patients came in, the patient's sister was at the bedside and asked about a drug screen. The patient reportedly is had multiple issues with methamphetamine abuse and she was found at her house with a large stack of toilet paper that was torn and multiple pieces and the patient was fidgeting. Urine drug screen was obtained and was positive for methamphetam ine and amphetamines. Her altered mental status likely secondary to methamphetamine abuse however due to the patient's altered mental status and constant agitation, the patient will be admitted for further workup and evaluation as well as observation. The patient's sister was agreeable to this plan and the patient was admitted in stable condition. Undiagnosed new problem with uncertain prognosis? @ -No Drug Therapy requiring intensive monitoring for toxicity (Heparin, Nitro, Insulin, Cardizem)? @ -No Were any procedures done? @ -No Diagnosis/symptom? @ -Altered mental status likely secondary to methamphetamine abuse Acute, or Chronic, or Acute on Chronic? @ -Acute on chronic Uncomplicated (without systemic symptoms) or Complicated (systemic symptoms)? @ -Complicated Side effects of treatment? @ -No Exacerbation, Progression, or Severe Exacerbation? @ -No Poses a threat to life or bodily function? How? (Chest pain, [place], [place], pneumonia, PE, COPD, DKA, ARF, appy, cholecystitis, CVA, Diverticulitis, Homicidal, Suicidal, threat to staff... and all critical care pts) @ -Yes, worsening altered mental status of permanent damage and possible . - Lab Data Result diagrams: 12/11/22 21:46 12/11/22 21:46 Lab Results 12/11/22 12/11/22 12/11/22 Range/Units 21:46 21:46 21:46 WBC 11.0 H (3.8-10.6) k/uL RBC 4.14 (3.80-5.40) m/uL Hgb 13.6 (11.4-16.0) gm/dL Hct 41.6 (34.0-46.0) % MCV 100.5 H (80.0-100.0) fL MCH 32.8 (25.0-35.0) pg MCHC 32.6 (31.0-37.0) g/dL RDW 15.2 (11.5-15.5) % Plt Count 250 (150-450) k/uL MPV 8.3 Neutrophils % 83 % Lymphocytes % 5 % Monocytes % 9 % Eosinophils % 0 % Basophils % 0 % Neutrophils # 9.1 H (1.3-7.7) k/uL Lymphocytes # 0.6 L (1.0-4.8) k/uL Monocytes # 1.0 (0-1.0) k/uL Eosinophils # 0.0 (0-0.7) k/uL Basophils # 0.0 (0-0.2) k/uL Macrocytosis Slight PT (9.0-12.0) sec INR (<1.2) APTT (22.0-30.0) sec D-Dimer (<0.60) mg/L FEU VBG pH (7.31-7.41) VBG pCO2 (37-51) mmHg VBG HCO3 (24-28) mmol/L Sodium 134 L (137-145) mmol/L Potassium 3.8 (3.5-5.1) mmol/L Chloride 98 (98-107) mmol/L Carbon Dioxide 23 (22-30) mmol/L Anion Gap 13 mmol/L BUN 7 (7-17) mg/dL Creatinine 0.39 L (0.52-1.04) mg/dL Est GFR (CKD-EPI)AfAm >90 (>60 ml/min/1.73 sqM) Est GFR (CKD-EPI)NonAf >90 (>60 ml/min/1.73 sqM) Glucose 134 H (74-99) mg/dL Calcium 9.1 (8.4-10.2) mg/dL Magnesium 1.8 (1.6-2.3) mg/dL Total Bilirubin 0.9 (0.2-1.3) mg/dL AST 86 H (14-36) U/L ALT 51 H (4-34) U/L Alkaline Phosphatase 169 H (38-126) U/L Ammonia (<30) umol/L Troponin I (0.000-0.034) ng/mL NT-Pro-B Natriuret Pep pg/mL Total Protein 8.0 (6.3-8.2) g/dL Albumin 4.2 (3.5-5.0) g/dL Lipase 123 (23-300) U/L Urine Color Yellow Urine Appearance Cloudy H (Clear) Urine pH 6.5 (5.0-8.0) Ur Specific [place] 1.028 (1.001-1.035) Urine Protein 1+ H (Negative) Urine Glucose (UA) Negative (Negative) Urine Ketones 2+ H (Negative) Urine Blood Negative (Negative) Urine Nitrite Negative (Negative) Urine Bilirubin Negative (Negative) Urine Urobilinogen 2.0 (<2.0) mg/dL Ur Leukocyte Esterase Small H (Negative) Urine RBC 2 (0-5) /hpf Urine WBC 4 (0-5) /hpf Ur Squamous Epith Cells 3 (0-4) /hpf Urine Mucus Many H (None) /hpf Urine Opiates Screen (NotDetected) Ur Oxycodone Screen (NotDetected) Urine Methadone Screen (NotDetected) Ur Propoxyphene Screen (NotDetected) Ur Barbiturates Screen (NotDetected) U Tricyclic Antidepress (NotDetected) Ur Phencyclidine Scrn (NotDetected) Ur Amphetamines Screen (NotDetected) U Methamphetamines Scrn (NotDetected) U Benzodiazepines Scrn (NotDetected) Urine Cocaine Screen (NotDetected) U Marijuana (THC) Screen (NotDetected) Serum Alcohol <10 mg/dL Influenza Type A (PCR) (Not Detectd) Influenza Type B (PCR) (Not Detectd) RSV (PCR) (Not Detectd) SARS-CoV-2 (PCR) (Not Detectd) 12/11/22 12/11/22 12/11/22 Range/Units 21:46 21:46 21:46 WBC (3.8-10.6) k/uL RBC (3.80-5.40) m/uL Hgb (11.4-16.0) gm/dL Hct (34.0-46.0) % MCV (80.0-100.0) fL MCH (25.0-35.0) pg MCHC (31.0-37.0) g/dL RDW (11.5-15.5) % Plt Count (150-450) k/uL MPV Neutrophils % % Lymphocytes % % Monocytes % % Eosinophils % % Basophils % % Neutrophils # (1.3-7.7) k/uL Lymphocytes # (1.0-4.8) k/uL Monocytes # (0-1.0) k/uL Eosinophils # (0-0.7) k/uL Basophils # (0-0.2) k/uL Macrocytosis PT (9.0-12.0) sec INR (<1.2) APTT (22.0-30.0) sec D-Dimer (<0.60) mg/L FEU VBG pH (7.31-7.41) VBG pCO2 (37-51) mmHg VBG HCO3 (24-28) mmol/L Sodium (137-145) mmol/L Potassium (3.5-5.1) mmol/L Chloride (98-107) mmol/L Carbon Dioxide (22-30) mmol/L Anion Gap mmol/L BUN (7-17) mg/dL Creatinine (0.52-1.04) mg/dL Est GFR (CKD-EPI)AfAm (>60 ml/min/1.73 sqM) Est GFR (CKD-EPI)NonAf (>60 ml/min/1.73 sqM) Glucose (74-99) mg/dL Calcium (8.4-10.2) mg/dL Magnesium (1.6-2.3) mg/dL Total Bilirubin (0.2-1.3) mg/dL AST (14-36) U/L ALT (4-34) U/L Alkaline Phosphatase (38-126) U/L Ammonia 20 (<30) umol/L Troponin I <0.012 (0.000-0.034) ng/mL NT-Pro-B Natriuret Pep 258 pg/mL Total Protein (6.3-8.2) g/dL Albumin (3.5-5.0) g/dL Lipase (23-300) U/L Urine Color Urine Appearance (Clear) Urine pH (5.0-8.0) Ur Specific [place] (1.001-1.035) Urine Protein (Negative) Urine Glucose (UA) (Negative) Urine Ketones (Negative) Urine Blood (Negative) Urine Nitrite (Negative) Urine Bilirubin (Negative) Urine Urobilinogen (<2.0) mg/dL Ur Leukocyte Esterase (Negative) Urine RBC (0-5) /hpf Urine WBC (0-5) /hpf Ur Squamous Epith Cells (0-4) /hpf Urine Mucus (None) /hpf Urine Opiates Screen (NotDetected) Ur Oxycodone Screen (NotDetected) Urine Methadone Screen (NotDetected) Ur Propoxyphene Screen (NotDetected) Ur Barbiturates Screen (NotDetected) U Tricyclic Antidepress (NotDetected) Ur Phencyclidine Scrn (NotDetected) Ur Amphetamines Screen (NotDetected) U Methamphetamines Scrn (NotDetected) U Benzodiazepines Scrn (NotDetected) Urine Cocaine Screen (NotDetected) U Marijuana (THC) Screen (NotDetected) Serum Alcohol mg/dL Influenza Type A (PCR) (Not Detectd) Influenza Type B (PCR) (Not Detectd) RSV (PCR) (Not Detectd) SARS-CoV-2 (PCR) (Not Detectd) 12/11/22 12/11/22 12/11/22 Range/Units 21:46 21:46 21:49 WBC (3.8-10.6) k/uL RBC (3.80-5.40) m/uL Hgb (11.4-16.0) gm/dL Hct (34.0-46.0) % MCV (80.0-100.0) fL MCH (25.0-35.0) pg MCHC (31.0-37.0) g/dL RDW (11.5-15.5) % Plt Count (150-450) k/uL MPV Neutrophils % % Lymphocytes % % Monocytes % % Eosinophils % % Basophils % % Neutrophils # (1.3-7.7) k/uL Lymphocytes # (1.0-4.8) k/uL Monocytes # (0-1.0) k/uL Eosinophils # (0-0.7) k/uL Basophils # (0-0.2) k/uL Macrocytosis PT 12.5 H (9.0-12.0) sec INR 1.2 H (<1.2) APTT 22.0 (22.0-30.0) sec D-Dimer 1.29 H (<0.60) mg/L FEU VBG pH 7.37 (7.31-7.41) VBG pCO2 48 (37-51) mmHg VBG HCO3 27 (24-28) mmol/L Sodium (137-145) mmol/L Potassium (3.5-5.1) mmol/L Chloride (98-107) mmol/L Carbon Dioxide (22-30) mmol/L Anion Gap mmol/L BUN (7-17) mg/dL Creatinine (0.52-1.04) mg/dL Est GFR (CKD-EPI)AfAm (>60 ml/min/1.73 sqM) Est GFR (CKD-EPI)NonAf (>60 ml/min/1.73 sqM) Glucose (74-99) mg/dL Calcium (8.4-10.2) mg/dL Magnesium (1.6-2.3) mg/dL Total Bilirubin (0.2-1.3) mg/dL AST (14-36) U/L ALT (4-34) U/L Alkaline Phosphatase (38-126) U/L Ammonia (<30) umol/L Troponin I (0.000-0.034) ng/mL NT-Pro-B Natriuret Pep pg/mL Total Protein (6.3-8.2) g/dL Albumin (3.5-5.0) g/dL Lipase (23-300) U/L Urine Color Urine Appearance (Clear) Urine pH (5.0-8.0) Ur Specific [place] (1.001-1.035) Urine Protein (Negative) Urine Glucose (UA) (Negative) Urine Ketones (Negative) Urine Blood (Negative) Urine Nitrite (Negative) Urine Bilirubin (Negative) Urine Urobilinogen (<2.0) mg/dL Ur Leukocyte Esterase (Negative) Urine RBC (0-5) /hpf Urine WBC (0-5) /hpf Ur Squamous Epith Cells (0-4) /hpf Urine Mucus (None) /hpf Urine Opiates Screen Detected H (NotDetected) Ur Oxycodone Screen Not Detected (NotDetected) Urine Methadone Screen Not Detected (NotDetected) Ur Propoxyphene Screen Not Detected (NotDetected) Ur Barbiturates Screen Not Detected (NotDetected) U Tricyclic Antidepress Not Detected (NotDetected) Ur Phencyclidine Scrn Not Detected (NotDetected) Ur Amphetamines Screen Detected H (NotDetected) U Methamphetamines Scrn Detected H (NotDetected) U Benzodiazepines Scrn Not Detected (NotDetected) Urine Cocaine Screen Not Detected (NotDetected) U Marijuana (THC) Screen Not Detected (NotDetected) Serum Alcohol mg/dL Influenza Type A (PCR) (Not Detectd) Influenza Type B (PCR) (Not Detectd) RSV (PCR) (Not Detectd) SARS-CoV-2 (PCR) (Not Detectd) 12/11/22 Range/Units 22:19 WBC (3.8-10.6) k/uL RBC (3.80-5.40) m/uL Hgb (11.4-16.0) gm/dL Hct (34.0-46.0) % MCV (80.0-100.0) fL MCH (25.0-35.0) pg MCHC (31.0-37.0) g/dL RDW (11.5-15.5) % Plt Count (150-450) k/uL MPV Neutrophils % % Lymphocytes % % Monocytes % % Eosinophils % % Basophils % % Neutrophils # (1.3-7.7) k/uL Lymphocytes # (1.0-4.8) k/uL Monocytes # (0-1.0) k/uL Eosinophils # (0-0.7) k/uL Basophils # (0-0.2) k/uL Macrocytosis PT (9.0-12.0) sec INR (<1.2) APTT (22.0-30.0) sec D-Dimer (<0.60) mg/L FEU VBG pH (7.31-7.41) VBG pCO2 (37-51) mmHg VBG HCO3 (24-28) mmol/L Sodium (137-145) mmol/L Potassium (3.5-5.1) mmol/L Chloride (98-107) mmol/L Carbon Dioxide (22-30) mmol/L Anion Gap mmol/L BUN (7-17) mg/dL Creatinine (0.52-1.04) mg/dL Est GFR (CKD-EPI)AfAm (>60 ml/min/1.73 sqM) Est GFR (CKD-EPI)NonAf (>60 ml/min/1.73 sqM) Glucose (74-99) mg/dL Calcium (8.4-10.2) mg/dL Magnesium (1.6-2.3) mg/dL Total Bilirubin (0.2-1.3) mg/dL AST (14-36) U/L ALT (4-34) U/L Alkaline Phosphatase (38-126) U/L Ammonia (<30) umol/L Troponin I (0.000-0.034) ng/mL NT-Pro-B Natriuret Pep pg/mL Total Protein (6.3-8.2) g/dL Albumin (3.5-5.0) g/dL Lipase (23-300) U/L Urine Color Urine Appearance (Clear) Urine pH (5.0-8.0) Ur Specific [place] (1.001-1.035) Urine Protein (Negative) Urine Glucose (UA) (Negative) Urine Ketones (Negative) Urine Blood (Negative) Urine Nitrite (Negative) Urine Bilirubin (Negative) Urine Urobilinogen (<2.0) mg/dL Ur Leukocyte Esterase (Negative) Urine RBC (0-5) /hpf Urine WBC (0-5) /hpf Ur Squamous Epith Cells (0-4) /hpf Urine Mucus (None) /hpf Urine Opiates Screen (NotDetected) Ur Oxycodone Screen (NotDetected) Urine Methadone Screen (NotDetected) Ur Propoxyphene Screen (NotDetected) Ur Barbiturates Screen (NotDetected) U Tricyclic Antidepress (NotDetected) Ur Phencyclidine Scrn (NotDetected) Ur Amphetamines Screen (NotDetected) U Methamphetamines Scrn (NotDetected) U Benzodiazepines Scrn (NotDetected) Urine Cocaine Screen (NotDetected) U Marijuana (THC) Screen (NotDetected) Serum Alcohol mg/dL Influenza Type A (PCR) Not Detected (Not Detectd) Influenza Type B (PCR) Not Detected (Not Detectd) RSV (PCR) Not Detected (Not Detectd) SARS-CoV-2 (PCR) Not Detected (Not Detectd) Critical Care Time Critical Care Time: Yes Total Critical Care Time: 36 Disposition Clinical Impression: AMS (altered mental status), Methamphetamine abuse Disposition: ADMITTED IP TO THIS [facility] Condition: Stable Instructions (If sedation given, give patient instructions): Altered Mental Status (ED), Polysubstance Abuse (ED) Is patient prescribed a controlled substance at d/c from ED?: No Referrals: Armen Kwok MD [Primary Care Provider] - 1-2 days Time of Disposition: 02:30 Decision to Admit Reason: Admit from EC Decision Date: 12/12/22 Decision Time: 02:30
[2022-12-12] MEDS ORDERED: NALOXONE 0.4 MG/ML 1 ML VIAL IV PRN (05:48)
[2022-12-12 10:45] LABS: Basophils % (A) 0 %; Eosinophils % (A) 0 %; HCT 35.1 % (34.0-46.0); HGB 12.1 gm/dL (11.4-16.0); Lymphocytes # (A) 0.4 k/uL (1.0-4.8); Lymphocytes % (A) 5 %; MCH 33.7 pg (25.0-35.0); MCHC 34.6 g/dL (31.0-37.0); MCV 97.4 fL (80.0-100.0); Mean Platelet Volume 8.2; Monocytes # (A) 0.6 k/uL (0-1.0); Monocytes % (A) 7 %; Neutrophils # (A) 7.8 k/uL (1.3-7.7); Neutrophils % (A) 85 %; Platelet Count 194 k/uL (150-450); RDW 15.6 % (11.5-15.5); WBC 9.1 k/uL (3.8-10.6)
[2022-12-12 11:00] LABS: ALT 45 U/L (4-34); AST 74 U/L (14-36); African American GFR (CKD) >90 (>60 ml/min/1.73 sqM); Albumin 3.7 g/dL (3.5-5.0); Albumin/Globulin Ratio 1.1; Alkaline Phosphatase 148 U/L (38-126); Anion Gap 10 mmol/L; Blood Urea Nitrogen 5 mg/dL (7-17); Calcium 8.6 mg/dL (8.4-10.2); Carbon Dioxide 23 mmol/L (22-30); Chloride 98 mmol/L (98-107); Globulin 3.4 g/dL; Glucose 121 mg/dL (74-99); Non-African American GFR(CKD) >90 (>60 ml/min/1.73 sqM); Potassium 3.1 mmol/L (3.5-5.1); Sodium 131 mmol/L (137-145); Total Bilirubin 0.9 mg/dL (0.2-1.3); Total Protein 7.1 g/dL (6.3-8.2)
[2022-12-12] MEDS: LORazepam 2 MG/ML INJ IV PRN ×3 (12:23→21:39)
[2022-12-12 17:20] LABS: Glucose,Whole Blood 122 mg/dL (70-110)
[2022-12-12 21:24] LABS: Glucose,Whole Blood 105 mg/dL (70-110)
[2022-12-13] MEDS: LORazepam 2 MG/ML INJ IV PRN (03:13)
[2022-12-13 05:50] LABS: Glucose,Whole Blood 108 mg/dL (70-110)
--- NOTE | 2022-12-13 10:59 | P.CNNES ---
History of Present Illness Consult date: 12/12/22 Requesting physician: Rick Arrington Reason for Consult: AMS History of Present Illness: Patient is a 57-year-old female, with history of metastatic breast cancer, came to the hospital. Patient not able to provide any history because of severe altered mental status and delirium. As per EMS flow sheet, when arrived, patient had low blood pressure and low oxygen saturation. When they arrived, patient was laying in an arm chair with her feet hanging over the arm, labored breathing, combative and altered. Family mentioned that patient has been sitting in her chair all day and has not moved much. Family mentioned that patient has stage IV bone cancer, breast cancer, COPD and cirrhosis of the liver. Family mentioned that patient was normally alert and oriented 4 and that today she had just gone downhill. manager strategic marketing placed a nasal cannula and got a reading of 80% on 4 L. Patient placed on nonrebreather at 10 L and saturation went up to 98%. Patient was still combative and uncooperative. Patient is always in pain because of bone metastasis. Patient was stood up to walk out to the house to the stretcher, but would push up with a group, fire Department and her son's and sit back down. Patient did this 3 times before she was able to be taken in the ambulance but made him move forward. EKG showed normal sinus rhythm. Patient was alert and oriented 2, blood glucose was 167 and temperature 98.7. Patient complaining of "everything hurts because of the bone cancer". Patient mentioned that she was having some trouble breathing but denied any chest pain. Also complaining of really bad headache and denied any blurred vision, dizziness or nausea vomiting. Patient's vitals at the scene was placed pressure 80/46 pulse rate 94 respiration 24. Repeat blood pressures were 77/49, and then 92/56. Vital signs on arrival blood pressure 118/89 pulse rate 99 temperature 100.0 rectal. She is afebrile. Blood tests showed WBC 11.0, hemoglobin 13.6, platelets 250. INR 1.2, sodium 134 potassium 3.8, renal functions normal. AST 86, ALT 51, troponin negative ammonia is normal 20. Lipase normal. UA negative, urine drug screen positive for opiates, amphetamines and methamphetamines. Influenza screen, RSV and coronal virus PCR negative. CT head revealed cerebral atrophy and mild hydrocephalus no hemorrhage. I personally reviewed CT head, reveals slight prominence of the ventricles. There is also significant amount of cortical atrophy as well. Chest x-ray revealed mild interstitial density in the upper lobes could be some mild fibrosis. Old bilateral rib fractures with increased callus formation compared to old exam. CTA of the chest negative for ulnar embolism. No suspicious pulmonary mass. Bilateral old rib fractures. EKG shows sinus tachycardia. Family members were not present at this time. Collateral history not available. Patient's nurse does not know any more details about it. 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 Past Anesthesia/Blood Transfusion Reactions: No Reported Reaction Past Psychological History: Depression Smoking Status: Current every day smoker Past Alcohol Use History: Abuse, Daily, Heavy Past Drug Use History: None Reported - Past Family History Father History Unknown: Yes Mother Family Medical History: Cancer Additional Family Medical History / Comment(s): liver Medications and Allergies Home Medications Medication Instructions Recorded Confirmed Type Cholecalciferol [Vitamin D3 (25 25 mcg PO DAILY 04/20/21 12/12/22 History Mcg = 1000 Iu)] Budesonide/Formoterol Fumarate 2 puff INHALATION RT-BID 12/12/22 12/12/22 Hist ory [Symbicort 160-4.5 Mcg Inhaler] Cetirizine HCl 10 mg PO DAILY 12/12/22 12/12/22 History Cyclobenzaprine [Flexeril] 5 mg PO TID 12/12/22 12/12/22 History Escitalopram [Lexapro] 10 mg PO DAILY 12/12/22 12/12/22 History INSULIN LISPRO (HumaLOG) [humaLOG] 1 - 7 units SQ ACHS 12/12/22 12/12/22 History Morphine Sulfate [Morphine Sulfate 30 mg PO BID 12/12/22 12/12/22 History ER] Piqray 200mg 200 mg PO DAILY 12/12/22 12/12/22 History Sennosides [Senokot] 8.6 mg PO HS 12/12/22 12/12/22 History oxyCODONE HCL/ACETAMINOPHEN 1 tab PO Q4H PRN 12/12/22 12/12/22 History [oxyCODONE HCL/ACETAMINOPHEN 5-325] polyethylene glycoL 3350 [Miralax] 17 gm PO DAILY 12/12/22 12/12/22 History Allergies Allergy/AdvReac Type Severity Reaction Status Date / Time duloxetine Allergy Anaphylaxis Verified 12/12/22 08:38 Physical Examination - Vital Signs Vital Signs: Vital Signs Temp Pulse Pulse Resp BP BP Pulse Ox 12/12/22 14:22 84 18 112/91 96 12/12/22 14:00 97.3 F L 66 17 105/52 98 12/12/22 11:34 97.2 F L 84 18 110/60 97 12/12/22 07:24 67 18 100/62 97 12/12/22 06:03 80 16 89/68 96 12/12/22 04:55 78 97 12/11/22 22:30 96 20 125/79 94 L 12/11/22 21:34 100 F H 99 20 118/89 98 Patient is a middle aged female, who appears older than her stated age. Patient is completely undressed. She has covers only in the lower part. Patient not continuously move the covers off her. Patient's nurse and custodial aide but accompanying with examination. Patient is severely encephalopathic, delirious, restless, partly awake, but snoring. Patient slightly mumbling. I did not hear any comprehensible sounds. Patient not able to tell me her name, age. Speech and language functions ca nnot be assessed because of mental status. No aphasia or dysarthria. Attention, concentration is completely impaired and fund of knowledge cannot be assessed due to mental status. On cranial nerve examination, pupils are equal, round and reacting to light, gaze is midline. Patient does move her eyes to the sides. Visual ernandez could not be assessed. Face is symmetric. Lower cranial nerves cannot be tested because of patient's noncooperation. No nystagmus noted at the primary gaze. On muscle strength testing, patient did not cooperate for muscle strength testing. Patient is moving all 4 exudates. She is very restless pressure sometimes rolls to the left, sometimes rolls to the right side. Deep tendon reflexes are symmetric diminished and plantars are withdrawal. Sensory to touch could not be assessed, but does move to painful stimuli equally. Cerebellar functions cannot be assessed. Tone is equal. Gait deferred.. On general examination, there is no carotid bruit or murmur, S1-S2 audible. Chest is clear on consultation. Abdomen is soft, protuberant nontender. No definitive organomegaly, bowel sounds present. Peripheral pulses are present. No edema. Patient has evidence of left mastectomy. Results - Laboratory Findings CBC and BMP: 12/12/22 10:09 12/12/22 10:09 Abnormal Lab Findings: Abnormal Labs 12/11/22 12/11/22 12/11/22 21:46 21:46 21:46 WBC 11.0 H RBC MCV 100.5 H RDW Neutrophils # 9.1 H Lymphocytes # 0.6 L PT INR D-Dimer Sodium 134 L Potassium BUN Creatinine 0.39 L Glucose 134 H AST 86 H ALT 51 H Alkaline Phosphatase 169 H Urine Appearance Cloudy H Urine Protein 1+ H Urine Ketones 2+ H Ur Leukocyte Esterase Small H Urine Mucus Many H Urine Opiates Screen Ur Amphetamines Screen U Methamphetamines Scrn 12/11/22 12/11/22 12/12/22 21:46 21:49 10:09 WBC RBC 3.60 L MCV RDW 15.6 H Neutrophils # 7.8 H Lymphocytes # 0.4 L PT 12.5 H INR 1.2 H D-Dimer 1.29 H Sodium Potassium BUN Creatinine Glucose AST ALT Alkaline Phosphatase Urine Appearance Urine Protein Urine Ketones Ur Leukocyte Esterase Urine Mucus Urine Opiates Screen Detected H Ur Amphetamines Screen Detected H U Methamphetamines Scrn Detected H 12/12/22 10:09 WBC RBC MCV RDW Neutrophils # Lymphocytes # PT INR D-Dimer Sodium 131 L Potassium 3.1 L BUN 5 L Creatinine 0.40 L Glucose 121 H AST 74 H ALT 45 H Alkaline Phosphatase 148 H Urine Appearance Urine Protein Urine Ketones Ur Leukocyte Esterase Urine Mucus Urine Opiates Screen Ur Amphetamines Screen U Methamphetamines Scrn Assessment and Plan Assessment: * Altered mental status, possible due to toxic metabolic encephalopathy, rule out alcohol withdrawal, versus hepatic encephalopathy. Rule out paraneoplastic syndrome. * Polysubstance abuse, with urine positive for amphetamines and opiates * Metastatic breast cancer with bone metastasis with recent history of radiation * Diabetes * Depression * History of alcoholism * Tobacco use Plan: * Ammonia is normal 20. * Check EEG * CIWA protocol * Suspect withdrawal. Observe closely. * Patient is a fall risk. Fall precautions. * We will try to obtain collateral history from family. * Neurology will follow. Thank you for the consult.
[2022-12-13 11:58] LABS: Glucose,Whole Blood 152 mg/dL (70-110)
[2022-12-13 16:59] LABS: Glucose,Whole Blood 108 mg/dL (70-110)
--- NOTE | 2022-12-13 18:46 | HP ---
HISTORY AND PHYSICAL HISTORY OF PRESENT ILLNESS: A 57-year-old white female, metastatic bone cancer and breast cancer, came to emergency room with methamphetamine overdose. She is admitted under the floor. She has been taking all her clothes off, lying there comfortably in bed without her clothes. HOME MEDICATIONS: 1. Symbicort 160/4.5 two puffs b.i.d. 2. Lasix 20 mg daily. 3. Lorazepam 0.5 daily. 4. Gabapentin 800 daily. 5. Lamictal 100 mg daily. 6. Thiamine daily. ALLERGIES: Duloxetine. PAST MEDICAL HISTORY: Cancer, diabetes mellitus, pulmonary embolus, breast cancer, and neuropathy. PAST SURGICAL HISTORY: Appendectomy, breast surgery, cholecystectomy, and orthopedic surgery. PSYCHIATRIC HISTORY: Depression. SOCIAL HISTORY: Current everyday smoker. Heavy alcohol. Now, she is on methamphetamine, which is new. FAMILY HISTORY: Mother with cancer of the liver. PHYSICAL EXAMINATION: VITAL SIGNS: T-max 100, pulse 95 to 96, respiratory rate 18 to 20, blood pressure 118 to 125 over 70s to 90s, O2 of 94% to 98% on room air. HEENT: Normocephalic and atraumatic. Pupils are equal, round, and reactive to light and accommodation. HEMATOLOGY: Negative Homans. GI: Soft. NEUROLOGIC: She is alert and oriented x1. She is somnolent. She is moving in bed. She is totally naked. Does not obey commands . LABORATORY TESTS: EKG: Sinus tachy. No ST-T segment changes. ASSESSMENT: Polysubstance overdose secondary to alcohol intoxication and methamphetamine use. [facility] protocol. Fall precautions. Neurology consult. CT of the head shows mild hydrocephalus. CT of the chest for elevated D-dimer with no pulmonary embolism. No pulmonary mass. She has old rib fractures from falls. Prognosis is guarded. Get Neurology and Psych to see her H and P. MMODL / IJN: [id number] /
[2022-12-13 19:59] LABS: Glucose,Whole Blood 174 mg/dL (70-110)
[2022-12-13] MEDS: NICOTINE 21MG/24HR PATCH TRANSDERM SCH (21:40)
[2022-12-14] MEDS: ACETAMINOPHEN TAB 500 MG TAB PO PRN ×2 (01:07→21:07)
[2022-12-14 06:09] LABS: Glucose,Whole Blood 124 mg/dL (70-110)
[2022-12-14] MEDS: NICOTINE 21MG/24HR PATCH TRANSDERM SCH (08:48)
[2022-12-14 11:12] LABS: Glucose,Whole Blood 125 mg/dL (70-110)
--- NOTE | 2022-12-14 12:38 | PN ---
PROGRESS NOTE SUBJECTIVE: This is a 57-year-old white female, remains on Symbicort inhaler, oxycodone every 4 hours, morphine sulfate 30 b.i.d., Lexapro 10 daily for depression, Flexeril 5 t.i.d. for myalgias. She has metastatic breast cancer causing severe pain in her bones. Vitamin D3 25 mcg daily, cetirizine 10 mg daily. She used to take Lamictal for bipolar, I do not know why she stopped it but it looks like it is not active at this point, we are going to put her back on that. 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 She is to continue current treatments, possibly get on some for alcohol abuse also. Discussed with her, her breathing issues are bad and her COPD is bad. She is noncompliant with home medications also. Prognosis is guarded. Follow up in next 24 to 48 hours for possible discharge. OBJECTIVE: LUNGS: Scattered wheeze. CARDIOVASCULAR: S1, S2. PSYCH: She is giving appropriate answers. CARDIOVASCULAR: S1, S2. Discussed the case with her sons in the room. The patient's prognosis extremely guarded. Possibly put her back on her Lamictal, she was on it in the past. Prognosis guarded. MMODL / IJN: [id number] /
--- NOTE | 2022-12-14 13:43 | P.PN ---
Subjective Progress Note Date: 12/13/22 Patient was seen for follow-up. Patient's 2 sons were also present today. They mentioned that patient has history of stage IV breast cancer. It is in the hip, spine, ribs and the skull. He admits that patient does drink about 1 pint of whiskey/vodka or tequila almost daily. He does not know if she does any other substance abuse, as he states that he "does not get too much into her business". She does smoke one pack per day for long time. Patient's son states that the last time she drank was about Friday or Friday. He also mentions that he saw her on Friday, one day prior to arrival and she was with her friends acting very weird. Liver the next day on 12/11/2022, she was completely out. She was sick, vomiting, touching the cortez, although she remained awake and conscious, but no loss of consciousness. Patient's son believes that she is about "20-25%" back to baseline. Still not mentally at baseline. Objective - Vital Signs Vital signs: Vital Signs Temp 98.5 F 12/14/22 06:50 Pulse 93 12/14/22 06:50 Resp 18 12/14/22 06:50 BP 93/56 12/14/22 06:50 Pulse Ox 98 12/14/22 06:50 FiO2 Intake & Output 12/13/22 12/14/22 12/14/22 18:59 06:59 18:59 Other: Voiding Method Incontinent Incontinent Toilet # Voids 2 3 # Bowel Movements 2 - Exam Patient is very much alert and awake. She is fully dressed in her hospital gown. Patient states her name is "Cynthia sawant". She states her son is "Jarod" uncertain if she is making jokes, or she is delusional. Speech appears clear. Her dip painter is equal. The strength appears normal, detailed testing deferred because of her bone cancer and pain. No obvious ataxia. Visual ernandez are full. - Labs CBC & Chem 7: 12/12/22 10:09 12/12/22 10:09 Labs: Abnormal Lab Results - Last 24 Hours (Table) 12/13/22 12/14/22 12/14/22 Range/Units 19:58 06:08 11:10 POC Glucose (mg/dL) 174 H 124 H 125 H (70-110) mg/dL Assessment and Plan Assessment: * Altered mental status, possible due to toxic metabolic encephalopathy, rule out alcohol withdrawal, versus hepatic encephalopathy or substance abuse related. Rule out paraneoplastic syndrome. * Polysubstance abuse, with urine positive for amphetamines and opiates * Metastatic breast cancer with bone metastasis with recent history of radiation * Diabetes * Depression * History of alcoholism * Tobacco use Plan: * Ammonia is normal 20. * EEG was attempted, but patient completely declined, and showed fist to the staff, therefore was canceled today. * [facility] protocol * Suspect withdrawal. Observe closely. * Patient is a fall risk. Fall precautions. * Discussed with patient's 2 sons in detail as mentioned above.
[2022-12-14] MEDS: lamoTRIgine 25 MG TAB PO SCH ×2 (14:29→21:06)
[2022-12-14] MEDS: buPROPion SR 150 MG TABLET.ER PO SCH ×2 (14:29→21:07)
[2022-12-14] MEDS: PANTOPRAZOLE SODIUM 40 MG GRANULE PKT PO SCH (14:29)
[2022-12-14 16:35] LABS: Glucose,Whole Blood 125 mg/dL (70-110)
[2022-12-14] MEDS: SYMBICORT 160-4.5 MCG INHALER INHALATION SCH (20:53)
[2022-12-14 21:29] LABS: Glucose,Whole Blood 111 mg/dL (70-110)
[2022-12-15] MEDS: ACETAMINOPHEN TAB 500 MG TAB PO PRN (05:45)
[2022-12-15 05:55] LABS: Glucose,Whole Blood 119 mg/dL (70-110)
[2022-12-15] MEDS: NICOTINE 21MG/24HR PATCH TRANSDERM SCH (08:13)
[2022-12-15] MEDS: lamoTRIgine 25 MG TAB PO SCH ×2 (08:14→20:44)
[2022-12-15] MEDS: polyethylene glycoL 3350 17 GM POWD.PACK PO SCH (08:14)
[2022-12-15] MEDS: LORATADINE 10 MG TAB PO SCH (08:14)
[2022-12-15] MEDS: ESCITALOPRAM 10 MG TAB PO SCH (08:15)
[2022-12-15] MEDS: buPROPion SR 150 MG TABLET.ER PO SCH ×2 (08:15→20:45)
[2022-12-15] MEDS: PANTOPRAZOLE SODIUM 40 MG GRANULE PKT PO SCH (08:15)
[2022-12-15] MEDS: ALPELISIB PO SCH (08:16)
[2022-12-15] MEDS: SYMBICORT 160-4.5 MCG INHALER INHALATION SCH ×2 (09:43→20:27)
--- NOTE | 2022-12-15 11:06 | P.PN ---
Subjective Progress Note Date: 12/14/22 12/14/2022: Patient was seen for a follow-up. Patient has much improved. Patient admits to drinking 1 pint of liquor every day. Patient also admits to smoking Meth, took morphine and oxycodone with her friend before she became acutely encephalopathic. She states that she was trying to "goof around". 12/13/2022: Patient was seen for follow-up. Patient's 2 sons were also present today. They mentioned that patient has history of stage IV breast cancer. It is in the hip, spine, ribs and the skull. He admits that patient does drink about 1 pint of whiskey/vodka or tequila almost daily. He does not know if she does any other substance abuse, as he states that he "does not get too much into her business". She does smoke one pack per day for long time. Patient's son states that the last time she drank was about Friday or Friday. He also mentions that he saw her on Friday, one day prior to arrival and she was with her friends acting very weird. Liver the next day on 12/11/2022, she was completely out. She was sick, vomiting, touching the cortez, although she remained awake and conscious, but no loss of consciousness. Patient's son believes that she is about "20-25%" back to baseline. Still not mentally at baseline. Objective - Vital Signs Vital signs: Vital Signs Temp 98.6 F 12/14/22 13:50 Pulse 100 12/14/22 13:50 Resp 18 12/14/22 13:50 BP 96/64 12/14/22 13:50 Pulse Ox 98 12/14/22 13:50 FiO2 Intake & Output 12/13/22 12/14/22 12/14/22 18:59 06:59 18:59 Other: Voiding Method Incontinent Incontinent Toilet # Voids 2 3 3 # Bowel Movements 2 - Exam Patient is now fully alert and awake. She knows it is November 2022 and that she is in the hospital. She knows that she lives in [facility] and that she is currently in [facility]. She is fully dressed in her hospital gown. Speech appears clear. Her marine specialist is equal. The strength appears normal, detailed testing deferred because of her bone cancer and pain. No obvious ataxia. Visual ernandez are full. Patient walked to the bathroom hanging onto the IV pole and appeared very steady. - Labs CBC & Chem 7: 12/12/22 10:09 12/12/22 10:09 Labs: Abnormal Lab Results - Last 24 Hours (Table) 12/13/22 12/14/22 12/14/22 Range/Units 19:58 06:08 11:10 POC Glucose (mg/dL) 174 H 124 H 125 H (70-110) mg/dL 12/14/22 Range/Units 16:33 POC Glucose (mg/dL) 125 H (70-110) mg/dL Assessment and Plan Assessment: * Altered mental status, due to polysubstance abuse. Patient admits to smoking Meth, also using some morphine and oxycodone resulting in acute encephalop athy. Possible some component of alcohol withdrawal, versus hepatic encephalopathy as well. * Polysubstance abuse, with urine positive for amphetamines and opiates * Metastatic breast cancer with bone metastasis with recent history of radiation * Diabetes * Depression * History of alcoholism * Tobacco use Plan: * Patient's mentation is completely clear now. No other neurological workup indicated. * Ammonia is normal 20. * EEG was attempted, but patient completely declined, and showed fist to the staff, therefore was canceled today. No need for EEG, as patient's mentation was related to substance use. * [facility] protocol * Suspect withdrawal. Observe closely. * Patient is a fall risk. Fall precautions. * Neurologically clear for discharge. Patient counseled about abstinence from substance abuse and alcoholism.
[2022-12-15 17:09] LABS: Glucose,Whole Blood 120 mg/dL (70-110)
[2022-12-15 20:19] LABS: Glucose,Whole Blood 151 mg/dL (70-110)
[2022-12-16] MEDS: LORazepam 2 MG/ML INJ IV PRN ×6 (00:31→23:09)
--- NOTE | 2022-12-16 00:45 | PN ---
PROGRESS NOTE SUBJECTIVE: A 57-year-old white female, altered mental status with methamphetamine, metastatic breast cancer, COPD, alcohol on CIWA protocol. Ambulating around. Possibly discharge home tomorrow. OBJECTIVE: CARDIOVASCULAR: S1, S2. LUNGS: Clear. GI: Soft. HEMATOLOGY: Negative Homans. EXTREMITIES: Minimal tremor. PLAN: Methamphetamine overdose. Altered mental status. Alcoholism. COPD, CHF, diastolic. She has metastatic breast cancer. Prognosis guarded. Follow up in the next 24 to 48 hours. Possible discharge. MMODL / IJN: [id number] /
--- NOTE | 2022-12-16 02:13 | P.PN ---
Subjective Progress Note Date: 12/15/22 12/15/2022: Patient was seen for a follow-up. Per nursing report, patient is still confused. However when I examined the patient as below, patient is fully oriented. Patient does admit to having mild headache off and on for last 2 weeks. 12/14/2022: Patient was seen for a follow-up. Patient has much improved. Patient admits to drinking 1 pint of liquor every day. Patient also admits to smoking Meth, took morphine and oxycodone with her friend before she became acutely encephalopathic. She states that she was trying to "goof around". 12/13/2022: Patient was seen for follow-up. Patient's 2 sons were also present today. They mentioned that patient has history of stage IV breast cancer. It is in the hip, spine, ribs and the skull. He admits that patient does drink about 1 pint of whiskey/vodka or tequila almost daily. He does not know if she does any other substance abuse, as he states that he "does not get too much into her business". She does smoke one pack per day for long time. Patient's son states that the last time she drank was about Friday or Friday. He also mentions that he saw her on Friday, one day prior to arrival and she was with her friends acting very weird. Liver the next day on 12/11/2022, she was completely out. She was sick, vomiting, touching the cortez, although she remained awake and conscious, but no loss of consciousness. Patient's son believes that she is about "20-25%" back to baseline. Still not mentally at baseline. Objective - Vital Signs Vital signs: Vital Signs Temp 97.9 F 12/15/22 13:53 Pulse 104 H 12/15/22 13:53 Resp 19 12/15/22 13:53 BP 117/77 12/15/22 13:53 Pulse Ox 97 12/15/22 13:53 FiO2 Intake & Output 12/14/22 12/15/22 12/15/22 18:59 06:59 18:59 Other: Voiding Method Toilet Toilet Toilet # Voids 3 2 - Exam Patient is now fully alert and awake. She knows it is 12/15/2022 and that she is in the hospital in [facility], does not know the name of the hospital however. She knows that she lives in [facility]. Speech appears clear. Her authors motivational is equal. The strength appears normal, detailed testing deferred because of her bone cancer and pain. No obvious ataxia. Visual ernandez are full. Patient walked to the bathroom hanging onto the IV pole and appeared very steady. - Labs CBC & Chem 7: 12/12/22 10:09 12/12/22 10:09 Labs: Abnormal Lab Results - Last 24 Hours (Table) 12/14/22 12/15/22 12/15/22 Range/Units 21:27 05:54 17:04 POC Glucose (mg/dL) 111 H 119 H 120 H (70-110) mg/dL Assessment and Plan Assessment: * Altered mental status, due to polysubstance abuse. Patient admits to smoking Meth, also using some morphine and oxycodone resulting in acute encephalopathy. Possible some component of alcohol withdrawal, versus hepatic encephalopathy as well. * Polysubstance abuse, with urine positive for amphetamines and opiates * Metastatic breast cancer with bone metastasis with recent history of radiation * Diabetes * Depression * History of alcoholism * Tobacco use Plan: * Patient's mentation is completely clear now. No other neurological workup indicated. * Ammonia is normal 20. * EEG was attempted, but patient completely declined, and showed fist to the staff, therefore was canceled today. No need for EEG, as patient's mentation was related to substance use. * [facility] protocol * Suspect withdrawal. Observe closely. * Patient is a fall risk. Fall precautions. * Neurologically clear for discharge. Patient counseled about abstinence from substance abuse and alcoholism. * Dr. Leonides Zhu starting neurology service in the morning for any neurological concerns.
[2022-12-16] MEDS: PANTOPRAZOLE 40 MG TABLET PO SCH ×2 (06:07→18:43)
[2022-12-16] MEDS: SYMBICORT 160-4.5 MCG INHALER INHALATION SCH ×2 (08:50→20:03)
[2022-12-16] MEDS ORDERED: lamoTRIgine 100 MG TAB PO SCH (09:00)
[2022-12-16] MEDS: THIAMINE 100 MG TAB PO SCH (09:15)
[2022-12-16] MEDS: buPROPion SR 150 MG TABLET.ER PO SCH ×2 (09:15→20:39)
[2022-12-16] MEDS: lamoTRIgine 100 MG TAB PO SCH ×2 (09:15→20:39)
[2022-12-16] MEDS: ESCITALOPRAM 10 MG TAB PO SCH (09:15)
[2022-12-16] MEDS: NICOTINE 21MG/24HR PATCH TRANSDERM SCH (09:15)
[2022-12-16] MEDS: LORATADINE 10 MG TAB PO SCH (09:15)
[2022-12-16] MEDS: polyethylene glycoL 3350 17 GM POWD.PACK PO SCH (09:16)
[2022-12-16] MEDS: ALPELISIB PO SCH (10:56)
[2022-12-16] MEDS ORDERED: ZIPRASIDONE 20 MG VIAL IM STA (17:47)
[2022-12-17] MEDS: LORazepam 2 MG/ML INJ IV PRN ×3 (02:04→23:47)
[2022-12-17] MEDS: PANTOPRAZOLE 40 MG TABLET PO SCH ×2 (05:12→17:35)
[2022-12-17] MEDS: ALPELISIB PO SCH (07:18)
[2022-12-17] MEDS: LORATADINE 10 MG TAB PO SCH (07:24)
[2022-12-17] MEDS: THIAMINE 100 MG TAB PO SCH (07:24)
[2022-12-17] MEDS: lamoTRIgine 100 MG TAB PO SCH ×2 (07:24→20:33)
[2022-12-17] MEDS: polyethylene glycoL 3350 17 GM POWD.PACK PO SCH (07:24)
[2022-12-17] MEDS: buPROPion SR 150 MG TABLET.ER PO SCH ×2 (07:24→20:33)
[2022-12-17] MEDS: NICOTINE 21MG/24HR PATCH TRANSDERM SCH (07:24)
--- NOTE | 2022-12-17 07:36 | PN ---
PROGRESS NOTE SUBJECTIVE: This is a -[id number]-[id number] white female, she was much better today. Yesterday and today she is more confused and tremulous. She is not responding well. We are going to give her Ativan IV every 4 hours for anxiety. Psych, she appears to be obtunded DICTATION ENDS HERE MMODL / IJN: [id number] /
[2022-12-17] MEDS: SYMBICORT 160-4.5 MCG INHALER INHALATION SCH ×2 (08:17→20:11)
[2022-12-17] MEDS: ACETAMINOPHEN TAB 500 MG TAB PO PRN (22:47)
--- NOTE | 2022-12-18 04:53 | PN ---
PROGRESS NOTE SUBJECTIVE: She is more alert today CARDIOVASCULAR: S1, S2. LUNGS: Clear. PSYCH: Fair mood and affect. She is alert and oriented x3. ASSESSMENT: Methamphetamine abuse. Acute drug overdose and withdrawal syndromes. Follow up in the next 24 to 48 hours. discharge. Prognosis guarded. SHLOMO / JANEYN: [id number] /
[2022-12-18] MEDS: polyethylene glycoL 3350 17 GM POWD.PACK PO SCH (07:48)
[2022-12-18] MEDS: THIAMINE 100 MG TAB PO SCH (07:48)
[2022-12-18] MEDS: buPROPion SR 150 MG TABLET.ER PO SCH ×2 (07:48→20:17)
[2022-12-18] MEDS: PANTOPRAZOLE 40 MG TABLET PO SCH ×2 (07:48→17:41)
[2022-12-18] MEDS: LORATADINE 10 MG TAB PO SCH (07:48)
[2022-12-18] MEDS: lamoTRIgine 100 MG TAB PO SCH ×2 (07:48→20:17)
[2022-12-18] MEDS: NICOTINE 21MG/24HR PATCH TRANSDERM SCH (07:49)
[2022-12-18] MEDS: ALPELISIB PO SCH (07:54)
[2022-12-18] MEDS: SYMBICORT 160-4.5 MCG INHALER INHALATION SCH ×2 (08:50→21:28)
[2022-12-18 08:59] LABS: Basophils # (A) 0.04 X 10*3/uL (0.00-0.10); Basophils % (A) 0.6 %; Eosinophils # (A) 0.21 X 10*3/uL (0.04-0.35); Eosinophils % (A) 3.1 %; HCT 36.5 % (37.2-46.3); HGB 11.4 g/dL (12.0-15.0); Immature Grans, Automated 0.4 %; Lymphocytes # (A) 0.78 X 10*3/uL (0.90-5.00); Lymphocytes % (A) 11.4 %; MCH 30.9 pg (27.0-32.0); MCHC 31.2 g/dL (32.0-37.0); MCV 98.9 fL (80.0-97.0); Mean Platelet Volume 10.1 fL (9.5-12.2); Monocytes # (A) 0.82 X 10*3/uL (0.20-1.00); NRBC Per 100 WBC 0 /100 WBCS (0.0-0.0); Neutrophils # (A) 4.95 X 10*3/uL (1.80-7.70); Neutrophils % (A) 72.5 %; Platelet Count 295 X 10*3/uL (140-440); RBC 3.69 X 10*6/uL (4.10-5.20); RDW 15.1 % (11.5-14.5); WBC 6.83 X 10*3/uL (4.50-10.00)
[2022-12-18 09:22] LABS: African American GFR (CKD) 118.1 (60.0-200.0); Albumin 3.5 g/dL (3.8-4.9); Albumin/Globulin Ratio 1.06 (1.60-3.17); Anion Gap 7.8 mmol/L (10.00-18.00); BUN/Creat Ratio 10.83 Ratio (12.00-20.00); Blood Urea Nitrogen 6.5 mg/dL (9.0-27.0); Calcium 9.3 mg/dL (8.7-10.3); Carbon Dioxide 28.2 mmol/L (20.0-27.5); Globulin 3.3 g/dL (1.6-3.3); Non-African American GFR(CKD) 101.9 (60.0-200.0); Potassium 3.3 mmol/L (3.5-5.5); Total Bilirubin 0.5 mg/dL (0.30-1.20); Total Protein 6.8 g/dL (6.2-8.2)
--- NOTE | 2022-12-18 14:21 | CT ---
EXAMINATION TYPE: CT brain wo con CT DLP: 1143.2 mGycm, Automated exposure control for dose reduction was used. DATE OF EXAM: 12/18/2022 2:03 PM COMPARISON: CT facial 06/22/2011., CT brain 12/11/2022. CLINICAL INDICATION:Female, 57 years old with history of unwitnessed fall, TECHNIQUE: Brain: Axial CT images of the brain were obtained with coronal and sagittal reformats created and rev iewed. Contrast used: None. Oral contrast used: None. FINDINGS: Brain: Extra-axial spaces: No abnormal extra-axial fluid collections. Ventricular system: Dilatation in proportion to cerebral atrophy. Cerebral parenchyma: Cerebral atrophy. No acute intraparenchymal hemorrhage or mass effect. The hendricks -white junction is well differentiated. Cerebellum: Unremarkable. Mass effect: No evidence of midline shift. Intracranial vasculature: Atherosclerotic calcifications of the intracranial vessels. Soft tissues: Normal. Calvarium/osseous structures: No depressed skull fracture. Paranasal sinuses and mastoid air cells: Mild scattered paranasal sinus disease. Scattered lucent are as are seen throughout the skull examples include: right frontal lobe measuring 14 mm, right posterio r parietal/occipital measuring up to 18 mm. Visualized orbits: Orbital contents are intact., IMPRESSION: No acute intracranial process. Lucent lesions are seen throughout the calvarium. Further evaluation with MRI with contrast is recomm ended correlate with history of malignancy. These are new from 2010 and not definitively in the field -of-view on prior's before CT brain 12/11/2022.
[2022-12-18] MEDS: ACETAMINOPHEN TAB 500 MG TAB PO PRN (17:41)
[2022-12-18] MEDS: LORazepam 2 MG/ML INJ IV PRN (22:46)
[2022-12-19] MEDS: SYMBICORT 160-4.5 MCG INHALER INHALATION SCH ×2 (08:41→20:47)
[2022-12-19] MEDS: ALPELISIB PO SCH (09:56)
[2022-12-19] MEDS: lamoTRIgine 100 MG TAB PO SCH ×2 (10:01→20:02)
[2022-12-19] MEDS: buPROPion SR 150 MG TABLET.ER PO SCH ×2 (10:01→20:02)
[2022-12-19] MEDS: polyethylene glycoL 3350 17 GM POWD.PACK PO SCH (10:01)
[2022-12-19] MEDS: PANTOPRAZOLE 40 MG TABLET PO SCH ×2 (10:01→17:54)
[2022-12-19] MEDS: LORATADINE 10 MG TAB PO SCH (10:02)
[2022-12-19] MEDS: NICOTINE 21MG/24HR PATCH TRANSDERM SCH (10:02)
[2022-12-19] MEDS: THIAMINE 100 MG TAB PO SCH (10:02)
[2022-12-19] MEDS: ACETAMINOPHEN TAB 500 MG TAB PO PRN ×2 (11:51→22:08)
[2022-12-19 11:54] VITALS: BMI 27.1
[2022-12-20] MEDS: LORazepam 2 MG/ML INJ IV PRN (02:01)
[2022-12-20] MEDS: ALPELISIB PO SCH (06:28)
[2022-12-20] MEDS: PANTOPRAZOLE 40 MG TABLET PO SCH ×2 (06:30→18:09)
[2022-12-20] MEDS: NICOTINE 21MG/24HR PATCH TRANSDERM SCH (08:34)
[2022-12-20] MEDS: buPROPion SR 150 MG TABLET.ER PO SCH (08:34)
[2022-12-20] MEDS: THIAMINE 100 MG TAB PO SCH (08:34)
[2022-12-20] MEDS: polyethylene glycoL 3350 17 GM POWD.PACK PO SCH (08:34)
[2022-12-20] MEDS: LORATADINE 10 MG TAB PO SCH (08:34)
[2022-12-20] MEDS: lamoTRIgine 100 MG TAB PO SCH ×2 (08:34→20:45)
[2022-12-20] MEDS: SYMBICORT 160-4.5 MCG INHALER INHALATION SCH ×2 (09:17→21:43)
[2022-12-20] MEDS: ACETAMINOPHEN TAB 500 MG TAB PO PRN ×2 (11:03→16:19)
--- NOTE | 2022-12-20 13:12 | PN ---
PROGRESS NOTE SUBJECTIVE: This is a 57-year-old white female, admitted with altered mental status, methamphetamine overdose. She is not doing well. She continues to fall as she is shaky. She does go into large withdrawal. She fell again yesterday going to the bathroom. She will need continuous monitoring. PROGNOSIS: Guarded. CONDITION: Stable. Please see further orders. MMODL / IJN: [id number] /
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
[2022-12-20] MEDS: OLANZapine ODT 5 MG TAB PO SCH (15:23)
[2022-12-21] MEDS: LORazepam 2 MG/ML INJ IV PRN ×2 (00:31→13:03)
[2022-12-21] MEDS: LORATADINE 10 MG TAB PO SCH (08:30)
[2022-12-21] MEDS: lamoTRIgine 100 MG TAB PO SCH ×2 (08:30→20:39)
[2022-12-21] MEDS: NICOTINE 21MG/24HR PATCH TRANSDERM SCH (08:32)
[2022-12-21] MEDS ORDERED: buPROPion SR 150 MG TABLET.ER PO SCH (09:00)
[2022-12-21] MEDS: SYMBICORT 160-4.5 MCG INHALER INHALATION SCH ×2 (09:49→20:32)
[2022-12-21] MEDS: ALPELISIB PO SCH (10:21)
[2022-12-21] MEDS: ACETAMINOPHEN TAB 500 MG TAB PO PRN (10:31)
[2022-12-21] MEDS: polyethylene glycoL 3350 17 GM POWD.PACK PO SCH (10:34)
[2022-12-21] MEDS: THIAMINE 100 MG TAB PO SCH (10:34)
[2022-12-21] MEDS: PANTOPRAZOLE 40 MG TABLET PO SCH ×2 (10:34→17:20)
[2022-12-21] MEDS: OLANZapine ODT 5 MG TAB PO SCH (16:36)
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
[2022-12-21] MEDS ORDERED: Potassium Replacement Protocol 1 EACH MISC MISCELLANE PRN (17:31)
[2022-12-21] MEDS: HALOPERIDOL LACTATE 5 MG/ML 1 ML VIAL IM PRN (20:30)
[2022-12-22] MEDS: PANTOPRAZOLE 40 MG TABLET PO SCH ×2 (06:15→18:00)
[2022-12-22] MEDS: NICOTINE 21MG/24HR PATCH TRANSDERM SCH (08:33)
[2022-12-22] MEDS: lamoTRIgine 100 MG TAB PO SCH ×2 (08:35→20:42)
[2022-12-22] MEDS: ALPELISIB PO SCH (08:35)
[2022-12-22] MEDS: LORATADINE 10 MG TAB PO SCH (08:35)
[2022-12-22] MEDS: OLANZapine ODT 5 MG TAB PO SCH ×2 (08:36→18:00)
[2022-12-22] MEDS: SYMBICORT 160-4.5 MCG INHALER INHALATION SCH ×2 (09:20→19:16)
[2022-12-22 11:00] LABS: Basophils # (A) 0.06 X 10*3/uL (0.00-0.10); Basophils % (A) 0.9 %; Eosinophils # (A) 0.21 X 10*3/uL (0.04-0.35); Eosinophils % (A) 3.2 %; HCT 39.1 % (37.2-46.3); HGB 12.4 g/dL (12.0-15.0); Immature Grans, Automated 0.6 %; Lymphocytes # (A) 0.63 X 10*3/uL (0.90-5.00); Lymphocytes % (A) 9.7 %; MCH 31.6 pg (27.0-32.0); MCHC 31.7 g/dL (32.0-37.0); MCV 99.7 fL (80.0-97.0); Mean Platelet Volume 10.1 fL (9.5-12.2); Monocytes # (A) 0.62 X 10*3/uL (0.20-1.00); Monocytes % (A) 9.5 %; NRBC Per 100 WBC 0 /100 WBCS (0.0-0.0); Neutrophils # (A) 4.95 X 10*3/uL (1.80-7.70); Neutrophils % (A) 76.1 %; Platelet Count 370 X 10*3/uL (140-440); RBC 3.92 X 10*6/uL (4.10-5.20); RDW 15.7 % (11.5-14.5); WBC 6.51 X 10*3/uL (4.50-10.00)
[2022-12-22 11:06] LABS: African American GFR (CKD) 118.1 (60.0-200.0); Albumin 3.6 g/dL (3.8-4.9); Anion Gap 10.9 mmol/L (10.00-18.00); BUN/Creat Ratio 8.83 Ratio (12.00-20.00); Blood Urea Nitrogen 5.3 mg/dL (9.0-27.0); Calcium 9.8 mg/dL (8.7-10.3); Carbon Dioxide 26.1 mmol/L (20.0-27.5); Globulin 3.6 g/dL (1.6-3.3); Non-African American GFR(CKD) 101.9 (60.0-200.0); Potassium 4.1 mmol/L (3.5-5.5); Total Bilirubin 0.4 mg/dL (0.30-1.20); Total Protein 7.2 g/dL (6.2-8.2)
[2022-12-22] MEDS: polyethylene glycoL 3350 17 GM POWD.PACK PO SCH (11:25)
[2022-12-22] MEDS: ACETAMINOPHEN TAB 500 MG TAB PO PRN (15:01)
--- NOTE | 2022-12-22 16:59 | P.PN ---
Subjective Progress Note Date: 12/22/22 Principal diagnosis: Altered mental status likely polysubstance abuse versus brain was tested size versus hepatic encephalopathy versus paraneoplastic syndrome 57-year-old female, with history of metastatic breast cancer, came to the hospital. Patient not able to provide any history because of severe altered mental status and delirium. As per EMS flow sheet, when arrived, patient had low blood pressure and low oxygen saturation. When they arrived, patient was laying in an arm chair with her feet hanging over the arm, labored breathing, combative and altered. Family mentioned that patient has been sitting in her chair all day and has not moved much. Family mentioned that patient has stage IV bone cancer, breast cancer, COPD and cirrhosis of the liver. Family mentioned that patient was normally alert and oriented 4 and that today she had just gone downhill. branner machine tender placed a nasal cannula and got a reading of 80% on 4 L. Patient placed on nonrebreather at 10 L and saturation went up to 98%. Patient was still combative and uncooperative. Patient is always in pain because of bone metastasis. Patient was stood up to walk out to the house to the stretcher, but would push up with a group, fire Department and her son's and sit back down. Patient did this 3 times before she was able to be taken in the ambulance but made him move fo rward. EKG showed normal sinus rhythm. Patient was alert and oriented 2, blood glucose was 167 and temperature 98.7. Patient complaining of "everything hurts because of the bone cancer". Patient mentioned that she was having some trouble breathing but denied any chest pain. Also complaining of really bad headache and denied any blurred vision, dizziness or nausea vomiting. Patient's vitals at the scene was placed pressure 80/46 pulse rate 94 respiration 24. Repeat blood pressures were 77/49, and then 92/56. Vital signs on arrival blood pressure 118/89 pulse rate 99 temperature 100.0 rectal. She is afebrile. Blood tests showed WBC 11.0, hemoglobin 13.6, platelets 250. INR 1.2, sodium 134 potassium 3.8, renal functions normal. AST 86, ALT 51, troponin negative ammonia is normal 20. Lipase normal. UA negative, urine drug screen positive for opiates, amphetamines and methamphetamines. Influenza screen, RSV and coronal virus PCR negative. CT head revealed cerebral atrophy and mild hydrocephalus no hemorrhage. I personally reviewed CT head, reveals slight prominence of the ventricles. There is also significant amount of cortical atrophy as well. Chest x-ray revealed m ild interstitial density in the upper lobes could be some mild fibrosis. Old bilateral rib fractures with increased callus formation compared to old exam. CTA of the chest negative for ulnar embolism. No suspicious pulmonary mass. Bilateral old rib fractures. EKG shows sinus tachycardia. Objective - Vital Signs Vital signs: Vital Signs Temp 97.3 F L 12/22/22 08:37 Pulse 99 12/22/22 08:37 Resp 18 12/22/22 08:37 BP 109/75 12/22/22 08:37 Pulse Ox 96 12/22/22 08:37 FiO2 Intake & Output 12/21/22 12/22/22 12/22/22 18:59 06:59 18:59 Intake Total 118 360 Balance 118 360 Intake: Oral 118 360 Other: # Voids 1 3 # Bowel Movements 1 1 - Exam PHYSICAL EXAMINATION: GENERAL: The patient is alert and oriented x3, not in any acute distress. Well developed, well nourished. HEENT: Pupils are round and equally reacting to light. EOMI. No scleral icterus. No conjunctival pallor. Normocephalic, atraumatic. No pharyngeal erythema. No thyromegaly. CARDIOVASCULAR: S1 and S2 present. No murmurs, rubs, or gallops. PULMONARY: Chest is clear to auscultation, no wheezing or crackles. ABDOMEN: Soft, nontender, nondistended, normoactive bowel sounds. No palpable organomegaly. MUSCULOSKELETAL: No joint swelling or deformity. EXTREMITIES: No cyanosis, clubbing, or pedal edema. NEUROLOGICAL: Gross neurological examination did not reveal any focal deficits. SKIN: No rashes. - Labs CBC & Chem 7: 12/22/22 07:19 12/22/22 07:19 Labs: Abnormal Lab Results - Last 24 Hours (Table) 12/22/22 12/22/22 Range/Units 07:19 07:19 RBC 3.92 L (4.10-5.20) X 10*6/uL MCV 99.7 H (80.0-97.0) fL MCHC 31.7 L (32.0-37.0) g/dL RDW 15.7 H (11.5-14.5) % Lymphocytes # 0.63 L (0.90-5.00) X 10*3/uL BUN 5.3 L (9.0-27.0) mg/dL BUN/Creatinine Ratio 8.83 L (12.00-20.00) Ratio Glucose 111 H (70-110) mg/dL AST 82 H (13-35) U/L ALT 54 H (8-44) U/L Alkaline Phosphatase 167 H (41-126) U/L Albumin 3.6 L (3.8-4.9) g/dL Globulin 3.6 H (1.6-3.3) g/dL Albumin/Globulin Ratio 1.00 L (1.60-3.17) g/dL Assessment and Plan Assessment: -- Altered mental status; likely toxic metabolic encephalopathy versus paraneoplastic syndrome versus brain metastasis versus substance abuse -- Polysubstance abuse; urine drug screen was positive for amphetamines and opiates - Metastatic breast cancer with bone metastases - Diabetes mellitus - History of depression -- Patient is being followed by psychiatry and neurology
--- NOTE | 2022-12-22 17:25 | P.PN ---
Progress Note - Text Interval History: Per sitter, patient has been calm and not agitated. She has been napping. Spoke with patient briefly. Patient then picked up the phone and started speaking on the phone. Per EMR, patient received Haldol 1 time last night. She did not receive any benzodiazepines Mental Status Exam: General Appearance: [Patient appears to be older than stated age, directable, and cooperative.] Behavior: Calm Speech: Normal rate and rhythm Mood/Affect: Affect improved since yesterday Suicidality/Homicidality: Patient denies having any suicidal or homicidal ideation intent or plan. Perceptions: Patient denies any visual hallucinations [and denies any auditory hallucinations] Though content/process: No delusions elicited during brief conversation Memory and concentration: AOX3 Judgment and insight: Improving IMPRESSIONS: Altered mental status - likely secondary to multiple etiologies including p olysubstance abuse, possible metastases to the brain, hepatic encephalopathy, paraneoplastic syndrome - appears to have improved today Depression Polysubstance abuse - methamphetamines and opiates, alcohol use disorder Metastatic breast cancer with bone metastases with recent history of radiation Tobacco use disorder PLAN: -Continue your medical management -Agree with neurology assessment and follow-up -At this time patient DOES NOT meet criteria for inpatient psychiatric admission. The patient is not presenting with overt stephanie or psychosis. Altered mental status likely secondary to pathology mentioned above. -TSH, B12, folate WNL -Delirium precautions recommended with patient including - avoiding use of narcotics and OCEANOGRAPHIC METEOROLOGIST sedatives, limit anticholinergic medications when possible, f requent re-orientation, minimize use of restraints, open window shades during the day and close them at night, DO NOT USE BENZOS BENZOS WILL MAKE HER WORSE, PLEASE GIVE HALDOL PRN FOR AGITATION -continue zyprexa 5 mg bid for agitation and lamictal 100 mg bid -Continue 1:1 sitter for safety -Will continue to follow along
[2022-12-22] MEDS: HALOPERIDOL LACTATE 5 MG/ML 1 ML VIAL IM PRN (23:58)
[2022-12-23] MEDS: ACETAMINOPHEN TAB 500 MG TAB PO PRN ×3 (01:38→17:50)
[2022-12-23] MEDS: PANTOPRAZOLE 40 MG TABLET PO SCH ×2 (05:39→17:50)
[2022-12-23] MEDS: lamoTRIgine 100 MG TAB PO SCH ×2 (09:48→20:43)
[2022-12-23] MEDS: LORATADINE 10 MG TAB PO SCH (09:48)
[2022-12-23] MEDS: NICOTINE 21MG/24HR PATCH TRANSDERM SCH (09:48)
[2022-12-23] MEDS: OLANZapine ODT 5 MG TAB PO SCH (09:49)
[2022-12-23] MEDS: polyethylene glycoL 3350 17 GM POWD.PACK PO SCH (09:50)
[2022-12-23] MEDS: ALPELISIB PO SCH (09:50)
[2022-12-23] MEDS: SYMBICORT 160-4.5 MCG INHALER INHALATION SCH ×2 (10:03→21:36)
--- NOTE | 2022-12-23 13:52 | P.PN ---
Progress Note - Text Progress Note Date: 12/23/22 Interval History: Patient was seen sitting upright in her chair and was directable and agreeable to speak with script writer in her room. Later, the patient is not reporting any suicidal or homicidal ideation, intention, and/or plan. She is not reporting any auditory or visual hallucinations. She is currently alert and oriented to person and place but not to time. The patient is unable to recall the date. She also is unable to identify the current president of [facility] is. However, the patient is not reporting any issues or concerns. After discussion with the patient's nurse, there is concern that the patient continues to have intermittent episodes of agitation and has been cursing at staff members. This occurs primarily at bedtime. She has otherwise been cooperative and polite with staff during the day. Mental Status Exam: General Appearance: Patient appears to be stated age is alert, directable, and cooperative. Behavior: Patient is calmly seated without any agitated behavior. Speech: Patient's speech is fluent and nonpressured. Some word finding d ifficulty. Mood/Affect: Mood is improving mildly, affect is congruent and constricted. Suicidality/Homicidality: Patient denies having any suicidal or homicidal ideation intent or plan. Perceptions: Patient denies any visual hallucinations and denies any auditory hallucinations Though content/process: There is no evidence of any delusional thought content and thought process is linear and goal-directed. Memory and concentration: Patient is alert and oriented to person and place only. Judgment and insight: Poor Vital Signs Temp 98.2 F 12/23/22 07:31 Pulse 97 12/23/22 08:00 Resp 20 12/23/22 08:00 BP 109/72 12/23/22 07:31 Pulse Ox 97 12/23/22 10:03 FiO2 Intake & Output 12/22/22 12/23/22 12/23/22 18:59 06:59 18:59 Intake Total 1999 1200 Balance 1999 1200 Intake: Oral 1999 1200 Other: Voiding Method Toilet # Voids 3 # Bowel Movements 2 Laboratory Results WBC 6.51 X 10*3/uL (4.50-10.00) 12/22/22 07:19 RBC 3.92 X 10*6/uL (4.10-5.20) L 12/22/22 07:19 Hgb 12.4 g/dL (12.0-15.0) 12/22/22 07:19 Hct 39.1 % (37.2-46.3) 12/22/22 07:19 MCV 99.7 fL (80.0-97.0) H 12/22/22 07:19 MCH 31.6 pg (27.0-32.0) 12/22/22 07:19 MCHC 31.7 g/dL (32.0-37.0) L 12/22/22 07:19 RDW 15.7 % (11.5-14.5) H 12/22/22 07:19 Plt Count 370 X 10*3/uL (140-440) 12/22/22 07:19 MPV 10.1 fL (9.5-12.2) 12/22/22 07:19 Immature Gran % (Auto) 0.6 % 12/22/22 07:19 Absolute Nucleated RBC 0 X 10*3/uL (0.00-0.00) 12/22/22 07:19 Neutrophils % 76.1 % 12/22/22 07:19 Lymphocytes % 9.7 % 12/22/22 07:19 Monocytes % 9.5 % 12/22/22 07:19 Eosinophils % 3.2 % 12/22/22 07:19 Basophils % 0.9 % 12/22/22 07:19 Immature Gran # 0.04 X 10*3/uL (0.00-0.04) 12/22/22 07:19 Neutrophils # 4.95 X 10*3/uL (1.80-7.70) 12/22/22 07:19 Lymphocytes # 0.63 X 10*3/uL (0.90-5.00) L 12/22/22 07:19 Monocytes # 0.62 X 10*3/uL (0.20-1.00) 12/22/22 07:19 Eosinophils # 0.21 X 10*3/uL (0.04-0.35) 12/22/22 07:19 Basophils # 0.06 X 10*3/uL (0.00-0.10) 12/22/22 07:19 NRBC/100 WBC Diff 0 /100 WBCS (0.0-0.0) 12/22/22 07:19 Macrocytosis Slight 12/11/22 21:46 PT 12.5 sec (9.0-12.0) H 12/11/22 21:49 INR 1.2 (<1.2) H 12/11/22 21:49 APTT 22.0 sec (22.0-30.0) 12/11/22 21:49 D-Dimer 1.29 mg/L FEU (<0.60) H 12/11/22 21:49 VBG pH 7.37 (7.31-7.41) 12/11/22 21:46 VBG pCO2 48 mmHg (37-51) 12/11/22 21:46 VBG HCO3 27 mmol/L (24-28) 12/11/22 21:46 Sodium 143 mmol/L (135-145) 12/22/22 07:19 Potassium 4.1 mmol/L (3.5-5.5) 12/22/22 07:19 Chloride 106 mmol/L (96-109) 12/22/22 07:19 Carbon Dioxide 26.1 mmol/L (20.0-27.5) 12/22/22 07:19 Anion Gap 10.90 mmol/L (10.00-18.00) 12/22/22 07:19 BUN 5.3 mg/dL (9.0-27.0) L 12/22/22 07:19 Creatinine 0.6 mg/dL (0.6-1.5) 12/22/22 07:19 Est GFR (CKD-EPI)AfAm 118.1 (60.0-200.0) 12/22/22 07:19 Est GFR (CKD-EPI)NonAf 101.9 (60.0-200.0) 12/22/22 07:19 BUN/Creatinine Ratio 8.83 Ratio (12.00-20.00) L 12/22/22 07:19 Glucose 111 mg/dL (70-110) H 12/22/22 07:19 POC Glucose (mg/dL) 151 mg/dL (70-110) H 12/15/22 20:18 POC Glu Barrel Scraper ID Phong Shukla 12/15/22 20:18 Calcium 9.8 mg/dL (8.7-10.3) 12/22/22 07:19 Magnesium 2.0 mg/dL (1.6-2.3) 12/21/22 12:13 Total Bilirubin 0.40 mg/dL (0.30-1.20) 12/22/22 07:19 AST 82 U/L (13-35) H 12/22/22 07:19 ALT 54 U/L (8-44) H 12/22/22 07:19 Alkaline Phosphatase 167 U/L (41-126) H 12/22/22 07:19 Ammonia 19 umol/L (<30) 12/21/22 12:13 Troponin I <0.012 ng/mL (0.000-0.034) 12/11/22 21:46 NT-Pro-B Natriuret Pep 258 pg/mL 12/11/22 21:46 Total Protein 7.2 g/dL (6.2-8.2) 12/22/22 07:19 Albumin 3.6 g/dL (3.8-4.9) L 12/22/22 07:19 Globulin 3.6 g/dL (1.6-3.3) H 12/22/22 07:19 Albumin/Globulin Ratio 1.00 g/dL (1.60-3.17) L 12/22/22 07:19 Lipase 123 U/L (23-300) 12/11/22 21:46 Vitamin B12 792.0 pg/mL (200.0-944.0) 12/20/22 06:21 Folate 11.80 ng/mL (4.40-31.00) 12/20/22 06:21 TSH 1.030 uIU/mL (0.350-5.500) 12/20/22 06:21 Urine Color Yellow 12/11/22 21:46 Urine Appearance Cloudy (Clear) H 12/11/22 21:46 Urine pH 6.5 (5.0-8.0) 12/11/22 21:46 Ur Specific [place] 1.028 (1.001-1.035) 12/11/22 21:46 Urine Protein 1+ (Negative) H 12/11/22 21:46 Urine Glucose (UA) Negative (Negative) 12/11/22 21:46 Urine Ketones 2+ (Negative) H 12/11/22 21:46 Urine Blood Negative (Negative) 12/11/22 21:46 Urine Nitrite Negative (Negative) 12/11/22 21:46 Urine Bilirubin Negative (Negative) 12/11/22 21:46 Urine Urobilinogen 2.0 mg/dL (<2.0) 12/11/22 21:46 Ur Leukocyte Esterase Small (Negative) H 12/11/22 21:46 Urine RBC 2 /hpf (0-5) 12/11/22 21:46 Urine WBC 4 /hpf (0-5) 12/11/22 21:46 Ur Squamous Epith Cells 3 /hpf (0-4) 12/11/22 21:46 Urine Mucus Many /hpf (None) H 12/11/22 21:46 Urine Opiates Screen Detected (NotDetected) H 12/11/22 21:46 Ur Oxycodone Screen Not Detected (NotDetected) 12/11/22 21:46 Urine Methadone Screen Not Detected (NotDetected) 12/11/22 21:46 Ur Propoxyphene Screen Not Detected (NotDetected) 12/11/22 21:46 Ur Barbiturates Screen Not Detected (NotDetected) 12/11/22 21:46 U Tricyclic Antidepress Not Detected (NotDetected) 12/11/22 21:46 Ur Phencyclidine Scrn Not Detected (NotDetected) 12/11/22 21:46 Ur Amphetamines Screen Detected (NotDetected) H 12/11/22 21:46 U Methamphetamines Scrn Detected (NotDetected) H 12/11/22 21:46 U Benzodiazepines Scrn Not Detected (NotDetected) 12/11/22 21:46 Urine Cocaine Screen Not Detected (NotDetected) 12/11/22 21:46 U Marijuana (THC) Screen Not Detected (NotDetected) 12/11/22 21:46 Serum Alcohol <10 mg/dL 12/11/22 21:46 Treponema pallidum Ab Nonreactive (Nonreactive) 12/20/22 06:21 Influenza Type A (PCR) Not Detected (Not Detectd) 12/11/22 22:19 Influenza Type B (PCR) Not Detected (Not Detectd) 12/11/22 22:19 RSV (PCR) Not Detected (Not Detectd) 12/11/22 22:19 SARS-CoV-2 (PCR) Not Detected (Not Detectd) 12/11/22 22:19 Assessment Altered mental status - likely secondary to multiple etiologies including polysubstance abuse, possible metastases to the brain, hepatic encephalopathy, paraneoplastic syndrome - appears stable at this time Depression Polysubstance abuse - methamphetamines and opiates, alcohol use disorder Metastatic breast cancer with bone metastases with recent history of radiation Tobacco use disorder Plan: -Continue your medical management -At this time patient DOES NOT meet criteria for inpatient psychiatric admission. The patient is not presenting with overt stephanie or psychosis. Altered mental status likely secondary to pathology mentioned above. -TSH, B12, folate WNL -Delirium precautions recommended with patient including - avoiding use of narcotics and CAD ADMINISTRATOR sedatives, limit anticholinergic medications when possible, frequent re-orientation, minimize use of restraints, open window shades during the day and close them at night -Increase Zyprexa to 5 mg in the morning and 10 mg at 6pm for agitation and continue lamictal 100 mg twice a day for mood and concerns for seizure disorder -Continue 1:1 sitter for safety -Psychiatry will loosely follow. However, the patient is psychiatrically cleared for discharge. Primary cause for the patient's altered mental status is likely due to polysubstance abuse, metastases, or paraneoplastic syndrome. She appears stable at this time. She does not have any overlying psychiatric pathology. Please call us with any questions or concerns.
[2022-12-23] MEDS: OLANZapine ODT 10 MG TAB PO SCH (17:49)
--- NOTE | 2022-12-24 03:20 | PN ---
PROGRESS NOTE DATE OF SERVICE: 12/23/2022 SUBJECTIVE: This is a 57-year-old woman who was admitted with change in mental status with polysubstance abuse versus hepatic encephalopathy, is being closely monitored. The patient remains confused. OBJECTIVE: VITAL SIGNS: Pulse is 100, blood pressure 109/70, respirations 18. CHEST: Clear to auscultation. CARDIOVASCULAR: S1 and S2. ABDOMEN: Soft. NERVOUS SYSTEM: Diffusely weak. LABS: Labs are reviewed, shows normal ammonia. ASSESSMENT: 1. Change in mental status, possibly polysubstance abuse and metabolic encephalopathy. 2. Possible hepatic encephalopathy. 3. Diabetes mellitus, type 2. 4. Multiple medical issues. 5. Metastatic breast cancer with bone metastasis. RECOMMENDATIONS: Recommend to continue current medications. Continue symptomatic treatment. Otherwise at this time, we will follow the patient closely, and Neurology and Psychiatry have been consulted and Dr. Davila will follow tomorrow. DELL / JANEYN: [id number] /
[2022-12-24] MEDS: PANTOPRAZOLE 40 MG TABLET PO SCH ×2 (07:00→17:33)
[2022-12-24] MEDS: ACETAMINOPHEN TAB 500 MG TAB PO PRN ×2 (07:00→20:58)
[2022-12-24] MEDS: HALOPERIDOL LACTATE 5 MG/ML 1 ML VIAL IM PRN ×2 (08:29→15:01)
[2022-12-24] MEDS: SYMBICORT 160-4.5 MCG INHALER INHALATION SCH ×2 (08:50→20:56)
[2022-12-24] MEDS: ALPELISIB PO SCH (09:19)
[2022-12-24] MEDS: LORATADINE 10 MG TAB PO SCH (09:20)
[2022-12-24] MEDS: polyethylene glycoL 3350 17 GM POWD.PACK PO SCH (09:20)
[2022-12-24] MEDS: OLANZapine ODT 5 MG TAB PO SCH (09:20)
[2022-12-24] MEDS: lamoTRIgine 100 MG TAB PO SCH ×2 (09:20→20:52)
[2022-12-24] MEDS: NICOTINE 21MG/24HR PATCH TRANSDERM SCH (09:20)
[2022-12-24] MEDS: OLANZapine ODT 10 MG TAB PO SCH (20:52)
[2022-12-25] MEDS: HALOPERIDOL LACTATE 5 MG/ML 1 ML VIAL IM PRN ×2 (00:12→15:23)
--- NOTE | 2022-12-25 06:55 | PN ---
PROGRESS NOTE SUBJECTIVE: A 57-year-old white female who has been very confused especially in the middle of the night she wakes up. She is supposed to be wearing oxygen at home. She has metastatic breast cancer. She sees Dr. Kwok as an outpatient. He got her on multiple medicines for that. Haldol has been given for confusion. She needs to wear oxygen in the night as she will have difficulties with confusion in the middle of the night. OBJECTIVE: CARDIOVASCULAR: S1, S2. LUNGS: Scattered wheeze. HEMATOLOGY: Negative Homans. VITAL SIGNS: Blood pressure 114/71, she is 94% on room air, but she needs to wear oxygen at night. PLAN: To help cut down the confusion, continue current treatments. Possible discharge home once her mental issues straightens up. Prognosis guarded. MMODL / IJN: [id number] /
[2022-12-25 07:59] LABS: ALT 55 U/L (4-34); AST 94 U/L (14-36); African American GFR (CKD) >90 (>60 ml/min/1.73 sqM); Albumin 3.5 g/dL (3.5-5.0); Albumin/Globulin Ratio 0.9; Alkaline Phosphatase 169 U/L (38-126); Anion Gap 7 mmol/L; Blood Urea Nitrogen 6 mg/dL (7-17); Calcium 9.7 mg/dL (8.4-10.2); Carbon Dioxide 29 mmol/L (22-30); Chloride 105 mmol/L (98-107); Globulin 3.7 g/dL; Glucose 124 mg/dL (74-99); Non-African American GFR(CKD) >90 (>60 ml/min/1.73 sqM); Potassium 4.5 mmol/L (3.5-5.1); Sodium 141 mmol/L (137-145); Total Bilirubin 0.4 mg/dL (0.2-1.3); Total Protein 7.2 g/dL (6.3-8.2)
[2022-12-25 08:58] LABS: Basophils % (A) 1 %; Eosinophils # (A) 0.2 k/uL (0-0.7); Eosinophils % (A) 3 %; HCT 38.9 % (34.0-46.0); HGB 12.7 gm/dL (11.4-16.0); Lymphocytes # (A) 0.5 k/uL (1.0-4.8); Lymphocytes % (A) 8 %; MCH 32.4 pg (25.0-35.0); MCHC 32.7 g/dL (31.0-37.0); MCV 99.1 fL (80.0-100.0); Macrocytosis Slight; Mean Platelet Volume 7.9; Monocytes # (A) 0.4 k/uL (0-1.0); Monocytes % (A) 6 %; Neutrophils # (A) 5.4 k/uL (1.3-7.7); Neutrophils % (A) 80 %; Platelet Count 313 k/uL (150-450); RBC 3.93 m/uL (3.80-5.40); RDW 15.5 % (11.5-15.5); WBC 6.8 k/uL (3.8-10.6)
[2022-12-25] MEDS: lamoTRIgine 100 MG TAB PO SCH ×2 (09:24→20:39)
[2022-12-25] MEDS: OLANZapine ODT 5 MG TAB PO SCH (09:24)
[2022-12-25] MEDS: LORATADINE 10 MG TAB PO SCH (09:24)
[2022-12-25] MEDS: NICOTINE 21MG/24HR PATCH TRANSDERM SCH (09:24)
[2022-12-25] MEDS: PANTOPRAZOLE 40 MG TABLET PO SCH ×2 (09:25→17:18)
[2022-12-25] MEDS: ACETAMINOPHEN TAB 500 MG TAB PO PRN ×2 (09:25→20:39)
[2022-12-25] MEDS: SYMBICORT 160-4.5 MCG INHALER INHALATION SCH ×2 (09:32→21:00)
[2022-12-25] MEDS: polyethylene glycoL 3350 17 GM POWD.PACK PO SCH (10:23)
[2022-12-25] MEDS: ALPELISIB PO SCH (10:23)
--- NOTE | 2022-12-25 14:35 | MR ---
EXAMINATION TYPE: MR brain wo/w con DATE OF EXAM: 12/25/2022 COMPARISON: CT brain 12/18/2022 HISTORY: AMS, Mets CONTRAST: Performed utilizing 6 mL intravenous Gadavist gadolinium contrast. TECHNIQUE: Multiplanar, multiecho imaging on a 3.0 Marni magnet is performed through the brain. Stud y is performed within 24 hours of arrival to the hospital. The craniovertebral junction is normal. The pituitary is normal. Diffusion-weighted imaging is performed. No abnormal hyperintensity is present to suggest an acute i ntracranial infarct or acute ischemic change. There is some periventricular white matter hyperintensity on inversion recovery weighted sequences, l ikely on the basis of chronic white matter ischemic change. Ventricles and sulci are appropriate for the patient age. IMPRESSIONS: 1. Mild age related atrophy. 2. No suspicious masses to suggest metastatic disease. 3. Chronic appearing periventricular white matter ischemic changes
[2022-12-25] MEDS: OLANZapine ODT 10 MG TAB PO SCH (17:18)
--- NOTE | 2022-12-25 17:55 | P.CONS ---
History of Present Illness - Reason for Consult Consult date: 12/25/22 metastatic breast cancer Requesting physician: Matt Davila - Chief Complaint AMS - History of Present Illness Ms Polanco is a pleasant female pt of Dr. Kwok, felt a lump in her left breast the beginning of 11/04, mammogram done which was negative. US on 11/06/12 revealed 2 m asses in her left breast , both between 2-3 cm, at 12 and 2 o'clock. She was seen by Dr Mayers and had a core biopsy of 12 o'clock lesion. This was positive for ER/ID +, Her2 neg invasive lobular carcinoma. The other lesion was also biopsied with path positive for the same. MRI indicated extensive confluent disease in the left breast. PET revealed no distant disease. BRCA testing was negative. She received neoadjuvant treatment. Patient unfortunately canceled surgery multiple times. Ultimately, left modified radical mastectomy with axillary lymph node dissection at [facility] in [place] 07/11/13. She had node positivity and residual tumor, was referred for chest wall and axillary radiation and competed that in 12/03. She was supposed to start Tamoxifen, but did not do so. She apparenty did follow up at [facility], and was recommended the same, but decided against taking it. Patient has followed up intermittently over the years. She has had bone only metastatic disease for many years, she has also been on multiple treatment modalities-Some never started, some only taken part of the time. Her most recent treatment was oral piqray, this was started back in October, patient took for about 2-3 days then stopped-reported terrible SE. She was hospitalized at [facility] for intractable pain . Finally, we achieved pain control for her at her last office visit which was 11/27/22, when she reported she was doing better. She was given the lowest dose of piqray at that time to try. She did not get her brain MRI that was scheduled for November. She has not been seen in the office since. early November. Pt unable to tell me if she started piqray, she has not been taking since her admission as the med has to be brought from home. She is not alert or oriented enough to discuss. Patient is admitted to the hospital with altered mental status and polysubstance intoxication. She is on day [address] head with and without contrast no evidence of metastasis, MRI of the brain with contrast no evidence of metastasis. 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 Past Anesthesia/Blood Transfusion Reactions: No Reported Reaction Past Psychological History: Depression Smoking Status: Current every day smoker Past Alcohol Use History: Abuse, Daily, Heavy Past Drug Use History: None Reported - Past Family History Father History Unknown: Yes Mother Family Medical History: Cancer Additional Family Medical History / Comment(s): liver Medications and Allergies Home Medications Medication Instructions Recorded Confirmed Type Cholecalciferol [Vitamin D3 (25 25 mcg PO DAILY 04/20/21 12/12/22 History Mcg = 1000 Iu)] Budesonide/Formoterol Fumarate 2 puff INHALATION RT-BID 12/12/22 12/12/22 History [Symbicort 160-4.5 Mcg Inhaler] Cetirizine HCl 10 mg PO DAILY 12/12/22 12/12/22 History Escitalopram [Lexapro] 10 mg PO DAILY 12/12/22 12/12/22 History INSULIN LISPRO (HumaLOG) [humaLOG] 1 - 7 units SQ ACHS 12/12/22 12/12/22 History Morphine Sulfate [Morphine Sulfate 30 mg PO BID 12/12/22 12/12/22 History ER] Piqray 200mg 200 mg PO DAILY 12/12/22 12/12/22 History Sennosides [Senokot] 8.6 mg PO HS 12/12/22 12/12/22 History oxyCODONE HCL/ACETAMINOPHEN 1 tab PO Q4H PRN 12/12/22 12/12/22 History [oxyCODONE HCL/ACETAMINOPHEN 5-325] polyethylene glycoL 3350 [Miralax] 17 gm PO DAILY 12/12/22 12/12/22 History Nicotine 21Mg/24Hr Patch [Habitrol] 1 patch TRANSDERM DAILY 30 Days 12/16/22 Rx #30 patch Pantoprazole [Protonix] 40 mg PO AC-BID 90 Days #180 tab 12/16/22 Rx buPROPion SR [Wellbutrin SR] 150 mg PO BID 30 Days #60 tab 12/16/22 Rx lamoTRIgine [LaMICtal] 100 mg PO BID 90 Days #180 tab 12/16/22 Rx Allergies Allergy/AdvReac Type Severity Reaction Status Date / Time duloxetine Allergy Anaphylaxis Verified 12/12/22 08:38 Physical Exam Vitals: Vital Signs Temp Pulse Resp BP Pulse Ox 12/25/22 09:32 97 12/25/22 08:19 111 H 18 12/25/22 07:05 98.4 F 111 H 18 115/77 95 12/25/22 02:00 97.9 F 110 H 16 105/71 94 L 12/24/22 19:51 96.9 F L 102 H 15 114/71 94 L Intake and Output 12/24/22 12/25/22 12/25/22 22:59 06:59 14:59 Other: Voiding Method Toilet Toilet # Voids 6 1 # Bowel Movements 1 - Constitutional General appearance: average body habitus, no acute distress - EENT Eyes: anicteric sclerae, EOMI ENT: hearing grossly normal - Neck Neck: no lymphadenopathy - Respiratory Respiratory: bilateral: rhonchi (few scattered) - Cardiovascular Rhythm: regular Heart sounds: normal: S1, S2 Abnormal Heart Sounds: no systolic murmur, no diastolic murmur, no rub, no S3 Gallop, no S4 Gallop, no click, no other leg Peripheral Edema: bilateral: Trace - Gastrointestinal General gastrointestinal: distended, normal bowel sounds, soft - Neurologic Neurologic: CNII-XII intact - Musculoskeletal Musculoskeletal: generalized weakness - Psychiatric Pt arouses briefly to voice, falls back asleep quickly Results CBC & Chem 7: 12/25/22 06:37 12/25/22 06:37 Labs: Abnormal Lab Results - Last 24 Hours (Table) 12/25/22 12/25/22 Range/Units 06:37 06:37 Lymphocytes # 0.5 L (1.0-4.8) k/uL BUN 6 L (7-17) mg/dL Glucose 124 H (74-99) mg/dL AST 94 H (14-36) U/L ALT 55 H (4-34) U/L Alkaline Phosphatase 169 H (38-126) U/L CT scan - chest: report reviewed CT Scan - head: report reviewed MRI - head: report reviewed Assessment and Plan (1) Breast cancer Current Visit: Yes Status: Chronic Priority: High Code(s): C50.919 - MALIGNANT NEOPLASM OF UNSP SITE OF UNSPECIFIED FEMALE BREAST SNOMED Code(s): 793137720 Plan: Altered mental status -most likely due to polysubstance abuse -Patient has been seen by psychiatry -MRI of the brain negative for metastatic disease Metastatic breast cancer -Patient is had bone only metastatic breast cancer for quite some time. She intermittently takes treatment, she misses many appointments. Patient is highly anxious, she has no social network/supportive people in her life, and has polysubstance abuse which makes cancer diagnosis and treatment of cancer extremely challenging for her. -The most recent treatment ordered was oral piqray. She is on the lowest dose. Uncertain to how many doses the patient is actually taken as she is unable to tell me -Patient missed most scheduled MRI brain back in November and has not seen an Oncology provider since of November. She has had brain MRI inpatient. No evidence of metastatic disease. Patient was not alert enough for me to review these results with her. -MRI of the brain negative for metastatic disease -Ca15.3 and 27.29 ordered -May consider CT CAP once pt is alert enough to cooperate.
[2022-12-26] MEDS: PANTOPRAZOLE 40 MG TABLET PO SCH ×2 (06:33→17:00)
[2022-12-26] MEDS: ALPELISIB PO SCH (08:44)
[2022-12-26] MEDS: polyethylene glycoL 3350 17 GM POWD.PACK PO SCH (08:45)
[2022-12-26] MEDS: lamoTRIgine 100 MG TAB PO SCH ×2 (08:46→23:00)
[2022-12-26] MEDS: OLANZapine ODT 5 MG TAB PO SCH (08:46)
[2022-12-26] MEDS: LORATADINE 10 MG TAB PO SCH (08:46)
[2022-12-26] MEDS: NICOTINE 21MG/24HR PATCH TRANSDERM SCH ×2 (08:46→08:47)
[2022-12-26] MEDS ORDERED: IOPAMIDOL CONTRAST (ORAL USE) VIAL PO PRN (08:51)
[2022-12-26] MEDS: SYMBICORT 160-4.5 MCG INHALER INHALATION SCH ×2 (09:19→20:14)
--- NOTE | 2022-12-26 11:22 | CT ---
EXAMINATION TYPE: CT ChestAbdPelvis w con DATE OF EXAM: 12/26/2022 COMPARISON: 01/01/2022 HISTORY: breast CA with mets CT DLP: 997.3 mGycm CONTRAST: CT scan of the chest, abdomen and pelvis is performed with Oral Contrast and with IV Contrast, patien t injected with 100 mL of Isovue 300. CT Chest: LUNGS: The lungs are clear and free of infiltrate or atelectasis. No pulmonary nodule or mass is det ected. No pleural effusion or CT evidence of interstitial lung disease. MEDIASTINUM: Thoracic aorta is of normal caliber. The heart is not enlarged. No evidence for media stinal mass or adenopathy. HILAR STRUCTURES: No evidence for mass. No hilar adenopathy is appreciated. OTHER: Left sided mastectomy changes noted. CONTRAST CT ABDOMEN AND PELVIS FINDINGS: LIVER/GB: Heterogenous enhancement throughout the liver suspicious for underlying diffuse metastase s. The gallbladder is surgically absent. No space occupying hepatic lesion. Biliary tree is of normal caliber. PANCREAS: No inflammation. No distinct mass. SPLEEN: No splenic enlargement. No lesion seen. ADRENALS: No nodule. No thickening. KIDNEYS/BLADDER: No hydronephrosis. No nephrolithiasis. No disctinct renal mass. BOWEL: Normal appendix. Normal bowel caliber. No inflammation. GENITAL ORGANS: No gross abnormality. LYMPH NODES: Para-aortic lymph nodes redemonstrated measuring up to 1.2 cm short axis essentially unc hanged. AORTA: No significant abnormality. OSSEOUS STRUCTURES: Diffuse bony metastases redemonstrated. OTHER: No significant additional abnormality is seen. IMPRESSION: 1. Diffuse heterogeneity throughout the liver suspicious for underlying metastatic disease. Consider further evaluation with ultrasound and/or MRI. 2. Diffuse bony metastases redemonstrated. 3. Stable para-aortic adenopathy.
--- NOTE | 2022-12-26 13:35 | P.PN ---
Progress Note - Text Progress Note Date: 12/26/22 Interval History: Patient was seen sitting upright in her chair and was directable and agreeable to speak with aligner typewriter in her room. Present in the room as the patient's father. The patient is currently presenting as somewhat disorganized however is able to identify her name, here, and room number. However, she appears to have difficulty identifying that she is in hospital. She is not endorsing any suicidal or homicidal ideation, and/or plan. Her father notes however that the patient appears to be speaking to people who are not present. The patient is also reportedly not sleeping well. There has been little improvement in regards to her disorganization and bizarre affect over the past few days. Mental Status Exam: General Appearance: Patient appears to be stated age is alert, directable, and cooperative. Behavior: Patient is calmly seated without any agitated behavior. Speech: Patient's speech is fluent and nonpressured. Word finding difficulty present. Disorganized, nonlinear. Mood/Affect: Mood is "okay," affect is congruent and constricted. Suicidality/Homicidality: Patient denies having any suicidal or homicidal ideation intent or plan. Perceptions: Patient denies any visual hallucinations. Father suspects auditory hallucinations. Though content/process: Somewhat disorganized. Memory and concentration: Patient is alert and oriented to person and time only. Judgment and insight: Poor Vital Signs Temp 97.7 F 12/26/22 08:00 Pulse 121 H 12/26/22 08:00 Resp 20 12/26/22 08:00 BP 122/81 12/26/22 08:00 Pulse Ox 93 L 12/26/22 02:00 FiO2 Intake & Output 12/25/22 12/26/22 12/26/22 18:59 06:59 18:59 Intake Total 0 Output Total 2 Balance -2 Intake: Oral 0 Output: Stool 2 Other: Voiding Method Toilet Toilet Bedside Commode # Voids 3 3 1 # Bowel Movements 1 1 Laboratory Results WBC 6.8 k/uL (3.8-10.6) 12/25/22 06:37 RBC 3.93 m/uL (3.80-5.40) 12/25/22 06:37 Hgb 12.7 gm/dL (11.4-16.0) 12/25/22 06:37 Hct 38.9 % (34.0-46.0) 12/25/22 06:37 MCV 99.1 fL (80.0-100.0) 12/25/22 06:37 MCH 32.4 pg (25.0-35.0) 12/25/22 06:37 MCHC 32.7 g/dL (31.0-37.0) 12/25/22 06:37 RDW 15.5 % (11.5-15.5) 12/25/22 06:37 Plt Count 313 k/uL (150-450) 12/25/22 06:37 MPV 7.9 12/25/22 06:37 Immature Gran % (Auto) 0.6 % 12/22/22 07:19 Absolute Nucleated RBC 0 X 10*3/uL (0.00-0.00) 12/22/22 07:19 Neutrophils % 80 % 12/25/22 06:37 Lymphocytes % 8 % 12/25/22 06:37 Monocytes % 6 % 12/25/22 06:37 Eosinophils % 3 % 12/25/22 06:37 Basophils % 1 % 12/25/22 06:37 Immature Gran # 0.04 X 10*3/uL (0.00-0.04) 12/22/22 07:19 Neutrophils # 5.4 k/uL (1.3-7.7) 12/25/22 06:37 Lymphocytes # 0.5 k/uL (1.0-4.8) L 12/25/22 06:37 Monocytes # 0.4 k/uL (0-1.0) 12/25/22 06:37 Eosinophils # 0.2 k/uL (0-0.7) 12/25/22 06:37 Basophils # 0.0 k/uL (0-0.2) 12/25/22 06:37 NRBC/100 WBC Diff 0 /100 WBCS (0.0-0.0) 12/22/22 07:19 Macrocytosis Slight 12/25/22 06:37 PT 12.5 sec (9.0-12.0) H 12/11/22 21:49 INR 1.2 (<1.2) H 12/11/22 21:49 APTT 22.0 sec (22.0-30.0) 12/11/22 21:49 D-Dimer 1.29 mg/L FEU (<0.60) H 12/11/22 21:49 VBG pH 7.37 (7.31-7.41) 12/11/22 21:46 VBG pCO2 48 mmHg (37-51) 12/11/22 21:46 VBG HCO3 27 mmol/L (24-28) 12/11/22 21:46 Sodium 141 mmol/L (137-145) 12/25/22 06:37 Potassium 4.5 mmol/L (3.5-5.1) 12/25/22 06:37 Chloride 105 mmol/L (98-107) 12/25/22 06:37 Carbon Dioxide 29 mmol/L (22-30) 12/25/22 06:37 Anion Gap 7 mmol/L 12/25/22 06:37 BUN 6 mg/dL (7-17) L 12/25/22 06:37 Creatinine 0.56 mg/dL (0.52-1.04) 12/25/22 06:37 Est GFR (CKD-EPI)AfAm >90 (>60 ml/min/1.73 sqM) 12/25/22 06:37 Est GFR (CKD-EPI)NonAf >90 (>60 ml/min/1.73 sqM) 12/25/22 06:37 BUN/Creatinine Ratio 8.83 Ratio (12.00-20.00) L 12/22/22 07:19 Glucose 124 mg/dL (74-99) H 12/25/22 06:37 POC Glucose (mg/dL) 151 mg/dL (70-110) H 12/15/22 20:18 POC Glu Help Desk Intern ID Phong Shukla 12/15/22 20:18 Calcium 9.7 mg/dL (8.4-10.2) 12/25/22 06:37 Magnesium 2.0 mg/dL (1.6-2.3) 12/21/22 12:13 Total Bilirubin 0.4 mg/dL (0.2-1.3) 12/25/22 06:37 AST 94 U/L (14-36) H 12/25/22 06:37 ALT 55 U/L (4-34) H 12/25/22 06:37 Alkaline Phosphatase 169 U/L (38-126) H 12/25/22 06:37 Ammonia 19 umol/L (<30) 12/21/22 12:13 Troponin I <0.012 ng/mL (0.000-0.034) 12/11/22 21:46 NT-Pro-B Natriuret Pep 258 pg/mL 12/11/22 21:46 Total Protein 7.2 g/dL (6.3-8.2) 12/25/22 06:37 Albumin 3.5 g/dL (3.5-5.0) 12/25/22 06:37 Globulin 3.7 g/dL 12/25/22 06:37 Albumin/Globulin Ratio 0.9 12/25/22 06:37 Lipase 123 U/L (23-300) 12/11/22 21:46 CA 15-3 Antigen 1467.0 U/mL (0.0-32.3) H 12/25/22 11:02 Vitamin B12 792.0 pg/mL (200.0-944.0) 12/20/22 06:21 Folate 11.80 ng/mL (4.40-31.00) 12/20/22 06:21 TSH 1.030 uIU/mL (0.350-5.500) 12/20/22 06:21 Urine Color Yellow 12/11/22 21:46 Urine Appearance Cloudy (Clear) H 12/11/22 21:46 Urine pH 6.5 (5.0-8.0) 12/11/22 21:46 Ur Specific [place] 1.028 (1.001-1.035) 12/11/22 21:46 Urine Protein 1+ (Negative) H 12/11/22 21:46 Urine Glucose (UA) Negative (Negative) 12/11/22 21:46 Urine Ketones 2+ (Negative) H 12/11/22 21:46 Urine Blood Negative (Negative) 12/11/22 21:46 Urine Nitrite Negative (Negative) 12/11/22 21:46 Urine Bilirubin Negative (Negative) 12/11/22 21:46 Urine Urobilinogen 2.0 mg/dL (<2.0) 12/11/22 21:46 Ur Leukocyte Esterase Small (Negative) H 12/11/22 21:46 Urine RBC 2 /hpf (0-5) 12/11/22 21:46 Urine WBC 4 /hpf (0-5) 12/11/22 21:46 Ur Squamous Epith Cells 3 /hpf (0-4) 12/11/22 21:46 Urine Mucus Many /hpf (None) H 12/11/22 21:46 Urine Opiates Screen Detected (NotDetected) H 12/11/22 21:46 Ur Oxycodone Screen Not Detected (NotDetected) 12/11/22 21:46 Urine Methadone Screen Not Detected (NotDetected) 12/11/22 21:46 Ur Propoxyphene Screen Not Detected (NotDetected) 12/11/22 21:46 Ur Barbiturates Screen Not Detected (NotDetected) 12/11/22 21:46 U Tricyclic Antidepress Not Detected (NotDetected) 12/11/22 21:46 Ur Phencyclidine Scrn Not Detected (NotDetected) 12/11/22 21:46 Ur Amphetamines Screen Detected (NotDetected) H 12/11/22 21:46 U Methamphetamines Scrn Detected (NotDetected) H 12/11/22 21:46 U Benzodiazepines Scrn Not Detected (NotDetected) 12/11/22 21:46 Urine Cocaine Screen Not Detected (NotDetected) 12/11/22 21:46 U Marijuana (THC) Screen Not Detected (NotDetected) 12/11/22 21:46 Serum Alcohol <10 mg/dL 12/11/22 21:46 Treponema pallidum Ab Nonreactive (Nonreactive) 12/20/22 06:21 Influenza Type A (PCR) Not Detected (Not Detectd) 12/11/22 22:19 Influenza Type B (PCR) Not Detected (Not Detectd) 12/11/22 22:19 RSV (PCR) Not Detected (Not Detectd) 12/11/22 22:19 SARS-CoV-2 (PCR) Not Detected (Not Detectd) 12/11/22 22:19 Assessment Altered mental status - suspect secondary to substance use and underlying medical condition. Depression Polysubstance abuse - methamphetamines and opiates, alcohol use disorder Metastatic breast cancer with bone metastases with recent history of radiation Tobacco use disorder Plan: -Continue your medical management -At this time patient DOES NOT meet criteria for inpatient psychiatric admission. The patient continues to present as somewhat bizarre and disorganized. Psychiatry will continue to evaluate as medical assessment continues. -TSH, B12, folate, syphillis WNL; antiNMDA receptor antibody ordered -Delirium precautions recommended with patient including - avoiding use of narcotics and SKILLED NURSING PROFESSIONAL sedatives, limit anticholinergic medications when possible, frequent re-orientation, minimize use of restraints, open window shades during the day and close them at night -Increase Zyprexa to 10 mg twice daily for psychosis and continue lamictal 100 mg twice a day for mood and concerns for seizure disorder -Continue 1:1 sitter for safety -Psychiatry will continue to follow
--- NOTE | 2022-12-26 15:15 | NM ---
EXAMINATION TYPE: NM bone scan whole body DATE OF EXAM: 12/26/2022 COMPARISON: 12/31/2021 HISTORY: Breast cancer Delayed whole-body scanning was performed following the injection of 22.4 mCi Tc 99m MDP. Images acq uired 3 hours post injection. FINDINGS: Dense increased uptake noted throughout the bony calvarium, bilateral ribs bilateral shoulders sternu m, throughout the cervical, thoracic and lumbar spines, pelvis, right upper extremity left tibia and bilateral knees are compatible with significant progression in metastatic disease. There is also prog ressive disease throughout the pelvis and upper extremities. IMPRESSION: Significant progression in metastatic disease throughout the axial and appendicular skeleton.
[2022-12-26] MEDS: OLANZapine ODT 10 MG TAB PO SCH (17:00)
[2022-12-26] MEDS: HALOPERIDOL LACTATE 5 MG/ML 1 ML VIAL IM PRN (19:41)
[2022-12-26 21:10] LABS: Glucose,Whole Blood 156 mg/dL (70-110)
--- NOTE | 2022-12-26 21:47 | P.PN ---
Subjective Progress Note Date: 12/26/22 Principal diagnosis: Metastatic breast cancer When seen in follow-up today patient is only able to carry on very simple and conversations, she is distracted very easily, she follows commands but is pleasantly agitated, she is having difficulty positioning herself. Objective - Vital Signs Vital signs: Vital Signs Temp 98.1 F 12/26/22 14:00 Pulse 117 H 12/26/22 14:00 Resp 22 12/26/22 14:00 BP 107/70 12/26/22 14:00 Pulse Ox 95 12/26/22 14:00 FiO2 Intake & Output 12/25/22 12/26/22 12/26/22 18:59 06:59 18:59 Intake Total 0 Output Total 2 Balance -2 Intake: Oral 0 Output: Stool 2 Other: Voiding Method Toilet Toilet Bedside Commode # Voids 3 3 1 # Bowel Movements 1 1 - Constitutional General appearance: Present: average body habitus, cooperative, no acute distress - EENT Eyes: Present: anicteric sclerae, EOMI ENT: Present: hearing grossly normal - Respiratory Details: resp even and unlabored at rest - Peripheral edema leg Peripheral Edema: bilateral: Trace - Gastrointestinal General gastrointestinal: Present: normal bowel sounds, soft - Integumentary Integumentary: Present: normal - Musculoskeletal Musculoskeletal: Present: generalized weakness - Psychiatric Psychiatric Comment(s): Calm but requiring sitter and activities for distraction - Labs CBC & Chem 7: 12/25/22 06:37 12/25/22 06:37 Labs: Abnormal Lab Results - Last 24 Hours (Table) 12/25/22 Range/Units 11:02 CA 15-3 Antigen 1467.0 H (0.0-32.3) U/mL - Imaging and Cardiology CT scan - abdomen: report reviewed CT scan - chest: report reviewed CT scan - pelvis: report reviewed MRI - head: report reviewed Assessment and Plan (1) Breast cancer Current Visit: Yes Status: Chronic Priority: High Code(s): C50.919 - MALIGNANT NEOPLASM OF UNSP SITE OF UNSPECIFIED FEMALE BREAST SNOMED Code(s): 308525924 Plan: Altered mental status -persistent -most likely due to polysubstance abuse -Patient has been seen by Psychiatry -MRI of the brain negative for metastatic disease Metastatic breast cancer -MRI of the brain negative for metastatic disease -Ca15.3 was significantly elevated at 1467. CA 27.29 pending -CT CAP no visceral disease noted. Findings in the liver are non-specific and would suspect to be more likely r/t cirrhosis but, a component of mets is not completely excluded. LFTs are elevated but nothing significant if Hx is reviewed. Ammonia levels are normal. -NM bone scan reports significant increase in bone mets. Tried to discuss scan results with Alka but, she was distracted and did not seem interested in what I was saying. Case was discussed with Dr. Kwok who is her Medical Oncologist. Pt has not been able to follow a plan of care due to anxiety, fear, lack of social support and a general poor understanding of her condition-that is an subjective observation ba sed on numerous conversations with Alka in the past. She is having disease progression because she has not consistently been on any treatment for at least 4-6 months. Pt psychological health and substance abuse are also preventing her from managing cancer and treatment in any meaningful way. Unless pt wants to do treatment and she has a family member that is willing to come with her to her ap pts and help her with her medications and care then we would recommend palliative/hospice care. I spoke at length with Case Mgmt. Pt does have son who is making medical decisions for her. Unclear yet if son is going to be able to manage pt at home. She may require placement. We are available if any questions or concerns arise, please just contact us. Time with Patient: Greater than 30
--- NOTE | 2022-12-26 23:22 | PN ---
PROGRESS NOTE SUBJECTIVE: This is a 57-year-old white female, remains on Symbicort inhaler 2 puffs b.i.d., Haldol p.r.n. for confusion, Lamictal 100 b.i.d., Claritin 10 mg daily, Habitrol 21 mg daily, Zyprexa 5 mg daily and 10 mg daily, Protonix 40 mg a.c. b.i.d. CONDITION: Stable. PROGNOSIS: Guarded. She still has confusion where she thinks she is home. OBJECTIVE: VITAL SIGNS: Pulse is still in the low 100s, temp 97 to 98, blood pressure is low 100s, 107 to 122 over 80s to 70s, O2 is 95% on room air. CARDIOVASCULAR: S1, S2. LUNGS: Scattered wheeze x4. HEMATOLOGY: Negative for Homans. PSYCH: Fair mood and affect. ASSESSMENT: She did have a chest, abdomen, and pelvis CT. She has metastatic cancer of breast. Dr. Kwok saw her and we could get consult with him. She has diffuse heterogenicity to the liver suspicious for metastatic disease. Diffuse bony METS. Bone scan done also shows progression of the metastatic disease in the cervical thoracic lumbar spine in the calvaria, bilateral wrists and hips and shoulders, sternum. Oncology has been consulted for possible chemo on this patient outpatient. She had a brain MRI due to much confusion, shows there is no cancer in the brain which is good. Wait for Dr. Kwok's recommendations, psych recommendations for her mental health. PT OT. She is going to withdrawal methamphetamine. Continue current treatments. Prognosis is extremely guarded. MMODL / IJN: [id number] /
--- NOTE | 2022-12-26 23:37 | PN ---
PROGRESS NOTE DATE OF SERVICE: 12/25/2022 SUBJECTIVE: This 57-year-old white female with an altered mental status, methamphetamine abuse. Psychologically, she is doing better, she wears oxygen at night. She is qualified to wear home oxygen. She has metastatic bladder cancer. OBJECTIVE: CARDIOVASCULAR: S1, S2. LUNGS: Clear. GI: Soft. NEUROLOGIC: Alert and oriented x1. ASSESSMENT: 1. Metabolic encephalopathy secondary to methamphetamine withdrawal. 2. Chronic obstructive pulmonary disease. 3. Nocturnal hypoxemia. 4. Metabolic encephalopathy secondary to drug withdrawal. Continue current treatment. Prognosis guarded. Possibly rehab will be needed. MMODL / IJN: [id number] /
[2022-12-27] MEDS: HALOPERIDOL LACTATE 5 MG/ML 1 ML VIAL IM PRN ×2 (03:51→23:13)
[2022-12-27] MEDS: PANTOPRAZOLE 40 MG TABLET PO SCH ×2 (06:21→17:57)
[2022-12-27] MEDS: ALPELISIB PO SCH (08:06)
[2022-12-27] MEDS: polyethylene glycoL 3350 17 GM POWD.PACK PO SCH (08:30)
[2022-12-27] MEDS: OLANZapine ODT 5 MG TAB PO SCH (08:31)
[2022-12-27] MEDS: lamoTRIgine 100 MG TAB PO SCH ×2 (08:31→21:21)
[2022-12-27] MEDS: LORATADINE 10 MG TAB PO SCH (08:31)
[2022-12-27] MEDS: SYMBICORT 160-4.5 MCG INHALER INHALATION SCH ×2 (09:31→20:05)
--- NOTE | 2022-12-27 13:07 | P.PN ---
Progress Note - Text Progress Note Date: 12/27/22 Interval History: Patient was seen lying down in bed without any agitated behavior. She continues to display gross disorganization and appears to have a general worsening of her mental condition despite Zyprexa. She has undergone significant testing with a few send out labs remaining. She is otherwise not reporting any suicidal or homicidal ideation, intention, and/or plan. She reports no overt auditory or visual hallucinations however appears to at times responding to internal stimuli. Mental Status Exam: Grossly unchanged from yesterday General Appearance: Patient appears to be stated age is alert, directable, and attempts to cooperate.. Behavior: Patient is calmly seated without any agitated behavior. Speech: Patient's speech is fluent and nonpressured. Word finding difficulty present. Disorganized, nonlinear. Mood/Affect: Mood is "okay," affect is congruent and constricted. Suicidality/Homicidality: Patient denies having any suicidal or homicidal ideation intent or plan. Perceptions: Patient denies any visual hallucinations. Father suspects auditory hallucinations. Though content/process: Somewhat disorganized. Memory and concentration: Patient is alert and oriented to person and time only. Judgment and insight: Poor Vital Signs Temp 97.9 F 12/27/22 08:00 Pulse 114 H 12/27/22 08:00 Resp 16 12/27/22 08:00 BP 112/73 12/27/22 08:00 Pulse Ox 95 12/27/22 08:00 FiO2 Intake & Output 12/26/22 12/27/22 12/27/22 18:59 06:59 18:59 Intake Total 0 480 Output Total 2 350 Balance -2 130 Intake: Oral 0 480 Output: Urine 350 Stool 2 Other: Voiding Method Bedside Commode Toilet Incontinent # Voids 1 2 # Bowel Movements 1 Laboratory Results WBC 6.8 k/uL (3.8-10.6) 12/25/22 06:37 RBC 3.93 m/uL (3.80-5.40) 12/25/22 06:37 Hgb 12.7 gm/dL (11.4-16.0) 12/25/22 06:37 Hct 38.9 % (34.0-46.0) 12/25/22 06:37 MCV 99.1 fL (80.0-100.0) 12/25/22 06:37 MCH 32.4 pg (25.0-35.0) 12/25/22 06:37 MCHC 32.7 g/dL (31.0-37.0) 12/25/22 06:37 RDW 15.5 % (11.5-15.5) 12/25/22 06:37 Plt Count 313 k/uL (150-450) 12/25/22 06:37 MPV 7.9 12/25/22 06:37 Immature Gran % (Auto) 0.6 % 12/22/22 07:19 Absolute Nucleated RBC 0 X 10*3/uL (0.00-0.00) 12/22/22 07:19 Neutrophils % 80 % 12/25/22 06:37 Lymphocytes % 8 % 12/25/22 06:37 Monocytes % 6 % 12/25/22 06:37 Eosinophils % 3 % 12/25/22 06:37 Basophils % 1 % 12/25/22 06:37 Immature Gran # 0.04 X 10*3/uL (0.00-0.04) 12/22/22 07:19 Neutrophils # 5.4 k/uL (1.3-7.7) 12/25/22 06:37 Lymphocytes # 0.5 k/uL (1.0-4.8) L 12/25/22 06:37 Monocytes # 0.4 k/uL (0-1.0) 12/25/22 06:37 Eosinophils # 0.2 k/uL (0-0.7) 12/25/22 06:37 Basophils # 0.0 k/uL (0-0.2) 12/25/22 06:37 NRBC/100 WBC Diff 0 /100 WBCS (0.0-0.0) 12/22/22 07:19 Macrocytosis Slight 12/25/22 06:37 PT 12.5 sec (9.0-12.0) H 12/11/22 21:49 INR 1.2 (<1.2) H 12/11/22 21:49 APTT 22.0 sec (22.0-30.0) 12/11/22 21:49 D-Dimer 1.29 mg/L FEU (<0.60) H 12/11/22 21:49 VBG pH 7.37 (7.31-7.41) 12/11/22 21:46 VBG pCO2 48 mmHg (37-51) 12/11/22 21:46 VBG HCO3 27 mmol/L (24-28) 12/11/22 21:46 Sodium 141 mmol/L (137-145) 12/25/22 06:37 Potassium 4.5 mmol/L (3.5-5.1) 12/25/22 06:37 Chloride 105 mmol/L (98-107) 12/25/22 06:37 Carbon Dioxide 29 mmol/L (22-30) 12/25/22 06:37 Anion Gap 7 mmol/L 12/25/22 06:37 BUN 6 mg/dL (7-17) L 12/25/22 06:37 Creatinine 0.56 mg/dL (0.52-1.04) 12/25/22 06:37 Est GFR (CKD-EPI)AfAm >90 (>60 ml/min/1.73 sqM) 12/25/22 06:37 Est GFR (CKD-EPI)NonAf >90 (>60 ml/min/1.73 sqM) 12/25/22 06:37 BUN/Creatinine Ratio 8.83 Ratio (12.00-20.00) L 12/22/22 07:19 Glucose 124 mg/dL (74-99) H 12/25/22 06:37 POC Glucose (mg/dL) 156 mg/dL (70-110) H 12/26/22 21:08 POC Glu Department Clerk ID Phong Shukla 12/26/22 21:08 Calcium 9.7 mg/dL (8.4-10.2) 12/25/22 06:37 Magnesium 2.0 mg/dL (1.6-2.3) 12/21/22 12:13 Total Bilirubin 0.4 mg/dL (0.2-1.3) 12/25/22 06:37 AST 94 U/L (14-36) H 12/25/22 06:37 ALT 55 U/L (4-34) H 12/25/22 06:37 Alkaline Phosphatase 169 U/L (38-126) H 12/25/22 06:37 Ammonia 19 umol/L (<30) 12/21/22 12:13 Troponin I <0.012 ng/mL (0.000-0.034) 12/11/22 21:46 NT-Pro-B Natriuret Pep 258 pg/mL 12/11/22 21:46 Total Protein 7.2 g/dL (6.3-8.2) 12/25/22 06:37 Albumin 3.5 g/dL (3.5-5.0) 12/25/22 06:37 Globulin 3.7 g/dL 12/25/22 06:37 Albumin/Globulin Ratio 0.9 12/25/22 06:37 Lipase 123 U/L (23-300) 12/11/22 21:46 CA 15-3 Antigen 1467.0 U/mL (0.0-32.3) H 12/25/22 11:02 Vitamin B12 792.0 pg/mL (200.0-944.0) 12/20/22 06:21 Folate 11.80 ng/mL (4.40-31.00) 12/20/22 06:21 TSH 1.030 uIU/mL (0.350-5.500) 12/20/22 06:21 Urine Color Yellow 12/11/22 21:46 Urine Appearance Cloudy (Clear) H 12/11/22 21:46 Urine pH 6.5 (5.0-8.0) 12/11/22 21:46 Ur Specific [place] 1.028 (1.001-1.035) 12/11/22 21:46 Urine Protein 1+ (Negative) H 12/11/22 21:46 Urine Glucose (UA) Negative (Negative) 12/11/22 21:46 Urine Ketones 2+ (Negative) H 12/11/22 21:46 Urine Blood Negative (Negative) 12/11/22 21:46 Urine Nitrite Negative (Negative) 12/11/22 21:46 Urine Bilirubin Negative (Negative) 12/11/22 21:46 Urine Urobilinogen 2.0 mg/dL (<2.0) 12/11/22 21:46 Ur Leukocyte Esterase Small (Negative) H 12/11/22 21:46 Urine RBC 2 /hpf (0-5) 12/11/22 21:46 Urine WBC 4 /hpf (0-5) 12/11/22 21:46 Ur Squamous Epith Cells 3 /hpf (0-4) 12/11/22 21:46 Urine Mucus Many /hpf (None) H 12/11/22 21:46 Urine Opiates Screen Detected (NotDetected) H 12/11/22 21:46 Ur Oxycodone Screen Not Detected (NotDetected) 12/11/22 21:46 Urine Methadone Screen Not Detected (NotDetected) 12/11/22 21:46 Ur Propoxyphene Screen Not Detected (NotDetected) 12/11/22 21:46 Ur Barbiturates Screen Not Detected (NotDetected) 12/11/22 21:46 U Tricyclic Antidepress Not Detected (NotDetected) 12/11/22 21:46 Ur Phencyclidine Scrn Not Detected (NotDetected) 12/11/22 21:46 Ur Amphetamines Screen Detected (NotDetected) H 12/11/22 21:46 U Methamphetamines Scrn Detected (NotDetected) H 12/11/22 21:46 U Benzodiazepines Scrn Not Detected (NotDetected) 12/11/22 21:46 Urine Cocaine Screen Not Detected (NotDetected) 12/11/22 21:46 U Marijuana (THC) Screen Not Detected (NotDetected) 12/11/22 21:46 Serum Alcohol <10 mg/dL 12/11/22 21:46 Treponema pallidum Ab Nonreactive (Nonreactive) 12/20/22 06:21 Influenza Type A (PCR) Not Detected (Not Detectd) 12/11/22 22:19 Influenza Type B (PCR) Not Detected (Not Detectd) 12/11/22 22:19 RSV (PCR) Not Detected (Not Detectd) 12/11/22 22:19 SARS-CoV-2 (PCR) Not Detected (Not Detectd) 12/11/22 22:19 Assessment Altered mental status - suspect secondary to substance use and underlying medical condition. Depression Polysubstance abuse - methamphetamines and opiates, alcohol use disorder Metastatic breast cancer with bone metastases with recent history of radiation Tobacco use disorder Plan: -Continue your medical management -At this time patient DOES NOT meet criteria for inpatient psychiatric admission. The patient continues to present as somewhat bizarre and disorganized. Her condition appears to be worsening despite antipsychotic treatments. Suspect underlying medical issues contributing to her presentation. Psychiatry will continue to evaluate as medical assessment continues. -antiNMDA receptor antibody pending -Delirium precautions recommended with patient including - avoiding use of narcotics and COMPUTER SYSTEMS ADMINISTRATOR sedatives, limit anticholinergic medications when possible, frequent re-orientation, minimize use of restraints, open window shades during the day and close them at night -Continue Zyprexa 10 mg twice daily for psychosis and continue lamictal 100 mg twice a day for mood and concerns for seizure disorder -Continue 1:1 sitter for safety -Psychiatry will continue to follow loosely. -Agree with Hospice placement.
--- NOTE | 2022-12-27 13:36 | PN ---
PROGRESS NOTE SUBJECTIVE: This is a 57-year-old white female. Psychiatry saw her, ordered Zyprexa to give twice a day. She still is confused during the day. She is wearing oxygen at night. She qualifies for home device, on Symbicort inhaler, Habitrol for nicotine addiction. She is pleasantly confused, it varies. She has had pulses still low 100s, temp 97 to 98, O2 95% on room air. She has methamphetamine withdrawal, tachycardia, COPD, metastatic breast cancer. MRI of the brain is negative for cancer. Multiple CTs and bone scan show metastatic breast cancer. Continue with Dr. Kwok's treatment for that. He has been consulted. White count is normal. Hemoglobin is normal. BUN, creatinine, sodium, potassium are all normal. Continue current treatment follow up next 24 to 48 hours. Elevated liver enzymes secondary to metastatic liver cancer versus cirrhosis. Alcohol intake that she has chronically. Prognosis is guarded. Mental status, altered mental status, delirium secondary to multiple repeat multifactorial. Prognosis is guarded. MMODL / IJN: [id number] /
--- NOTE | 2022-12-27 16:25 | P.PN ---
Subjective Progress Note Date: 12/27/22 Principal diagnosis: AMS, hx metastatic breast cancer At today's visit patient is resting comfortably in bed. Patient is confused. She is disoriented to time. Nurse reports today at lunch patient was having difficulty swallowing and chewing. Speech evaluation was ordered. Objective - Vital Signs Vital signs: Vital Signs Temp 98.1 F 12/27/22 14:00 Pulse 111 H 12/27/22 14:00 Resp 16 12/27/22 14:00 BP 111/73 12/27/22 14:00 Pulse Ox 95 12/27/22 14:00 FiO2 Intake & Output 12/26/22 12/27/22 12/27/22 18:59 06:59 18:59 Intake Total 0 480 Output Total 2 350 Balance -2 130 Intake: Oral 0 480 Output: Urine 350 Stool 2 Other: Voiding Method Bedside Commode Toilet Incontinent # Voids 1 2 # Bowel Movements 1 - Constitutional General appearance: Present: average body habitus, no acute distress - EENT Eyes: Present: anicteric sclerae, EOMI ENT: Present: hearing grossly normal - Respiratory Details: Reviewing is even and unlabored - Cardiovascular Details: Skin warm and dry - Integumentary Integumentary: Present: normal - Neurologic Neurologic Comment(s): Speech is confused. Disoriented to time. Generalized weakness - Musculoskeletal Musculoskeletal: Present: generalized weakness - Labs CBC & Chem 7: 12/25/22 06:37 12/25/22 06:37 Labs: Abnormal Lab Results - Last 24 Hours (Table) 12/26/22 Range/Units 21:08 POC Glucose (mg/dL) 156 H (70-110) mg/dL Assessment and Plan (1) AMS (altered mental status) Current Visit: Yes Status: Acute Code(s): R41.82 - ALTERED MENTAL STATUS, UNSPECIFIED SNOMED Code(s): 003517144 (2) Breast cancer Current Visit: Yes Status: Chronic Priority: High Code(s): C50.919 - MALIGNANT NEOPLASM OF UNSP SITE OF UNSPECIFIED FEMALE BREAST SNOMED Code(s): 433547254 Plan: Altered mental status -persistent -most likely due to polysubstance abuse -Patient has been seen by Psychiatry -MRI of the brain negative for metastatic disease Metastatic breast cancer -MRI of the brain negative for metastatic disease -Ca15.3 was significantly elevated at 1467. CA 27.29 pending -CT CAP no visceral disease noted. Findings in the liver are non-specific and would suspect to be more likely r/t cirrhosis but, a component of mets is not completely excluded. LFTs are elevated but nothing significant if Hx is reviewed. Ammonia levels are normal. -NM bone scan reports significant increase in bone mets. Tried to discuss scan results with Alka but she was distracted and did not seem to completely comprehend the conversation. Case was discussed with Dr. Kwok who is her Medical Oncologist. Pt has not been able to follow a plan of care due to anxiety, fear, lack of social support and a general poor understanding of her condition-that is an subjective observation based on numerous conversations with Alka in the past. She is having disease progression because she has not consistently been on any treatment for at least 4-6 months. Pt psychological health and substance abuse are also preventing her from managing cancer and treatment in any meaningful way. Unless pt wants to do treatment and she has a family member that is willing to come with her to her appts and help her with her medications and care then we would recommend palliative/hospice care. Discussed with Case Mgmt in length. Pt does have son who is making medical decisions for her. Unclear yet if son is going to be able to manage pt at home. She may require placement. Spoke with primary RN today, she states that SW is working with the patient's PCP and son to figure out what is most appropriate for patient at this time and if son is able to Help Manage Patient's Care at Home. We are available if any questions or concerns arise, please just contact us.
[2022-12-27] MEDS: OLANZapine ODT 10 MG TAB PO SCH (17:57)
[2022-12-28] MEDS: ALPELISIB PO SCH (07:59)
[2022-12-28] MEDS: SYMBICORT 160-4.5 MCG INHALER INHALATION SCH ×2 (08:28→19:48)
[2022-12-28] MEDS: OLANZapine ODT 5 MG TAB PO SCH (09:28)
[2022-12-28] MEDS: polyethylene glycoL 3350 17 GM POWD.PACK PO SCH (09:28)
[2022-12-28] MEDS: LORATADINE 10 MG TAB PO SCH (09:28)
[2022-12-28] MEDS: PANTOPRAZOLE 40 MG TABLET PO SCH ×2 (09:28→17:36)
[2022-12-28] MEDS: lamoTRIgine 100 MG TAB PO SCH ×2 (09:28→20:55)
[2022-12-28] MEDS: NICOTINE 21MG/24HR PATCH TRANSDERM SCH (09:28)
[2022-12-28 13:22] LABS: Basophils # (A) 0.04 X 10*3/uL (0.00-0.10); Basophils % (A) 0.6 %; Eosinophils # (A) 0.01 X 10*3/uL (0.04-0.35); Eosinophils % (A) 0.2 %; HCT 38.1 % (37.2-46.3); HGB 11.8 g/dL (12.0-15.0); Immature Grans, Automated 0.5 %; Lymphocytes % (A) 7.5 %; MCH 30.4 pg (27.0-32.0); MCV 98.2 fL (80.0-97.0); Monocytes # (A) 1.07 X 10*3/uL (0.20-1.00); Monocytes % (A) 16.1 %; NRBC Per 100 WBC 0 /100 WBCS (0.0-0.0); Neutrophils # (A) 4.98 X 10*3/uL (1.80-7.70); Neutrophils % (A) 75.1 %; Platelet Count 298 X 10*3/uL (140-440); RBC 3.88 X 10*6/uL (4.10-5.20); WBC 6.63 X 10*3/uL (4.50-10.00)
[2022-12-28 15:24] LABS: African American GFR (CKD) 113.7 (60.0-200.0); Albumin 3.6 g/dL (3.8-4.9); Albumin/Globulin Ratio 1.01 (1.60-3.17); Anion Gap 14.6 mmol/L (10.00-18.00); BUN/Creat Ratio 12.14 Ratio (12.00-20.00); Blood Urea Nitrogen 8.2 mg/dL (9.0-27.0); Calcium 9.4 mg/dL (8.7-10.3); Carbon Dioxide 23.9 mmol/L (20.0-27.5); Globulin 3.6 g/dL (1.6-3.3); Non-African American GFR(CKD) 98.1 (60.0-200.0); Potassium 4.2 mmol/L (3.5-5.5); Total Bilirubin 0.4 mg/dL (0.30-1.20); Total Protein 7.2 g/dL (6.2-8.2)
[2022-12-28] MEDS: HALOPERIDOL LACTATE 5 MG/ML 1 ML VIAL IM PRN (15:26)
[2022-12-28] MEDS: OLANZapine ODT 10 MG TAB PO SCH (17:36)
--- NOTE | 2022-12-28 23:53 | PN ---
PROGRESS NOTE SUBJECTIVE: This is a 57-year-old white female, still confused. One of her friends is here, wants to take her home. He will care for her. The sons have guardianship now. He is going to talk to the sons. She remains confused. She thinks she is at home. Psych has her on Zyprexa 10 mg at night, 5 in the morning, Protonix for GERD. She had metastatic breast cancer. MRI of the brain is negative. She is on nicotine patch, Lamictal 100 b.i.d., Claritin 10 mg daily, Haldol p.r.n., home oxygen. She wears oxygen at night. OBJECTIVE: CARDIOVASCULAR: S1, S2. LUNGS: Clear. GI: Soft. HEMATOLOGY: Negative for Homans. NEUROLOGIC: She is alert and oriented x1. She mumbles, confusing things. She has some tremors. VITAL SIGNS: Her temp 97, pulse is 109 to 111, blood pressure 103 to 113 over 60s to 70s, respiratory rate 16 to 18. ASSESSMENT: Drug polysubstance abuse with chronic tremors going through CIWA protocol for alcohol withdrawal as well as methamphetamine withdrawal. She has metastatic breast cancer throughout the bones. MRI of the brain is negative. Continue current medications. Wait for psych, neuro oncology. Prognosis guarded. MMODL / IJN: [id number] /
[2022-12-29] MEDS: PANTOPRAZOLE 40 MG TABLET PO SCH ×2 (06:59→17:28)
[2022-12-29] MEDS: SYMBICORT 160-4.5 MCG INHALER INHALATION SCH ×2 (07:56→19:55)
[2022-12-29] MEDS: ALPELISIB PO SCH (10:34)
[2022-12-29] MEDS: lamoTRIgine 100 MG TAB PO SCH ×2 (10:41→21:06)
[2022-12-29] MEDS: LORATADINE 10 MG TAB PO SCH (10:41)
[2022-12-29] MEDS: OLANZapine ODT 5 MG TAB PO SCH (10:41)
[2022-12-29] MEDS: polyethylene glycoL 3350 17 GM POWD.PACK PO SCH (10:42)
[2022-12-29] MEDS: NICOTINE 21MG/24HR PATCH TRANSDERM SCH (10:42)
[2022-12-29] MEDS: OLANZapine ODT 10 MG TAB PO SCH (17:28)
[2022-12-30] MEDS: PANTOPRAZOLE 40 MG TABLET PO SCH ×2 (06:13→17:11)
[2022-12-30] MEDS: NICOTINE 21MG/24HR PATCH TRANSDERM SCH (07:40)
[2022-12-30] MEDS: lamoTRIgine 100 MG TAB PO SCH ×2 (07:40→20:47)
[2022-12-30] MEDS: OLANZapine ODT 5 MG TAB PO SCH (07:40)
[2022-12-30] MEDS: LORATADINE 10 MG TAB PO SCH (07:40)
[2022-12-30] MEDS: polyethylene glycoL 3350 17 GM POWD.PACK PO SCH (07:41)
[2022-12-30] MEDS: SYMBICORT 160-4.5 MCG INHALER INHALATION SCH ×2 (08:31→19:59)
[2022-12-30] MEDS: ALPELISIB PO SCH (09:20)
--- NOTE | 2022-12-30 13:26 | P.PN ---
Progress Note - Text Progress Note Date: 12/30/22 Interval History: Patient was seen lying down in bed without any agitated behavior. She remains mostly nonsensical and speech. She is not alert and oriented to place or time. She is on alert and oriented to self. She is unable to appropriately answer questions by this provider. She has been adherent with her medication. As per discussion with nursing staff, she has intermittent episodes of agitation however is calm at this moment. Mental Status Exam: General Appearance: Patient appears to be older than stated age, is not directable, but attempts to cooperate. Behavior: Patient is seated upright in her bed with elevated psychomotor activity. Speech: Patient's speech is nonsensical and hyperverbal. Difficult to follow. Mood/Affect: Mood is "okay," affect is confused Suicidality/Homicidality: Unable to properly assess. Perceptions: Unable to properly assess. Though content/process: Disorganized Memory and concentration: Patient is alert and oriented to person only. Judgment and insight: Poor Vital Signs Temp 98.3 F 12/30/22 07:42 Pulse 113 H 12/30/22 07:42 Resp 24 12/30/22 07:42 BP 114/75 12/30/22 07:42 Pulse Ox 95 12/30/22 08:35 FiO2 Intake & Output 12/29/22 12/30/22 12/30/22 18:59 06:59 18:59 Intake Total 280 Balance 280 Intake: Oral 280 Other: Voiding Method Incontinent Incontinent # Voids 1 0 Laboratory Results WBC 6.63 X 10*3/uL (4.50-10.00) 12/28/22 06:30 RBC 3.88 X 10*6/uL (4.10-5.20) L 12/28/22 06:30 Hgb 11.8 g/dL (12.0-15.0) L 12/28/22 06:30 Hct 38.1 % (37.2-46.3) 12/28/22 06:30 MCV 98.2 fL (80.0-97.0) H 12/28/22 06:30 MCH 30.4 pg (27.0-32.0) 12/28/22 06:30 MCHC 31.0 g/dL (32.0-37.0) L 12/28/22 06:30 RDW 16.0 % (11.5-14.5) H 12/28/22 06:30 Plt Count 298 X 10*3/uL (140-440) 12/28/22 06:30 MPV 11.0 fL (9.5-12.2) 12/28/22 06:30 Immature Gran % (Auto) 0.5 % 12/28/22 06:30 Absolute Nucleated RBC 0 X 10*3/uL (0.00-0.00) 12/28/22 06:30 Neutrophils % 75.1 % 12/28/22 06:30 Lymphocytes % 7.5 % 12/28/22 06:30 Monocytes % 16.1 % 12/28/22 06:30 Eosinophils % 0.2 % 12/28/22 06:30 Basophils % 0.6 % 12/28/22 06:30 Immature Gran # 0.03 X 10*3/uL (0.00-0.04) 12/28/22 06:30 Neutrophils # 4.98 X 10*3/uL (1.80-7.70) 12/28/22 06:30 Lymphocytes # 0.50 X 10*3/uL (0.90-5.00) L 12/28/22 06:30 Monocytes # 1.07 X 10*3/uL (0.20-1.00) H 12/28/22 06:30 Eosinophils # 0.01 X 10*3/uL (0.04-0.35) L 12/28/22 06:30 Basophils # 0.04 X 10*3/uL (0.00-0.10) 12/28/22 06:30 NRBC/100 WBC Diff 0 /100 WBCS (0.0-0.0) 12/28/22 06:30 Macrocytosis Slight 12/25/22 06:37 PT 12.5 sec (9.0-12.0) H 12/11/22 21:49 INR 1.2 (<1.2) H 12/11/22 21:49 APTT 22.0 sec (22.0-30.0) 12/11/22 21:49 D-Dimer 1.29 mg/L FEU (<0.60) H 12/11/22 21:49 VBG pH 7.37 (7.31-7.41) 12/11/22 21:46 VBG pCO2 48 mmHg (37-51) 12/11/22 21:46 VBG HCO3 27 mmol/L (24-28) 12/11/22 21:46 Sodium 139 mmol/L (135-145) 12/28/22 06:30 Potassium 4.2 mmol/L (3.5-5.5) 12/28/22 06:30 Chloride 101 mmol/L (96-109) 12/28/22 06:30 Carbon Dioxide 23.9 mmol/L (20.0-27.5) 12/28/22 06:30 Anion Gap 14.60 mmol/L (10.00-18.00) 12/28/22 06:30 BUN 8.2 mg/dL (9.0-27.0) L 12/28/22 06:30 Creatinine 0.7 mg/dL (0.6-1.5) 12/28/22 06:30 Est GFR (CKD-EPI)AfAm 113.7 (60.0-200.0) 12/28/22 06:30 Est GFR (CKD-EPI)NonAf 98.1 (60.0-200.0) 12/28/22 06:30 BUN/Creatinine Ratio 12.14 Ratio (12.00-20.00) 12/28/22 06:30 Glucose 101 mg/dL (70-110) 12/28/22 06:30 POC Glucose (mg/dL) 156 mg/dL (70-110) H 12/26/22 21:08 POC Glu Senior Process Engineer ID Phong Shukla 12/26/22 21:08 Calcium 9.4 mg/dL (8.7-10.3) 12/28/22 06:30 Magnesium 2.0 mg/dL (1.6-2.3) 12/21/22 12:13 Total Bilirubin 0.40 mg/dL (0.30-1.20) 12/28/22 06:30 AST 137 U/L (13-35) H 12/28/22 06:30 ALT 72 U/L (8-44) H 12/28/22 06:30 Alkaline Phosphatase 184 U/L (41-126) H 12/28/22 06:30 Ammonia 19 umol/L (<30) 12/21/22 12:13 Troponin I <0.012 ng/mL (0.000-0.034) 12/11/22 21:46 NT-Pro-B Natriuret Pep 258 pg/mL 12/11/22 21:46 Total Protein 7.2 g/dL (6.2-8.2) 12/28/22 06:30 Albumin 3.6 g/dL (3.8-4.9) L 12/28/22 06:30 Globulin 3.6 g/dL (1.6-3.3) H 12/28/22 06:30 Albumin/Globulin Ratio 1.01 g/dL (1.60-3.17) L 12/28/22 06:30 Lipase 123 U/L (23-300) 12/11/22 21:46 CA 15-3 Antigen 1467.0 U/mL (0.0-32.3) H 12/25/22 11:02 Vitamin B12 792.0 pg/mL (200.0-944.0) 12/20/22 06:21 Folate 11.80 ng/mL (4.40-31.00) 12/20/22 06:21 TSH 1.030 uIU/mL (0.350-5.500) 12/20/22 06:21 Urine Color Yellow 12/11/22 21:46 Urine Appearance Cloudy (Clear) H 12/11/22 21:46 Urine pH 6.5 (5.0-8.0) 12/11/22 21:46 Ur Specific Kinder 1.028 (1.001-1.035) 12/11/22 21:46 Urine Protein 1+ (Negative) H 12/11/22 21:46 Urine Glucose (UA) Negative (Negative) 12/11/22 21:46 Urine Ketones 2+ (Negative) H 12/11/22 21:46 Urine Blood Negative (Negative) 12/11/22 21:46 Urine Nitrite Negative (Negative) 12/11/22 21:46 Urine Bilirubin Negative (Negative) 12/11/22 21:46 Urine Urobilinogen 2.0 mg/dL (<2.0) 12/11/22 21:46 Ur Leukocyte Esterase Small (Negative) H 12/11/22 21:46 Urine RBC 2 /hpf (0-5) 12/11/22 21:46 Urine WBC 4 /hpf (0-5) 12/11/22 21:46 Ur Squamous Epith Cells 3 /hpf (0-4) 12/11/22 21:46 Urine Mucus Many /hpf (None) H 12/11/22 21:46 Urine Opiates Screen Detected (NotDetected) H 12/11/22 21:46 Ur Oxycodone Screen Not Detected (NotDetected) 12/11/22 21:46 Urine Methadone Screen Not Detected (NotDetected) 12/11/22 21:46 Ur Propoxyphene Screen Not Detected (NotDetected) 12/11/22 21:46 Ur Barbiturates Screen Not Detected (NotDetected) 12/11/22 21:46 U Tricyclic Antidepress Not Detected (NotDetected) 12/11/22 21:46 Ur Phencyclidine Scrn Not Detected (NotDetected) 12/11/22 21:46 Ur Amphetamines Screen Detected (NotDetected) H 12/11/22 21:46 U Methamphetamines Scrn Detected (NotDetected) H 12/11/22 21:46 U Benzodiazepines Scrn Not Detected (NotDetected) 12/11/22 21:46 Urine Cocaine Screen Not Detected (NotDetected) 12/11/22 21:46 U Marijuana (THC) Screen Not Detected (NotDetected) 12/11/22 21:46 Serum Alcohol <10 mg/dL 12/11/22 21:46 Treponema pallidum Ab Nonreactive (Nonreactive) 12/20/22 06:21 Influenza Type A (PCR) Not Detected (Not Detectd) 12/11/22 22:19 Influenza Type B (PCR) Not Detected (Not Detectd) 12/11/22 22:19 RSV (PCR) Not Detected (Not Detectd) 12/11/22 22:19 SARS-CoV-2 (PCR) Not Detected (Not Detectd) 12/11/22 22:19 Assessment Altered mental status - suspect secondary to substance use and underlying medical condition (metastatic cancer). Suspicion for paraneoplastic encephalitis Depression Polysubstance abuse - methamphetamines and opiates, alcohol use disorder Metastatic breast cancer with bone metastases with recent history of radiation Tobacco use disorder Plan: -Continue your medical management -At this time patient DOES NOT meet criteria for inpatient psychiatric admission. The patient continues to present as somewhat bizarre and disorganized. Her condition appears to be worsening despite antipsychotic treatments. Suspect underlying medical issues contributing to her presentation. -antiNMDA receptor antibody negative. -Delirium precautions recommended with patient including - avoiding use of narcotics and INCREMENT MANAGER sedatives, limit anticholinergic medications when possible, frequent re-orientation, minimize use of restraints, open window shades during the day and close them at night -Continue Zyprexa 5 mg in the morning and 10 mg in the afternoon for psychosis and continue lamictal 100 mg twice a day for mood and concerns for seizure disorder -Continue 1:1 sitter for safety -Agree with Hospice placement. -Psychiatry will sign off at this time. Patient's deterioration likely secondary to metastatic cancer and paraneoplastic encephalitis. -Prognosis is poor at this time. Patient's encephalopathy appears unchanged with antipsychotic medications.
[2022-12-30] MEDS: TAMSULOSIN 0.4 MG CAP.ER.24H PO SCH (17:11)
[2022-12-30] MEDS: OLANZapine ODT 10 MG TAB PO SCH (17:11)
--- NOTE | 2022-12-30 23:03 | PN ---
PROGRESS NOTE SUBJECTIVE: She continues to have agitated behavior and confusion. She is not alert to time or place, unable to answer appropriate answers. She murmurs different things to her mind. She is confused. OBJECTIVE: VITAL SIGNS: Temperature 98.3, pulse 113, respiratory rate 18-24, blood pressure 114/75, O2 of 95%. She pulled out her IV this afternoon. LABORATORY DATA: Reviewed. ASSESSMENT: Altered mental status. 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 Psychiatry will sign off. Prognosis is poor. Psych medications are not helping her. Please see further orders. MMODL / IJN: [id number] /
[2022-12-31] MEDS: PANTOPRAZOLE 40 MG TABLET PO SCH ×2 (05:49→18:13)
[2022-12-31] MEDS: OLANZapine ODT 5 MG TAB PO SCH (07:59)
[2022-12-31] MEDS: lamoTRIgine 100 MG TAB PO SCH ×2 (07:59→20:51)
[2022-12-31] MEDS: NICOTINE 21MG/24HR PATCH TRANSDERM SCH (07:59)
[2022-12-31] MEDS: LORATADINE 10 MG TAB PO SCH (07:59)
[2022-12-31] MEDS: polyethylene glycoL 3350 17 GM POWD.PACK PO SCH (08:00)
[2022-12-31] MEDS: ALPELISIB PO SCH (08:04)
[2022-12-31] MEDS: SYMBICORT 160-4.5 MCG INHALER INHALATION SCH ×2 (10:06→21:04)
[2022-12-31] MEDS: OLANZapine ODT 10 MG TAB PO SCH (18:13)
[2022-12-31] MEDS: TAMSULOSIN 0.4 MG CAP.ER.24H PO SCH (18:13)
[2022-12-31] MEDS: ACETAMINOPHEN TAB 500 MG TAB PO PRN (21:31)
[2023-01-01] MEDS: NICOTINE 21MG/24HR PATCH TRANSDERM SCH (09:24)
[2023-01-01] MEDS: PANTOPRAZOLE 40 MG TABLET PO SCH ×2 (09:24→18:19)
[2023-01-01] MEDS: polyethylene glycoL 3350 17 GM POWD.PACK PO SCH (09:24)
[2023-01-01] MEDS: LORATADINE 10 MG TAB PO SCH (09:25)
[2023-01-01] MEDS: OLANZapine ODT 5 MG TAB PO SCH (09:25)
[2023-01-01] MEDS: lamoTRIgine 100 MG TAB PO SCH ×2 (09:25→21:03)
[2023-01-01] MEDS: ALPELISIB PO SCH (09:35)
[2023-01-01] MEDS: SYMBICORT 160-4.5 MCG INHALER INHALATION SCH ×2 (09:35→21:46)
[2023-01-01] MEDS: OLANZapine ODT 10 MG TAB PO SCH (18:19)
[2023-01-01] MEDS: TAMSULOSIN 0.4 MG CAP.ER.24H PO SCH (18:19)
[2023-01-02] MEDS: SYMBICORT 160-4.5 MCG INHALER INHALATION SCH ×2 (08:38→20:39)
[2023-01-02] MEDS: lamoTRIgine 100 MG TAB PO SCH ×2 (09:33→21:10)
[2023-01-02] MEDS: polyethylene glycoL 3350 17 GM POWD.PACK PO SCH (09:33)
[2023-01-02] MEDS: PANTOPRAZOLE 40 MG TABLET PO SCH ×2 (09:33→17:28)
[2023-01-02] MEDS: NICOTINE 21MG/24HR PATCH TRANSDERM SCH (09:33)
[2023-01-02] MEDS: LORATADINE 10 MG TAB PO SCH (09:33)
[2023-01-02] MEDS: OLANZapine ODT 5 MG TAB PO SCH (09:33)
[2023-01-02] MEDS: ALPELISIB PO SCH (09:34)
--- NOTE | 2023-01-02 13:13 | P.PN ---
Subjective Progress Note Date: 01/02/23 Principal diagnosis: Metastatic breast cancer In f/u today pt is not responding in any meaningful way to questions touch, she falls back asleep very quickly. Objective - Vital Signs Vital signs: Vital Signs Temp 98.2 F 01/02/23 07:20 Pulse 109 H 01/02/23 07:20 Resp 16 01/02/23 07:20 BP 99/70 01/02/23 07:20 Pulse Ox 94 L 01/02/23 08:39 FiO2 Intake & Output 01/01/23 01/02/23 01/02/23 18:59 06:59 18:59 Intake Total 40 Output Total 400 50 Balance -400 -10 Weight 67.132 kg Intake: Oral 40 Output: Urine 400 50 Other: Voiding Method Indwelling Catheter Indwelling Catheter Indwelling Catheter - Exam Pt is frail, no acute distress noted, resp even and unlabored - Labs CBC & Chem 7: 12/28/22 06:30 12/28/22 06:30 Assessment and Plan (1) Breast cancer Current Visit: Yes Status: Chronic Priority: High Code(s): C50.919 - MALIGNANT NEOPLASM OF UNSP SITE OF UNSPECIFIED FEMALE BREAST SNOMED Code(s): 715963073 Plan: Altered mental status -persistent, progressive -most likely due to polysubstance abuse -Patient has been seen by Psychiatry -MRI of the brain negative for metastatic disease but, underlying leptomeningeal disease cannot be completely ruled out Metastatic breast cancer -MRI of the brain negative for metastatic disease -Ca15.3 was significantly elevated at 1467. CA 27.29 1537 -CT CAP no visceral disease noted. Findings in the liver are non-specific and would suspect to be more likely r/t cirrhosis but, a component of mets is not completely excluded. LFTs are elevated but nothing significant if Hx is reviewed. Ammonia levels are normal. -NM bone scan reports significant increase in bone mets. Pt is obviously not able to care for herself or make decisions. I spoke with Cat Skinner, son is medical POA now and, reports that the family is wanting to take pt home with support of hospice. Primary Oncologist Dr. Kwok has seen pt, reviewed recent work up that confirms progressive disease. He agrees that hospice is a reasonable plan of care. We are available if any questions or concerns arise, please just contact us.
[2023-01-02] MEDS: HALOPERIDOL LACTATE 5 MG/ML 1 ML VIAL IM PRN (16:02)
[2023-01-02] MEDS: TAMSULOSIN 0.4 MG CAP.ER.24H PO SCH (18:26)
[2023-01-02] MEDS: OLANZapine ODT 10 MG TAB PO SCH (18:27)
--- NOTE | 2023-01-03 00:22 | DS ---
DISCHARGE SUMMARY SUBJECTIVE: A 57-year-old white female. She is going to be discharged home today. She does have low blood pressures. I think she has been having some orthostatic hypotension. She is on no blood pressure pills Flomax. She takes a little bit at night for bladder retention. Possibly add a low dose of midodrine. Discussed the case with who took care of her when she was going through drug withdrawal a few years back, is going to take her and make sure she stays away from drugs. Song will be checked in with them. home care on discharge will be done. she was talking to him and she is more clear with mind yesterday and the day before, like I said also. OBJECTIVE: VITAL SIGNS: Blood pressure 86/58, O2 is 92, pulse is low 100s, temp 98.5. INTEGUMENT: She looks a little dry. CARDIOVASCULAR: S1, S2. SKIN: Poor skin turgor. PSYCH: As mentioned, she has given appropriate answers, but low voice and slurs sometimes, but she is improving with that. HEMATOLOGY: 2+ edema. ABDOMEN: Distended due to cirrhosis. She has a history of cirrhosis from alcoholism for many years. She has been fighting with polysubstance abuse for many years, so we got a good plan with her talking to briefcase sewer and her friend, Ronnie, who usually takes care of her during these hard times. We will get PT, OT to see her home. We will get [facility] home care and advance diet, nutritional support. I think Ronnie can get her back on her feet. As far as metastatic breast cancer goes, if she gets stronger and starts improving, then she can always follow up with Dr. Kwok to get more treatment. Prognosis continues to be guarded at this time, but she is slowly improving coming off the methamphetamine after a couple of weeks. Psych notes were all reviewed. We will keep her on that medicine from the psychiatrist and possibly discharge home tonight or in the morning for sure. Song said that they will pick her up and get her out of the hospital. MMODL / IJN: [id number] /
--- NOTE | 2023-01-03 02:17 | PN ---
PROGRESS NOTE DATE OF SERVICE: 01/01/2023 SUBJECTIVE: The patient is mentioning given appropriate answers to me. She knows the president. She knows the date. She knows who I am, she knows where she is at. Says she is at the hospital, which she said she was at home in the past couple of weeks, but she is coming off the methamphetamine. She appears to be more alert. She wants to get up and ambulate, but she is not eating real well still. We are going to get nutrition involved. I discussed the case with Song, her son, who says he wants her to go home with a friend that usually cared for her in the past, who has agreed to take her to his house and to help keep her off the drugs and get her nutrition better and take care of as Song, the son is busy working. As far as the metastatic cancer go, she will follow up with Oncology as an outpatient. I suspect her mind continue to clear up over the next week or 2 coming off the methamphetamine. OBJECTIVE: VITAL SIGNS: Temperature 98.2, pulse is low 100s, blood pressure 90s/70s, O2 92 to 94 on room air, respiratory rate 18. GENERAL: I can understand talk now. She has given better answers to her talk, you know it is low voice. CARDIOVASCULAR: S1, S2. LUNGS: Decreased breath sounds. ABDOMEN: Distended. HEMATOLOGY: 2+ edema. ASSESSMENT: Chronic obstructive pulmonary disease, metastatic breast cancer, metabolic encephalopathy, polysubstance withdrawal, substance abuse, psychiatry for bipolar, kept on Lamictal and added another psychiatric drug. MRI was negative for metastatic disease, but they thought may be she had leptomeningeal disease, but she is improving in my opinion with her coming off the drugs, so I am not quite sure that is the case with the diagnosis, but it is possible. As mentioned, she has elevated cancer enzymes due to metastatic breast cancer. Discussed with her son what to do, he wants to take care of her, as the medical power of finance attorney he said he wanted her to go home with a family friend but if they want hospice, they can feel free to make hospice decisions, whatever they want is fine. Condition is guarded. PROGNOSIS: Guarded. MMODL / IJN: [id number] /
[2023-01-03 02:30] VITALS: TEMP 98.1
--- NOTE | 2023-01-03 05:50 | PN ---
PROGRESS NOTE DATE OF SERVICE: 12/31/2022 SUBJECTIVE: This is a 57-year-old white female. She is more alert today. She is alert and oriented x3. She can state my name where she is at and what year it is. For the first time since she has been admitted, she is coming off methamphetamine withdrawal. She also has metastatic breast cancer, COPD, cirrhosis. Medications were discussed with her. She is not eating much. She does get confused at night without her oxygen on. She wears oxygen, she is qualified to wear at home at night, going to restart that, make sure that is on. Get her PT OT involved. I will discuss with the guardian, Song, her son who I have been talking to since admission to figure out what to do with her for discharge planning. I will talk to him about the hospice that has been recommended by the hospital people and see what he wants to do. OBJECTIVE: VITAL SIGNS: As mentioned, her oxygen level has been doing better on room air like 92 to 93, blood pressure has been 80s to 90s systolically, temperature 97 to 98, heart rate is in low 100s. GENERAL: She is alert, oriented x3. CARDIOVASCULAR: S1, S2. LUNGS: Clear, decreased breath sounds x4. ABDOMEN: Distended. HEMATOLOGY: Negative for Homans. PSYCH: Fair mood and affect. Her mumbling and incoherence is improving daily. She is alert and oriented to person, place, and thing at this time. She had metabolic encephalopathy, polysubstance drug withdrawal including alcohol, methamphetamine. Discussed the home care plan with the family tonight. Continue current medications. Psychiatry has seen her and started her on medications. They are using the drugs for mood disorder. She has been on Lamictal for alcohol withdrawal and long-term bipolar. She had Protonix for GERD. She is on potassium replacement protocol Flomax for urinary retention. She is on Lamictal for bipolar, Claritin for allergic rhinitis, nicotine patch for nicotine addiction, budesonide inhaler 2 puffs b.i.d. with 60/4.5 for her COPD, Zyprexa ordered by Psychiatry, she takes 10 mg at night, 5 in the morning. Plan is to discharge her home next day or 2. Wait to get the guardian's approval and discuss hospice versus discharge planning with her. MMODL / IJN: [id number] /
[2023-01-03] MEDS: MIDODRINE 5 MG TAB PO SCH ×3 (06:45→18:13)
[2023-01-03] MEDS: PANTOPRAZOLE 40 MG TABLET PO SCH ×2 (06:45→18:13)
[2023-01-03] MEDS: ALPELISIB PO SCH (07:23)
[2023-01-03 07:42] VITALS: BP 107/70; PULSE 109; RESP 24
[2023-01-03] MEDS: SYMBICORT 160-4.5 MCG INHALER INHALATION SCH (09:33)
[2023-01-03] MEDS: OLANZapine ODT 5 MG TAB PO SCH (09:45)
[2023-01-03] MEDS: polyethylene glycoL 3350 17 GM POWD.PACK PO SCH (09:45)
[2023-01-03] MEDS: LORATADINE 10 MG TAB PO SCH (09:45)
[2023-01-03] MEDS: lamoTRIgine 100 MG TAB PO SCH (09:45)
[2023-01-03] MEDS: NICOTINE 21MG/24HR PATCH TRANSDERM SCH (09:45)
--- NOTE | 2023-01-03 13:17 | P.DS ---
Providers Date of admission: 12/12/22 05:48 Expected date of discharge: 01/03/23 Attending physician: Matt Davila Consults: 12/12/22 06:04 Consult Physician Routine Consulting Provider: Lefty Cruz Consult Reason/Comments: AMS Do you want consulting provider notified?: Yes, Notify in am 12/20/22 07:09 Consult Physician Routine Consulting Provider: Ronnie Fung Consult Reason/Comments: AMS/ Agitation. Do you want consulting provider notified?: Yes, Notify in am 12/24/22 23:56 Consult Physician Routine Consulting Provider: Armen Kwok Consult Reason/Comments: METASTATIC BREAST CANCER Do you want consulting provider notified?: Yes Primary care physician: Armen Kwok Hospital Course: Final diagnosis Chronic obstructive pulmonary disease Metastatic breast cancer Metabolic encephalopathy, possibly secondary to polysubstance withdrawal and abuse History of polysubstance abuse with withdrawal of methamphetamines History of bipolar No code Discharge disposition Patient is being discharged in a stable condition with guarded prognosis to home with home care. Patient will follow-up with Dr. Matt Davila in the outpatient setting upon discharge. Total time taken is greater than 35 minutes. Hospital course This is a 57-year-old female who was recently admitted with altered mental status with metabolic encephalopathy, possibly secondary to methamphetamine withdrawal as well as significant history for metastatic breast cancer with COPD and cirrhosis. Patient does follow with Dr. Matt Davila in the outpatient setting and has been working with family and her son Song who is her guardian and would like to take her home to a friend's house who is having arrangements made with appointment in a hospital bed. Social work following and making arrange ments for this and patient will likely discharge today. Currently no reports of chest pain, shortness of breath, or palpitations. Patient is afebrile. No reports of nausea or vomiting and patient is tolerating diet. Patient needs encouragement with oral intake and would highly recommend monitoring and supervising meals with aspiration precautions with head of the bed elevated 45 at all times. Overall prognosis remains guarded and consultations have discussed possible hospice. Information was provided to the family and will be arranged with home care on discharge. Please refer to other consultation notes along with Dr. Davila's notes for further HPI. Patient will be discharged home today. Guarded prognosis Physical exam: Gen: This is a 57-year-old female who is awake, alert and oriented 2, elderly- appearing HEENT: Head is atraumatic, normocephalic. Pupils equal, round. Sclerae is anicteric. NECK: Supple. No JVD. No lymphadenopathy. No thyromegaly. LUNGS: Diminished breath sounds bilaterally with some scattered rhonchi noted. No intercostal retractions. HEART: S1, S2 are muffled ABDOMEN: Soft. Bowel sounds are present. No masses. No tenderness. EXTREMITIES: No pedal edema. No calf tenderness. NEUROLOGICAL: Patient is awake, alert and oriented x2. Continues with confusion at times . Diffusely weak Please refer to medication reconciliation sheet for a list of medications. The impression and plan of care has been dictated by Valentina August, Nurse Practitioner as directed. Dr. Hina MD I have performed a history and examination and MDM of this patient, discussed the same with the dictator, and agree with the dictator's assessment and plan as written ,documented as a scribe. Based on total visit time, I have performed more than 50% of the visit. Patient Condition at Discharge: Poor Plan - Discharge Summary Discharge Rx Participant: No New Discharge Prescriptions: New buPROPion SR [Wellbutrin SR] 150 mg PO BID 30 Days #60 tab lamoTRIgine [LaMICtal] 100 mg PO BID 90 Days #180 tab OLANZapine ODT [ZyPREXA Zydis] 5 mg PO DAILY 90 Days #90 tab Nicotine 21Mg/24Hr Patch [Habitrol] 1 patch TRANSDERM DAILY 30 Days #30 patch Pantoprazole [Protonix] 40 mg PO AC-BID 90 Days #180 tab Tamsulosin [Flomax] 0.4 mg PO PC-SUPPER 90 Days #90 cap OLANZapine ODT [ZyPREXA Zydis] 10 mg PO DAILY@1800 90 Days #90 tab Midodrine [ProAmatine] 5 mg PO AC-TID 30 Days #90 tab Continue Piqray 200mg 200 mg PO DAILY Cetirizine HCl 10 mg PO DAILY Cholecalciferol [Vitamin D3 (25 Mcg = 1000 Iu)] 25 mcg PO DAILY Budesonide/Formoterol Fumarate [Symbicort 160-4.5 Mcg Inhaler] 2 puff INHALATION RT-BID Sennosides [Senokot] 8.6 mg PO HS Escitalopram [Lexapro] 10 mg PO DAILY INSULIN LISPRO (HumaLOG) [humaLOG] 1 - 7 units SQ ACHS polyethylene glycoL 3350 [Miralax] 17 gm PO DAILY Discontinued Cyclobenzaprine [Flexeril] 5 mg PO TID No Action oxyCODONE HCL/ACETAMINOPHEN [oxyCODONE HCL/ACETAMINOPHEN 5-325] 1 tab PO Q4H PRN PRN Reason: Breakthrough Pain Morphine Sulfate [Morphine Sulfate ER] 30 mg PO BID Discharge Medication List Cholecalciferol [Vitamin D3 (25 Mcg = 1000 Iu)] 25 mcg PO DAILY 04/20/21 [History] Budesonide/Formoterol Fumarate [Symbicort 160-4.5 Mcg Inhaler] 2 puff INHALATION RT-BID 12/12/22 [History] Cetirizine HCl 10 mg PO DAILY 12/12/22 [History] Escitalopram [Lexapro] 10 mg PO DAILY 12/12/22 [History] INSULIN LISPRO (HumaLOG) [humaLOG] 1 - 7 units SQ ACHS 12/12/22 [History] Morphine Sulfate [Morphine Sulfate ER] 30 mg PO BID 12/12/22 [History] Piqray 200mg 200 mg PO DAILY 12/12/22 [History] Sennosides [Senokot] 8.6 mg PO HS 12/12/22 [History] oxyCODONE HCL/ACETAMINOPHEN [oxyCODONE HCL/ACETAMINOPHEN 5-325] 1 tab PO Q4H PRN 12/12/22 [History] polyethylene glycoL 3350 [Miralax] 17 gm PO DAILY 12/12/22 [History] Nicotine 21Mg/24Hr Patch [Habitrol] 1 patch TRANSDERM DAILY 30 Days #30 patch 12/16/22 [Rx] Pantoprazole [Protonix] 40 mg PO AC-BID 90 Days #180 tab 12/16/22 [Rx] buPROPion SR [Wellbutrin SR] 150 mg PO BID 30 Days #60 tab 12/16/22 [Rx] lamoTRIgine [LaMICtal] 100 mg PO BID 90 Days #180 tab 12/16/22 [Rx] Midodrine [ProAmatine] 5 mg PO AC-TID 30 Days #90 tab 01/02/23 [Rx] OLANZapine ODT [ZyPREXA Zydis] 5 mg PO DAILY 90 Days #90 tab 04/13/23 [Rx] OLANZapine ODT [ZyPREXA Zydis] 10 mg PO DAILY@1800 90 Days #90 tab 01/02/23 [Rx] Tamsulosin [Flomax] 0.4 mg PO PC-SUPPER 90 Days #90 cap 01/02/23 [Rx] Follow up Appointment(s)/Referral(s): Armen Kwok MD [Primary Care Provider] - 1-2 days [facility], [NON-STAFF] - 1-2 Days Patient Instructions/Handouts: Polysubstance Abuse (ED), Altered Mental Status (ED) Activity/Diet/Wound Care/Special Instructions: Patient has stage 4 breast cancer with metastasis to the bone which requires positioning of the bed in ways not feasable with an ordinary bed. the head of the bed must be elevated at more then 30 degrees most of the time to alleviate pain and or pressure. Patient requires a bedside commode because she is room confined due to stage 4 breast cancer with metastasis causing generalized weakness. Discharge/Stand Alone Forms: AA Meetings [facility], Outpatient Counseling, Inp Substance Abuse Facilities
[2023-01-03] MEDS: TAMSULOSIN 0.4 MG CAP.ER.24H PO SCH (18:13)
[2023-01-03] MEDS: OLANZapine ODT 10 MG TAB PO SCH (18:13)
== END 2023-01-03 18:57 | disposition home health service (06) | DRG 812 ==
LOC: EC 21:17 → 4SSUR 12-12 05:48 → EEVIPCON 12-12 05:48 → 4SSUR 12-12 15:32
PROVIDERS: ADMIT Family Medicine; ATTEND Family Medicine
PROC: HZ2ZZZZ Detoxification Services for Substance Abuse Treatment (ICD-10-PCS; principal; 2022-12-14)
DX: T43.651A Poisoning by methamphetamines accidental (unintentional), initial encounter (principal); G92.8 Other toxic encephalopathy; G13.0 Paraneoplastic neuromyopathy and neuropathy; K76.82 Hepatic encephalopathy; C79.51 Secondary malignant neoplasm of bone; C79.11 Secondary malignant neoplasm of bladder; G91.9 Hydrocephalus, unspecified; G62.0 Drug-induced polyneuropathy; F31.9 Bipolar disorder, unspecified; J84.10 Pulmonary fibrosis, unspecified; K70.30 Alcoholic cirrhosis of liver without ascites; F10.229 Alcohol dependence with intoxication, unspecified; J44.9 Chronic obstructive pulmonary disease, unspecified; F10.239 Alcohol dependence with withdrawal, unspecified; E11.9 Type 2 diabetes mellitus without complications; F15.13 Other stimulant abuse with withdrawal; G31.9 Degenerative disease of nervous system, unspecified; T45.1X5A Adverse effect of antineoplastic and immunosuppressive drugs, initial encounter; I95.1 Orthostatic hypotension; Z66 Do not resuscitate; F17.210 Nicotine dependence, cigarettes, uncomplicated; Y90.0 Blood alcohol level of less than 20 mg/100 ml; T50.916A Underdosing of multiple unspecified drugs, medicaments and biological substances, initial encounter; R09.02 Hypoxemia; K21.9 Gastro-esophageal reflux disease without esophagitis; F41.9 Anxiety disorder, unspecified; R33.9 Retention of urine, unspecified; R79.89 Other specified abnormal findings of blood chemistry; R00.0 Tachycardia, unspecified; W19.XXXS Unspecified fall, sequela; Z20.822 Contact with and (suspected) exposure to COVID-19; Z91.419 Personal history of unspecified adult abuse; Z92.3 Personal history of irradiation; Z28.310 Unvaccinated for COVID-19; Z90.12 Acquired absence of left breast and nipple; Z85.3 Personal history of malignant neoplasm of breast; Z92.21 Personal history of antineoplastic chemotherapy; Z86.711 Personal history of pulmonary embolism; Z88.8 Allergy status to other drugs, medicaments and biological substances; Z79.899 Other long term (current) drug therapy; Z79.51 Long term (current) use of inhaled steroids; Z80.0 Family history of malignant neoplasm of digestive organs; S22.43XS Multiple fractures of ribs, bilateral, sequela; Z91.81 History of falling; Z79.4 Long term (current) use of insulin; Z79.891 Long term (current) use of opiate analgesic; Z91.148 Patient's other noncompliance with medication regimen for other reason
CPT/HCPCS: 36415; 70450; 70553; 71045; 71260; 71275; 74177; 78306; 80053; 80306; 80320; 81001; 82140; 82607; 82746; 82803; 83690; 83735; 83880; 84132; 84443; 84484; 85025; 85379; 85610; 85730; 86255; 86300; 86780; 87636; 93005; 94640; 94760; 96374; 96375; 96376; 99291